=== PATIENT | female | born 1935 | race Caucasian/White ===

== ENCOUNTER → 2017-10-26 14:09 | Outpatient (CLI) | payer MEDICARE, OTHER, SELFPAY ==
[2017-10-26 15:40] LABS: Absolute Neutrophil Count 3.5 X10^3/uL (2.0-7.7); Basophil# 0.02 X10^3/uL; Basophil% 0.3 % (0-1); Eosinophil# 0.15 X10^3/uL; Eosinophils% 2.6 % (0-5); Hematocrit 36.6 % (37-47); Hemoglobin 12.3 g/dl (12.0-15.0); Lymphocyte % 25.9 % (19-41); Mean Corp Hgb Conc 33.6 g/gl (32-36); Mean Corpuscular Hgb 30.6 pg (27.0-32.0); Mean Platelet Vol. 11.3 fl (6.2-12.0); Monocyte% 10.4 % (0-10); Neutrophil # 3.51 X10^3/uL (2.7-7.7); Neutrophil % 60.6 % (47-70); Platelet Count 176 K/mm3 (150-450); RBC Distribution Width CV 12.4 % (11.6-14.6); RBC Distribution Width SD 40.6 fl (35.1-43.9); Red Blood Count 4.02 M/mm3 (4.2-5.4); White Blood Count 5.8 K/mm3 (4.4-11.0)
[2017-10-26 15:42] LABS: POSITIVE COUNT NO; POSITIVE DIFFERENTIAL NO; POSITIVE MORPHOLOGY NO
[2017-10-26 15:57] LABS: ALB/GLOB Ratio 1.1 RATIO (0.9-2.4); AST(SGOT) 21 U/L (15-37); Alanine Aminotransfer ALT/SGPT 10 U/L (13-56); Albumin, Serum 3.5 g/dL (3.2-5.0); Alkaline Phosphatase 53 U/L (45-117); Anion Gap 9 (5-15); BUN 32 mg/dL (7-18); BUN/Creat Ratio 27.8 RATIO (10-20); Calcium,Total 8.7 mg/dL (8.5-10.1); Chloride 108 mmol/L (98-107); Creatinine, Serum 1.15 mg/dL (0.55-1.02); EST Glomerular Filtration Rate 48 mL/min (>60); Est Glom Filt Rate - Afr Amer 58 mL/min (>60); Globulin 3.2 g/dL (2.2-4.2); Glucose 106 mg/dL (74-106); Potassium 3.9 mmol/L (3.5-5.1); Protein, Total 6.7 g/dL (6.4-8.2); Sodium Level 143 mmol/L (136-145)
[2017-10-26 16:11] LABS: Microalbumin:Creatinine Ratio 7.2 mg/g CRE (<30 mg/g CRE)
== END ==
PROVIDERS: Visit Provider Family Medicine
DX: N18.3 Chronic kidney disease, stage 3 (moderate) (principal); I12.9 Hypertensive chronic kidney disease with stage 1 through stage 4 chronic kidney disease, or unspecified chronic kidney disease
CPT/HCPCS: 36415; 80053; 82043; 82570; 85025

== ENCOUNTER → 2017-12-24 13:18 | Outpatient (CLI) | payer MEDICARE, OTHER, SELFPAY ==
--- NOTE | 2017-12-24 13:24 | RAD_ITS ---
STUDY: X-RAY - THORACIC SPINE REASON FOR EXAM: Female, 82 years old. Acquired kyphoscoliosis with chronic back pain. TECHNIQUE: AP and lateral view(s) of the thoracic spine were obtained. COMPARISON: MRI of the lumbar spine dated July 18, 2013. FINDINGS: There is an increase in the normal thoracic kyphosis. There is mild scoliosis of the thoracic and lumbar spine with convexity towards the right. Estimated amount angulation is approximately 33 degrees. There is demineralization of the thoracic spine with endplate spondylosis. There is multilevel disc space narrowing of the thoracic spine. There is atherosclerotic calcification of the thoracic aorta. RAD/Thoracic Spine 3 Views IMPRESSION: 1. Osteoporosis. 2. Multilevel degenerative disc disease of the thoracic spine. 3. Mild scoliosis. Electronically Signed: Sri Goldman MD at 11:51 EDT , Service support ,
--- NOTE | 2017-12-24 13:24 | RAD_ITS ---
STUDY: X-RAY - LUMBAR SPINE REASON FOR EXAM: Female, 82 years old. acquired kyphoscoliosis, chronic back pain TECHNIQUE: 5 view(s) of the lumbar spine were obtained. COMPARISON: None FINDINGS: Normal lumbar lordosis. There is dextroscoliosis. There is a normal alignment of the vertebrae. Stool throughout the colon. There are calcified phleboliths in the pelvis. This makes differentiation with distal ureteral stones difficult. This There is multilevel endplate spondylosis of the lumbar vertebrae. There is multi-level degenerative disc disease with multi-level disc space narrowing. There are atherosclerotic vascular calcifications. The soft tissue structures are unremarkable. RAD/L/S Spine Min 4 Views IMPRESSION: Degenerative changes of the spine, as detailed above. Electronically Signed: Newton Cosby MD at 17:20 EDT , Service support ,
--- NOTE | 2017-12-24 13:24 | RAD_ITS ---
STUDY: X-RAY - CERVICAL SPINE REASON FOR EXAM: Female, 82 years old. Chronic neck pain. TECHNIQUE: view(s) of the cervical spine were obtained. COMPARISON: Prior comparable comparison studies are not available for review at this time. FINDINGS: There are degenerative changes of the anterior atlantoaxial articulation. Normal odontoid process. Normal cervical lordosis. There is diffuse demineralization of the cervical spine. There is multi-level degenerative disc disease with multilevel disc space narrowing. There is multilevel spondylosis and degenerative arthropathy of the cervical spine. The soft tissue structures are unremarkable. There is no demonstrated fracture of the cervical spine. RAD/Cerv Spine 4 or 5 Views IMPRESSION: 1. Osteopenia. 2. Moderately severe multilevel degenerative disc disease and degenerative arthropathy of the cervical spine. Electronically Signed: Sri Goldman MD at 11:48 EDT , Service support ,
== END ==
PROVIDERS: Family Provider Family Medicine; PCP Family Medicine; Visit Provider Family Medicine
DX: M54.9 Dorsalgia, unspecified (principal); M41.9 Scoliosis, unspecified
CPT/HCPCS: 72050; 72072; 72110

== ENCOUNTER 2018-06-03 09:12 | Emergency (ER) | payer MEDICARE, OTHER, SELFPAY ==
[2018-06-03 09:13] VITALS: BP 135/70; PULSE 89; RESP 17; TEMP 36.9; O2SAT 97; BMI 21.5
--- NOTE | 2018-06-03 09:39 | CT_ITS ---
STUDY: CT ABDOMEN AND PELVIS WITHOUT CONTRAST REASON FOR EXAM: Female, 82 years old. ABD PAIN, N/V/D X 2 DAYS, HX BOWEL OBSTRUCTION. RADIATION DOSAGE (If Supplied By Facility): CTDIvol = ( 6.39 ) mGy, DLP = ( 287.20 ) mGycm TECHNIQUE: Transaxial images were obtained from the dome of the diaphragm to the symphysis pubis without oral contrast, and without intravenous contrast. Sagittal and coronal images were reconstructed. # of Images: 427 Individualized dose optimization techniques were used for this CT. COMPARISON: 09/17/2016 FINDINGS: The visualized lung bases are unremarkable. The visualized portions of the heart are within normal limits. Normal liver. There are multiple gallstones. Normal spleen. Normal pancreas. Normal bilateral adrenal glands. Normal right kidney. Normal left kidney. There is a small hiatal hernia. There is thickening of small bowel loops most prominent at the mid abdomen (axial image #99 series 2) there is surrounding infiltration. There is trace amount of free fluid surrounding the liver. There are multiple colonic diverticula consistent with diverticulosis. There is non-visualization of the appendix. There is diffuse atherosclerotic calcification of the abdominal aorta, without a demonstrated aneurysm. Normal inferior vena cava. Normal retroperitoneum. Normal urinary bladder. Normal abdominal wall. There are scoliosis and diffuse degenerative changes of the visualized lumbar spine. CT/Abdomen/Pelvis without Cont IMPRESSION: Thickening of small bowel. Trace free fluid. Differential considerations are infectious, inflammatory and neoplastic disease. Diverticulosis. Cholelithiasis. Electronically Signed: Luis Nance MD at 10:58 EDT Tel , Service support ,
--- NOTE | 2018-06-03 09:48 | ED.VISSUMM ---
- ER Visit Summary Date of Service: 06/03/18 Chief Complaint: [] Lower abdominal pain vomiting diarrhea since Thursday History of Present Illness: The patient is a 82 F [] the patient indicates on Thursday she developed lower abdominal pain vomiting and diarrhea, she indicates the diarrhea is watery she has had no antibiotics, no C. difficile, tainted food or exposures to others, she indicates the vomiting is much better the diarrhea has persisted to be watery and runny she also had persistence of the lower abdominal pain that is also better but has not resolved. She indicates as a child she had unspecified abdominal surgery and since that time she has had intermittent bowel obstructions the most recent one was a few years ago, her bowel obstructions are usually treated with NG tube she has not required surgery for bowel obstructions, she denies any other past history no medications no other complaints she points directly to her suprapubic area focus of her pain Physical Examination: [] The patient is resting comforting the bed her vital signs are unremarkable head neck unremarkable lungs are clear heart tones are normal the abdomen is soft there is some very mild pain in the suprapubic area there is no rebound guarding or megaly the back is unremarkable upper lower extremity unremarkable neurologically she is awake alert normal Test Results: [] Emergency Department Course and Treatment: [] Differential is extensive labs CT pain management, her laboratory workup was generally unremarkable see those reports creatinine 1.3 baseline about 1.[address] of the abdomen shows nothing acute except for what appears to be inflammation of some of the small bowel loops see that report the differential is extensive, see the listing by radiology, reevaluation the patient's resting comfortably in the bed her sons in the room with her she states she feels better, now planing of copious diarrhea she has not been able to provide stool sample for enteric pathogens or C. difficile again she is not been on antibiotics has no history of C. difficile etc. I explained all the test with results to her, I spoke with her physician Dr. Mono Ritter the patient wants to go home for outpatient management she is in a bland diet she will be seen in the next [address] Ritter will check all of the standing studies in addition he asked for a CRP and a sed rate that he will check and he will determine further management options once she is seen in the office. The patient is very comfort with this plan. Treatment Plan: [] Disposition: [] Home stable Impression: [] Nonspecific abdominal pain, nonspecific inflammation small bowel loops, history of diarrhea This note was generated with [employer] dictation software. It may contain incorrect words, spelling, and punctuation that were not noted in review of the chart prior to signing ED Disposition - Plan for ED Patient: Chief Complaint: Abd Pain Referrals: Mono Ritter MD [Primary Care Provider] -
[2018-06-03 09:56] LABS: Color, Urine Yellow (Yellow); Glucose, Dipstick Normal (Normal); Ketone-Dipstick 5 mg/dl (Negative); Leukocyte Esterase-Dipstick 100 /ul (Negative); Nitrite-Dipstick Negative (Negative); Occult Blood-Urine 10 /ul (Negative); Protein-Dipstick 100 mg/dl (Negative); Urine Clarity Sl. Cloudy (Clear); Urine Urobilinogen Normal (Normal)
[2018-06-03 10:00] LABS: Urine Bilirubin Dipstick 1 mg/dL (Negative)
[2018-06-03 10:19] LABS: Bacteria 1+ /hpf (None Seen); Mucous, Urine 1+ /hpf (<or=2+); Red Blood Cells-Urine 0-5 SEEN /hpf (0-5); Squamous Epithelial Cells - UA 0-5 SEEN /hpf (5-10); Transitional Epithelial - Ur 0 SEEN /hpf (0-5); White Blood Cells 0-5 SEEN /hpf (0-5)
[2018-06-03] MEDS: Ondansetron 4 MG/2 ML Vial IV (10:26)
[2018-06-03 10:29] LABS: Absolute Neutrophil Count 6.8 X10^3/uL (2.0-7.7); Basophil# 0.03 X10^3/uL; Basophil% 0.3 % (0-1); Eosinophil# 0.11 X10^3/uL; Eosinophils% 1.3 % (0-5); Hematocrit 43.3 % (37-47); Hemoglobin 14.3 g/dl (12.0-15.0); Lymphocyte % 12.8 % (19-41); Mean Corpuscular Hgb 29.9 pg (27.0-32.0); Mean Corpuscular Volume 90.6 fL (81-99); Mean Platelet Vol. 10.6 fl (6.2-12.0); Monocyte# 0.58 X10^3/uL; Monocyte% 6.8 % (0-10); Neutrophil # 6.75 X10^3/uL (2.7-7.7); Neutrophil % 78.7 % (47-70); Platelet Count 175 K/mm3 (150-450); RBC Distribution Width CV 12.6 % (11.6-14.6); RBC Distribution Width SD 40.8 fl (35.1-43.9); Red Blood Count 4.78 M/mm3 (4.2-5.4); White Blood Count 8.6 K/mm3 (4.4-11.0)
[2018-06-03] MEDS: Morphine 4 MG/ML Syringe IV (10:29)
[2018-06-03 10:32] LABS: POSITIVE COUNT NO; POSITIVE DIFFERENTIAL NO; POSITIVE MORPHOLOGY NO
[2018-06-03 10:44] LABS: AST(SGOT) 16 U/L (15-37); Alanine Aminotransfer ALT/SGPT 12 U/L (13-56); Albumin, Serum 3.7 g/dL (3.2-5.0); Alkaline Phosphatase 46 U/L (45-117); Anion Gap 8 (5-15); BUN 22 mg/dL (7-18); BUN/Creat Ratio 15.7 RATIO (10-20); Bilirubin, Direct 0.15 mg/dL (0.00-0.30); Calcium,Total 9.5 mg/dL (8.5-10.1); Chloride 108 mmol/L (98-107); EST Glomerular Filtration Rate 38 mL/min (>60); Est Glom Filt Rate - Afr Amer 46 mL/min (>60); Estimated Creatinine Clearance 26.07 ml/min; Globulin 3.2 g/dL (2.2-4.2); Glucose 90 mg/dL (74-106); Lipase 67 U/L (73-393); Potassium 4.4 mmol/L (3.5-5.1); Protein, Total 6.9 g/dL (6.4-8.2); Sodium Level 144 mmol/L (136-145)
[2018-06-03 11:15] VITALS: BP 115/51; PULSE 78; RESP 16; O2SAT 95
--- NOTE | 2018-06-03 12:00 | ED.DEP ---
ED Disposition - Plan for ED Patient: Chief Complaint: Abd Pain Instructions: ED Abdominal Pain Unkn Cause Referrals: Mono Ritter MD [Primary Care Provider] -
--- NOTE | 2018-06-03 12:14 | ED.RN ---
PATIENT UNABLE TO HAVE BOWEL MOVEMENT FOR STOOL SAMPLE. DR. BENJAMIN AWARE. OKAY TO DISCHARGE PATIENT.
[2018-06-03 12:15] VITALS: BP 119/61; PULSE 81; RESP 16; O2SAT 98
[2018-06-03 12:20] LABS: CRP 7.72 mg/L (0.0-3.0)
[2018-06-03 12:38] LABS: Erythrocyte Sedimentation Rate 5 mm/hr (0-30)
== END 2018-06-03 12:30 | disposition home or self-care (01) ==
PROVIDERS: Emergency Provider Emergency Medicine; Family Provider Family Medicine; PCP Family Medicine
DX: R10.9 Unspecified abdominal pain (principal); R11.0 Nausea; R19.7 Diarrhea, unspecified
CPT/HCPCS: 74176; 80048; 80076; 81001; 83690; 85025; 85652; 86140; 96361; 96374; 96375; 99283; J7030; J7040; A4216; J2405

== ENCOUNTER → 2018-10-04 09:55 | Outpatient (CLI) | payer MEDICARE, OTHER, SELFPAY | PROVIDERS: Family Provider Family Medicine; PCP Family Medicine; Visit Provider Family Medicine | DX: R19.7 Diarrhea, unspecified (principal) | CPT/HCPCS: 87493 ==

== ENCOUNTER → 2018-10-11 09:51 | Outpatient (CLI) | payer MEDICARE, OTHER, SELFPAY ==
[2018-10-11 12:26] LABS: Color, Urine Yellow (Yellow); Glucose, Dipstick Normal (Normal); Ketone-Dipstick Negative (Negative); Leukocyte Esterase-Dipstick 500 /ul (Negative); Nitrite-Dipstick Negative (Negative); Occult Blood-Urine 10 /ul (Negative); Protein-Dipstick 30 mg/dl (Negative); Specific Gravity, Urine 1.025 (1.002-1.030); Urine Urobilinogen Normal (Normal)
[2018-10-11 12:27] LABS: Urine Bilirubin Dipstick 1 mg/dL (Negative); Urine Clarity Sl Cldy (Clear)
[2018-10-11 13:19] LABS: ALB/GLOB Ratio 1.2 RATIO (0.9-2.4); AST(SGOT) 17 U/L (15-37); Alanine Aminotransfer ALT/SGPT 11 U/L (13-56); Albumin, Serum 3.7 g/dL (3.2-5.0); Alkaline Phosphatase 41 U/L (45-117); Anion Gap 10 (5-15); BUN 25 mg/dL (7-18); BUN/Creat Ratio 17.5 RATIO (10-20); Calcium,Total 8.9 mg/dL (8.5-10.1); Chloride 111 mmol/L (98-107); Cholesterol 170 mg/dL (200); Creatinine, Serum 1.43 mg/dL (0.55-1.02); EST Glomerular Filtration Rate 37 mL/min (>60); Est Glom Filt Rate - Afr Amer 45 mL/min (>60); Glucose 89 mg/dL (74-106); High Density Lipoprotein 77 mg/dL; Potassium 4.2 mmol/L (3.5-5.1); Protein, Total 6.7 g/dL (6.4-8.2); Sodium Level 146 mmol/L (136-145); Triglycerides 97 mg/dL; Very Low Density Lipoprotein 19 mg/dL (5-40)
== END ==
PROVIDERS: Family Provider Family Medicine; PCP Family Medicine; Visit Provider Nurse Practitioner Family
DX: I10 Essential (primary) hypertension (principal); E78.00 Pure hypercholesterolemia, unspecified
CPT/HCPCS: 36415; 80053; 80061; 81002

== ENCOUNTER → 2018-11-30 11:51 | Outpatient (CLI) | payer MEDICARE, OTHER, SELFPAY ==
[2018-11-30 13:04] LABS: Anion Gap 8 (5-15); Chloride 108 mmol/L (98-107); Potassium 4.1 mmol/L (3.5-5.1); Sodium Level 143 mmol/L (136-145)
== END ==
PROVIDERS: Family Provider Family Medicine; PCP Family Medicine; Referring Provider Otolaryngology Otolaryngology/Facial Plastic Surgery; Visit Provider Otolaryngology Otolaryngology/Facial Plastic Surgery
DX: Z79.899 Other long term (current) drug therapy (principal)
CPT/HCPCS: 36415; 80051

== ENCOUNTER → 2018-12-07 15:00 | Outpatient (CLI) | payer MEDICARE, OTHER, SELFPAY ==
[2018-12-07 15:45] LABS: CREATININE FINGERSTICK 1.4 mg/dL (0.55-1.02)
--- NOTE | 2018-12-07 16:00 | MRI_ITS ---
STUDY: MRI BRAIN WITHOUT CONTRAST REASON FOR EXAM: Female, 83 years old. Right tinnitus. Hearing loss. Dizziness. Symptoms times one and a half months. TECHNIQUE: Standardized multiplanar fat and water weighted pulse sequences were obtained. COMPARISON: None. FINDINGS: There is no restricted diffusion to indicate ischemia/edema. Normal size of the ventricles and extra-axial spaces for the patient's age. There are multiple discrete and confluent white matter hyperintensities, distributed throughout the deep white matter tracts of the cerebral hemispheres, consistent with moderate chronic white matter ischemic changes. Normal bilateral basal ganglia. Normal thalami. There is no extra-axial fluid accumulation. Normal flow voids within the major intracranial circulation suggesting patency by spin echo criteria. Normal sella turcica, pituitary gland, infundibular stalk, optic chiasm and hypothalamus. Normal tectal plate and pineal gland. Normal midbrain, hasmukh and medulla. Normal cerebellum. Normal basal cisterns. Normal bilateral temporal bones. Normal bilateral internal auditory canals. No demonstrated orbital abnormality, within the constraints of a routine brain study. Normal visualized paranasal sinuses. Normal calvarium and skull base. Normal visualized soft tissue structures. Normal visualized upper cervical spine. MRI/Brain without Contrast IMPRESSION: No mass or mass effect. No restricted diffusion to indicate ischemia/edema. Multiple discrete and confluent supratentorial white matter foci of FLAIR and T2 hyperintensity. These findings are nonspecific but most common of the due to chronic small vessel disease. Electronically Signed: Chip Schultz MD at 16:37 EDT , Service support ,
== END ==
PROVIDERS: Family Provider Family Medicine; PCP Family Medicine; Referring Provider Otolaryngology Otolaryngology/Facial Plastic Surgery; Visit Provider Otolaryngology Otolaryngology/Facial Plastic Surgery
DX: H90.41 Sensorineural hearing loss, unilateral, right ear, with unrestricted hearing on the contralateral side (principal); H93.11 Tinnitus, right ear; Z01.812 Encounter for preprocedural laboratory examination
CPT/HCPCS: 70551

== ENCOUNTER → 2019-07-09 10:04 | Outpatient (CLI) | payer MEDICARE, OTHER, SELFPAY ==
[2019-07-09 11:28] LABS: Anion Gap 6 (5-15); BUN 26 mg/dL (7-18); BUN/Creat Ratio 22.2 RATIO (10-20); Calcium,Total 8.6 mg/dL (8.5-10.1); Chloride 113 mmol/L (98-107); Creatinine, Serum 1.17 mg/dL (0.55-1.02); EST Glomerular Filtration Rate 47 mL/min (>60); Est Glom Filt Rate - Afr Amer 57 mL/min (>60); Glucose 92 mg/dL (74-106); Potassium 4.6 mmol/L (3.5-5.1); Sodium Level 143 mmol/L (136-145)
== END ==
PROVIDERS: Family Provider Family Medicine; PCP Family Medicine; Referring Provider Family Medicine; Visit Provider Family Medicine
DX: I10 Essential (primary) hypertension (principal)
CPT/HCPCS: 36415; 80048

== ENCOUNTER → 2019-10-19 10:46 | Outpatient (CLI) | payer MEDICARE, OTHER, SELFPAY ==
[2019-10-19 12:14] LABS: Absolute Lymphocyte Count 1.17 X10^3/uL (0.83-4.51); Absolute Neutrophil Count 5.9 X10^3/uL (2.0-7.7); Basophil# 0.03 X10^3/uL; Basophil% 0.4 % (0-1); Eosinophils% 3.7 % (0-5); Hematocrit 38.6 % (37-47); Hemoglobin 12.2 g/dL (12.0-15.0); Lymphocyte # 1.17 X10^3/ul (4.0); Lymphocyte % 14.4 % (19-41); Mean Corp Hgb Conc 31.6 g/dL (32-36); Mean Corpuscular Volume 91.7 fL (81-99); Mean Platelet Vol. 11.7 fl (6.2-12.0); Monocyte% 8.6 % (0-10); NRBC Flagged by Analyzer 0 % (0-5); Neutrophil # 5.92 X10^3/uL (2.7-7.7); Neutrophil % 72.5 % (47-70); Platelet Count 153 K/mm3 (150-450); RBC Distribution Width CV 13.6 % (11.6-14.6); RBC Distribution Width SD 45.6 fl (35.1-43.9); Red Blood Count 4.21 M/mm3 (4.2-5.4); White Blood Count 8.2 K/mm3 (4.4-11.0)
[2019-10-19 13:02] LABS: Vitamin B12 272 pg/mL (211-911); Vitamin D,25 Hydroxy 46.4 ng/mL
[2019-10-19 13:25] LABS: ALB/GLOB Ratio 1.1 RATIO (0.9-2.4); AST(SGOT) 21 U/L (15-37); Alanine Aminotransfer ALT/SGPT 15 U/L (13-56); Albumin, Serum 3.6 g/dL (3.2-5.0); Alkaline Phosphatase 40 U/L (45-117); Anion Gap 6 (5-15); BUN 30 mg/dL (7-18); BUN/Creat Ratio 25.9 RATIO (10-20); Calcium,Total 8.8 mg/dL (8.5-10.1); Chloride 115 mmol/L (98-107); Cholesterol 172 mg/dL (200); Creatinine, Serum 1.16 mg/dL (0.55-1.02); EST Glomerular Filtration Rate 47 mL/min (>60); Est Glom Filt Rate - Afr Amer 57 mL/min (>60); Globulin 3.2 g/dL (2.2-4.2); Glucose 80 mg/dL (74-106); High Density Lipoprotein 82 mg/dL; Magnesium 2.1 mg/dL (1.6-2.6); Potassium 3.9 mmol/L (3.5-5.1); Protein, Total 6.8 g/dL (6.4-8.2); Sodium Level 142 mmol/L (136-145); Thyroid Stim Hormone (TSH) 1.64 uIU/mL (0.358-3.74); Triglycerides 70 mg/dL; Very Low Density Lipoprotein 14 mg/dL (5-40)
[2019-10-19 14:20] LABS: Microalbumin,Random Urine 5.5 mg/L (NO RANGE EST.); Microalbumin:Creatinine Ratio 4.9 mg/g CRE (<30 mg/g CRE)
== END ==
PROVIDERS: PCP Family Medicine; Referring Provider Family Medicine; Visit Provider Family Medicine
DX: I12.9 Hypertensive chronic kidney disease with stage 1 through stage 4 chronic kidney disease, or unspecified chronic kidney disease (principal); N18.3 Chronic kidney disease, stage 3 (moderate); E78.00 Pure hypercholesterolemia, unspecified; M81.0 Age-related osteoporosis without current pathological fracture
CPT/HCPCS: 36415; 80053; 80061; 82043; 82306; 82570; 82607; 82746; 83735; 84443; 85025

== ENCOUNTER → 2019-12-20 12:04 | Outpatient (CLI) | payer MEDICARE, OTHER, SELFPAY ==
--- NOTE | 2019-12-20 12:11 | BI_ITS ---
MAMMOGRAPHY - BILATERAL SCREENING REASON FOR EXAM: Female, 84 years old. Routine annual screening examination. PERTINENT HISTORY: Non-contributory. TECHNIQUE: Digital bilateral breast gildardo (3D mammographic acquisition) in the CC and MLO projections. 2-D mediolateral oblique (MLO) and craniocaudad (CC) views of both breasts were obtained. CAD: Full Field Digital Mammography with Computer Added Detection was performed. COMPARISON: Comparison is made with prior examination dated October 21, 2016 and August 31, 2014. FINDINGS: Breast Composition: The breasts are heterogeneously dense, which may obscure small masses. There are no dominant masses or suspicious calcifications. Stable benign-appearing bilateral axillary lymph nodes. No other significant abnormalities are identified. There has been no significant change since the prior study. BI/SCREEN MAMM (CAD) W/GILDARDO BILAT IMPRESSION: Stable bilateral screening mammogram. Yearly follow-up mammogram recommended. (A) ASSESSMENT CATEGORY: BIRADS Category 2: Benign. A letter regarding these results will be sent to the patient by the facility within 30 days. Approximately 10% of breast cancers are not detected by mammography. A normal mammogram should not delay biopsy of a clinically suspicious abnormality. [id number] Electronically Signed: Vijay Mosley, at 13:29 EDT , Service support ,
--- NOTE | 2019-12-20 12:17 | BD_ITS ---
STUDY: DUAL ENERGY X-RAY ABSORPTIOMETRY / DXA REASON FOR EXAM: Female, 84 years old. 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 COMPARISON: Comparison is made with prior study dated February 19, 2017. FINDINGS: Lumbar Spine (L1-L4): g/cm2 (1.261) / T-score (0.5) / Z-score (2.4) Findings are suggestive of normal bone density with a low fracture risk. Increased kyphosis. Left Femur Total: g/cm2 (0.738) / T-score (-2.1) / Z-score (0.0) Left Femoral Neck: g/cm2 (0.707) / T-score (-2.4) / Z-score (-0.1) Right Femur Total: g/cm2 (0.703) / T-score (-2.4) / Z-score (-0.3) Right Femoral Neck: g/cm2 ( ) / T-score (-2.3) / Z-score (0.0) The T-Scores on the most recent prior examination were: Lumbar Spine (L1-L4): There has been improvement of bone density since the previous examination. Left Femur Total: which represents a worsening of 0.7%. Right Femur Total: which represents an improvement of 2%. BD/Dexa Bone Density Study IMPRESSION: The patient is considered osteopenic as outlined below according to World Agusto Organization (WHO) criteria with a high fracture risk. There has been improvement of bone density since the previous examination. Reference Information: The T-score is the number of standard deviations above or below the standard which is normal for young adults at their peak bone mineral density. The World Health Organization (WHO) interprets the T-scores as follows: Above -1 Normal bone density Between -1 and -2.5 Osteopenia Equal to / or below -2.5 Osteoporosis As a practical clinical guideline, osteopenia may be graded as follows: Mild -1 through -1.5 Moderate -1.6 through -2.0 Severe -2.1 through -2.4 The Z-score is the number of standard deviations above or below age-matched controls. A Z-score of less than -1.5 would be considered abnormal. References: 1. NIH Osteoporosis and Related Bone Diseases http://www.osteo.org 2. International Society for Clinical Densitometry http://www.iscd.org 3. National Osteoporosis Foundation http://www.nof.org Electronically Signed: Vijay Mosley, at 14:03 EDT , Service support ,
== END ==
PROVIDERS: PCP Family Medicine; Referring Provider Family Medicine; Visit Provider Family Medicine
DX: Z12.31 Encounter for screening mammogram for malignant neoplasm of breast (principal); M81.0 Age-related osteoporosis without current pathological fracture
CPT/HCPCS: 77063; 77067; 77080

== ENCOUNTER → 2020-02-13 10:40 | Outpatient (CLI) | payer MEDICARE, OTHER, SELFPAY ==
[2020-01-25 12:57] VITALS: BMI 22.1
[2020-02-14 07:48] LABS: Probe Check PASS; Specimen Processing Control PASS
== END ==
PROVIDERS: PCP Family Medicine; Visit Provider Surgery
DX: Z11.59 Encounter for screening for other viral diseases (principal)
CPT/HCPCS: 87635; G2023; U0003

== ENCOUNTER 2020-02-14 05:51 | Day surgery (SDC) | payer MEDICARE, OTHER, SELFPAY ==
[2020-01-25 12:57] VITALS: BMI 22.1
[2020-02-14] VITALS (13 sets, daily range): BP systolic 107–166; BP diastolic 48–88; PULSE 69–91; RESP 16; TEMP 36.1–36.5; O2SAT 94–100; BMI 21.2
--- NOTE | 2020-02-14 | COLBX_PTH ---
PATIENT: JOSE MARTIN ESCALERA LOC: EN U#:[id number] AGE/SX: 84/F ROOM: RE02/14/[address]: Dr. Constantin Barros MD : [id number] BED: DIS: 02/14/2020 SPEC #: [id number] RECD: 02/14/20 14:08 STATUS: SRAVAN JEFFREY #: [id number] BRICE: 02/14/20 00:[address]: Constantin Barros DEPT: SURGICAL PATHOLOGY RECD BY: Daryl Wagner ENTERED: 02/14/20 14:09 SP TYPE: COLON BX OTHR DR: Dr. Mono Ritter MD Tissues: A - Duodenum, NOS B - Gastric mucous membrane C - Gastric mucous membrane Procedures: Special Stain Group II Surgery Specimen Level IV Alcian Blue/PAS (control) HEADER OPERATION: Colonoscopy, EGD (MOD) PRE-OP DIAGNOSIS: Guaiac positive stools TISSUE SUBMITTED: A - Duodenum biopsy, B - Antrum biopsy for H. pylori and path, C - GE junction biopsy MICROSCOPIC DIAGNOSIS A. 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 B. Antrum, biopsy: Mild gastritis. See microscopic description and comment. C. GE junction, biopsy: Fragments of gastroesophageal mucosa with mild chronic inflammation. Intestinal metaplasia (goblet cell metaplasia) is not identified. See comment. SJ:pat 02/15/20 COMMENT B. The results of immunohistochemistry for Helicobacter pylori will be reported separately ([id number]). C. Alcian blue/PAS stain with matched control is used in the evaluation of the specimen. MICROSCOPIC DESCRIPTION Slides are reviewed. B. The specimen shows fragments of gastric mucosa with chronic inflammatory cell infiltrates in the lamina propria consisting of lymphocytes and plasma cells, consistent with mild chronic gastritis. GROSS DESCRIPTION A - Received in fixative is one container labeled with the patient's name and designated duodenum biopsy. The specimen consists of two irregular fragments of light aguilar soft tissue that in aggregate measure 0.5 x 0.3 x 0.1 cm. The specimen is totally submitted in one cassette. B - Received in fixative is one container labeled with the patient's name and designated antrum biopsy. The specimen consists of one irregular fragment of light aguilar soft tissue that measures 0.5 x 0.2 x 0.1 cm. The specimen is totally submitted in one cassette. C - Received in fixative is one container labeled with the patient's name and designated GE junction biopsy. The specimen consists of multiple irregular fragments of light aguilar soft tissue that in aggregate measure 0.6 x 0.4 x 0.1 cm. The specimen is totally submitted in one cassette. / SJ:rg 02/14/20 TC:3 CPT: 74111 x3, 56209
[2020-02-14] MEDS: Lactated Ringers 1,000 ML 100 ML IV (06:27)
--- NOTE | 2020-02-14 06:28 | HP.PCM_ITS ---
Problem List (1) Guaiac positive stools Status: Acute History and Physical Date of Admission: 02/14/20 Intake Visit Reasons: Rectal Abnormality Chief Complaint: abd pain Mobile Product Manager Required: No Is patient in pain?: No Allergies Iodinated Contrast Media Adverse Reaction (Verified 01/25/20 12:58) Other KIDNEY MEDICINE Allergy (Uncoded 01/25/20 12:58) Hives Medications Alendronate Sodium 35 mg PO MO 09/17/16 [History Confirmed 01/25/20] Amlodipine [Norvasc] 10 mg PO DAILY 09/17/16 [History Confirmed 01/25/20] Atorvastatin Calcium [Lipitor] 20 mg PO QHS 09/17/16 [History Confirmed 01/25/20] Cholecalciferol (Vitamin D3) [Vitamin D3] 2,000 unit PO DAILY 09/17/16 [History Confirmed 01/25/20] Docusate Sodium [Colace] 100 mg PO DAILY 09/17/16 [History Confirmed 01/25/20] Lactobacillus Acidophilus [Acidophilus] 1 ea PO BID 09/17/16 [History Confirmed 01/25/20] acetazolamide 250 mg tablet 250 mg PO DAILY 01/25/20 [History Confirmed 01/25/20] ascorbic acid (vitamin C) 500 mg tablet 500 mg PO DAILY 01/25/20 [History Confirmed 01/25/20] calcium carbonate 600 mg calcium (1,500 mg) tablet 600 mg PO DAILY 01/25/20 [History Confirmed 01/25/20] denosumab 60 mg/mL subcutaneous syringe 60 mg SC [id number] 01/25/20 [History Confirmed 01/25/20] flaxseed oil 1,000 mg capsule 1,000 mg PO DAILY 01/25/20 [History Confirmed 01/25/20] lansoprazole 15 mg capsule,delayed release 15 mg PO DAILY 01/25/20 [History Confirmed 01/25/20] levocetirizine 5 mg tablet 5 mg PO DAILY 01/25/20 [History Confirmed 01/25/20] losartan 100 mg tablet 100 mg PO DAILY 01/25/20 [History Confirmed 01/25/20] multivitamin 1 tab PO DAILY 01/25/20 [History Confirmed 01/25/20] psyllium husk 0.52 gram capsule 0.52 g PO DAILY 01/25/20 [History Confirmed 01/25/20] triamcinolone acetonide 0.025 % topical cream 1 applic TOPICAL DAILY 01/25/20 [History Confirmed 01/25/20] zinc gluconate 30 mg tablet 30 mg PO DAILY 01/25/20 [History Confirmed 01/25/20] [facility] Medical History (Updated 01/25/20 @ 13:[address] Constantin Barros MD) Guaiac positive stools (Acute) Dyslipidemia (Chronic) HTN (hypertension) (Chronic) BCC (basal cell carcinoma of skin) (Acute) GERD (gastroesophageal reflux disease) (Acute) Hypercholesteremia (Acute) Menieres disease (Acute) SBO (small bowel obstruction) (Acute) Scoliosis (Acute) CKD (chronic kidney disease) stage 3, GFR 30-59 ml/min (Chronic) Surgical History S/P hysterectomy (Acute) s/p exploratory laparoscopy (Acute) s/p vein strippling (Acute) Social History (Updated 01/25/20 @ 13:[address] Constantin Barros MD) Smoking Status: Former smoker alcohol intake: never HPI HPI HPI: JOSE MARTIN ESCALERA, is a 84 F who presents to the office today for surgical consultation regarding Hemoccult-positive stool and possible rectal abnormality that prolapses. The patient is referred by her primary care is Dr. Mono Ritter and a written copy my surgical consult recommendations will be returned to him. 84-year-old female. Apparently July she had cough and fever and was not feeling her best. There was concern that she had a prolapsing internal hemorrhoid or possibly even a mass at the edge of the rectum. Stool card was checked and it was positive. Fortunately on October 19, 2019 her white blood cell count was 8.2 hemoglobin 12.2 hematocrit 30.6 platelet count 153,000. She was referred to culinary arts instructor Dr. Jacques Gong. The patient claims it took 2 months to get an appointment. The patient states that that interview was different and that Dr. Gong culinary arts instructor declined doing any type of scope exams on the patient stating that she was too old. Apparently according to her he recommended a CT scan but he did not order it and sent the patient back to primary care. This is despite the fact that April 16, 2012 Dr. Gong had performed a colonoscopy on her. I do not have the operative note but I have pathology suggesting biopsies from the terminal ileum right colon left colon all were normal. The patient reflects that she has had abdominal problems ever since a hysterectomy gone wrong with bowel injury back when she was approximately 39. Since that time she apparently has had hospitalizations for small bowel obstruction but is never required repeated laparotomy. She thinks her most recent hospital station for bowel obstruction was maybe 5 years ago. She will intermittently have some abdominal discomfort. But currently she is stable. She has not noticed any bright red blood per rectum or melena. She is not currently having any abdominal pain no current nausea or vomiting. She states that whereas earlier during the wintertime she was feeling fatigued that this is improving though she has slight residual fatigue. She states that her current weight is stable. She denies any family history of colon cancer. She states that she is never had any peptic ulcer disease however she is on lansoprazole 15 mg daily. HPI HPI HPI: JOSE MARTIN ESCALERA, is a 84 F who presents to the office today for Exam Const General: cooperative, comfortable, no acute distress Nutritional Appearance: underweight Orientation: alert, awake HENMT Head: normal to inspection Chest Chest palpation & inspection: normal inspection of the chest Resp Effort & Inspection: normal respiratory effort Auscultation: clear to auscultation bilaterally Cardio Rate: regular rate Rhythm: regular rhythm GI Palpation: soft, no hepatosplenomegaly Auscultation: normal bowel sounds Other: Well-healed Pfannenstiel incision, well-healed right asher-rectus incision that extends from the pubis to superior to the umbilicus. Soft, nontender, no masses, no rebound, no guarding Rectal exam: Minimal external hemorrhoidal changes. Digital exam some mild internal hemorrhoids but nothing specific. Very slight prolapse of internal hemorrhoid tissue left lateral with straining Musc Cervical Spine: normal cervical lordosis Neuro Cognition: normal cognition Extrem General: no calf tenderness Psych Affect: normal affect Assessment & Plan Problems 1. Guaiac positive stools R19.5 Plan Hemoccult positive stool. Current proton pump inhibitor treatment. Some internal hemorrhoidal prolapse. The amount of hemorrhoidal disease today is not exuberant. The patient otherwise currently appears to have a stable quality of life. I have discussed with her consideration for combined esophagogastroduodenoscopy with possible biopsy and colonoscopy with possible biopsy or polypectomy as indicated. She is aware of the technique, benefit, risks, alternatives. Just age related I do not feel that she should meet exclusion. She is aware of the Covid-19 pandemic. She is aware that she is at increased interventional risk however the CT scan recommended would not provide equal diagnostic efficacy as endoscopy and patient states that she has IV contrast allergy and Dr. Gong did not follow through with the testing that he offered. She has had an opportunity to ask and have questions answered. She would like to have an opportunity to consider the treatment options. We will provide i nformation regarding bowel prep and potential scheduling. The patient is to recontact us with a decision as to how she would like to proceed. I appreciate the opportunity of assisting with her surgical care. Cc: Dr. Mono Barros M.D., F.A.C.S. Coding Level of Care Code 07638 Diagnoses Guaiac positive stools R19.5 01/25/20 1326 <Electronically signed by Constantin bach MD> Date _ Constantin Barros MD I have re-examined the patient. There are no clinical changes since date of exam. Procedure Criteria Procedure Type: Elective COVID Risk Discussion: The surgeon/proceduralist and patient have discussed in detail the risk of exposure to and/or potential harm posed by the COVID-19 virus with having a surgery/procedure at this time versus the risk of delaying the surgery/procedure. It is not possible to know either the risk of delaying the surgery or procedure or chance of getting an infection with perfect accuracy, but a joint decision was made between the patient and the surgeon/proceduralist to proceed at this time with the scheduled surgery/procedure as indicated on the consent form.
--- NOTE | 2020-02-14 07:00 | IMM_PTH ---
PATIENT: JOSE MARTIN ESCALERA LOC: [facility] U#:[id number] AGE/SX: 84/F ROOM: RE02/14/[address]: Dr. Constantin Barros MD : 1935 BED: DIS: 02/14/2020 SPEC #: [id number] RECD: 02/15/20 10:02 STATUS: SRAVAN RENichole #: [id number] BRICE: 02/14/20 07:[address]: Constantin Barros DEPT: IMMUNOHISTOCHEMISTRY RECD BY: Suyapa Jenkins ENTERED: 02/15/20 10:02 SP TYPE: IMMUNO OTHR DR: Dr. Mono Ritter MD Tissues: B - Stomach, NOS Procedures: H Pylori (initial) PHYSICIAN & INSTITUTION [place] [id number] SPECIMEN INFORMATION: Tissue Source: B - Antrum biopsy Clinical Info: Guaiac positive stools Specimen Number: [id number] CPT code: 50918 METHODOLOGY: Deparaffinized sections of prefer/formalin-fixed tissue or PAP/DQ stained slides are incubated with monoclonal/polyclonal antibodies/oligonucleotide probes. Localization is made via biotin free immunoperoxidase method. Appropriate controls are performed and reacted as expected. Results on target cell population are indicated in the following table: RESULTS: ANTIBODY / CLONE RESULT Block B H Pylori (polyclonal) negative These tests were developed and their performance characteristics determined by [facility]. They may not have been cleared or approved by the U.S. Food and Drug Administration. The FDA has determined that such clearance or approval is not necessary. INTERPRETATION: B. Antrum biopsy: Negative for Helicobacter pylori organisms. SJ:pat 02/15/20
--- NOTE | 2020-02-14 07:58 | OP.EGD_ITS ---
Patient Name: Génesis London Procedure Date: 02/14/2020 7:07 AM Date of : 1935 Age: 84 Procedure: Upper GI endoscopy Indications: Heme positive stool Providers: Constantin Barros MD Referring MD: Mono Ritter Medicines: Midazolam 2.5 mg IV, Meperidine 75 mg IV Complications: No immediate complications. Procedure: Pre-Anesthesia Assessment: - Prior to the procedure, a History and Physical was performed, and patient medications and allergies were reviewed. The patient's tolerance of previous anesthesia was also reviewed. The risks and benefits of the procedure and the sedation options and risks were discussed with the patient. All questions were answered, and informed consent was obtained. Prior Anticoagulants: The patient has taken no previous anticoagulant or antiplatelet agents. ASA Grade Assessment: II - A patient with mild systemic disease. After reviewing the risks and benefits, the patient was deemed in satisfactory condition to undergo the procedure. After obtaining informed consent, the endoscope was passed under direct vision. Throughout the procedure, the patient's blood pressure, pulse, and oxygen saturations were monitored continuously. The Endoscope was introduced through the mouth, and advanced to the second part of duodenum. The upper GI endoscopy was accomplished without difficulty. The patient tolerated the procedure well. Moderate Sedation: Moderate (conscious) sedation was personally administered by the endoscopist. The following parameters were monitored: oxygen saturation, heart rate, blood pressure, and response to care. Total physician intraservice time was 15 minutes. Scope In: 7:17:08 AM Scope Out: 7:21:31 AM Total Procedure Duration Time 0 hours 4 minutes 23 seconds Findings: Esophagitis with no bleeding was found 39 cm from the incisors. Biopsies were taken with a cold forceps for histology. A large hiatal hernia was present. The entire examined stomach was normal. Biopsies were taken with a cold forceps for histology. The examined duodenum was normal. Biopsies were taken with a cold forceps for histology. Impression: - Reflux esophagitis. Biopsied. - Large hiatal hernia. - Normal stomach. Biopsied antrum - Normal examined duodenum. Biopsied. Recommendation: - Discharge patient to home. - Resume previous diet. - Continue present medications. - Telephone my office for pathology results in 1 week. Procedure Code(s): --- Professional --- 60452, Esophagogastroduodenoscopy, flexible, transoral; with biopsy, single or multiple 23737, 59, Moderate sedation services provided by the same physician or other qualified health director career performing the diagnostic or therapeutic service that the sedation supports, requiring the presence of an independent trained observer to assist in the monitoring of the patient's level of consciousness and physiological status; initial 15 minutes of intraservice time, patient age 5 years or older Diagnosis Code(s): --- Professional --- K21.0, Gastro-esophageal reflux disease with esophagitis K44.9, Diaphragmatic hernia without obstruction or gangrene R19.5, Other fecal abnormalities CPT copyright 2017 [place]. All rights reserved. The codes documented in this report are preliminary and upon front line supervisor review may be revised to meet current compliance requirements. Constantin Barros MD 02/14/2020 7:58:32 AM This report has been signed electronically. Number of Addenda: 0 Note Initiated On: 02/14/2020 7:07 AM
--- NOTE | 2020-02-14 07:59 | OP.CCLET_ITS ---
02/14/2020 Mono Ritter [address] [facility] [address] [place] [address] Re : Upper GI endoscopy procedure for Génesis London Dear Dr. Ritter This procedure was performed on Friday, February 14, 2020. My impressions and recommendations are as follows: Impressions : - Reflux esophagitis. Biopsied. - Large hiatal hernia. - Normal stomach. Biopsied antrum - Normal examined duodenum. Biopsied. Recommendations : - Discharge patient to home. - Resume previous diet. - Continue present medications. - Telephone my office for pathology results in 1 week. My findings are described in the full procedure note, which is enclosed. If I can be of further assistance, please feel free to contact me at Doctor phone number(s): Work: . Sincerely, Constantin Barros MD 02/14/2020 7:58:32 AM This report has been signed electronically.
--- NOTE | 2020-02-14 08:03 | OP.CCLET_ITS ---
02/14/2020 Mono Ritter [address] [place] [address] Re : Colonoscopy procedure for Génesis London Dear Dr. Ritter This procedure was performed on Friday, February 14, 2020. My impressions and recommendations are as follows: Impressions : - Non-thrombosed internal hemorrhoids and internal hemorrhoids that prolapse with straining, but require manual replacement into the anal canal (Grade III) found on digital rectal exam. - Diverticulosis in the sigmoid colon and in the descending colon. - Diverticulosis in the transverse colon and in the ascending colon. - Tortuous colon. - No specimens collected. Suspect internal hemorrhoids as possible source for hemocult positive stool Recommendations : - Discharge patient to home. - Resume previous diet. - Continue present medications. - Repeat colonoscopy is not recommended due to current age (66 years or older) for screening purposes. My findings are described in the full procedure note, which is enclosed. If I can be of further assistance, please feel free to contact me at Doctor phone number(s): Work: . Sincerely, Constantin Barros MD 02/14/2020 8:02:49 AM This report has been signed electronically.
--- NOTE | 2020-02-14 08:03 | OP.COLON_ITS ---
Patient Name: Génesis London Procedure Date: 02/14/2020 7:22 AM Date of : 1935 Age: 84 Procedure: Colonoscopy Indications: Heme positive stool Providers: Constantin Barros MD Referring MD: Mono Ritter Medicines: Midazolam 0.5 mg IV, Meperidine 25 mg IV Patient Profile: Last Colonoscopy: March 2012. Complications: No immediate complications. Procedure: Pre-Anesthesia Assessment: - Prior to the procedure, a History and Physical was performed, and patient medications and allergies were reviewed. The patient's tolerance of previous anesthesia was also reviewed. The risks and benefits of the procedure and the sedation options and risks were discussed with the patient. All questions were answered, and informed consent was obtained. Prior Anticoagulants: The patient has taken no previous anticoagulant or antiplatelet agents. ASA Grade Assessment: II - A patient with mild systemic disease. After reviewing the risks and benefits, the patient was deemed in satisfactory condition to undergo the procedure. After I obtained informed consent, the scope was passed under direct vision. Throughout the procedure, the patient's blood pressure, pulse, and oxygen saturations were monitored continuously. The Colonoscope was introduced through the anus and advanced to the cecum, identified by appendiceal orifice and ileocecal valve. The colonoscopy was extremely difficult due to multiple diverticula in the colon. Successful completion of the procedure was aided by changing the patient to a supine position. The patient tolerated the procedure well. The quality of the bowel preparation was good. Moderate Sedation: Moderate (conscious) sedation was personally administered by the endoscopist. The following parameters were monitored: oxygen saturation, heart rate, blood pressure, and response to care. Total physician intraservice time was 15 minutes. Scope In: 7:24:02 AM Scope Withdrawal Time 0 hours 6 minutes 19 seconds Scope Out: 7:53:11 AM Total Procedure Duration Time 0 hours 29 minutes 9 seconds Findings: The digital rectal exam findings include non-thrombosed internal hemorrhoids and internal hemorrhoids that prolapse with straining, but require manual replacement into the anal canal (Grade III). Multiple diverticula were found in the sigmoid colon and descending colon. Scattered diverticula were found in the transverse colon and ascending colon. The colon (entire examined portion) was moderately tortuous. Impression: - Non-thrombosed internal hemorrhoids and internal hemorrhoids that prolapse with straining, but require manual replacement into the anal canal (Grade III) found on digital rectal exam. - Diverticulosis in the sigmoid colon and in the descending colon. - Diverticulosis in the transverse colon and in the ascending colon. - Tortuous colon. - No specimens collected. Suspect internal hemorrhoids as possible source for hemocult positive stool Recommendation: - Discharge patient to home. - Resume previous diet. - Continue present medications. - Repeat colonoscopy is not recommended due to current age (66 years or older) for screening purposes. Procedure Code(s): --- Professional --- 76200, Colonoscopy, flexible; diagnostic, including collection of specimen(s) by brushing or washing, when performed (separate procedure) 03586, 59, Moderate sedation services provided by the same physician or other qualified health lawn caretaker performing the diagnostic or therapeutic service that the sedation supports, requiring the presence of an independent trained observer to assist in the monitoring of the patient's level of consciousness and physiological status; initial 15 minutes of intraservice time, patient age 5 years or older Diagnosis Code(s): --- Professional --- K64.2, Third degree hemorrhoids R19.5, Other fecal abnormalities K57.30, Diverticulosis of large intestine without perforation or abscess without bleeding Q43.8, Other specified congenital malformations of intestine CPT copyright 2017 [employer]. All rights reserved. The codes documented in this report are preliminary and upon broiler supervisor review may be revised to meet current compliance requirements. Constantin Barros MD 02/14/2020 8:02:49 AM This report has been signed electronically. Number of Addenda: 0 Note Initiated On: 02/14/2020 7:22 AM
== END 2020-02-14 09:42 | disposition home or self-care (01) ==
LOC: EN 05:52 → AC 05:53
PROVIDERS: PCP Family Medicine; Referring Provider Family Medicine; Visit Provider Surgery
PROC: 0DJD8ZZ Inspection of Lower Intestinal Tract, Via Natural or Artificial Opening Endoscopic (ICD-10-PCS; CPT 45378; principal; 2020-02-14 06:55)
DX: K21.0 Gastro-esophageal reflux disease with esophagitis (principal); K44.9 Diaphragmatic hernia without obstruction or gangrene; R19.5 Other fecal abnormalities; K29.50 Unspecified chronic gastritis without bleeding; E78.5 Hyperlipidemia, unspecified; N18.3 Chronic kidney disease, stage 3 (moderate); I12.9 Hypertensive chronic kidney disease with stage 1 through stage 4 chronic kidney disease, or unspecified chronic kidney disease; Z87.891 Personal history of nicotine dependence; K64.2 Third degree hemorrhoids; K57.30 Diverticulosis of large intestine without perforation or abscess without bleeding; Z11.59 Encounter for screening for other viral diseases
CPT/HCPCS: 43239; 45378; 88305; 88313; 88342; 99152; 99153; J7120

== ENCOUNTER 2020-03-15 13:04 | Inpatient (IN) | payer MEDICARE, OTHER, SELFPAY ==
[2020-02-14 06:24] VITALS: BMI 21.2
[2020-03-15] VITALS (8 sets, daily range): BP systolic 116–149; BP diastolic 50–83; PULSE 77–83; RESP 16–18; TEMP 36.3–37.1; O2SAT 92–98; BMI 22.4; BMI 22.1
--- NOTE | 2020-03-15 13:38 | CT_ITS ---
STUDY: CT ABDOMEN AND PELVIS WITHOUT CONTRAST REASON FOR EXAM: Female, 84 years old. PT STATED ABDOM PAIN, N/V, HX OF HYSTERECTOMY ONE OVARY REMAINING, ORAL CONTRAST ONLY RADIATION DOSAGE (If Supplied By Facility): CTDIvol = ( 7.04 ) mGy, DLP = ( 331.44 ) mGycm TECHNIQUE: Transaxial images were obtained from the dome of the diaphragm to the symphysis pubis without oral contrast, and without intravenous contrast. Sagittal and coronal images were reconstructed. Individualized dose optimization techniques were used for this CT. COMPARISON: Previous study of 06/03/2018 FINDINGS: There are bibasilar hazy infiltrates of the left and right lower lobes. There is a calcified granuloma of the right middle lobe. The visualized portions of the heart are within normal limits. Normal liver. There are multiple gallstones. Normal spleen. Normal pancreas. Normal bilateral adrenal glands. Normal right kidney. Normal left kidney. The stomach is distended with oral contrast. There is a large hiatal hernia. There is distention with air-fluid levels of multiple loops of small bowel. There is colonic diverticulosis with no evidence of associated diverticulitis. There is non-visualization of the appendix. There are calcified plaques of the abdominal aorta and common iliac arteries. Normal inferior vena cava. Normal retroperitoneum. Normal urinary bladder. There is absence of the uterus consistent with a prior hysterectomy. There is a small amount of free fluid in the deep pelvis. Normal abdominal wall. There are severe degenerative changes of the lumbar spine. CT/Abdomen/Pel W ORAL Cont Only IMPRESSION: 1. Bibasilar hazy infiltrates of the left and right lower lobes. 2. Cholelithiasis. 3. Large hiatal hernia. 4. Distention with air-fluid levels in multiple loops of small bowel suggestive of obstruction. 5. Colonic diverticulosis with no evidence of associated diverticulitis. 6. Small amount of free fluid in the deep pelvis. 7. Status post hysterectomy. 8. Severe degenerative changes of the lumbar spine. Electronically Signed: Dereck Childers MD at 16:56 EDT , Service support ,
--- NOTE | 2020-03-15 14:13 | ED.VISSUMM ---
- ER Visit Summary Date of Service: 03/15/20 Chief Complaint: Abdominal pain History of Present Illness: The patient is a 84 F who presents with abdominal pain that began today. Patient states the pain is worse over the right upper quadrant. Patient describes the pain is sharp. Patient states the pain waxes and wanes. Patient admits to nausea but denies any vomiting. Patient denies any diarrhea, melena, or hematochezia. Patient denies any dysuria or hematuria. Patient also admits to a slight cough. Patient denies any chest pain or shortness of breath. Physical Examination: Vital signs are stable. Patient is afebrile. Patient is in no acute distress. Oral mucosa is pink and moist. Neck is supple. Trachea is midline. There is no JVD. Heart was regular rate and rhythm. Lungs are clear and equal bilaterally. Abdomen is soft. Bowel sounds are normal. There is right upper quadrant tenderness. There is no rebound or guarding noted. Cranial nerves II through XII are intact. There are no focal motor or sensory deficits noted. Extremities are intact. There is no calf tenderness or edema. Test Results: CBC shows a mild leukocytosis of 12.5. BUN and creatinine were slightly elevated at 29 and 1.31. These are consistent with prior results. Lipase was normal. Liver function tests were normal. CT scan of the abdomen and pelvis was obtained with oral contrast only. There is a small bowel obstruction noted. There are also bibasilar hazy infiltrates of the lower lobes. These were interpreted by the radiologist and reviewed by myself. Emergency Department Course and Treatment: Patient was given IV fluids, morphine, and Zofran initially. Patient was feeling better on reevaluation. Patient was advised of her findings. Patient was started on Rocephin and Zithromax. Case was discussed with Dr. Handy from general surgery. He recommended admitting to the hospitalist. Case was discussed with the hospitalist, Dr. Stark. She will be in to evaluate the patient and admit the patient to her service. Because of the bilateral hazy infiltrates she recommended obtaining a COVID test. This was done. Patient understands and is agreeable with the plan. All questions were answered. Disposition: Admit to hospital Impression: 1. Small bowel obstruction 2. Pneumonia This note was generated with [employer] software. It may contain incorrect words, spelling, and punctuation that were not noted in review of the chart prior to signing ED Disposition - Plan for ED Patient: Disposition: Acute Care Hospital [facility] Diagnosis: Small bowel obstruction, Pneumonia Referrals: Mono Ritter MD [Primary Care Provider] -
[2020-03-15] MEDS: 0.9% Normal Saline 1,000 ML 1000 ML IV (14:48)
[2020-03-15] MEDS: Morphine 4 MG/ML Syringe IV (14:48)
[2020-03-15] MEDS: Ondansetron 4 MG/2 ML Vial IV (14:48)
[2020-03-15 14:57] LABS: Absolute Lymphocyte Count 1.27 X10^3/uL (0.83-4.51); Absolute Neutrophil Count 10.4 X10^3/uL (2.0-7.7); Basophil# 0.04 X10^3/uL; Basophil% 0.3 % (0-1); Eosinophil# 0.06 X10^3/uL; Eosinophils% 0.5 % (0-5); Hematocrit 42.9 % (37-47); Hemoglobin 14.1 g/dL (12.0-15.0); Lymphocyte # 1.27 X10^3/ul (4.0); Lymphocyte % 10.1 % (19-41); Mean Corp Hgb Conc 32.9 g/dL (32-36); Mean Corpuscular Hgb 29.7 pg (27.0-32.0); Mean Corpuscular Volume 90.3 fL (81-99); Mean Platelet Vol. 11.1 fl (6.2-12.0); Monocyte# 0.66 X10^3/uL; Monocyte% 5.3 % (0-10); NRBC Flagged by Analyzer 0 % (0-5); Neutrophil # 10.44 X10^3/uL (2.7-7.7); Neutrophil % 83.4 % (47-70); Platelet Count 204 K/mm3 (150-450); RBC Distribution Width CV 12.3 % (11.6-14.6); RBC Distribution Width SD 40.2 fl (35.1-43.9); Red Blood Count 4.75 M/mm3 (4.2-5.4); White Blood Count 12.5 K/mm3 (4.4-11.0)
[2020-03-15 15:16] LABS: Lactic Acid 0.9 mmol/L (0.4-1.9)
[2020-03-15 15:33] LABS: ALB/GLOB Ratio 1.3 RATIO (0.9-2.4); AST(SGOT) 32 U/L (15-37); Alanine Aminotransfer ALT/SGPT 22 U/L (13-56); Albumin, Serum 4.3 g/dL (3.2-5.0); Alkaline Phosphatase 51 U/L (45-117); Anion Gap 3 (5-15); BUN 29 mg/dL (7-18); BUN/Creat Ratio 22.1 RATIO (10-20); Calcium,Total 9.7 mg/dL (8.5-10.1); Chloride 104 mmol/L (98-107); Creatinine, Serum 1.31 mg/dL (0.55-1.02); EST Glomerular Filtration Rate 41 mL/min (>60); Est Glom Filt Rate - Afr Amer 50 mL/min (>60); Estimated Creatinine Clearance 24.55 ml/min; Globulin 3.3 g/dL (2.2-4.2); Glucose 111 mg/dL (74-106); Lipase 326 U/L (73-393); Protein, Total 7.6 g/dL (6.4-8.2); Sodium Level 137 mmol/L (136-145)
--- NOTE | 2020-03-15 17:25 | HP.PCM_ITS ---
Problem List (1) Small bowel obstruction Status: Acute (2) Pneumonia Status: Acute Qualifiers: Pneumonia type: due to unspecified organism Laterality: bilateral Lung location: unspecified part of lung Qualified Code(s): J18.9 - Pneumonia, unspecified organism (3) Guaiac positive stools Status: Chronic (4) Hx SBO Status: Chronic (5) Dyslipidemia Status: Chronic (6) HTN (hypertension) Status: Chronic Qualifiers: Hypertension type: essential hypertension Qualified Code(s): I10 - Essential (primary) hypertension (7) CKD (chronic kidney disease), stage III Status: Chronic (8) GERD (gastroesophageal reflux disease) Status: Chronic Qualifiers: Esophagitis presence: with esophagitis Qualified Code(s): K21.0 - Gastro- esophageal reflux disease with esophagitis History of Present Illness Date of Admission: 03/15/20 Chief Complaint: Abdominal pain, recent cough The patient is an 84 y/o F w/ PMHx: CKD stage III, HTN, HLD, Menieres disease, Hx SBO 4-5x all resolved conservatively, GERD who presents to the [facility] ED on 03/15/20 with history of onset diffuse abdominal pain starting on ED day of presentation worse in the right upper quadrant described as a sharp 10 out of 10 pain when occurring, waxing and waning with associated nausea but no emesis nor any recent diarrhea but notes this discomfort is similar to her prior presentations of small bowel obstructions however while in the ED patient became very nauseated and had several bouts of emesis. Patient does admit to a slight cough which is chronic and notes it is nonproductive but no chest pain or shortness of breath nor any fevers or chills, body aches, headaches, alteration to sense of taste or smell or any ill COVID contacts. Patient's last bowel movement was a.m. on day of current presentation but noted to be very small. Patient was recently evaluated by general surgery on 02/14/2020 for history of guaiac positive stools and from the note with EGD and c-scope performed with noted evidence of esophagitis consistent with reflux esophagitis with no bleeding with biopsies obtained with normal-appearing stomach and duodenum with evidence of a large hiatal hernia and noted nonthrombosed internal hemorrhoids with prolapse with straining, diverticulosis with suspected source of recent guaiac positive stools patient's internal hemorrhoids with recommended continued prior diet and reflux medications. Patient has no fever, chills, arthralgia/myalgia or sense of taste/smell alteration. Work-up in the ED included T 97.4, heart rate 83, BP 135/83, respiratory rate 18, 98% room air, CBC with WBC 12.5, hemoglobin 14.1, platelet 204 with left shift, CMP with BUN/creatinine 29/1.31, glucose 111, lactic acid 0.9, hepatic profile unremarkable, lipase 326, CT abdomen with bibasilar hazy infiltrates at the left and right lower lobes, evidence of cholelithiasis, large hiatal hernia, distention with air-fluid levels in multiple loops of small bowel suggestive of obstruction, colonic diverticulosis with no evidence of associated diverticulitis, small amount of free fluid in the deep pelvis, evident status post hysterectomy, evident severe degenerative changes of the lumbar spine in the ED patient ministered normal saline, Zofran and morphine therapy. Past Medical History Past Medical History (Chronic Problems): Chronic Problems (Last Reviewed 01/25/20 @ 12:45 by Manjula Dangelo) CKD (chronic kidney disease), stage III (Chronic) GERD (gastroesophageal reflux disease) (Chronic) Guaiac positive stools (Chronic) Hx SBO (Chronic) Dyslipidemia (Chronic) HTN (hypertension) (Chronic) Medical History: Medical History (Last Reviewed 01/25/20 @ 12:45 by Manjula Dangelo) Guaiac positive stools (Acute) R19.5 Dyslipidemia (Chronic) E78.5 HTN (hypertension) (Chronic) I10 BCC (basal cell carcinoma of skin) C44.91 GERD (gastroesophageal reflux disease) K21.9 Hypercholesteremia E78.00 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 SBO (small bowel obstruction) K56.609 Scoliosis M41.9 CKD (chronic kidney disease) stage 3, GFR 30-59 ml/min N18.3 Allergies Iodinated Contrast Media Adverse Reaction (Verified 03/15/20 13:07) Other pt states raises creatine level of my kidneys KIDNEY MEDICINE Allergy (Uncoded 03/15/20 13:07) Hives Home Medications: Ambulatory Orders Medication Instructions Recorded Amlodipine [Norvasc] 10 mg PO DAILY 09/17/16 Atorvastatin Calcium [Lipitor] 20 mg PO QHS 09/17/16 Lactobacillus Acidophilus 1 ea PO BID 09/17/16 [Acidophilus] ascorbic acid (vitamin C) 500 mg 500 mg PO DAILY 01/25/20 tablet denosumab 60 mg/mL subcutaneous 60 mg SC [id number] 01/25/20 syringe lansoprazole 15 mg capsule,delayed 15 mg PO DAILY 01/25/20 release levocetirizine 5 mg tablet 5 mg PO DAILY 01/25/20 losartan 100 mg tablet 100 mg PO DAILY 01/25/20 multivitamin 1 tab PO DAILY 01/25/20 psyllium husk 0.52 gram capsule 0.52 g PO DAILY 01/25/20 triamcinolone acetonide 0.025 % 1 applic TOPICAL DAILY 01/25/20 topical cream Cholecalciferol (Vitamin D3) 2,000 unit PO DAILY 03/15/20 [Vitamin D3] Zinc Amino Acid Chelate [Zinc 25 mg PO DAILY 03/15/20 Chelated] Surgical History: Surgical History (Last Reviewed 01/25/20 @ 12:57 by Manjula Dangelo) S/P hysterectomy Z90.710 s/p exploratory laparoscopy s/p vein strippling Surgical History: hysterectomy, - - Cataract surgery, hysterectomy, exploratory laparotomy, vein stripping bilateral lower extremities, tonsillectomy. 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 Smoking Status: Former smoker - Patient quit cigarette tobacco usage [place] roximately 30 years prior to current presentation with prior to this initiated tobacco use since high school with 1 pack lasting her weekly. Tobacco Use: Non-smoker Alcohol: None Drugs: None - *Family History Maternal History Items: Hypertension Paternal History Items: Hypertension Review of Systems Constitutional: Reports: Anorexia, Malaise, Weakness, Fatigue. Denies: Chills, Fever, Weight Change HEENT: Denies: Head Aches, Nasal Congestion, Sinus Congestion, Sinus Drainage, Sore Throat, Visual Changes Cardiovascular: Denies: Chest Pain, Chest Pressure, Chest Tightness, Light Headedness, Orthopnea, Palpitations, Syncope Respiratory: Reports: Cough. Denies: Shortness of Breath, Shortness of breath at rest, Sputum production, Wheezing Gastrointestinal: Reports: Abdominal Pain, Nausea, Vomiting Genitourinary: Denies: Dysuria Musculoskeletal: Denies: Joint Pain, Joint Tenderness Skin: Denies: Rash, Wounds Neurological: Denies: Numbness, Tingling, Focal weakness Psychiatric: Denies: Anxiety, Depression, Homicidal Ideations, Suicidal Ideations Hematologic/ Lymphatic: Denies: Easy Bruising, Easy Bleeding VTE Information - Inpt Only VTE Present on Admission: No VTE Mechan Device Prophylaxis: SCD's VTE Pharm Prophylaxis ordered?: Yes Patient Problems: Active and Suspected Problems (Last Reviewed 01/25/20 @ 12:45 by Manjula Dangelo) Small bowel obstruction (Acute) Pneumonia (Acute) Subjective: Patient seated upright in the ED bed, fatigued, ill-appearing, notes significant nausea with emesis while in the room. Objective: Physical Examination: General: awake, alert, oriented x 3 and cooperative, seated upright in the ED bed, nauseous and ill-appearing, emesis bouts while in the room, ongoing abdominal pain. Skin: Mildly pale color, turgor, no icterus, cyanosis. HEENT: AT/NC, EOMI, PERRLA, dry MM, no carotid bruits or JVD noted. Lungs: Diminished breath sounds bilateral bases, moderate effort, no evidence of distress, mild rales bases, no rhonchi or wheezing. Heart: Regular rate and rhythm; no gallop, rub audible. Abdomen: Tense, diffusely tender to palpation, distended, absent bowel sounds, unable to discern HSM secondary to presentation. Extremities: no cyanosis, clubbing, or edema. Neurological: patient awake, alert, oriented x 3; cognitive function intact; pupils equally reactive to light and accomodation; cranial nerves II-XII grossly normal, moving all 4 extremities, no focal deficits, strength severely global decrease secondary to acute presentation. Psychiatric: affect appears uncomfortable, ill-appearing, no acute evidence of depressive or anxiety feelings. - Physical Exam Vitals/I&O's: Vital Signs Temp Pulse Resp BP Pulse Ox 97.4 F L 83 18 149/65 H 93 03/15/20 13:05 03/15/20 13:05 03/15/20 13:05 03/15/20 15:54 03/15/20 15:54 Oxygen Delivery Method Room Air Weight: 119 lb Body Mass Index (BMI) 22.4 Laboratory Results 03/15/20 14:35: WBC 12.5 H, RBC 4.75, Hgb 14.1, Hct 42.9, MCV 90.3, MCH 29.7, MCHC 32.9, RDW Std Deviation 40.2, RDW Coeff of Otto 12.3, Plt Count 204, MPV 11.1, Immature Gran % (Auto) 0.400, Neut % (Auto) 83.4 H, Lymph % (Auto) 10.1 L, Wilson % (Auto) 5.3, Eos % (Auto) 0.5, Baso % (Auto) 0.3, Absolute Neuts (auto) 10.4 H, Absolute Lymphs (auto) 1.27, Nucleated RBC % 0 03/15/20 14:35: Sodium 137, Potassium 4.0, Chloride 104, Carbon Dioxide 30.0, Anion Gap 3 L, BUN 29 H, Creatinine 1.31 H, Estim Creat Clear Calc 24.55, Est GFR (MDRD) Af Amer 50 L, Est GFR (MDRD) Non-Af 41 L, BUN/Creatinine Ratio 22.1 H , Glucose 111 H, Calcium 9.7, Total Bilirubin 0.70, AST 32, ALT 22, Alkaline Phosphatase 51, Total Protein 7.6, Albumin 4.3, Globulin 3.3, Albumin/Globulin Ratio 1.3, Lipase 326 03/15/20 14:35: Lactic Acid 0.9 Assessment/Plan All Active Problems (Last Reviewed 01/25/20 @ 12:45 by Manjula Dangelo) Small bowel obstruction (Acute) Pneumonia (Acute) The patient is an 84 y/o F w/ PMHx: CKD stage III, HTN, HLD, Menieres disease, Hx SBO 4-5x all resolved conservatively, GERD who presents to the [facility] ED on 03/15/20 with history of onset diffuse abdominal pain with nausea, emesis starting on day of ED presentation and chronic unchanged ongoing non-productive cough. 1. Abdominal pain, nausea without emesis secondary to Recurrent Acute SBO: In the ED work-up included CT A/P w/ bibasilar hazy infiltrates at the left and right lower lobes, evidence of cholelithiasis, large hiatal hernia, distention with air-fluid levels in multiple loops of small bowel suggestive of obstruction, colonic diverticulosis with no evidence of associated diverticulitis, small amount of free fluid in the deep pelvis, evident status post hysterectomy, evident severe degenerative changes of the lumbar spine Will admit to MS, maintain on IVFs, NGT to suction given onset emesis, strict I&Os, IV pain/anti-emetics PRN, serial KUB as needed to montior bowel function, Protonix IV, maintain NPO on bowel rest. General surgery consulted. 2. ? Incidental BL Pneumonia, Possible CAP: Will maintain on oxygen with wean as tolerated to room air, PRN albuterol, maintained on IV Rocephin and Azithromycin, HOB, IS parameters w/ pending sputum cultures and urine antigens. COVID pending per ED. Low suspicion but obtained given BL findings. 3. Chronic Kidney Disease Stage III: Admission BUN/Cr 29/1.31, baseline renal function 1.3-1.4, stable, repeat BMP in AM. 4. Hypertension: We will hold oral home hypertensive regimen, resume once oral intake appropriate, in the interim will have PRN IV hydralazine. 5. Hyperlipidemia: We will hold oral statin regimen and resume once oral intake appropriate. 6. GERD: We will maintain on IV Protonix. 7. Recent guaiac positive stool secondary to hemorrhoidal bleeding reflux esophagitis: Recent upper and lower endoscopies, noted hemorrhoids as well as reflux esophagitis, continue PPI as noted. 8. DVT prophylaxis: SCDs, heparin. 9. CODE status: Patient DENNIS is her son who is present in the room and living will is currently in place. Discussed CODE status at length including difference between FULL code, DNR-CCA and DNR-CC status. Following discussions about the differences in these status, requested Full Code status. Advised her and her son to update and review her DENNIS and LW she has not done so in many years. Advanced Care Planning Face to Face Time: 16 minutes. Inpatient E&M: 69621 Init Hosp L3 Procedures: 28875 Advncd Care Plan 30 Min
--- NOTE | 2020-03-15 17:39 | NURSING ---
MED SURG WHITE SBO, PNEUMONIA
[2020-03-15] MEDS: Ceftriaxone 1 GM/50 ML BAG IV (18:02)
[2020-03-15] MEDS: Oxymetazoline 0.05% 1 SPRAY SPRAY.BTL 2 SPRAY NASAL (18:27)
[2020-03-15] MEDS: Lidocaine 4% 5 ML Ampul 2 ML INHALATION (18:29)
--- NOTE | 2020-03-15 18:35 | NURSING ---
Discussed admission including vitals, diagnosis, cxr, and H&P with practice manager Bita Diaz, aware at this time with pending COVID adviced to place patient on Cohort as per policy. Discussed with [employer].
--- NOTE | 2020-03-15 18:40 | RAD_ITS ---
STUDY: X-RAY - ABDOMEN/PELVIS REASON FOR EXAM: Female, 84 years old. NG placement TECHNIQUE: Single AP view of the abdomen / pelvis. COMPARISON: None. FINDINGS: Nasogastric tube terminates in the proximal stomach with the sidehole at the level of the esophagogastric junction. Normal lung volumes. Very mild atelectasis or infiltrate suggested in both lung bases. There is an unremarkable bowel gas pattern. There is no demonstrated free abdominal air. The visualized liver, spleen and kidneys are grossly normal in size and morphology. Normal soft tissue structures. There are diffuse degenerative changes of the visualized lumbar spine. RAD/Abdomen Single View (Portable) IMPRESSION: Nasogastric tube terminates in the proximal stomach with the sidehole at the level of the esophagogastric junction. Electronically Signed: Karri Nascimento MD at 18:57 EDT , Service support ,
--- NOTE | 2020-03-15 19:15 | ED.RN ---
attempted to call report at 1850, was told had to wait for manager shift. charge nurse aware. at 1900 charge nurse stated that this rn could call report at 1910.
--- NOTE | 2020-03-15 19:19 | ED.RN ---
attempted to call report at 1910, on hold for 7 minutes. will call back.
[2020-03-15 20:51] LABS: Magnesium 2.5 mg/dL (1.6-2.6)
[2020-03-15 21:03] LABS: Bacteria 0 SEEN /hpf (None Seen); Mucous, Urine 0 SEEN /hpf (<or=2+); Red Blood Cells-Urine 0 SEEN /hpf (0-5); White Blood Cells 0 SEEN /hpf (0-5)
[2020-03-15 21:04] LABS: Color, Urine Yellow (Yellow); Glucose, Dipstick Normal (Normal); Ketone-Dipstick 5 mg/dl (Negative); Leukocyte Esterase-Dipstick Negative /ul (Negative); Nitrite-Dipstick Negative (Negative); Occult Blood-Urine Negative /ul (Negative); Protein-Dipstick Negative (Negative); Specific Gravity, Urine 1.015 (1.002-1.030); Urine Bilirubin Dipstick Negative (Negative); Urine Clarity Sl. Cloudy (Clear); Urine Urobilinogen Normal (Normal)
[2020-03-15 21:17] LABS: Amorphous Sediment 2+ PHOS; Squamous Epithelial Cells - UA 0-5 SEEN /hpf (5-10)
[2020-03-15 21:31] LABS: Procalcitonin 0.28 ng/mL (0.00-0.09)
[2020-03-15] MEDS: 0.9% Normal Saline 1,000 ML 100 ML IV (21:33)
[2020-03-15] MEDS: Heparin Injection (Vial) 5,000 UNIT/ML VIAL 5000 UNIT SC (21:34)
[2020-03-16 00:23] VITALS: BP 112/52; PULSE 80; RESP 16; TEMP 37.1; O2SAT 97
[2020-03-16 04:20] VITALS: BP 104/44; PULSE 77; RESP 16; TEMP 36.1; O2SAT 95
--- NOTE | 2020-03-16 05:04 | RAD_ITS ---
STUDY: X-RAY - ABDOMEN/PELVIS REASON FOR EXAM: Female, 84 years old. SBO TECHNIQUE: Single AP view of the abdomen / pelvis. COMPARISON: Comparison is made with prior examination dated 03/15/2020. FINDINGS: Mild increased markings at the lung bases worse on the left side. A nasogastric tube is in situ with the tip in the body of the stomach. There is a moderate amount of colonic fecal material. Minimally dilated small bowel loop is seen in the left lower quadrant. The visualized liver, spleen and kidneys are grossly normal in size and morphology. Normal soft tissue structures. There are diffuse degenerative changes of the visualized lumbar spine. Dextroscoliosis. Degenerative changes of the sacroiliac joints bilaterally. RAD/Abdomen Single View (Portable) IMPRESSION: The tip of the nasogastric tube is in the body of the stomach. Minimally dilated small bowel loop in the left lower quadrant. Fecal material is seen throughout the colon. Electronically Signed: Vijay Mosley, at 9:13 EDT , Service support ,
[2020-03-16] MEDS: 0.9% Normal Saline 1,000 ML 100 ML IV (06:15)
[2020-03-16 06:50] LABS: Absolute Lymphocyte Count 1.16 X10^3/uL (0.83-4.51); Basophil# 0.01 X10^3/uL; Basophil% 0.1 % (0-1); Eosinophil# 0.01 X10^3/uL; Eosinophils% 0.1 % (0-5); Hematocrit 35.7 % (37-47); Hemoglobin 11.6 g/dL (12.0-15.0); Lymphocyte # 1.16 X10^3/ul (4.0); Lymphocyte % 9.9 % (19-41); Mean Corp Hgb Conc 32.5 g/dL (32-36); Mean Corpuscular Volume 92.2 fL (81-99); Monocyte# 0.53 X10^3/uL; Monocyte% 4.5 % (0-10); NRBC Flagged by Analyzer 0 % (0-5); Neutrophil # 9.95 X10^3/uL (2.7-7.7); Neutrophil % 85.1 % (47-70); Platelet Count 166 K/mm3 (150-450); RBC Distribution Width CV 12.2 % (11.6-14.6); RBC Distribution Width SD 40.6 fl (35.1-43.9); Red Blood Count 3.87 M/mm3 (4.2-5.4); White Blood Count 11.7 K/mm3 (4.4-11.0)
[2020-03-16 07:23] LABS: ALB/GLOB Ratio 1.1 RATIO (0.9-2.4); AST(SGOT) 21 U/L (15-37); Alanine Aminotransfer ALT/SGPT 16 U/L (13-56); Albumin, Serum 3.1 g/dL (3.2-5.0); Alkaline Phosphatase 38 U/L (45-117); Anion Gap 4 (5-15); BUN 26 mg/dL (7-18); Calcium,Total 8.1 mg/dL (8.5-10.1); Chloride 107 mmol/L (98-107); Creatinine, Serum 1.18 mg/dL (0.55-1.02); EST Glomerular Filtration Rate 47 mL/min (>60); Est Glom Filt Rate - Afr Amer 56 mL/min (>60); Estimated Creatinine Clearance 27.26 ml/min; Globulin 2.7 g/dL (2.2-4.2); Glucose 126 mg/dL (74-106); Potassium 3.8 mmol/L (3.5-5.1); Protein, Total 5.8 g/dL (6.4-8.2); Sodium Level 138 mmol/L (136-145)
[2020-03-16 07:39] VITALS: O2SAT 95
[2020-03-16 08:20] VITALS: BP 118/50; PULSE 82; RESP 16; TEMP 36.8; O2SAT 96
[2020-03-16] MEDS: BENZOCAINE/MENTHOL 1 LOZENGE MUCOUS MEM (09:29)
--- NOTE | 2020-03-16 10:05 | PCM.CONS.GEN ---
Problem List (1) Small bowel obstruction Status: Acute Reason for Consult Date of Consultation: 03/16/20 History of Present Illness: The patient is an 84 y/o F w/ PMHx: CKD stage III, HTN, HLD, Menieres disease, Hx SBO 4-5x all resolved conservatively, GERD who presents to the [facility] ED on 03/15/20 with history of onset diffuse abdominal pain starting on ED day of presentation worse in the right upper quadrant described as a sharp 10 out of 10 pain when occurring, waxing and waning with associated nausea but no emesis nor any recent diarrhea but notes this discomfort is similar to her prior presentations of small bowel obstructions however while in the ED patient became very nauseated and had several bouts of emesis. Patient does admit to a slight cough which is chronic and notes it is nonproductive but no chest pain or shortness of breath nor any fevers or chills, body aches, headaches, alteration to sense of taste or smell or any ill COVID contacts. Patient's last bowel movement was a.m. on day of current presentation but noted to be very small. Patient was recently evaluated by general surgery on 02/14/2020 for history of guaiac positive stools and from the note with EGD and c-scope performed with noted evidence of esophagitis consistent with reflux esophagitis with no bleeding with biopsies obtained with normal-appearing stomach and duodenum with evidence of a large hiatal hernia and noted nonthrombosed internal hemorrhoids with prolapse with straining, diverticulosis with suspected source of recent guaiac positive stools patient's internal hemorrhoids with recommended continued prior diet and reflux medications. Patient has no fever, chills, arthralgia/myalgia or sense of taste/smell alteration. Work-up in the ED included T 97.4, heart rate 83, BP 135/83, respiratory rate 18, 98% room air, CBC with WBC 12.5, hemoglobin 14.1, platelet 204 with left shift, CMP with BUN/creatinine 29/1.31, glucose 111, lactic acid 0.9, hepatic profile unremarkable, lipase 326, CT abdomen with bibasilar hazy infiltrates at the left and right lower lobes, evidence of cholelithiasis, large hiatal hernia, distention with air-fluid levels in multiple loops of small bowel suggestive of obstruction, colonic diverticulosis with no evidence of associated diverticulitis, small amount of free fluid in the deep pelvis, evident status post hysterectomy, evident severe degenerative changes of the lumbar spine in the ED patient ministered normal saline, Zofran and morphine therapy. The patient reflects that she has had abdominal problems ever since a hysterectomy gone wrong with bowel injury back when she was approximately 39. Since that time she apparently has had hospitalizations for small bowel obstruction but is never required repeated laparotomy. She thinks her most recent hospital station for bowel obstruction was maybe 5 years ago. She will intermittently have some abdominal discomfort. But currently she is stable. She has not noticed any bright red blood per rectum or melena. She is not currently having any abdominal pain no current nausea or vomiting. She states that whereas earlier during the wintertime she was feeling fatigued that this is improving though she has slight residual fatigue. She states that her current weight is stable. Past Medical History Past Medical History (Chronic Problems): Chronic Problems (Last Reviewed 01/25/20 @ 12:45 by Manjula Dangelo) CKD (chronic kidney disease), stage III (Chronic) GERD (gastroesophageal reflux disease) (Chronic) Guaiac positive stools (Chronic) Hx SBO (Chronic) Dyslipidemia (Chronic) HTN (hypertension) (Chronic) Medical History: Medical History (Last Reviewed 03/16/20 @ 10:[address] 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 SBO (small bowel obstruction) K56.609 Scoliosis M41.9 CKD (chronic kidney disease) stage 3, GFR 30-59 ml/min N18.3 Allergies Iodinated Contrast Media Adverse Reaction (Verified 03/15/20 13:07) Other pt states raises creatine level of my kidneys KIDNEY MEDICINE Allergy (Uncoded 03/15/20 13:07) Hives Home Medications: Ambulatory Orders Medication Instructions Recorded Amlodipine [Norvasc] 10 mg PO DAILY 09/17/16 Atorvastatin Calcium [Lipitor] 20 mg PO DAILY 09/17/16 Lactobacillus Acidophilus 1 ea PO BID 09/17/16 [Acidophilus] ascorbic acid (vitamin C) 500 mg 500 mg PO DAILY 01/25/20 tablet denosumab 60 mg/mL subcutaneous 60 mg SC [id number] 01/25/20 syringe lansoprazole 15 mg capsule,delayed 15 mg PO DAILY 01/25/20 release levocetirizine 5 mg tablet 5 mg PO DAILY 01/25/20 losartan 100 mg tablet 100 mg PO DAILY 01/25/20 multivitamin 1 tab PO DAILY 01/25/20 psyllium husk 0.52 gram capsule 0.52 g PO DAILY 01/25/20 triamcinolone acetonide 0.025 % 1 applic TOPICAL DAILY 01/25/20 topical cream Cholecalciferol (Vitamin D3) 2,000 unit PO DAILY 03/15/20 [Vitamin D3] Zinc Amino Acid Chelate [Zinc 25 mg PO DAILY 03/15/20 Chelated] Surgical History: Surgical History (Last Reviewed 03/16/20 @ 10:[address] Karlos Handy MD) S/P hysterectomy Z90.710 s/p exploratory laparoscopy s/p vein strippling Surgical History: hysterectomy, - - Cataract surgery, hysterectomy, exploratory laparotomy, vein stripping bilateral lower extremities, tonsillectomy. Psychiatric History: No pertinent psych hx [employer]ER [employer]IVER History: No pertinent [employer]IVER history Lives: Alone - Lives alone but currently her son has been visiting and staying with her. Smoking Status: Former smoker Tobacco Use: Non-smoker Alcohol: None Drugs: None - *Family History Maternal History Items: Hypertension Paternal History Items: Hypertension Review of Systems Constitutional: Denies: Chills, Fever, Weight Change Respiratory: Denies: Cough, Hemoptysis, Shortness of breath at rest, Shortness of breath upon exertion, Wheezing Gastrointestinal: Reports: Abdominal Pain, Nausea, Vomiting Patient Problems: Active and Suspected Problems (Last Reviewed 01/25/20 @ 12:45 by Manjula Dangelo) Small bowel obstruction (Acute) Pneumonia (Acute) - Physical Exam Vitals/I&O's: Vital Signs Temp Pulse Resp BP Pulse Ox 98.2 F 82 16 118/50 L 96 03/16/20 08:20 03/16/20 08:20 03/16/20 08:20 03/16/20 08:20 03/16/20 08:20 Oxygen Flow Rate (L/min) 2 Oxygen Delivery Method Nasal Cannula Weight: 117 lb 8.102 oz Body Mass Index (BMI) 22.1 Intake and Output for Last 24 Hours 03/14/20 03/15/20 03/16/20 23:59 23:59 23:59 Intake Total 50 / 50 3161.67 / 3161.67 Output Total 1500 / 1500 1050 / 1050 Balance -1450 / -1450 2111.67 / 2111.67 General: Alert, Oriented x3 Lungs: Clear to auscultation Cardiovascular: Regular rate, Regular Rhythm, No murmurs Abdomen: Bowel Sounds Present, Soft, Non Tender, Non-Distended Microbiology Past 72 Hours 03/15/20 22:55 Mucosa - Nose Respiratory Panel (PCR) - Final 03/15/20 20:50 Urine, Clean Catch Streptococcus pneumoniae Antigen (M - Final 03/15/20 20:50 Urine, Clean Catch Legionella Antigen - Final Laboratory Results 03/15/20 14:35: WBC 12.5 H, RBC 4.75, Hgb 14.1, Hct 42.9, MCV 90.3, MCH 29.7, MCHC 32.9, RDW Std Deviation 40.2, RDW Coeff of Otto 12.3, Plt Count 204, MPV 11.1, Immature Gran % (Auto) 0.400, Neut % (Auto) 83.4 H, Lymph % (Auto) 10.1 L, [place] % (Auto) 5.3, Eos % (Auto) 0.5, Baso % (Auto) 0.3, Absolute Neuts (auto) 10.4 H, Absolute Lymphs (auto) 1.27, Nucleated RBC % 0 03/15/20 14:35: Sodium 137, Potassium 4.0, Chloride 104, Carbon Dioxide 30.0, Anion Gap 3 L, BUN 29 H, Creatinine 1.31 H, Estim Creat Clear Calc 24.55, Est GFR (MDRD) Af Amer 50 L, Est GFR (MDRD) Non-Af 41 L, BUN/Creatinine Ratio 22.1 H, Glucose 111 H, Calcium 9.7, Total Bilirubin 0.70, AST 32, ALT 22, Alkaline Phosphatase 51, Total Protein 7.6, Albumin 4.3, Globulin 3.3, Albumin/Globulin Ratio 1.3, Lipase 326 03/15/20 14:35: Lactic Acid 0.9 03/15/20 14:35: Magnesium 2.5 03/15/20 18:20: COVID-19 (NATHANIEL) Negative 03/15/20 20:40: Procalcitonin 0.28 H 03/15/20 20:50: Urine Color Yellow, Urine Clarity Sl. Cloudy, Urine pH 8.0, Ur Specific [place] 1.015, Urine Protein Negative, Urine Glucose (UA) Normal, Urine Ketones 5 H, Urine Occult Blood Negative, Urine Nitrite Negative, Urine Bilirubin Negative, Urine Urobilinogen Normal, Ur Leukocyte Esterase Negative, Urine RBC 0 SEEN, Urine WBC 0 SEEN, Ur Squamous Epith Cells 0-5 SEEN, Amorphous Sediment 2+ PHOS, Urine Bacteria 0 SEEN, Urine Mucus 0 SEEN 03/16/20 06:30: WBC 11.7 H, RBC 3.87 L, Hgb 11.6 L, Hct 35.7 L, MCV 92.2, MCH 30.0, MCHC 32.5, RDW Std Deviation 40.6, RDW Coeff of Otto 12.2, Plt Count 166, MPV 11.0, Immature Gran % (Auto) 0.300, Neut % (Auto) 85.1 H, Lymph % (Auto) 9.9 L, [place] % (Auto) 4.5, Eos % (Auto) 0.1, Baso % (Auto) 0.1, Absolute Neuts (auto) 10.0 H, Absolute Lymphs (auto) 1.16, Nucleated RBC % 0 03/16/20 06:30: Sodium 138, Potassium 3.8, Chloride 107, Carbon Dioxide 27.0, Anion Gap 4 L, BUN 26 H, Creatinine 1.18 H, Estim Creat Clear Calc 27.26, Est GFR (MDRD) Af Amer 56 L, Est GFR (MDRD) Non-Af 47 L, BUN/Creatinine Ratio 22.0 H, Glucose 126 H, Calcium 8.1 L, Total Bilirubin 0.80, AST 21, ALT 16, Alkaline Phosphatase 38 L, Total Protein 5.8 L, Albumin 3.1 L, Globulin 2.7, Albumin/Globulin Ratio 1.1 Current Medications Acetaminophen (Tylenol) 650 mg RECTAL Q4H PRN PRN PRN Reason: Pain Score 1-10/Temp > 100.7 F Albuterol Sulfate (Ventolin Aerosols) 2.5 mg INHALATION Q2H PRN PRN PRN Reason: Dyspnea, wheezing Dextrose (D50w Syringe) 0 gm IV X1 PRN; Protocol PRN Reason: Hypoglycemia Glucagon () 1 mg IM .X1 PRN PRN Reason: Hypoglycemia Heparin Sodium (Porcine) (Heparin Na) 5,000 unit SC Q12 [facility] Last Admin: 03/15/20 21:34 Dose: 5,000 unit Documented by: Hydralazine HCl (Apresoline Iv) 10 mg IV Q4H PRN PRN PRN Reason: SBP > 160 Sodium Chloride () 1,000 mls @ 100 mls/hr IV .Q10H [facility] Last Infusion: 03/16/20 09:25 Dose: 0 mls/hr Documented by: Pantoprazole Sodium 40 mg/ (Sodium Chloride) 110 mls @ 330 mls/hr IV Q12 [facility] Last Infusion: 03/16/20 09:45 Dose: Infused Documented by: Ceftriaxone Sodium 2 gm/ (Sodium Chloride) 50 mls @ 100 mls/hr IV Q24 [facility] Stop: 03/23/20 10:01 Last Admin: 03/16/20 09:53 Dose: 100 mls/hr Documented by: Azithromycin 500 mg/ Dextrose 255 mls @ 250 mls/hr IV Q24 [facility] Stop: 03/21/20 10:01 Sodium Chloride () 250 mls @ 15 mls/hr IV .[id number] PRN PRN Reason: Saline Flush Sodium Chloride () 250 mls @ 15 mls/hr IV .[id number] PRN PRN Reason: Additional IVPB Infusion Morphine Sulfate () 4 mg IV Q3H PRN PRN PRN Reason: Pain Score 6-10/10 Nitroglycerin (Nitrostat) 0.4 mg SUBLINGUAL Q5M PRN PRN Reason: CARDIAC/CHEST PAIN Ondansetron HCl (Zofran) 4 mg IV Q8H PRN PRN PRN Reason: NAUSEA/VOMITING Prochlorperazine Edisylate (Compazine Iv) 5 mg IV Q4H PRN PRN PRN Reason: Breakthrough Nausea/Vomiting Sodium Chloride () 10 - 40 ml IV UD PRN PRN Reason: SALINE FLUSH Throat Lozenges (Cepacol Sore Throat Lozenge) 1 lozenge MUCOUS MEM Q2H PRN PRN PRN Reason: SORE THROAT Last Admin: 07/31/20 09:29 Dose: 1 lozenge Documented by: Assessment/Plan All Active Problems (Last Reviewed 01/25/20 @ 12:45 by Manjula Dangelo) Small bowel obstruction (Acute) Pneumonia (Acute) At the present time since the patient has had some flatus I am going to give her some ice chips hopefully she can have her NG tube removed this afternoon and work on her pulmonary toilet. Her abdomen is soft at this point it is nondistended we have noticed that her white count has come down. I think that she will be able to be managed in a nonoperative fashion. Office Visits / Consults: [id number] IP Consult L3
[2020-03-16] MEDS: Heparin Injection (Vial) 5,000 UNIT/ML VIAL 5000 UNIT SC ×2 (10:34→22:48)
--- NOTE | 2020-03-16 13:15 | CASEMGMT ---
RN CM Face to Face with patient for initial transition planning/care coordination assessment. RN CM introduced self and role at [facility]. Patient sitting in chair, alert and oriented. Patient willing to participate in assessment and is able to answer all questions appropriately. Care providers, pharmacy, and demographics verified. Patient wishes to discharge home, denies need for home health at this time. Patient states she has no further needs or concerns at this time. CM to follow for discharge planning needs that may arise. PCP: Mono Ritter Specialists: Fiorella, surgeon Preferred Pharmacy: [facility] Insurance: [employer] Prescription Benefit: yes Living Will/HPOA: none LNOK: son Living Arrangements: Patient lives alone but son is staying with her currently till June. Patient lives in a 2 story home and is able to ambulate stairs and is independent at home. Transportation: self/son DME/HHC: Patient states she has raised toilet, cane, walker, medical alert, grab bars. Will monitor for home oxygen, patient prefers [employer]. Disposition Plan: Patient to discharge home with family support and follow-up plans in place. Libby VALDEZ, RN, CM
[2020-03-16 13:21] VITALS: BP 102/48; PULSE 74; RESP 16; TEMP 36.8; O2SAT 99
--- NOTE | 2020-03-16 13:41 | CASEMGMT ---
Social Work SW met with pt in room to discuss advance directives. Pt stating she has met with an compliance attorney in the past but she is uncertain if she completed advance directives. Pt will review paperwork once at home to determine. SW provided rack card and information on SW assist with HCPOA and Living Will as outpt. MARIBELL Cabrera
--- NOTE | 2020-03-16 15:28 | PCM.PN.HOSP ---
Patient Problems: Active and Suspected Problems (Last Reviewed 03/16/20 @ 10:[address] Karlos Handy MD) Small bowel obstruction (Acute) Pneumonia (Acute) Objective: Seen and examined. No fever or chills. Heart rate and blood pressure is good Patient passed flatus in the morning. Patient has NG tube clamped. Physical exam General: Alert, Oriented x3, Cooperative HEENT: Atraumatic, PERRLA, EOMI, Normocephalic Oral: No Gingival or Mucosal Lesions/ Ulcerations Neck: Supple, No JVD, Negative Carotid Bruits Lungs: Air entry diminished in bilateral lung bases. No crepitation/rhonchi. No shortness of breath. Pulse ox 99% on 2 L of oxygen Cardiovascular: Regular rate, Regular Rhythm, Normal S1, Normal S2, No murmurs Abdomen: Bowel Sounds sluggish, Soft, Non Tender, Non-Distended. Midline surgical scar of hysterectomy and previous exploratory laparotomy : No renal angle tenderness. No suprapubic tenderness. Extremities: No edema, Capillary Refill Less than 3 Seconds Skin: No rashes, No breakdown Musculoskeletal: No Tenderness to Palpation of Joints or Extremities Neurological: Cranial nerves II-XII grossly intact, Deep Tendon Reflexes 2+/4 and Symmetrical, Neuro grossly intact Psych/Mental Status: Normal Affect, Appropriate. Vitals/I&O's: Vital Signs Temp Pulse Resp BP Pulse Ox 98.2 F 74 16 102/48 L 99 03/16/20 13:21 03/16/20 13:21 03/16/20 13:21 03/16/20 13:21 03/16/20 13:21 Oxygen Flow Rate (L/min) 2 Oxygen Delivery Method Nasal Cannula Weight: 117 lb 8.102 oz Body Mass Index (BMI) 22.1 Intake and Output for Last 24 Hours 03/14/20 03/15/20 03/16/20 23:59 23:59 23:59 Intake Total 50 / 50 3641.67 / 3641.67 Output Total 1500 / 1500 1050 / 1050 Balance -1450 / -1450 2591.67 / 2591.67 Microbiology Past 72 Hours 03/15/20 21:30 Sputum, Expectorated/Coughed Gram Stain - Final 03/15/20 21:30 Sputum, Expectorated/Coughed Respiratory Culture - Preliminary Appears to be normal respiratory anselmo. Further studies to follow. 03/15/20 22:55 Mucosa - Nose Respiratory Panel (PCR) - Final 03/15/20 20:50 Urine, Clean Catch Streptococcus pneumoniae Antigen (M - Final 03/15/20 20:50 Urine, Clean Catch Legionella Antigen - Final Laboratory Results 03/15/20 14:35: Sodium 137, Potassium 4.0, Chloride 104, Carbon Dioxide 30.0, Anion Gap 3 L, BUN 29 H, Creatinine 1.31 H, Estim Creat Clear Calc 24.55, Est GFR (MDRD) Af Amer 50 L, Est GFR (MDRD) Non-Af 41 L, BUN/Creatinine Ratio 22.1 H, Glucose 111 H, Calcium 9.7, Total Bilirubin 0.70, AST 32, ALT 22, Alkaline Phosphatase 51, Total Protein 7.6, Albumin 4.3, Globulin 3.3, Albumin/Globulin Ratio 1.3, Lipase 326 03/15/20 14:35: Magnesium 2.5 03/15/20 18:20: COVID-19 (NATHANIEL) Negative 03/15/20 20:40: Procalcitonin 0.28 H 03/15/20 20:50: Urine Color Yellow, Urine Clarity Sl. Cloudy, Urine pH 8.0, Ur Specific [place] 1.015, Urine Protein Negative, Urine Glucose (UA) Normal, Urine Ketones 5 H, Urine Occult Blood Negative, Urine Nitrite Negative, Urine Bilirubin Negative, Urine Urobilinogen Normal, Ur Leukocyte Esterase Negative, Urine RBC 0 SEEN, Urine WBC 0 SEEN, Ur Squamous Epith Cells 0-5 SEEN, Amorphous Sediment 2+ PHOS, Urine Bacteria 0 SEEN, Urine Mucus 0 SEEN 03/16/20 06:30: WBC 11.7 H, RBC 3.87 L, Hgb 11.6 L, Hct 35.7 L, MCV 92.2, MCH 30.0, MCHC 32.5, RDW Std Deviation 40.6, RDW Coeff of Otto 12.2, Plt Count 166, MPV 11.0, Immature Gran % (Auto) 0.300, Neut % (Auto) 85.1 H, Lymph % (Auto) 9.9 L, [place] % (Auto) 4.5, Eos % (Auto) 0.1, Baso % (Auto) 0.1, Absolute Neuts (auto) 10.0 H, Absolute Lymphs (auto) 1.16, Nucleated RBC % 0 03/16/20 06:30: Sodium 138, Potassium 3.8, Chloride 107, Carbon Dioxide 27.0, Anion Gap 4 L, BUN 26 H, Creatinine 1.18 H, Estim Creat Clear Calc 27.26, Est GFR (MDRD) Af Amer 56 L, Est GFR (MDRD) Non-Af 47 L, BUN/Creatinine Ratio 22.0 H, Glucose 126 H, Calcium 8.1 L, Total Bilirubin 0.80, AST 21, ALT 16, Alkaline Phosphatase 38 L, Total Protein 5.8 L, Albumin 3.1 L, Globulin 2.7, Albumin/Globulin Ratio 1.1 Current Medications Acetaminophen (Tylenol) 650 mg RECTAL Q4H PRN PRN PRN Reason: Pain Score 1-10/Temp > 100.7 F Albuterol Sulfate (Ventolin Aerosols) 2.5 mg INHALATION Q2H PRN PRN PRN Reason: Dyspnea, wheezing Dextrose (D50w Syringe) 0 gm IV X1 PRN; Protocol PRN Reason: Hypoglycemia Glucagon () 1 mg IM .X1 PRN PRN Reason: Hypoglycemia Heparin Sodium (Porcine) (Heparin Na) 5,000 unit SC Q12 [facility] Last Admin: 03/16/20 10:34 Dose: 5,000 unit Documented by: Hydralazine HCl (Apresoline Iv) 10 mg IV Q4H PRN PRN PRN Reason: SBP > 160 Sodium Chloride () 1,000 mls @ 100 mls/hr IV .Q10H [facility] Last Infusion: 03/16/20 09:25 Dose: 0 mls/hr Documented by: Pantoprazole Sodium 40 mg/ (Sodium Chloride) 110 mls @ 330 mls/hr IV Q12 [facility] Last Infusion: 03/16/20 09:45 Dose: Infused Documented by: Ceftriaxone Sodium 2 gm/ (Sodium Chloride) 50 mls @ 100 mls/hr IV Q24 [facility] Stop: 03/23/20 10:01 Last Infusion: 03/16/20 10:23 Dose: Infused Documented by: Azithromycin 500 mg/ Dextrose 255 mls @ 250 mls/hr IV Q24 [facility] Stop: 03/21/20 10:01 Last Infusion: 03/16/20 11:30 Dose: Infused Documented by: Sodium Chloride () 250 mls @ 15 mls/hr IV .[id number] PRN PRN Reason: Saline Flush Sodium Chloride () 250 mls @ 15 mls/hr IV .[id number] PRN PRN Reason: Additional IVPB Infusion Morphine Sulfate () 4 mg IV Q3H PRN PRN PRN Reason: Pain Score 6-10/10 Nitroglycerin (Nitrostat) 0.4 mg SUBLINGUAL Q5M PRN PRN Reason: CARDIAC/CHEST PAIN Ondansetron HCl (Zofran) 4 mg IV Q8H PRN PRN PRN Reason: NAUSEA/VOMITING Prochlorperazine Edisylate (Compazine Iv) 5 mg IV Q4H PRN PRN PRN Reason: Breakthrough Nausea/Vomiting Sodium Chloride () 10 - 40 ml IV UD PRN PRN Reason: SALINE FLUSH Throat Lozenges (Cepacol Sore Throat Lozenge) 1 lozenge MUCOUS MEM Q2H PRN PRN PRN Reason: SORE THROAT Last Admin: 03/16/20 09:29 Dose: 1 lozenge Documented by: STROKE Vital Signs/Narrative: Vital Signs Temp Pulse Resp BP Pulse Ox 03/16/20 13:21 98.2 F 74 16 102/48 L 99 Medical Necessity - Tobacco Use Smoking Status: Former smoker Tobacco Use: Non-smoker Assessment/Plan All Active Problems (Last Reviewed 03/16/20 @ 10:[address] Karlos Handy MD) Small bowel obstruction (Acute) Pneumonia (Acute) The patient is an 84 y/o F with history of recurrent small bowel obstruction is admitted with acute onset of diffuse abdominal pain with nausea, vomiting and CT abdomen finding of small bowel obstruction. Patient also has chronic unchanged nonproductive cough. 1. Acute on recurrent small bowel obstruction: Patient is being admitted in [facility] floor. CT abdomen shows large hiatal hernia, multiple loops of small bowel with air-fluid level suggestive of small bowel obstruction, asymptomatic cholelithiasis and colonic diverticulosis. Patient also with bibasilar hazy infiltrate of left and right lower lobes. Patient currently has NG tube which is clamped. Seen by surgeon. On ice and chips. No fever or chills. Patient passed flatus. No abdominal pain abdominal exam is benign. Bowel sounds sluggish. Mild leukocytosis 11.7 thousand. I 2. Incidental BL Pneumonia, Possible CAP: On IV Rocephin and Zithromax although patient does not have much pulmonary symptoms. Incentive spirometry, chest physiotherapy. COVID-19 PCR negative. UA negative. Respiratory panel negative. Urinary antigens of Legionella and Streptococcus are negative. Gram stain of sputum culture shows 2+ gram-positive rods and 3+ gram-positive cocci in chains and clusters. 3. Chronic Kidney Disease Stage III: Admission BUN/Cr 29/1.31, baseline renal function 1.3-1.4, stable, repeat creatinine 1.18. BUN 26. On IV fluid normal saline 4. Hypertension: hold oral home hypertensive regimen, resume once oral intake appropriate, in the interim will have PRN IV hydralazine. 5. Hyperlipidemia: Statin on hold secondary to n.p.o. status. 6. GERD: on IV Protonix. 7. Recent guaiac positive stool secondary to hemorrhoidal bleeding reflux esophagitis: Recent upper and lower endoscopies, noted hemorrhoids as well as reflux esophagitis, continue PPI as noted. 8. DVT prophylaxis: SCDs, heparin. Clinical Impression(s) from Imaging Studies Abdomen CT 03/15/20 13:38 IMPRESSION: 1. Bibasilar hazy infiltrates of the left and right lower lobes. 2. Cholelithiasis. 3. Large hiatal hernia. 4. Distention with air-fluid levels in multiple loops of small bowel suggestive of obstruction. 5. Colonic diverticulosis with no evidence of associated diverticulitis. 6. Small amount of free fluid in the deep pelvis. 7. Status post hysterectomy. 8. Severe degenerative changes of the lumbar spine. Electronically Signed: Dereck Childers MD at 16:56 EDT , Service support , KUB X-Ray 03/15/20 18:40 IMPRESSION: Nasogastric tube terminates in the proximal stomach with the sidehole at the level of the esophagogastric junction. KUB X-Ray 03/16/20 05:04 IMPRESSION: The tip of the nasogastric tube is in the body of the stomach. Minimally dilated small bowel loop in the left lower quadrant. Fecal material is seen throughout the colon. Inpatient E&M: [id number] [facility] Hosp L2
[2020-03-16 20:08] VITALS: BP 124/53; PULSE 79; RESP 18; TEMP 36.6; O2SAT 97
[2020-03-16] MEDS: 0.9% Saline Lock 10 ML Syringe IV (22:48)
[2020-03-17 02:00] VITALS: BP 124/51; PULSE 86; RESP 18; TEMP 36.9; O2SAT 97
[2020-03-17 06:52] LABS: Absolute Lymphocyte Count 0.99 X10^3/uL (0.83-4.51); Absolute Neutrophil Count 7.7 X10^3/uL (2.0-7.7); Basophil# 0.02 X10^3/uL; Basophil% 0.2 % (0-1); Eosinophil# 0.09 X10^3/uL; Hematocrit 32.6 % (37-47); Hemoglobin 10.5 g/dL (12.0-15.0); Lymphocyte # 0.99 X10^3/ul (4.0); Lymphocyte % 10.6 % (19-41); Mean Corp Hgb Conc 32.2 g/dL (32-36); Mean Corpuscular Hgb 29.7 pg (27.0-32.0); Mean Corpuscular Volume 92.4 fL (81-99); Mean Platelet Vol. 11.6 fl (6.2-12.0); Monocyte# 0.55 X10^3/uL; Monocyte% 5.9 % (0-10); NRBC Flagged by Analyzer 0 % (0-5); Neutrophil # 7.67 X10^3/uL (2.7-7.7); Neutrophil % 81.9 % (47-70); Platelet Count 124 K/mm3 (150-450); RBC Distribution Width CV 12.5 % (11.6-14.6); RBC Distribution Width SD 42.4 fl (35.1-43.9); Red Blood Count 3.53 M/mm3 (4.2-5.4); White Blood Count 9.4 K/mm3 (4.4-11.0)
[2020-03-17 07:05] LABS: Anion Gap 4 (5-15); BUN 22 mg/dL (7-18); BUN/Creat Ratio 21.6 RATIO (10-20); Calcium,Total 7.6 mg/dL (8.5-10.1); Chloride 113 mmol/L (98-107); Creatinine, Serum 1.02 mg/dL (0.55-1.02); EST Glomerular Filtration Rate 55 mL/min (>60); Est Glom Filt Rate - Afr Amer 67 mL/min (>60); Estimated Creatinine Clearance 31.53 ml/min; Glucose 67 mg/dL (74-106); Potassium 3.5 mmol/L (3.5-5.1); Sodium Level 141 mmol/L (136-145)
[2020-03-17 07:10] VITALS: O2SAT 97
[2020-03-17 08:00] VITALS: BP 110/54; PULSE 84; RESP 18; TEMP 36.9; O2SAT 95
[2020-03-17] MEDS: Heparin Injection (Vial) 5,000 UNIT/ML VIAL 5000 UNIT SC (08:35)
--- NOTE | 2020-03-17 09:11 | PN.SURG_ITS ---
Patient Problems: Active and Suspected Problems (Last Reviewed 03/16/20 @ 10:[address] Karlos Handy MD) Small bowel obstruction (Acute) Pneumonia (Acute) Subjective: Patient reports she is passing flatus. She had no nausea or vomiting with water. She is not having any abdominal pain. - Physical Exam Vitals/I&O's: Vital Signs Temp Pulse Resp BP Pulse Ox 98.4 F 84 18 110/54 L 95 03/17/20 08:00 03/17/20 08:00 03/17/20 08:00 03/17/20 08:00 03/17/20 08:00 Oxygen Flow Rate (L/min) 2 Oxygen Delivery Method Room Air Weight: 117 lb 8.102 oz Body Mass Index (BMI) 22.1 Intake and Output for Last 24 Hours 03/15/20 03/16/20 03/17/20 23:59 23:59 23:59 Intake Total 50 / 50 3751.67 / 3991.67 494.25 / 494.25 Output Total 1500 / 1500 1050 / 1550 500 / 500 Balance -1450 / -1450 2701.67 / 2441.67 -5.75 / -5.75 General: Alert, Oriented x3 Abdomen: Soft, Non Tender, Non-Distended Microbiology Past 72 Hours 03/15/20 21:30 Sputum, Expectorated/Coughed Gram Stain - Final 03/15/20 21:30 Sputum, Expectorated/Coughed Respiratory Culture - Preliminary Appears to be normal respiratory anselmo. Further studies to follow. 03/15/20 22:55 Mucosa - Nose Respiratory Panel (PCR) - Final 03/15/20 20:50 Urine, Clean Catch Streptococcus pneumoniae Antigen (M - Final 03/15/20 20:50 Urine, Clean Catch Legionella Antigen - Final Laboratory Results 03/17/20 06:06: WBC 9.4, RBC 3.53 L, Hgb 10.5 L, Hct 32.6 L, MCV 92.4, MCH 29.7, MCHC 32.2, RDW Std Deviation 42.4, RDW Coeff of Otto 12.5, Plt Count 124 L, MPV 11.6, Immature Gran % (Auto) 0.400, Neut % (Auto) 81.9 H, Lymph % (Auto) 10.6 L, Jerome % (Auto) 5.9, Eos % (Auto) 1.0, Baso % (Auto) 0.2, Absolute Neuts (auto) 7.7, Absolute Lymphs (auto) 0.99, Nucleated RBC % 0 03/17/20 06:06: Sodium 141, Potassium 3.5, Chloride 113 H, Carbon Dioxide 24.0, Anion Gap 4 L, BUN 22 H, Creatinine 1.02, Estim Creat Clear Calc 31.53, Est GFR (MDRD) Af Amer 67, Est GFR (MDRD) Non-Af 55 L, BUN/Creatinine Ratio 21.6 H, Gl ucose 67 L, Calcium 7.6 L Current Medications Acetaminophen (Tylenol) 650 mg RECTAL Q4H PRN PRN PRN Reason: Pain Score 1-10/Temp > 100.7 F Albuterol Sulfate (Ventolin Aerosols) 2.5 mg INHALATION Q2H PRN PRN PRN Reason: Dyspnea, wheezing Dextrose (D50w Syringe) 0 gm IV X1 PRN; Protocol PRN Reason: Hypoglycemia Glucagon () 1 mg IM .X1 PRN PRN Reason: Hypoglycemia Heparin Sodium (Porcine) (Heparin Na) 5,000 unit SC Q12 [facility] Last Admin: 03/17/20 08:35 Dose: 5,000 unit Documented by: Hydralazine HCl (Apresoline Iv) 10 mg IV Q4H PRN PRN PRN Reason: SBP > 160 Pantoprazole Sodium 40 mg/ (Sodium Chloride) 110 mls @ 330 mls/hr IV Q12 [facility] Last Infusion: 03/17/20 09:01 Dose: Infused Documented by: Ceftriaxone Sodium 2 gm/ (Sodium Chloride) 50 mls @ 100 mls/hr IV Q24 [facility] Stop: 03/23/20 10:01 Last Admin: 03/17/20 09:05 Dose: 100 mls/hr Documented by: Azithromycin 500 mg/ Dextrose 255 mls @ 250 mls/hr IV Q24 [facility] Stop: 03/21/20 10:01 Last Infusion: 03/16/20 11:30 Dose: Infused Documented by: Sodium Chloride () 250 mls @ 15 mls/hr IV .[id number] PRN PRN Reason: Saline Flush Last Infusion: 03/17/20 02:05 Dose: 0 mls/hr Documented by: Sodium Chloride () 250 mls @ 15 mls/hr IV .[id number] PRN PRN Reason: Additional IVPB Infusion Morphine Sulfate () 4 mg IV Q3H PRN PRN PRN Reason: Pain Score 6-10/10 Nitroglycerin (Nitrostat) 0.4 mg SUBLINGUAL Q5M PRN PRN Reason: CARDIAC/CHEST PAIN Ondansetron HCl (Zofran) 4 mg IV Q8H PRN PRN PRN Reason: NAUSEA/VOMITING Prochlorperazine Edisylate (Compazine Iv) 5 mg IV Q4H PRN PRN PRN Reason: Breakthrough Nausea/Vomiting Sodium Chloride () 10 - 40 ml IV UD PRN PRN Reason: SALINE FLUSH Last Admin: 03/16/20 22:48 Dose: 10 ml Documented by: Throat Lozenges (Cepacol Sore Throat Lozenge) 1 lozenge MUCOUS MEM Q2H PRN PRN PRN Reason: SORE THROAT Last Admin: 03/16/20 09:29 Dose: 1 lozenge Documented by: Medical Necessity - Tobacco Use Smoking Status: Former smoker Tobacco Use: Non-smoker Assessment/Plan All Active Problems (Last Reviewed 03/16/20 @ 10:[address] Karlos Handy MD) Small bowel obstruction (Acute) Pneumonia (Acute) 84-year-old female with partial small bowel obstruction 1. Patient's obstruction seems to be resolved. The patient is tolerating water with no nausea vomiting and NG was removed yesterday evening. She is not having any abdominal pain and is reporting that she is passing flatus. 2. Start regular diet today. If she tolerates that she may be discharged home from my standpoint. Leif Lewis MD Pager: [facility] [address] [place] [address], [address] [place] [address] Office:
--- NOTE | 2020-03-17 09:27 | DCINST_ITS ---
- Discharge Diagnoses Current Active Problems: Current Active and Chronic Problems (Last Reviewed 03/16/20 @ 10:[address] Karlos Handy MD) Small bowel obstruction (Acute) Pneumonia (Acute) CKD (chronic kidney disease), stage III (Chronic) GERD (gastroesophageal reflux disease) (Chronic) You will use the following diet at home:: Other - SOFT diet for 5 days Your food should be the consistency of: Regular Discharge Activity: May Not Drive Call your doctor if you observe: Fever of 101 or Higher, Coldness, Increased Pain, Numbness or Tingling, Change in Color, Inability to urinate, Shortness of breath, Dizziness, Fainting spells, Chest pain, Prolonged hiccoughing, Increased palpitations (irregular heartbeat), Calf discomfort, Uncontrolled pain Allergies/Adverse Reactions: Allergies Iodinated Contrast Media Adverse Reaction (Verified 03/15/20 13:07) Other pt states raises creatine level of my kidneys KIDNEY MEDICINE Allergy (Uncoded 03/15/20 13:07) Hives Medications to take at Discharge Amlodipine [Norvasc] 10 mg PO DAILY 09/17/16 Atorvastatin Calcium [Lipitor] 20 mg PO DAILY 09/17/16 Lactobacillus Acidophilus [Acidophilus] 1 ea PO BID 09/17/16 ascorbic acid (vitamin C) 500 mg tablet 500 mg PO DAILY 01/25/20 denosumab 60 mg/mL subcutaneous syringe 60 mg SC [id number] 01/25/20 lansoprazole 15 mg capsule,delayed release 15 mg PO DAILY 01/25/20 levocetirizine 5 mg tablet 5 mg PO DAILY 01/25/20 losartan 100 mg tablet 100 mg PO DAILY 01/25/20 multivitamin 1 tab PO DAILY 01/25/20 psyllium husk 0.52 gram capsule 0.52 g PO DAILY 01/25/20 triamcinolone acetonide 0.025 % topical cream 1 applic TOPICAL DAILY 01/25/20 Cholecalciferol (Vitamin D3) [Vitamin D3] 2,000 unit PO DAILY 03/15/20 Zinc Amino Acid Chelate [Zinc Chelated] 25 mg PO DAILY 03/15/20 Levofloxacin [Levaquin] 500 mg PO DAILY #4 tab 03/17/20 The following prescriptions were given: Levofloxacin [Levaquin] 500 mg PO DAILY #4 tab Transmission Status: Received by [facility] #30 Primary Care Physician: Mono Ritter MD [Primary Care Provider] - Please follow up with your Primary Care Physician in: in 2 weeks Test Results: Test results from this visit will be discussed in further detail at your follow- up appointment, if applicable. Please Follow Up With: Karlos Handy MD When: in 1 week
--- NOTE | 2020-03-17 09:38 | DS.PCM_ITS ---
Discharge Date and Diagnosis Date of Admission: 03/15/20 Date of Discharge: 03/17/20 - Primary Discharge Diagnosis Acute Problems: Active Problems (Last Reviewed 03/16/20 @ 10:[address] Karlos Handy MD) Small bowel obstruction (Acute) Pneumonia (Acute) - Secondary Discharge Diagnosis Chronic Problems: Chronic Problems (Last Reviewed 03/16/20 @ 10:[address] Karlos Handy MD) CKD (chronic kidney disease), stage III (Chronic) GERD (gastroesophageal reflux disease) (Chronic) Guaiac positive stools (Chronic) Hx SBO (Chronic) Dyslipidemia (Chronic) HTN (hypertension) (Chronic) Hospital Course and Treatment Summary of Care Provided: [] The patient is an 84 y/o F with history of recurrent small bowel obstruction is admitted with acute onset of diffuse abdominal pain with nausea, vomiting and CT abdomen finding of small bowel obstruction. Patient also has chronic unchanged nonproductive cough. 1. Acute on recurrent small bowel obstruction: Patient is being admitted in [facility]. CT abdomen shows large hiatal hernia, multiple loops of small bowel with air-fluid level suggestive of small bowel obstruction, asymptomatic cholelithiasis and colonic diverticulosis. Patient also with bibasilar hazy infiltrate of left and right lower lobes. Patient had NG tube which was removed. Tolerated clear liquid diet. Had good flatus. Good bowel sounds. Diet advanced to regular soft consistency. 2. Bilateral lower lobes gram-negative leon lactose steam bone press tender community- acquired pneumonia: On IV Rocephin and Zithromax although patient does not have much pulmonary symptoms. Incentive spirometry, chest physiotherapy. COVID-19 PCR negative. UA negative. Respiratory panel negative. Urinary antigens of Legionella and Streptococcus are negative. Gram stain of sputum culture shows gram-negative leon lactose steam bone press tender. Patient had 3 days of IV antibiotics. Discharged on Levaquin to complete a total of 7 days. 3. Chronic Kidney Disease Stage III: Admission BUN/Cr 29/1.31, baseline renal function 1.3-1.4, stable, repeat creatinine 1.18. BUN 26. IV fluid discontinued. 4. Hypertension: hold oral home hypertensive regimen, resume once oral intake appropriate, in the interim will have PRN IV hydralazine. 5. Hyperlipidemia: Resume medication 6. GERD: on IV Protonix. 7. Recent guaiac positive stool secondary to hemorrhoidal bleeding reflux esophagitis: Recent upper and lower endoscopies, noted hemorrhoids as well as reflux esophagitis, continue PPI as noted. 8. DVT prophylaxis: SCDs, heparin. Discharge medication reconciliation done. Discharge follow-up instructions completed. Discharge process discussed with the patient and all questions were answered to patient's satisfaction. Total time spent, exact 35 minutes on discharge meds reconciliation, examination, coordination of care with nurses and ancillary staff, review of imaging and blood test and discussion with the patient on follow-up instructions Clinical Impression(s) from Imaging Studies Abdomen CT 03/15/20 13:38 IMPRESSION: 1. Bibasilar hazy infiltrates of the left and right lower lobes. 2. Cholelithiasis. 3. Large hiatal hernia. 4. Distention with air-fluid levels in multiple loops of small bowel suggestive of obstruction. 5. Colonic diverticulosis with no evidence of associated diverticulitis. 6. Small amount of free fluid in the deep pelvis. 7. Status post hysterectomy. 8. Severe degenerative changes of the lumbar spine. Objective: Patient had cough, productive in nature for 3 to 4 days prior to admission and now has almost resolved. No fever or chills since admission. Patient passed flatus. Physical exam General: Alert, Oriented x3, Cooperative HEENT: Atraumatic, PERRLA, EOMI, Normocephalic Oral: No Gingival or Mucosal Lesions/ Ulcerations Neck: Supple, No JVD, Negative Carotid Bruits Lungs: Air entry diminished in bilateral lung bases. No crepitation/rhonchi. No shortness of breath. Pulse ox 95% on room air Cardiovascular: Regular rate, Regular Rhythm, Normal S1, Normal S2, No murmurs Abdomen: Bowel Sounds good and present, Soft, Non Tender, Non-Distended. Midline surgical scar of hysterectomy and previous exploratory laparotomy : No renal angle tenderness. No suprapubic tenderness. Extremities: No edema, Capillary Refill Less than 3 Seconds Skin: No rashes, No breakdown Musculoskeletal: No Tenderness to Palpation of Joints or Extremities Neurological: Cranial nerves II-XII grossly intact, Deep Tendon Reflexes 2+/4 and Symmetrical, Neuro grossly intact Psych/Mental Status: Normal Affect, Appropriate. - Physical Exam Vitals/I&O's: Vital Signs Temp Pulse Resp BP Pulse Ox 98.4 F 84 18 110/54 L 95 03/17/20 08:00 03/17/20 08:00 03/17/20 08:00 03/17/20 08:00 03/17/20 08:00 Oxygen Flow Rate (L/min) 2 Oxygen Delivery Method Room Air Weight: 117 lb 8.102 oz Body Mass Index (BMI) 22.1 Intake and Output for Last 24 Hours 03/15/20 03/16/20 03/17/20 23:59 23:59 23:59 Intake Total 50 / 50 3751.67 / 3991.67 494.25 / 494.25 Output Total 1500 / 1500 1050 / 1550 500 / 500 Balance -1450 / -1450 2701.67 / 2441.67 -5.75 / -5.75 Microbiology Past 72 Hours 03/15/20 21:30 Sputum, Expectorated/Coughed Gram Stain - Final 03/15/20 21:30 Sputum, Expectorated/Coughed Respiratory Culture - Preliminary Appears to be normal respiratory anselmo. Further studies to follow. 03/15/20 22:55 Mucosa - Nose Respiratory Panel (PCR) - Final 03/15/20 20:50 Urine, Clean Catch Streptococcus pneumoniae Antigen (M - Final 03/15/20 20:50 Urine, Clean Catch Legionella Antigen - Final Laboratory Results 03/17/20 06:06: WBC 9.4, RBC 3.53 L, Hgb 10.5 L, Hct 32.6 L, MCV 92.4, MCH 29.7, MCHC 32.2, RDW Std Deviation 42.4, RDW Coeff of Otto 12.5, Plt Count 124 L, MPV 11.6, Immature Gran % (Auto) 0.400, Neut % (Auto) 81.9 H, Lymph % (Auto) 10.6 L, Lynn % (Auto) 5.9, Eos % (Auto) 1.0, Baso % (Auto) 0.2, Absolute Neuts (auto) 7.7, Absolute Lymphs (auto) 0.99, Nucleated RBC % 0 03/17/20 06:06: Sodium 141, Potassium 3.5, Chloride 113 H, Carbon Dioxide 24.0, Anion Gap 4 L, BUN 22 H, Creatinine 1.02, Estim Creat Clear Calc 31.53, Est GFR (MDRD) Af Amer 67, Est GFR (MDRD) Non-Af 55 L, BUN/Creatinine Ratio 21.6 H, Glucose 67 L, Calcium 7.6 L Current Medications Acetaminophen (Tylenol) 650 mg RECTAL Q4H PRN PRN PRN Reason: Pain Score 1-10/Temp > 100.7 F Albuterol Sulfate (Ventolin Aerosols) 2.5 mg INHALATION Q2H PRN PRN PRN Reason: Dyspnea, wheezing Dextrose (D50w Syringe) 0 gm IV X1 PRN; Protocol PRN Reason: Hypoglycemia Glucagon () 1 mg IM .X1 PRN PRN Reason: Hypoglycemia Heparin Sodium (Porcine) (Heparin Na) 5,000 unit SC Q12 [facility]PLACED BY [facility] Last Admin: 03/17/20 08:35 Dose: 5,000 unit Documented by: Hydralazine HCl (Apresoline Iv) 10 mg IV Q4H PRN PRN PRN Reason: SBP > 160 Pantoprazole Sodium 40 mg/ (Sodium Chloride) 110 mls @ 330 mls/hr IV Q12 [facility]PLACED BY [facility] Last Infusion: 03/17/20 09:01 Dose: Infused Documented by: Ceftriaxone Sodium 2 gm/ (Sodium Chloride) 50 mls @ 100 mls/hr IV Q24 [facility]PL[facility]ED BY [facility] Stop: 03/23/20 10:01 Last Admin: 03/17/20 09:05 Dose: 100 mls/hr Documented by: Azithromycin 500 mg/ Dextrose 255 mls @ 250 mls/hr IV Q24 [facility]PL[facility]ED BY [facility] Stop: 03/21/20 10:01 Last Infusion: 03/16/20 11:30 Dose: Infused Documented by: Sodium Chloride () 250 mls @ 15 mls/hr IV .[id number] PRN PRN Reason: Saline Flush Last Infusion: 03/17/20 02:05 Dose: 0 mls/hr Documented by: Sodium Chloride () 250 mls @ 15 mls/hr IV .[id number] PRN PRN Reason: Additional IVPB Infusion Potassium Chloride () 10 meq in 100 mls @ 100 mls/hr IV BOLUS Q1H REPLACED BY [facility] Stop: 03/17/20 11:44 Morphine Sulfate () 4 mg IV Q3H PRN PRN PRN Reason: Pain Score 6-10/10 Nitroglycerin (Nitrostat) 0.4 mg SUBLINGUAL Q5M PRN PRN Reason: CARDIAC/CHEST PAIN Ondansetron HCl (Zofran) 4 mg IV Q8H PRN PRN PRN Reason: NAUSEA/VOMITING Prochlorperazine Edisylate (Compazine Iv) 5 mg IV Q4H PRN PRN PRN Reason: Breakthrough Nausea/Vomiting Sodium Chloride () 10 - 40 ml IV UD PRN PRN Reason: SALINE FLUSH Last Admin: 03/16/20 22:48 Dose: 10 ml Documented by: Throat Lozenges (Cepacol Sore Throat Lozenge) 1 lozenge MUCOUS MEM Q2H PRN PRN PRN Reason: SORE THROAT Last Admin: 03/16/20 09:29 Dose: 1 lozenge Documented by: Discharge Activity: May Not Drive Call your doctor if you observe: Fever of 101 or Higher, Coldness, Increased Pain, Numbness or Tingling, Change in Color, Inability to urinate, Shortness of breath, Dizziness, Fainting spells, Chest pain, Prolonged hiccoughing, Increased palpitations (irregular heartbeat), Calf discomfort, Uncontrolled pain Home Medications: Medications to take at Discharge Amlodipine [Norvasc] 10 mg PO DAILY 09/17/16 Atorvastatin Calcium [Lipitor] 20 mg PO DAILY 09/17/16 Lactobacillus Acidophilus [Acidophilus] 1 ea PO BID 09/17/16 ascorbic acid (vitamin C) 500 mg tablet 500 mg PO DAILY 01/25/20 denosumab 60 mg/mL subcutaneous syringe 60 mg SC [id number] 01/25/20 lansoprazole 15 mg capsule,delayed release 15 mg PO DAILY 01/25/20 levocetirizine 5 mg tablet 5 mg PO DAILY 01/25/20 losartan 100 mg tablet 100 mg PO DAILY 01/25/20 multivitamin 1 tab PO DAILY 01/25/20 psyllium husk 0.52 gram capsule 0.52 g PO DAILY 01/25/20 triamcinolone acetonide 0.025 % topical cream 1 applic TOPICAL DAILY 01/25/20 Cholecalciferol (Vitamin D3) [Vitamin D3] 2,000 unit PO DAILY 03/15/20 Zinc Amino Acid Chelate [Zinc Chelated] 25 mg PO DAILY 03/15/20 Levofloxacin [Levaquin] 500 mg PO DAILY #4 tab 03/17/20 Following Prescriptions Were Given to Patient: Levofloxacin [Levaquin] 500 mg PO DAILY #4 tab Transmission Status: Received by [facility] #30 Primary Care Physician: Mono Ritter MD [Primary Care Provider] - Please follow up with your Primary Care Physician in: in 2 weeks Please Follow Up With: Karlos Handy MD When: in 1 week Medical Necessity - Tobacco Use Smoking Status: Former smoker Tobacco Use: Non-smoker Meaningful Use Info Meaningful Use Diagnoses (Choose all that apply): None applicable Inpatient E&M: 129[address] [facility]
[2020-03-17] MEDS: Potassium Chloride 10mEq/100mL 10 MEQ/100 ML IV.SOLN. 100 MEQ IV BOLUS (11:52)
[2020-03-17 14:20] VITALS: BP 110/56; PULSE 78; RESP 18; TEMP 37.1; O2SAT 98
--- NOTE | 2020-03-21 08:42 | CASEMGMT ---
Social Work Discharge Follow up Phone call: Discharge Date: 03/17/20 Call Date: 03/21/20 Call Time: 0840 Reason for followup: advanced care planning Summary of Call: SW spoke with pt and discussed advance directives. Pt stating she has not yet looked at home to see if she has completed HCPOA or Living Will. Interventions: Pt made aware that she can make appointment as outpatient with [facility] SW to complete documents if she found that she has not previously completed documents. NO further needs requested or indicated. MARIBELL Cabrera
== END 2020-03-17 14:41 | disposition home or self-care (01) | DRG 388 ==
LOC: ED 17:33 → ICU 18:52 → MS3 23:36
PROVIDERS: Admitting Provider Family Medicine; Emergency Provider Emergency Medicine; PCP Family Medicine; Visit Provider Internal Medicine
DX: K56.600 Partial intestinal obstruction, unspecified as to cause (principal); J18.9 Pneumonia, unspecified organism; E78.5 Hyperlipidemia, unspecified; K44.9 Diaphragmatic hernia without obstruction or gangrene; K57.30 Diverticulosis of large intestine without perforation or abscess without bleeding; I12.9 Hypertensive chronic kidney disease with stage 1 through stage 4 chronic kidney disease, or unspecified chronic kidney disease; N18.3 Chronic kidney disease, stage 3 (moderate); K21.0 Gastro-esophageal reflux disease with esophagitis; H81.09 Meniere's disease, unspecified ear; K80.20 Calculus of gallbladder without cholecystitis without obstruction; M41.9 Scoliosis, unspecified; Z90.710 Acquired absence of both cervix and uterus; Z82.49 Family history of ischemic heart disease and other diseases of the circulatory system; Z85.828 Personal history of other malignant neoplasm of skin; Z87.891 Personal history of nicotine dependence; Z66 Do not resuscitate
CPT/HCPCS: 36415; 74018; 74176; 80048; 80053; 81001; 83605; 83690; 83735; 84145; 85025; 87070; 87077; 87186; 87205; 87449; 87633; 87635; 94640; 94799; 97162; 97166; 99251; 99285; J7030; J7040; J7050; A4216; G0463; J0696; J2405; U0003

== ENCOUNTER → 2020-03-28 14:35 | Outpatient (CLI) | payer MEDICARE, OTHER, SELFPAY ==
[2020-03-26 13:24] VITALS: BMI 22.1
[2020-03-28 17:53] LABS: Hematocrit 37.5 % (37-47); Hemoglobin 11.9 g/dL (12.0-15.0); Mean Corp Hgb Conc 31.7 g/dL (32-36); Mean Corpuscular Hgb 29.2 pg (27.0-32.0); Mean Corpuscular Volume 92.1 fL (81-99); Mean Platelet Vol. 12.2 fl (6.2-12.0); Platelet Count 234 K/mm3 (150-450); RBC Distribution Width CV 11.8 % (11.6-14.6); RBC Distribution Width SD 39.8 fl (35.1-43.9); Red Blood Count 4.07 M/mm3 (4.2-5.4); White Blood Count 8.4 K/mm3 (4.4-11.0)
[2020-03-28 18:18] LABS: ALB/GLOB Ratio 1.3 RATIO (0.9-2.4); AST(SGOT) 28 U/L (15-37); Alanine Aminotransfer ALT/SGPT 16 U/L (13-56); Albumin, Serum 3.7 g/dL (3.2-5.0); Alkaline Phosphatase 49 U/L (45-117); Anion Gap 7 (5-15); BUN 29 mg/dL (7-18); BUN/Creat Ratio 22.3 RATIO (10-20); Chloride 109 mmol/L (98-107); EST Glomerular Filtration Rate 42 mL/min (>60); Est Glom Filt Rate - Afr Amer 50 mL/min (>60); Globulin 2.9 g/dL (2.2-4.2); Glucose 95 mg/dL (74-106); Magnesium 2.3 mg/dL (1.6-2.6); Potassium 4.7 mmol/L (3.5-5.1); Protein, Total 6.6 g/dL (6.4-8.2); Sodium Level 141 mmol/L (136-145); Thyroid Stim Hormone (TSH) 1.67 uIU/mL (0.358-3.74)
== END ==
PROVIDERS: PCP Family Medicine; Referring Provider Family Medicine; Visit Provider Family Medicine
DX: K56.600 Partial intestinal obstruction, unspecified as to cause (principal)
CPT/HCPCS: 36415; 80053; 83735; 84443; 85027

== ENCOUNTER 2020-09-06 08:46 | Outpatient (RCR) | payer MEDICARE, OTHER, SELFPAY ==
[2020-06-26 11:24] VITALS: BMI 20.8
== END 2020-09-06 23:59 ==
LOC: IMMUN 08:46
PROVIDERS: PCP Family Medicine; Visit Provider Family Medicine
DX: Z23 Encounter for immunization (principal)
CPT/HCPCS: 0011A; 0012A; 91301

== ENCOUNTER 2020-09-18 15:11 | Emergency (ER) | payer MEDICARE, OTHER, SELFPAY ==
[2020-06-26 11:24] VITALS: BMI 20.8
[2020-09-18 15:12] VITALS: BP 149/72; PULSE 92; RESP 15; TEMP 36.2; O2SAT 98; BMI 20.9
--- NOTE | 2020-09-18 15:38 | CT_ITS ---
STUDY: CT ABDOMEN AND PELVIS WITHOUT CONTRAST REASON FOR EXAM: Female, 84 years old. SBO? DIFFUSE AB PAIN X TODAY RADIATION DOSAGE (If Supplied By Facility): CTDIvol = ( 6.08 ) mGy, DLP = ( 288.44 ) mGycm TECHNIQUE: Transaxial images were obtained from the dome of the diaphragm to the symphysis pubis with oral contrast, and without intravenous contrast. Sagittal and coronal images were reconstructed. Individualized dose optimization techniques were used for this CT. COMPARISON: 03/15/2020. FINDINGS: The visualized lung bases are unremarkable. The visualized portions of the heart are within normal limits. A small amount of fluid is seen over the surface of the liver. Liver is otherwise unremarkable. Cholelithiasis. Pancreas, spleen, and adrenal glands are unremarkable. Kidneys show no acute abnormalities. Bilateral parapelvic cysts are seen, stable. No stones. No masses. GI tract shows a small hiatal hernia. Grossly normal stomach. No dilated loops of small bowel and no evidence for obstruction. Normal caliber large bowel. Fluid and fecal material throughout the large bowel as far as the rectosigmoid which could represent diarrheal disorders. There is diffuse atherosclerotic calcification of the abdominal aorta with elongation and tortuosity, but without a demonstrated aneurysm. Normal inferior vena cava. Normal retroperitoneum. Normal urinary bladder. There is absence of the uterus consistent with a prior hysterectomy. Normal abdominal wall. There are diffuse degenerative changes of the visualized lumbar spine. Exaggerated lumbar lordosis, and moderate dextroconvex scoliosis. CT/Abdomen/Pel W ORAL Cont Only IMPRESSION: No definite acute abnormalities. No evidence for bowel obstruction. Cholelithiasis. Electronically Signed: Karri Nascimento MD at 17:56 EST , Service support ,
--- NOTE | 2020-09-18 15:48 | ED.VIS.GEN ---
History of Present Illness Informant: Patient Narrative: 84-year-old female presenting for the evaluation of abdominal pain. Patient states symptoms began this morning and is associated with nausea. She notes discomfort as an aching sensation in her periumbilical and epigastrium region. She did have a normal bowel movement today. Patient has had 5-6 small bowel obstructions in the past have not required surgical treatment. She has had a hysterectomy with reportedly had a bowel complications. This was done when she was 39 years old. Patient denies any fevers. No urinary symptoms. <Karlos Foreman - Last Filed: 09/18/20 15:53> <Eddie Moreno - Last Filed: 09/18/20 18:07> Chief Complaint: Abd Pain - Past Medical History (1) Small bowel obstruction Status: Chronic (2) CKD (chronic kidney disease), stage III Status: Chronic (3) Dyslipidemia Status: Chronic (4) GERD (gastroesophageal reflux disease) Status: Chronic (5) HTN (hypertension) Status: Chronic <Karlos Foreman - Last Filed: 09/18/20 15:53> Past Medical History Surgical History: hysterectomy, - - Cataract surgery, hysterectomy, exploratory laparotomy, vein stripping bilateral lower extremities, tonsillectomy. Smoking Status: Former smoker Drugs: None - Family History Maternal Family History: Family History (Last Reviewed 06/26/20 @ 11:08 by Arlet Renteria) Father Hypertension Mother Hypertension Family History: Reports: Hypertension Paternal Family History: Family History (Last Reviewed 06/26/20 @ 11:08 by Arlet Renteria) Father Hypertension Mother Hypertension Family History: Reports: Hypertension <Karlos Foreman - Last Filed: 09/18/20 15:53> - Family History Maternal Family History: Family History (Last Reviewed 06/26/20 @ 11:08 by Arlet Renteria) Father Hypertension Mother Hypertension Paternal Family History: Family History (Last Reviewed 06/26/20 @ 11:08 by Arlet Renteria) Father Hypertension Mother Hypertension <Eddie Moreno - Last Filed: 09/18/20 18:07> - Allergies and Home Meds Allergies/Adverse Reactions: Allergies Iodinated Contrast Media Adverse Reaction (Verified 09/18/20 15:11) Other pt states raises creatine level of my kidneys KIDNEY MEDICINE Allergy (Uncoded 09/18/20 15:11) Hives Primary Care Physician: Mono Ritter MD [Primary Care Provider] - Review of Systems General: Denies: Chills, Fever, Sweats Eyes: Denies: Visual changes - bilaterally, Diplopia ENT: Denies: Rhinorrhea, Sore throat Cardiovascular: Denies: Chest pain, Palpitations Respiratory: Denies: Dyspnea, Cough, Dyspnea on exertion Gastrointestinal: Reports: Abdominal pain, Nausea. Denies: Vomiting, Diarrhea, Melena, Hematochezia Genitourinary: Denies: Dysuria, Hematuria, Frequency Musculoskeletal: Denies: Back pain, Extremity Pain Skin: Denies: Rash, Wounds Neurological: Denies: Headache, Weakness, Numbness <Karlos Foreman - Last Filed: 09/18/20 15:53> Physical Exam Vital Signs/Narrative: Vital Signs Temp Pulse Resp BP Pulse Ox 09/18/20 15:12 97.1 F L 92 15 149/72 H 98 Inital Vital Signs reviewed: Yes General: Well nourished, Well developed, No Acute Distress Head: Normocephalic, Atraumatic Eyes: Perrl, EOMI ENT: Moist mucous membranes, No rhinorrhea Neck: Supple, Nontender Cardiovascular: Regular rate, Regular rhythm, No murmurs Respiratory: No distress, CTA bilaterally, Chest nontender Abdomen: Soft, Nontender, Nondistended, Hyperactive bowel sounds Back: Nontender, Normal Inspection Extremities: Nontender, No edema Skin: Normal color, No rash Neurological: Alert, Oriented x3, Cranial nerves II-XII grossly intact, Normal Strength, Normal Sensation Psychological: Normal affect, Normal Mood <Karlos Foreman - Last Filed: 09/18/20 15:53> Vital Signs/Narrative: Vital Signs Temp Pulse Resp BP Pulse Ox 09/18/20 15:12 97.1 F L 92 15 149/72 H 98 <Eddie Moreno - Last Filed: 09/18/20 18:07> Diagnostic/Tx/Re-eval - Medical Decision Making IV was established patient received fluids and Zofran. Because of her history of bowel obstruction a CT was ordered with oral contrast. Care the patient at this point will be turned over to the oncoming physician for check of CT and final disposition. <Karlos Foreman - Last Filed: 09/18/20 15:53> - Medical Decision Making This patient was checked out with a CT the abdomen pelvis pending. This has returned and shows no acute disease. Clinical Impression(s) from Imaging Studies Abdomen CT 09/18/20 15:38 IMPRESSION: No definite acute abnormalities. No evidence for bowel obstruction. Cholelithiasis. Electronically Signed: Karri Nascimento MD at 17:56 EST , Service support , Emergency department course: Patient is resting comfortably. Treatment plan: Patient will be discharged with Zofran. Instructed to follow-up her primary care physician 1 to 2 days if not improving. Return to the emergency department for any worsening symptoms. Disposition: To home in improved and stable condition. Impression: 1. Abdominal pain, uncertain cause. <Eddie Moreno - Last Filed: 09/18/20 18:07> ED Disposition <Karlos Foreman - Last Filed: 09/18/20 15:53> <Eddie Moreno - Last Filed: 09/18/20 18:07> - Plan for ED Patient: Diagnosis: Abdominal pain, Nausea Instructions: ED Abdominal Pain Unkn Cause Fem Prescriptions: Ondansetron [Zofran Odt] 4 mg PO Q8H PRN PRN #10 tablet PRN Reason: Nausea Referrals: Mono Ritter MD [Primary Care Provider] - 1-2 Days if not improving
[2020-09-18 16:05] LABS: Bacteria 0 SEEN /hpf (None Seen); Mucous, Urine 0 SEEN /hpf (<or=2+); Red Blood Cells-Urine 0 SEEN /hpf (0-5)
[2020-09-18 16:06] LABS: Color, Urine Yellow (Yellow); Glucose, Dipstick Normal (Normal); Ketone-Dipstick 5 mg/dl (Negative); Leukocyte Esterase-Dipstick 500 /ul (Negative); Nitrite-Dipstick Negative (Negative); Occult Blood-Urine Negative /ul (Negative); Protein-Dipstick 30 mg/dl (Negative); Urine Bilirubin Dipstick Negative (Negative); Urine Clarity Clear (Clear); Urine Urobilinogen 1 mg/dl (Normal)
[2020-09-18 16:11] LABS: Squamous Epithelial Cells - UA 0-5 SEEN /hpf (5-10); White Blood Cells 0-5 SEEN /hpf (0-5)
[2020-09-18 16:11] LABS: Absolute Lymphocyte Count 0.99 X10^3/uL (0.83-4.51); Absolute Neutrophil Count 10.9 X10^3/uL (2.0-7.7); Basophil# 0.04 X10^3/uL; Basophil% 0.3 % (0-1); Eosinophil# 0.07 X10^3/uL; Eosinophils% 0.5 % (0-5); Hematocrit 43.7 % (37-47); Hemoglobin 14.4 g/dL (12.0-15.0); Lymphocyte # 0.99 X10^3/ul (4.0); Lymphocyte % 7.8 % (19-41); Mean Corpuscular Hgb 29.3 pg (27.0-32.0); Monocyte# 0.66 X10^3/uL; Monocyte% 5.2 % (0-10); NRBC Flagged by Analyzer 0 % (0-5); Neutrophil # 10.91 X10^3/uL (2.7-7.7); Neutrophil % 85.7 % (47-70); Platelet Count 206 K/mm3 (150-450); RBC Distribution Width CV 12.2 % (11.6-14.6); RBC Distribution Width SD 39.6 fl (35.1-43.9); Red Blood Count 4.91 M/mm3 (4.2-5.4); White Blood Count 12.7 K/mm3 (4.4-11.0)
[2020-09-18] MEDS: 0.9% Normal Saline 1,000 ML 200 ML IV (16:11)
[2020-09-18 16:12] LABS: Hyaline Cast 0-5 SEEN /lpf (0-5)
[2020-09-18 16:23] LABS: ALB/GLOB Ratio 1.4 RATIO (0.9-2.4); AST(SGOT) 20 U/L (15-37); Alanine Aminotransfer ALT/SGPT 14 U/L (13-56); Albumin, Serum 4.3 g/dL (3.2-5.0); Alkaline Phosphatase 46 U/L (45-117); Anion Gap 6 (5-15); BUN 30 mg/dL (7-18); BUN/Creat Ratio 21.6 RATIO (10-20); Calcium,Total 9.4 mg/dL (8.5-10.1); Chloride 107 mmol/L (98-107); Creatinine, Serum 1.39 mg/dL (0.55-1.02); EST Glomerular Filtration Rate 38 mL/min (>60); Est Glom Filt Rate - Afr Amer 47 mL/min (>60); Estimated Creatinine Clearance 25.37 ml/min; Glucose 141 mg/dL (74-106); Lipase 80 U/L (73-393); Protein, Total 7.3 g/dL (6.4-8.2); Sodium Level 140 mmol/L (136-145)
[2020-09-18 18:00] VITALS: BP 159/69; PULSE 90; RESP 15; O2SAT 98
[2020-09-18 18:14] VITALS: BP 159/69; PULSE 88; RESP 15; O2SAT 98
== END 2020-09-18 18:15 | disposition home or self-care (01) ==
LOC: ED 16:24
PROVIDERS: Emergency Provider Emergency Medicine; PCP Family Medicine
DX: R10.9 Unspecified abdominal pain (principal); K80.20 Calculus of gallbladder without cholecystitis without obstruction; E78.5 Hyperlipidemia, unspecified; N18.30 Chronic kidney disease, stage 3 unspecified; I12.9 Hypertensive chronic kidney disease with stage 1 through stage 4 chronic kidney disease, or unspecified chronic kidney disease; K21.9 Gastro-esophageal reflux disease without esophagitis; Z82.49 Family history of ischemic heart disease and other diseases of the circulatory system; Z87.891 Personal history of nicotine dependence
CPT/HCPCS: 74176; 80053; 81001; 83690; 85025; 96360; 96361; 99285; J7030; A4216

== ENCOUNTER → 2020-09-21 11:56 | Outpatient (CLI) | payer MEDICARE, OTHER, SELFPAY ==
[2020-09-18 15:12] VITALS: BMI 20.9
[2020-09-21 17:44] LABS: Absolute Lymphocyte Count 1.32 X10^3/uL (0.83-4.51); Absolute Neutrophil Count 4.8 X10^3/uL (2.0-7.7); Basophil# 0.05 X10^3/uL; Basophil% 0.7 % (0-1); Eosinophil# 0.15 X10^3/uL; Eosinophils% 2.2 % (0-5); Hematocrit 38.9 % (37-47); Hemoglobin 12.3 g/dL (12.0-15.0); Lymphocyte # 1.32 X10^3/ul (4.0); Lymphocyte % 19.1 % (19-41); Mean Corp Hgb Conc 31.6 g/dL (32-36); Mean Corpuscular Hgb 28.7 pg (27.0-32.0); Mean Corpuscular Volume 90.9 fL (81-99); Mean Platelet Vol. 11.6 fl (6.2-12.0); Monocyte# 0.52 X10^3/uL; Monocyte% 7.5 % (0-10); NRBC Flagged by Analyzer 0 % (0-5); Neutrophil # 4.83 X10^3/uL (2.7-7.7); Neutrophil % 70.1 % (47-70); Platelet Count 181 K/mm3 (150-450); RBC Distribution Width CV 12.4 % (11.6-14.6); RBC Distribution Width SD 41.2 fl (35.1-43.9); Red Blood Count 4.28 M/mm3 (4.2-5.4); White Blood Count 6.9 K/mm3 (4.4-11.0)
[2020-09-21 18:04] LABS: ALB/GLOB Ratio 1.4 RATIO (0.9-2.4); AST(SGOT) 28 U/L (15-37); Alanine Aminotransfer ALT/SGPT 17 U/L (13-56); Alkaline Phosphatase 44 U/L (45-117); Anion Gap 5 (5-15); BUN 21 mg/dL (7-18); BUN/Creat Ratio 17.2 RATIO (10-20); CRP < 2.90 mg/L (0.0-3.0); Chloride 110 mmol/L (98-107); Creatinine, Serum 1.22 mg/dL (0.55-1.02); EST Glomerular Filtration Rate 45 mL/min (>60); Est Glom Filt Rate - Afr Amer 54 mL/min (>60); Globulin 2.9 g/dL (2.2-4.2); Glucose 89 mg/dL (74-106); Potassium 4.2 mmol/L (3.5-5.1); Protein, Total 6.9 g/dL (6.4-8.2); Sodium Level 143 mmol/L (136-145)
== END ==
PROVIDERS: PCP Family Medicine; Referring Provider Family Medicine; Visit Provider Family Medicine
DX: K57.32 Diverticulitis of large intestine without perforation or abscess without bleeding (principal)
CPT/HCPCS: 36415; 80053; 85025; 86140

== ENCOUNTER 2021-01-10 11:30 | Outpatient (RCR) | payer MEDICARE, OTHER, SELFPAY ==
--- NOTE | 2020-12-18 11:56 | HP.PTEVAL_ITS ---
Patient's Visit Information JOSE MARTIN ESCALERA is a 85 year old F referred to Physical Therapy by Dr. 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 Date of Evaluation: 12/18/20 Physical Therapist: Newton Lisa, PT, ATC - Visit Plan Plan: Skilled PT not necessary at this time. Pt would benefit from OT eval for writing eval and treatment - Subjective Pt reports she has had shaking in her R hand for greater than 5 years. Pt reports she has less tremors in the morning, and more tremors as the day continues. Pt reports she is to have parkinsons testing in the future, but she wasnt able to get into the dr. until february. Pt reports she can still basically perform all of her IADL's, but notes she has difficulty with writing type activity. Pt reports no recent changes in her medications. Pt reports no tingling or numbness in UE's. No sleep difficulty at this time secondary to pain. Pt reports her major goal is to be able to write better with less shaking. No pain in her hands at this time. Pt is R hand dominant - Objective Neuro: B UE sensation is WNL to light touch. B bicepital reflex= 2/3. ROM: B UE's are equal and WFL. MMT: B UE's are grossly 5/5 throughout. Biomedical Engineering Technician strength: L hand 40#F, R hand is 35 #/F - Goals Goal 1:: N/A - Rehabilitation Potential Physical Therapy Diagnosis: Pt has intentional tremors of the R UE at this time with unknown origin Rehabilitation Potential: Good - Anticipated Interventions Patient/Client Instruction: Educate patient on: Condition, Plan of Care For the Purpose of:: To improve self management Thank you for the opportunity to evaluate your patient. For Medicare and Medicare HMO plans, please review the plan of care and approve it. It will need to be FAXED BACK to us at [phone] for Medicare purposes. For Medicare only, by signing this I certify the plan of care. Please let me know if there are questions or concerns regarding this plan of care. Physician Signature: Date:
--- NOTE | 2020-12-27 11:58 | HP.OTEVAL ---
Patient's Visit Information JOSE MARTIN ESCALERA is a 85 year old F, referred to Occupational Therapy by Dr. Mono Ritter MD, with a diagnosis of intention tremor. Date of Evaluation: 12/27/20 Occupational Therapist: Mariajose Watson, EDMOND/Tod, CHT - Subjective This 85 year old female was seen for OT eval with dx of intention tremor. pt states she noticed before Sep. but forgot to tell her dr at her yearly apt. pt states she has trouble writing. pt states she notices more tremor when she is more active or rushing around. pt states she also notices when she is tired. pt would like to know what she can do to help decrease episodes. - ADLs Miscellaneous: Handle money (change), Hold change, Write, Turn pages in book Comments: pt lives alone with dog. pt states she does notice more tremor when she has had a more active day or rushing around - going to [employer], shopping, cleaning, cooking. pt use to participate in a health and wellness but has not been attending since [facility] regulations - ROM ROM Comments: pt demo full ROM of BUE - Strength Audio Experience Expert: right 20# left 35# Lateral Pinch: right 10# left 10# Tripod Pinch: right 8# left 10# - Nine Hole Peg Right: 23.2 sec Left: 24.7 sec - Quick DASH-Disab of Arm,Shoulder& Hand Quick DASH Score: 29.5450 - Goals Goal:: pt will demonstrate understanding of energy conservation demetris. by end of week 2. pt will demonstrate understanding of as. eq. to conserve energy by d/c. - Rehabilitation General Assessment: Pt demo with small intention tremor with prolonged holding position on pen during assessment- pt would benefit from skilled OT services for 2-3 visits to ensure pt is incorporating energy conservation in her daily tasks- today therapist ed. pt on concept and that this will decrease her fatigue and limit her tremor. therapist advised to increase time for her day to decrease risk of rushing as this will also increase pts tremor- pt demo understanding and will incorporate energy conservation in next two weeks- and return for follow up visit. this visit will determine if pt would benefit from ad. eq. and home modification. pt receptive to information and agree to POC Rehabilitation Potential: Good - Anticipated Interventions Joint Protection/Energy Conservation, Ergonomic Education, Education re assistive Equipment, Home Program - Visit Plan TEXT: Thank you for the opportunity to evaluate your patient. For Medicare and Medicare HMO plans, please review the plan of care and approve it. It will need to be FAXED BACK to us at [phone] for Medicare purposes. Please let me know if there are questions or concerns regarding this plan of care. Physician Signature: Date:
--- NOTE | 2021-01-10 12:00 | HP.OTDCSUM ---
It has been my pleasure to treat JOSE MARTIN ESCALERA under orders from Dr. Mono Ritter MD, for the diagnosis of intention tremor for a total of 2 visit(s). Please see the following information for a summary of their discharge status. % Improvement: 60 Patient Goals: Improve Fine Motor Skills, Use Hand/Wrist/Arm Normally Again Goal:: pt will demonstrate understanding of energy conservation demetris. by end of week 2. pt will demonstrate understanding of as. eq. to conserve energy by d/c. Discharge Comments: pt was seen for 2 OT session. Therapist ed. pt on use of ad. eq. and energy conservation demetris. to limit muscle fatigue. pt has initiated the suggestions and has noticed 60% less tremors. pt continues to be concerned with generalized tiredness to where she feels not herself. therapist advised to speak to her Dr. pt was receptive. pt d/c with home program pt agree with d/c. If there are questions or concerns regarding this patient's occupational therapy, please fell free to call me at [phone]. Thank you for the referral of this patient. Sincerely, Mariajose Watson, OTR/L, CHT
== END 2021-01-10 19:00 | disposition home or self-care (01) ==
LOC: OT 11:30
PROVIDERS: PCP Family Medicine; Referring Provider Family Medicine; Visit Provider Family Medicine
DX: G25.2 Other specified forms of tremor (principal)
CPT/HCPCS: 97161; 97166; 97530

== ENCOUNTER → 2021-02-15 08:22 | Outpatient (CLI) | payer MEDICARE, OTHER, SELFPAY ==
[2021-02-14 11:04] VITALS: BMI 22.8
[2021-02-15 09:08] LABS: Hematocrit 39.5 % (37-47); Hemoglobin 12.6 g/dL (12.0-15.0); Mean Corp Hgb Conc 31.9 g/dL (32-36); Mean Corpuscular Hgb 28.8 pg (27.0-32.0); Mean Corpuscular Volume 90.4 fL (81-99); Mean Platelet Vol. 10.4 fl (6.2-12.0); Platelet Count 174 K/mm3 (150-450); RBC Distribution Width CV 12.3 % (11.6-14.6); Red Blood Count 4.37 M/mm3 (4.2-5.4); White Blood Count 5.7 K/mm3 (4.4-11.0)
[2021-02-15 09:45] LABS: Vitamin B12 255 pg/mL (211-911)
[2021-02-15 10:38] LABS: ALB/GLOB Ratio 1.3 RATIO (0.9-2.4); AST(SGOT) 26 U/L (15-37); Alanine Aminotransfer ALT/SGPT 21 U/L (13-56); Albumin, Serum 3.7 g/dL (3.2-5.0); Alkaline Phosphatase 46 U/L (45-117); Anion Gap 3 (5-15); BUN 20 mg/dL (7-18); BUN/Creat Ratio 17.2 RATIO (10-20); Calcium,Total 8.7 mg/dL (8.5-10.1); Chloride 112 mmol/L (98-107); Creatinine, Serum 1.16 mg/dL (0.55-1.02); EST Glomerular Filtration Rate 47 mL/min (>60); Est Glom Filt Rate - Afr Amer 57 mL/min (>60); Globulin 2.9 g/dL (2.2-4.2); Glucose 89 mg/dL (74-106); Potassium 4.2 mmol/L (3.5-5.1); Protein, Total 6.6 g/dL (6.4-8.2); Sodium Level 145 mmol/L (136-145); Thyroid Stim Hormone (TSH) 2.26 uIU/mL (0.358-3.74)
== END ==
PROVIDERS: PCP Family Medicine; Referring Provider Psychiatry & Neurology Neurology; Visit Provider Psychiatry & Neurology Neurology
DX: G31.84 Mild cognitive impairment of uncertain or unknown etiology (principal); G20 Parkinson's disease; I10 Essential (primary) hypertension
CPT/HCPCS: 36415; 80053; 82607; 82746; 84443; 85027

== ENCOUNTER → 2021-02-26 16:43 | Outpatient (CLI) | payer MEDICARE, OTHER, SELFPAY ==
[2021-02-14 11:04] VITALS: BMI 22.8
[2021-02-26 10:59] VITALS: BMI 22.8
--- NOTE | 2021-02-26 16:46 | MRI_ITS ---
STUDY: MRI BRAIN WITHOUT CONTRAST REASON FOR EXAM: Female, 85 years old. MCI, Cerebral Vascular Disease, Parkinson''s TECHNIQUE: Standardized multiplanar fat and water weighted pulse sequences were obtained. COMPARISON: MRI of the brain 12/07/2018 CT of the brain 12/07/2018. FINDINGS: Mild atrophy and moderate periventricular white matter ischemic changes without mass effect or restricted diffusion.. Normal bilateral basal ganglia. Normal thalami. There is no extra-axial fluid accumulation. Normal flow voids within the major intracranial circulation suggesting patency by spin echo criteria. Normal sella turcica, pituitary gland, infundibular stalk, optic chiasm and hypothalamus. Normal tectal plate and pineal gland. Normal midbrain, hasmukh and medulla. Mild cerebellar atrophy.. Normal basal cisterns. Normal bilateral temporal bones. Normal bilateral internal auditory canals. Postsurgical changes of the orbits.. Mucosal thickening of the maxillary and ethmoid sinuses. Normal calvarium and skull base. Normal visualized soft tissue structures. Normal visualized upper cervical spine. There has been mild interval progression of the white matter ischemic changes since prior exam MRI/Brain without Contrast IMPRESSION: Moderate periventricular white matter ischemic changes without evidence for acute infarct Electronically Signed: Dann Monterroso MD at 20:53 EDT , Service support ,
== END ==
PROVIDERS: PCP Family Medicine; Visit Provider Psychiatry & Neurology Neurology
DX: G31.84 Mild cognitive impairment of uncertain or unknown etiology (principal); G20 Parkinson's disease; I67.9 Cerebrovascular disease, unspecified
CPT/HCPCS: 70551

== ENCOUNTER → 2021-05-21 15:50 | Outpatient (CLI) | payer MEDICARE, OTHER, SELFPAY ==
--- NOTE | 2021-05-21 16:03 | VDLE_ITS ---
Reason For Study: swelling Procedure LEFT This is a venous duplex using B-mode, color GSV is normal. flow and spectral Doppler. CFV is compressible, spontaneous, phasic, Exam performed in department. competent, and demonstrates normal The exam was abbreviated due to the COVID 19 augmentation. protocol. FV is compressible, spontaneous, phasic, The exam was diagnostic. competent and demonstrates normal A preliminary report was called and/or faxed augmentation. to [facility]. POP V is compressible, spontaneous, phasic, competent and demonstrates normal augmentation. T/P Trunk is compressible. PTV is compressible. LT PerV is compressible. VL/Venous Duplex US, Unilateral Interpretation Summary Deep veins of the left lower extremity are patent and compressible segmentally. There is no evidence of left lower extremity deep vein thrombosis. Valvular competence appears intac t within the proximal deep venous system on the left . The left great saphenous vein appears patent a nd compressible segmentally. Ordering Physician: Aminta Cutler Performed By: Jb Armenta RVT
== END ==
PROVIDERS: PCP Family Medicine; Referring Provider Registered Nurse; Visit Provider Registered Nurse
DX: M79.89 Other specified soft tissue disorders (principal)
CPT/HCPCS: 93971

== ENCOUNTER 2021-09-10 11:19 | Outpatient (CLI) | payer MEDICARE, OTHER, SELFPAY ==
[2021-09-10 15:27] LABS: Absolute Lymphocyte Count 1.45 X10^3/uL (0.83-4.51); Absolute Neutrophil Count 4.7 X10^3/uL (2.0-7.7); Basophil# 0.05 X10^3/uL; Basophil% 0.7 % (0-1); Eosinophil# 0.14 X10^3/uL; Hematocrit 39.4 % (37-47); Hemoglobin 12.9 g/dL (12.0-15.0); Lymphocyte # 1.45 X10^3/ul (0.83-4.51); Lymphocyte % 21.1 % (19-41); Mean Corp Hgb Conc 32.7 g/dL (32-36); Mean Corpuscular Hgb 29.5 pg (27.0-32.0); Mean Corpuscular Volume 90.2 fL (81-99); Mean Platelet Vol. 11.1 fl (6.2-12.0); Monocyte# 0.54 X10^3/uL; Monocyte% 7.8 % (0-10); NRBC Flagged by Analyzer 0 % (0-5); Neutrophil # 4.69 X10^3/uL (2.7-7.7); Neutrophil % 68.3 % (47-70); Platelet Count 192 K/mm3 (150-450); RBC Distribution Width CV 12.4 % (11.6-14.6); RBC Distribution Width SD 40.8 fl (35.1-43.9); Red Blood Count 4.37 M/mm3 (4.2-5.4); White Blood Count 6.9 K/mm3 (4.4-11.0)
[2021-09-10 15:51] LABS: Vitamin B12 > 2000 pg/mL (211-911); Vitamin D,25 Hydroxy 54.5 ng/mL
[2021-09-10 15:58] LABS: Microalbumin,Random Urine 11.1 mg/L (NO RANGE EST.); Microalbumin:Creatinine Ratio 8.2 mg/g CRE (<30 mg/g CRE)
[2021-09-10 16:20] LABS: ALB/GLOB Ratio 1.2 RATIO (0.9-2.4); AST(SGOT) 25 U/L (15-37); Alanine Aminotransfer ALT/SGPT 9 U/L (13-56); Albumin, Serum 3.8 g/dL (3.2-5.0); Alkaline Phosphatase 46 U/L (45-117); Anion Gap 6 (5-15); BUN 24 mg/dL (7-18); BUN/Creat Ratio 20.5 RATIO (10-20); Calcium,Total 9.2 mg/dL (8.5-10.1); Chloride 109 mmol/L (98-107); Creatinine, Serum 1.17 mg/dL (0.55-1.02); EST Glomerular Filtration Rate 47 mL/min (>60); Est Glom Filt Rate - Afr Amer 57 mL/min (>60); Globulin 3.1 g/dL (2.2-4.2); Glucose 86 mg/dL (74-106); Potassium 4.3 mmol/L (3.5-5.1); Protein, Total 6.9 g/dL (6.4-8.2); Sodium Level 140 mmol/L (136-145); Thyroid Stim Hormone (TSH) 1.56 uIU/mL (0.358-3.74)
== END 2021-09-10 23:59 | disposition short-term general hospital (02) ==
LOC: MFPLAB 11:20
PROVIDERS: PCP Family Medicine; Referring Provider Family Medicine; Visit Provider Family Medicine
DX: I12.9 Hypertensive chronic kidney disease with stage 1 through stage 4 chronic kidney disease, or unspecified chronic kidney disease (principal); N18.30 Chronic kidney disease, stage 3 unspecified; N81.0 Urethrocele; E53.8 Deficiency of other specified B group vitamins
CPT/HCPCS: 36415; 80053; 82043; 82306; 82570; 82607; 82746; 84443; 85025

== ENCOUNTER → 2021-12-10 | Outpatient (CLI) | payer MEDICARE, OTHER, SELFPAY ==
[2021-12-10 11:43] LABS: Bacteria 0 SEEN /hpf (None Seen); Mucous, Urine 0 SEEN /hpf (<or=2+); Red Blood Cells-Urine 0 SEEN /hpf (0-5); Squamous Epithelial Cells - UA 0 SEEN /hpf (5-10); White Blood Cells 0 SEEN /hpf (0-5)
[2021-12-10 15:37] LABS: Color, Urine Yellow (Yellow); Glucose, Dipstick Normal (Normal); Ketone-Dipstick Negative (Negative); Leukocyte Esterase-Dipstick Negative /ul (Negative); Nitrite-Dipstick Negative (Negative); Occult Blood-Urine Negative /ul (Negative); Protein-Dipstick Negative (Negative); Urine Bilirubin Dipstick Negative (Negative); Urine Clarity Clear (Clear); Urine Urobilinogen Normal (Normal)
== END | disposition home or self-care (01) ==
LOC: LABSPEC 11:42
PROVIDERS: PCP Family Medicine; Referring Provider Family Medicine; Visit Provider Family Medicine
DX: R35.1 Nocturia (principal)
CPT/HCPCS: 81001

== ENCOUNTER → 2021-12-26 | Outpatient (CLI) | payer MEDICARE, OTHER, SELFPAY ==
--- NOTE | 2021-12-26 10:41 | BD_ITS ---
STUDY: DUAL ENERGY X-RAY ABSORPTIOMETRY / DXA REASON FOR EXAM: Female, 86 years old. M810. Patient is postmenopausal. TECHNIQUE: Bone Mineral Density (BMD) measurements of lumbar spine and bilateral hips were obtained. COMPARISON: Comparison is made with prior study of 12/20/2019. FINDINGS: Lumbar Spine (L1-L4): g/cm2 (1.172) / T-score (0.6) / Z-score (3.7) Findings are suggestive of normal bone density with a low fracture risk. Left Femur Total: g/cm2 (0.688) / T-score (-2.1) / Z-score (0.3) Left Femoral Neck: g/cm2 (0.564) / T-score (-2.6) / Z-score (0.0) Right Femur Total: g/cm2 (0.683) / T-score (-2.1) / Z-score (0.2) Right Femoral Neck: g/cm2 (0.623) / T-score (-2.0) / Z-score (0.5) The T-Scores on the most recent prior examination were: Lumbar Spine (L1-L4): There has been improvement of bone density since the previous examination. Left Femur Total: which represents an improvement of 1.2%. Right Femur Total: which represents an improvement of 5.8%. BD/Dexa Bone Density Study IMPRESSION: The patient is considered osteoporotic as outlined below according to World Agusto Organization (WHO) criteria with a high fracture risk. There has been improvement of bone density since the previous examination. Reference Information: The T-score is the number of standard deviations above or below the standard which is normal for young adults at their peak bone mineral density. The World Health Organization (WHO) interprets the T-scores as follows: Above -1 Normal bone density Between -1 and -2.5 Osteopenia Equal to / or below -2.5 Osteoporosis As a practical clinical guideline, osteopenia may be graded as follows: Mild -1 through -1.5 Moderate -1.6 through -2.0 Severe -2.1 through -2.4 The Z-score is the number of standard deviations above or below age-matched controls. A Z-score of less than -1.5 would be considered abnormal. References: 1. NIH Osteoporosis and Related Bone Diseases www osteo.org 2. International Society for Clinical Densitometry www iscd.org 3. National Osteoporosis Foundation www nof.org Electronically Signed: Vijay Mosley MD at 14:50 EDT ,
== END | disposition home or self-care (01) ==
LOC: OPBD 10:13
PROVIDERS: PCP Family Medicine; Visit Provider Family Medicine
DX: M81.0 Age-related osteoporosis without current pathological fracture (principal)
CPT/HCPCS: 77080

== ENCOUNTER 2022-04-11 11:00 | Outpatient (RCR) | payer MEDICARE, OTHER, SELFPAY ==
--- NOTE | 2022-03-18 14:02 | HP.PTEVAL_ITS ---
Patient's Visit Information JOSE MARTIN ESCALERA is a 86 year old F referred to Physical Therapy by Dr. Hiren Noel MD with a diagnosis of Parkinson's. Date of Evaluation: 03/18/22 Physical Therapist: HOLLY Kim - Visit Plan Frequency: 2x /Week Duration: 4 Weeks Plan: 2X/ week for 4 weeks for balance dynamic/static on compliant and noncompliant surfaces, gait training, changing direction, and dual tasking and sign patient up for PD class with HEP - Subjective Pt reports that the Dr ordered PT for PD. Pt has had PD for about a year now or so. Pt reports that she is having trouble with balance and when it gets bad she gets dizzy and hard to walk. She feels that her head moves back and forth when she gets dizzy. The room does not spin. She reports that occ she struggles to get out of chairs. She has fallen but not sure what it was due to. She fell 5 months ago and she was walking on the sidewalk and she fell and she did not hurt herself and she was able to get back up. She is on PD meds. She has no freezing episodes. She does not struggle rolling over in bed. She sometimes catches her R toe with gait. Most of her stuff is on the right side. Stairs: she goes up and down 2 feet to a stair with a railing. - Objective Gait: walks with shorter strides, decreased arm swing and occ toe scuff... FGA: 22. TU:57 seconds. 4 square: 10:81 seconds. CATSIB: 102/120. Sit to stand: able to stand up with no arms. LE MMT: R hip flex 13, L hip flex 8.9#, R knee ext 10.5, and L knee ext 15.5, and R knee flex 8#, and L knee flex 10.8#. Seated opp arm and leg - Balance/Special Test Scores Functional Gait Assessment Score: 22 % Disability: 26.6700 CATSIB Score (Max score 120 seconds): 102 Lower Extremity Functional Score: 64 - Goals Goal 1:: I HEP Goal Time Frame: 2-4 Weeks Goal 2:: Increase CATSIB score by 10 points to decrease fall risk on unsteady surfaces (at eval score was 102) Goal Time Frame: 2-4 Weeks Goal 3:: Decrease 4 square score by 4 seconds with fluid movement to decrease fall risk (score at eval was 10:81) Goal Time Frame: 2-4 Weeks Goal 4:: Decrease fall risk by increasing FGA by 5 points (score was 22 at eval) Goal Time Frame: 2-4 Weeks - Rehabilitation Potential Rehabilitation Potential: Good - Anticipated Interventions Patient/Client Instruction: Educate patient on: Condition, Plan of Care For the Purpose of:: To improve nutrient delivery to tissue, To increase oxygenation perfusion, To improve muscle performance and motor function, To improve ability to perform ADL's, To increase tolerance to activity/cond ition/position, To improve performance and independence with ADL's, To decrease level of supervision to perform tasks, To improve ability of physical actions for home/community/work/leisure, To improve gait and locomotor functions, To improve health of tissue, To decrease soft tissue restriction, To increase flexibility/ROM, To improve endurance, To improve balance, To improve safety with gait Therapeutic Exercise to Include: Strength training, Endurance training, Balance training, Coordination, Body mechanics, Postural training, Flexibilty training, Gait and locomotor training, Neuromotor development, Active ROM For the Purpose of:: To improve nutrient delivery to tissue, To increase oxygenation perfusion, To improve muscle performance and motor function, To improve ability to perform ADL's, To increase tolerance to activity/condition/position, To improve performance and independence with ADL's, To decrease level of supervision to perform tasks, To improve ability of physical actions for home/community/work/leisure, To improve gait and locomotor functions, To improve health of tissue, To increase flexibility/ROM, To improve endurance, To improve balance, To improve safety with gait, To assume or resume ADL's, To reduce risk of recurrence Functional Training to Include: Gait training For the Purpose of:: To improve gait and locomotor functions, To improve safety with gait Thank you for the opportunity to evaluate your patient. For Medicare and Medicare HMO plans, please review the plan of care and approve it. It will need to be FAXED BACK to us at [phone] for Medicare purposes. For Medicare only, by signing this I certify the plan of care. Please let me know if there are questions or concerns regarding this plan of care. Physician Signature: Date:
--- NOTE | 2022-04-11 11:27 | HP.PTDCSUM ---
It has been my pleasure to treat JOSE MARTIN ESCALERA referred by Dr. Hiren Noel MD, with the diagnosis of Parkinson's for a total of 5 visit(s). Discharge Date: 04/11/22 Please see the following information for a summary of their discharge status. Subjective: Pt really feels that her exercises are helping. She does them and she always feels better. When she does her exercises she is less dizzy. Pt really liked the PT class and signed up. The ones she does at home the most are standing opp arm and leg and counting. She feels like it is getting better. % Improvement: 80 Objective/Function: CATSIB 118/120. 4 square time decreased from 10.81 seconds and eval to 7.95 today at re-eval. FGA: 25. Gait: pt has a normal gait pattern with occ stepping out to catch balance. Pt does better with walking with horizontal head turns compared to vertical head turns (those make her a little unsteady). Goal 1:: I HEP Goal Progress: Goal Met Goal 2:: Increase CATSIB score by 10 points to decrease fall risk on unsteady surfaces (at eval score was 102) Goal Progress: Goal Met Goal 3:: Decrease 4 square score by 4 seconds with fluid movement to decrease fall risk (score at eval was 10:81) Goal Progress: 7.94 sec Goal 4:: Decrease fall risk by increasing FGA by 5 points (score was 22 at eval) Goal Progress: Progressing Plan: DC PT to HEP to PD class once a week. Discharge Comments: DC PT to HEP If there are questions or concerns regarding this patient's physical therapy, please feel free to call me at [phone]. Thank you for the referral of this patient. Sincerely, Daniela Spann, MPT Balance/Gait/Functional tests - Balance/Special Test Scores Functional Gait Assessment Score: 25 % Disability: 16.6700 CATSIB Score (Max score 120 seconds): 118 Lower Extremity Functional Score: 61
== END 2022-04-11 19:00 | disposition home or self-care (01) ==
LOC: PT 11:00
PROVIDERS: PCP Family Medicine; Referring Provider Psychiatry & Neurology Neurology; Visit Provider Psychiatry & Neurology Neurology
DX: G20 Parkinson's disease (principal)
CPT/HCPCS: 97110; 97161; 97530

== ENCOUNTER 2022-05-14 17:32 | Emergency (ER) | payer MEDICARE, OTHER, SELFPAY ==
[2022-05-14 17:33] VITALS: BP 147/84; PULSE 84; RESP 18; TEMP 35.9; O2SAT 97; BMI 22.4
--- NOTE | 2022-05-14 17:54 | CT_ITS ---
STUDY: CT ABDOMEN AND PELVIS WITHOUT CONTRAST REASON FOR EXAM: Female, 86 years old. Pain RADIATION DOSAGE (If Supplied By Facility): CTDIvol = ( 6.05 ) mGy, DLP = ( 276.51 ) mGycm TECHNIQUE: Transaxial images were obtained from the dome of the diaphragm to the symphysis pubis without oral contrast, and without intravenous contrast. Sagittal and coronal images were reconstructed. Individualized dose optimization techniques were used for this CT. COMPARISON: None. FINDINGS: The visualized lung bases are unremarkable. The visualized portions of the heart are within normal limits. Small hiatal hernia is noted. Normal liver. Small calcified stone in gallbladder without evidence for pericholecystic edema. Normal spleen. Normal pancreas. Normal bilateral adrenal glands. Mild bilateral renal pelvocaliectasis but no evidence for gross hydronephrosis or mass Normal visualized stomach. Nonspecific ileus diffuse fecal retention in the colon.. Diverticular disease of the distal descending and rectosigmoid without evidence for acute diverticulitis. No evidence for acute appendicitis Atherosclerotic changes of the aorta without evidence for aneurysm. Normal inferior vena cava. Normal retroperitoneum. Normal urinary bladder. Uterus not visualized consistent with hysterectomy Normal abdominal wall. Lumbar spine demonstrates severe scoliosis and degenerative change CT/Abdomen/Pelvis without Cont IMPRESSION: Nonspecific ileus diffuse fecal retention in the colon. 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 If concern for acute gallbladder disease ultrasound recommended Electronically Signed: Dann Monterroso MD at 19:59 EDT ,
--- NOTE | 2022-05-14 17:54 | ED.VIS.GI ---
HPI HPI - GI History of Present Illness Chief Complaint: Abd Pain Narrative Narrative: Patient with past medical history of hypertension, dyslipidemia, chronic kidney disease, previous small bowel obstruction presents with epigastric to periumbilical pain that she is had since 1230 this afternoon. She states it started just before she was about to receive a massage. She was trying to hold it in. She describes sharp stabbing pain in the middle of her abdomen. No fevers or chills. No nausea or vomiting. As an aside she endorses urinary frequency but denies any dysuria or hematuria. No exacerbating or alleviating factors to her abdominal pain. She also describes it as burning sensation in the epigastrium. She does have history of GERD. Past surgical history includes hysterectomy. She is concerned because of the worsening abdominal pain, but states that it may be getting better after she took Tums prior to arrival. [facility] Medical History Arthritis BCC (basal cell carcinoma of skin) CKD (chronic kidney disease) stage 3, GFR 30-59 ml/min Dyslipidemia GERD (gastroesophageal reflux disease) Guaiac positive stools HTN (hypertension) Hypercholesteremia Menieres disease SBO (small bowel obstruction) Scoliosis Home Medications Lactobacillus acidophilus 1 ea PO BID [facility] 09/17/16 [History Last Taken 03/15/20] amlodipine 10 mg tablet 10 mg PO DAILY BP 09/17/16 [History Last Taken 03/15/20] atorvastatin 20 mg tablet 20 mg PO DAILY CHOLESTEROL 09/17/16 [History Last Taken 03/15/20] ascorbic acid (vitamin C) 500 mg tablet 500 mg PO DAILY SUPPLEMENT 01/25/20 [History Last Taken 03/15/20] denosumab 60 mg/mL subcutaneous syringe (Prolia) 60 mg subcut [id number] [id number] 01/25/20 [History Last Taken 1 Month Ago ~02/14/20] lansoprazole 15 mg capsule,delayed release (Prevacid) 15 mg PO DAILY GERD 01/25/20 [History Last Taken 03/15/20] losartan 100 mg tablet 100 mg PO DAILY BP 01/25/20 [History Last Taken 03/15/20] multivitamin 1 tab PO DAILY SUPPLEMENT 01/25/20 [History Last Taken 03/15/20] psyllium husk 0.52 gram capsule 0.52 g PO DAILY CONSTIPATION 01/25/20 [History Last Taken 03/15/20] cholecalciferol (vitamin D3) 50 mcg (2,000 unit) capsule 2,000 unit PO DAILY SUPPLEMENT 03/15/20 [History Last Taken 03/15/20] zinc amino acid chelate 50 mg tablet 50 mg PO DAILY SUPPLEMENT 03/15/20 [History Last Taken 03/15/20] flaxseed oil 1,000 mg capsule (Natural Bridge-3 Flaxseed Oil) 1,000 mg PO DAILY 02/27/22 [History Last Taken Unknown] carbidopa 25 mg-levodopa 100 mg tablet (Sinemet) 1 tab PO TID #90 tabs 05/13/22 [Rx Last Taken Unknown] Allergy/AdvReac Type Severity Reaction Status Date / Time barium iodide Allergy Unknown Reduced Verified 05/14/22 17:32 Kidney function Iodinated Contrast Media AdvReac Other Verified 05/14/22 17:32 KIDNEY MEDICINE Allergy Hives Uncoded 05/14/22 17:32 Family History Father Hypertension Cancer Mother Hypertension Cancer Arthritis Surgical History History of colonoscopy (~09/2019) History of tonsillectomy s/p exploratory laparoscopy S/P hysterectomy s/p vein strippling Social History Smoking Status: Former smoker second hand exposure: No alcohol intake: current alcohol intake frequency: a few times a month Alcohol type: wine details: rarely substance use type: does not use what type of physical activity do you participate in: other frequency: 3-4 times per week morena/samaritan: Protestant seatbelt use: always ROS ROS ED ROS Narrative Constitutional: No fever, no chills. HEENT: No sore throat. No neck pain. No loss of vision. No rhinorrhea. Cardiovascular: No chest pain. No palpitations. No pedal edema. Respiratory: No cough, no shortness of breath. Abdominal: Epigastric to periumbilical abdominal pain. No nausea. No vomiting. Genitourinary: No dysuria. No hematuria. Musculoskeletal: No myalgias. No arthralgias. Neurologic: No headaches. No dizziness. No lightheadedness. Skin: No rash. No change in color. Psychiatric: No depression. No anxiety. EXAM Physical Exam Narrative Exam Narrative: Afebrile. Vital signs noted. HEENT: Normocephalic. Atraumatic. PERRL, EOMI. Neck soft and supple. No point tenderness or step off. Cardiovascular: Regular rate and rhythm. No murmurs, rubs, or gallops appreciated. Respiratory: No tachypnea. Lungs clear to auscultation bilaterally. Gastrointestinal: Abdomen soft, diffuse tenderness to palpation, with normoactive bowel sounds. No rebound or guarding. Neurological: Awake. Alert. Nonfocal, nonlateralizing. Skin: No rash. Normal color. No pallor. Musculoskeletal: No pedal edema. Full range of motion extremities. Const Vital Signs: 05/14/22 17:33 05/14/22 19:10 Temperature 96.7 F L Temperature Source Temporal Pulse Rate 84 84 Respiratory Rate 18 18 Blood Pressure 147/84 H 159/60 H Blood Pressure Mean 105 93 Pulse Ox 97 98 Oxygen Delivery Method Room Air Room Air MDM MDM MDM Narrative Medical decision making narrative: Comprehensive work-up was pursued. I will obtain a CBC, CMP, and lipase. She will be bolused normal saline intravenously. I was going to order a CT of the abdomen pelvis with IV contrast but she does have stage III CKD, and additionally she lists IV contrast as an allergy, although she states this raises her creatinine. In order to help rule out small bowel obstruction, CT imaging without contrast will be obtained. CBC shows slightly elevated white count of 11.8 which I think is nonspecific, CBC is otherwise unremarkable. CMP shows creatinine of 1.40 with BUN of 36 consistent with her stage III kidney/chronic kidney disease. Urinalysis shows no evidence of infection with [address] of the abdomen and pelvis shows ileus with fecal retention. Upon repeat examination, her abdomen remains soft and she does have bowel sounds. I do feel that she may have intermittent ileus. She has not had nausea or vomiting here in the emergency department. I feel she can be discharged safely home with follow-up. She will use [id number] laxatives as needed. She will return with any nausea or vomiting, increased pain, new or worsening symptoms. Disposition is discharged home in stable condition. Return instructions were reviewed with the patient and her son. Lab Data Attestation: I reviewed the patient's lab results. Labs: Laboratory Results - last 24 hr 05/14/22 05/14/22 05/14/22 18:10 18:10 19:00 WBC 11.8 H RBC 4.51 Hgb 13.5 Hct 41.0 MCV 90.9 MCH 29.9 MCHC 32.9 RDW Std Deviation 40.1 RDW Coeff of Otto 12.1 Plt Count 169 MPV 10.8 Immature Gran % (Auto) 0.500 Neut % (Auto) 77.4 H Lymph % (Auto) 13.0 L [place] % (Auto) 7.8 Eos % (Auto) 1.0 Baso % (Auto) 0.3 Absolute Neuts (auto) 9.1 H Absolute Lymphs (auto) 1.53 Nucleated RBC % 0 Sodium 142 Potassium 4.1 Chloride 106 Carbon Dioxide 27.0 Anion Gap 9 BUN 36 H Creatinine 1.40 H Estim Creat Clear Calc 22.17 Est GFR (MDRD) Af Amer 46 L Est GFR (MDRD) Non-Af 38 L BUN/Creatinine Ratio 25.7 H Glucose 115 H Calcium 9.9 Total Bilirubin 0.60 AST 19 ALT 10 L Alkaline Phosphatase 42 L Total Protein 7.1 Albumin 3.9 Globulin 3.2 Albumin/Globulin Ratio 1.2 Lipase 104 Urine Color Yellow Urine Clarity Clear Urine pH 6.5 Ur Specific Dougherty 1.010 Urine Protein Negative Urine Glucose (UA) Normal Urine Ketones Negative Urine Occult Blood Negative Urine Nitrite Negative Urine Bilirubin Negative Urine Urobilinogen Normal Ur Leukocyte Esterase Negative Urine RBC 0 SEEN Urine WBC 0 SEEN Ur Squamous Epith Cells 0-5 SEEN Urine Bacteria RARE Urine Mucus 0 SEEN Radiography Diagnostic Testing: Clinical Impression(s) from Imaging Studies Abdomen/Pelvis CT 05/14/22 17:54 IMPRESSION: Nonspecific ileus diffuse fecal retention in the colon. 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 If concern for acute gallbladder disease ultrasound recommended Electronically Signed: Dann Monterroso MD at 19:59 EDT , Discharge Plan Triage Chief Complaint: Abd Pain ED Provider: Canelo Hanley Dx/Rx/DC Orders Clinical Impression: Abdominal pain, Ileus, Fecal retention Instructions: Ileus, ED Abdominal Pain Unkn Cause Fem, ED Constipation (Adult) Prescriptions: No Action multivitamin Tablet 1 tab PO DAILY ascorbic acid (vitamin C) 500 mg tablet 500 mg PO DAILY psyllium husk 0.52 gram capsule 0.52 g PO DAILY lansoprazole [Prevacid] 15 mg capsule,delayed release(DR/EC) 15 mg PO DAILY losartan 100 mg tablet 100 mg PO DAILY Prolia 60 mg/mL syringe 60 mg SC [id number] flaxseed oil [Natural Bridge-3 Flaxseed Oil] 1,000 mg capsule 1,000 mg PO DAILY Rx Instructions: administer with a meal atorvastatin 20 MG tablet 20 mg PO DAILY Label Comments: cholesterol lowering amlodipine 10 MG tablet 10 mg PO DAILY Label Comments: blood presswure Lactobacillus acidophilus 1 EACH capsule 1 ea PO BID Label Comments: GI health cholecalciferol (vitamin D3) 2,000 UNIT capsule 2,000 unit PO DAILY zinc amino acid chelate 50 MG tablet 50 mg PO DAILY carbidopa-levodopa [Sinemet] 25-100 mg tablet 1 tab PO TID Qty: 90 4RF Primary Care Provider: Mono Ritter Referrals: Mono Ritter MD [Primary Care Provider] - 1 Day for another exam Activity Restrictions/Additional Instructions: Take [id number] MiraLAX as needed. You may also want to add a stool softener such as Colace which is also [id number]. Disposition Disposition: Home, Self Care
[2022-05-14 18:15] LABS: Absolute Lymphocyte Count 1.53 X10^3/uL (0.83-4.51); Absolute Neutrophil Count 9.1 X10^3/uL (2.0-7.7); Basophil# 0.04 X10^3/uL; Basophil% 0.3 % (0-1); Eosinophil# 0.12 X10^3/uL; Hemoglobin 13.5 g/dL (12.0-15.0); Lymphocyte # 1.53 X10^3/ul (0.83-4.51); Mean Corp Hgb Conc 32.9 g/dL (32-36); Mean Corpuscular Hgb 29.9 pg (27.0-32.0); Mean Corpuscular Volume 90.9 fL (81-99); Mean Platelet Vol. 10.8 fl (6.2-12.0); Monocyte# 0.92 X10^3/uL; Monocyte% 7.8 % (0-10); NRBC Flagged by Analyzer 0 % (0-5); Neutrophil # 9.09 X10^3/uL (2.7-7.7); Neutrophil % 77.4 % (47-70); Platelet Count 169 K/mm3 (150-450); RBC Distribution Width CV 12.1 % (11.6-14.6); RBC Distribution Width SD 40.1 fl (35.1-43.9); Red Blood Count 4.51 M/mm3 (4.2-5.4); White Blood Count 11.8 K/mm3 (4.4-11.0)
[2022-05-14 18:32] LABS: ALB/GLOB Ratio 1.2 RATIO (0.9-2.4); AST(SGOT) 19 U/L (15-37); Alanine Aminotransfer ALT/SGPT 10 U/L (13-56); Albumin, Serum 3.9 g/dL (3.2-5.0); Alkaline Phosphatase 42 U/L (45-117); Anion Gap 9 (5-15); BUN 36 mg/dL (7-18); BUN/Creat Ratio 25.7 RATIO (10-20); Calcium,Total 9.9 mg/dL (8.5-10.1); Chloride 106 mmol/L (98-107); EST Glomerular Filtration Rate 38 mL/min (>60); Est Glom Filt Rate - Afr Amer 46 mL/min (>60); Estimated Creatinine Clearance 22.17 ml/min; Globulin 3.2 g/dL (2.2-4.2); Glucose 115 mg/dL (74-106); Lipase 104 U/L (73-393); Potassium 4.1 mmol/L (3.5-5.1); Protein, Total 7.1 g/dL (6.4-8.2); Sodium Level 142 mmol/L (136-145)
[2022-05-14 19:10] VITALS: BP 159/60; PULSE 84; RESP 18; O2SAT 98
[2022-05-14] MEDS: 0.9% Normal Saline 1,000 ML 1000 ML IV (19:12)
[2022-05-14 19:16] LABS: Mucous, Urine 0 SEEN /hpf (<or=2+); Red Blood Cells-Urine 0 SEEN /hpf (0-5); White Blood Cells 0 SEEN /hpf (0-5)
[2022-05-14 19:25] LABS: Color, Urine Yellow (Yellow); Glucose, Dipstick Normal (Normal); Ketone-Dipstick Negative (Negative); Leukocyte Esterase-Dipstick Negative /ul (Negative); Nitrite-Dipstick Negative (Negative); Occult Blood-Urine Negative /ul (Negative); Protein-Dipstick Negative (Negative); Urine Bilirubin Dipstick Negative (Negative); Urine Clarity Clear (Clear); Urine Urobilinogen Normal (Normal); Urine pH 6.5 (5.0 - 8.0)
[2022-05-14 19:34] LABS: Bacteria RARE /hpf (None Seen)
[2022-05-14 19:35] LABS: Squamous Epithelial Cells - UA 0-5 SEEN /hpf (5-10)
[2022-05-14 20:44] VITALS: BP 155/60; PULSE 82; RESP 15; O2SAT 98
== END 2022-05-14 20:50 | disposition home or self-care (01) ==
PROVIDERS: Emergency Provider Emergency Medicine; PCP Family Medicine; Visit Provider Emergency Medicine
DX: K56.7 Ileus, unspecified (principal); N18.30 Chronic kidney disease, stage 3 unspecified; Z87.891 Personal history of nicotine dependence; E78.00 Pure hypercholesterolemia, unspecified; I12.9 Hypertensive chronic kidney disease with stage 1 through stage 4 chronic kidney disease, or unspecified chronic kidney disease; E78.5 Hyperlipidemia, unspecified; K59.00 Constipation, unspecified
CPT/HCPCS: 74176; 80053; 81001; 83690; 85025; 96360; 99282; A4216

== ENCOUNTER 2022-09-19 15:48 | Inpatient (IN) | payer MEDICARE, OTHER, SELFPAY ==
[2022-09-19 15:49] VITALS: BP 152/81; PULSE 81; RESP 18; TEMP 36.4; O2SAT 95; BMI 22.3
[2022-09-19 17:13] LABS: Absolute Neutrophil Count 14.7 X10^3/uL (2.0-7.7); Basophil# 0.05 X10^3/uL; Basophil% 0.3 % (0-1); Eosinophil# 0.01 X10^3/uL; Eosinophils% 0.1 % (0-5); Hematocrit 45.3 % (37-47); Hemoglobin 14.5 g/dL (12.0-15.0); Lymphocyte % 3.7 % (19-41); Mean Corpuscular Hgb 29.8 pg (27.0-32.0); Monocyte# 0.77 X10^3/uL; Monocyte% 4.7 % (0-10); NRBC Flagged by Analyzer 0 % (0-5); Neutrophil # 14.74 X10^3/uL (2.7-7.7); Neutrophil % 90.7 % (47-70); POSITIVE DIFFERENTIAL YES; Platelet Count 190 K/mm3 (150-450); RBC Distribution Width CV 12.4 % (11.6-14.6); RBC Distribution Width SD 42.6 fl (35.1-43.9); Red Blood Count 4.87 M/mm3 (4.2-5.4); White Blood Count 16.3 K/mm3 (4.4-11.0)
[2022-09-19 17:13] LABS: Bacteria 0 SEEN /hpf (None Seen); Mucous, Urine 0 SEEN /hpf (<or=2+); Red Blood Cells-Urine 0 SEEN /hpf (0-5)
[2022-09-19 17:15] LABS: Color, Urine Yellow (Yellow); Glucose, Dipstick Normal (Normal); Ketone-Dipstick 15 mg/dl (Negative); Leukocyte Esterase-Dipstick 25 /ul (Negative); Nitrite-Dipstick Negative (Negative); Occult Blood-Urine Negative /ul (Negative); Protein-Dipstick 30 mg/dl (Negative); Specific Gravity, Urine 1.025 (1.002-1.030); Urine Bilirubin Dipstick Negative (Negative); Urine Clarity Clear (Clear); Urine Urobilinogen 4 mg/dl (Normal)
[2022-09-19 17:18] LABS: Differential Indicated SCAN CRITERIA MET
[2022-09-19 17:20] LABS: Anion Gap 11 (5-15); BUN 33 mg/dL (7-18); BUN/Creat Ratio 22.9 RATIO (10-20); Calcium,Total 9.9 mg/dL (8.5-10.1); Chloride 104 mmol/L (98-107); Creatinine, Serum 1.44 mg/dL (0.55-1.02); EST Glomerular Filtration Rate 37 mL/min (>60); Est Glom Filt Rate - Afr Amer 44 mL/min (>60); Estimated Creatinine Clearance 21.55 ml/min; Glucose 151 mg/dL (74-106); Potassium 4.4 mmol/L (3.5-5.1); Sodium Level 141 mmol/L (136-145)
[2022-09-19 17:40] LABS: Squamous Epithelial Cells - UA 0-5 SEEN /hpf (5-10); White Blood Cells 0-5 SEEN /hpf (0-5)
[2022-09-19 17:41] LABS: Hyaline Cast 5-10 SEEN /lpf (0-5)
[2022-09-19 17:44] LABS: Differential Comment SCANNED
--- NOTE | 2022-09-19 18:02 | CT_ITS ---
INDICATION: Abdominal pain EXAMINATION: CT ABDOMEN AND PELVIS WITHOUT CONTRAST - CT Abdomen And Pelvis W/O Contrast Injection TECHNIQUE: Helically acquired images were obtained of the abdomen and pelvis without oral or IV contrast. A radiation dose optimization technique was used for this scan. IV Contrast dosage and agent: None. Oral contrast: None. RADIATION DOSAGE (If Supplied By Facility): CTDIvol = ( 6.04 ) mGy, DLP = ( 282.37 ) mGycm COMPARISON: 05/14/2022 FINDINGS: LOWER CHEST: Lung bases are clear. Cardiac contour is normal, pericardial thickening versus trace effusion is noted. No coronary vascular calcifications. LIVER: The liver has normal configuration and density given the limitation of noncontrast exam. No focal mass. GALLBLADDER AND BILIARY TREE: Gallbladder is distended and coarse calcification is present within the proximal gallbladder lumen. No ductal dilatation. PANCREAS: No focal cystic or solid mass. SPLEEN: Normal size without focal cystic or solid mass. ADRENAL GLANDS: No nodules. KIDNEYS AND URETERS: Normal renal size and position. No hydronephrosis. There is extrarenal pelvis on the LEFT. Peripelvic cysts are present bilaterally. PERITONEUM: No ascites or free air. No other fluid collection. BOWEL: Large small bowel loops have normal configuration. Proximal small bowel distention with air-fluid levels and distal small bowel is decompressed. No definitive lead point noted, however findings are consistent with developing SBO. Moderate to large amount retained stool in the colon. No evidence diverticulitis. The appendix is not visualized. No focal inflammatory change. There is a prominent hiatal hernia and moderate small bowel distention. LYMPH NODES: No enlarged mesenteric or retroperitoneal lymph nodes. VESSELS: Aorta is non-dilated. URINARY BLADDER: Unremarkable. REPRODUCTIVE ORGANS: No pelvic masses. Postop changes of prior hysterectomy. Trace free fluid in the low pelvis. ABDOMINAL WALL: No discrete abdominal or pelvic wall hernia. BONES: Diffuse lumbar spondylosis, marginal osteophyte formation noted, scoliotic curvature is also present without evidence of acute bony changes fracture or destructive bony process. CT/Abdomen/Pelvis without Cont IMPRESSION: 1. Fluid distention of proximal small bowel segments with distal small bowel decompression. Lead point is not clearly identified, however findings consistent with developing SVO. 2. Moderate amount retained stool in the colon without evidence of diverticulitis or mass lesions. The appendix is not adequately visualized. 3. No evidence of obstructive uropathy. 4. Mildly prominent hiatal hernia. 5. Extensive chronic lumbar spondylosis and scoliosis. Electronically Signed: Omer De La Cruz MD at 19:03 EST ,
[2022-09-19] MEDS: Ondansetron 4 MG/2 ML Vial IV (18:17)
[2022-09-19] MEDS: Morphine 4 MG/ML Syringe IV (18:17)
[2022-09-19 18:29] LABS: AST(SGOT) 24 U/L (15-37); Alanine Aminotransfer ALT/SGPT 8 U/L (13-56); Albumin, Serum 4.3 g/dL (3.2-5.0); Alkaline Phosphatase 55 U/L (45-117); Globulin 3.6 g/dL (2.2-4.2); Lipase 76 U/L (73-393); Protein, Total 7.9 g/dL (6.4-8.2)
--- NOTE | 2022-09-19 18:39 | EDS_ITS ---
HPI HPI - GI History of Present Illness Chief Complaint: Abd Pain Abdominal Pain/Flank Pain Onset: Today Context: Gradual Onset Timing: Intermittent and Waxes and wanes Quality: Burning Location: Epigastric, RUQ and LUQ Worsened by: Nothing Relieved by: Nothing Nausea/Vomiting/Emesis GI Symptom: Positive for Nausea and Vomiting Quality: Positive for Nonbilious; Negative for Blood streaks, Coffee ground or Hematemesis Diarrhea/Melena/Hematochezia GI Symptom: Negative for Diarrhea, Melena or Hematochezia Associated Symptoms Associated Symptoms: Negative for Dysuria, Frequency or Hematuria Narrative Narrative: Patient presents with abdominal pain that began today. Patient states it has gradually gotten worse. Patient states it is intermittent and waxes and wanes. Patient states the pain is mainly over the upper abdomen. Patient describes it as burning. Patient states nothing makes it better nothing makes it worse. Patient admits to some nausea and vomiting but denies any coffee-ground emesis or hematemesis. Patient denies any diarrhea, melena, or hematochezia. Patient denies any dysuria, frequency, or hematuria. Patient denies any fevers or chills. Patient denies any back pain. [facility] Medical History Arthritis BCC (basal cell carcinoma of skin) CKD (chronic kidney disease) stage 3, GFR 30-59 ml/min Dyslipidemia Forehead abrasion GERD (gastroesophageal reflux disease) Guaiac positive stools HTN (hypertension) Hypercholesteremia Left elbow contusion Menieres disease SBO (small bowel obstruction) Scoliosis Skin tear of left elbow without complication Home Medications Lactobacillus acidophilus 1 ea PO BID [facility] 09/17/16 [History Last Taken 03/15/20] amlodipine 10 mg tablet 10 mg PO DAILY BP 09/17/16 [History Last Taken 03/15/20] atorvastatin 20 mg tablet 20 mg PO DAILY CHOLESTEROL 09/17/16 [History Last Taken 03/15/20] ascorbic acid (vitamin C) 500 mg tablet 500 mg PO DAILY SUPPLEMENT 01/25/20 [History Last Taken 03/15/20] denosumab 60 mg/mL subcutaneous syringe (Prolia) 60 mg subcut [id number] BONES 01/25/20 [History Last Taken 1 Month Ago ~02/14/20] lansoprazole 15 mg capsule,delayed release (Prevacid) 15 mg PO DAILY GERD 01/25/20 [History Last Taken 03/15/20] losartan 100 mg tablet 100 mg PO DAILY BP 01/25/20 [History Last Taken 03/15/20] multivitamin 1 tab PO DAILY SUPPLEMENT 01/25/20 [History Last Taken 03/15/20] psyllium husk 0.52 gram capsule 0.52 g PO DAILY CONSTIPATION 01/25/20 [History Last Taken 03/15/20] cholecalciferol (vitamin D3) 50 mcg (2,000 unit) capsule 2,000 unit PO DAILY SUPPLEMENT 03/15/20 [History Last Taken 03/15/20] zinc amino acid chelate 50 mg tablet 50 mg PO DAILY SUPPLEMENT 03/15/20 [History Last Taken 03/15/20] flaxseed oil 1,000 mg capsule (Hedrick-3 Flaxseed Oil) 1,000 mg PO DAILY 02/27/22 [History Last Taken Unknown] carbidopa 25 mg-levodopa 100 mg tablet (Sinemet) 1 tab PO TID #90 tabs 05/13/22 [Rx Last Taken Unknown] Allergy/AdvReac Type Severity Reaction Status Date / Time barium iodide Allergy Unknown Reduced Verified 09/19/22 15:51 Kidney function Iodinated Contrast Media AdvReac Other Verified 09/19/22 15:51 KIDNEY MEDICINE Allergy Hives Uncoded 09/19/22 15:51 Family History Father Hypertension Cancer Mother Hypertension Cancer Arthritis Surgical History History of colonoscopy (~09/2019) History of tonsillectomy s/p exploratory laparoscopy S/P hysterectomy s/p vein strippling Social History Smoking Status: Former smoker second hand exposure: No alcohol intake: current alcohol intake frequency: a few times a month Alcohol type: wine details: rarely substance use type: does not use what type of physical activity do you participate in: other frequency: 3-4 times per week morena/judaism: Spiritism seatbelt use: always ROS ROS ED Constitutional Constitutional ED: Denies chills or fever(s) Eyes Eyes: Denies blurry vision or change in vision ENT ENT ED: Denies rhinorrhea or sore throat Cardiovascular Cardiovascular: Denies chest pain or palpitations Respiratory/Chest Respiratory/Chest: Denies cough or dyspnea Gastrointestinal Gastrointestinal: Reports abdominal pain, nausea and vomiting Genitourinary Genitourinary ED: Denies dysuria or hematuria Musculoskeletal Musculoskeletal: Denies back pain or neck pain Integumentary Denies abscess or rash Neurologic Neurologic: Denies headache(s) or weakness Allergic/Immunologic Allergic/Immunologic ED: Denies mouth swelling or urticaria EXAM Physical Exam Const Vital Signs: 09/19/22 15:49 Temperature 97.6 F L Temperature Source Temporal Pulse Rate 81 Respiratory Rate 18 Blood Pressure 152/81 H Blood Pressure Mean 104 Pulse Ox 95 Oxygen Delivery Method Room Air Positive well nourished and well developed General Appearance ED: well developed and NAD HEENT Reports moist mucous membranes Neck supple and no JVD Resp normal respiratory effort and clear to auscultation bilaterally Cardio regular rate, regular rhythm and no murmurs GI normal to inspection, nondistended, normoactive bowel sounds Palpation: soft and tender epigastric, LUQ and RUQ; Negative for guarding or rebound tenderness present Extremity normal to inspection General Extremety ED: Negative for edema or tenderness General Extremity: Negative for edema Neuro oriented x3, CN's II-XII intact bilaterally and no sensory deficits noted Sensorium / Orientation: alert Motor Exam: strength 5/5 throughout Psych mental status grossly normal Skin no rashes or lesions noted MDM MDM MDM Narrative Medical decision making narrative: Differential diagnosis includes gastritis, pancreatitis, peptic ulcer disease, GERD, hepatic disease, pyelonephritis, bowel obstruction, diverticulitis, and urinary tract infection. CBC will be obtained to assess for leukocytosis and anemia. Basic metabolic profile will be obtained to assess for renal function and electrolyte abnormality. Hepatic profile will be obtained to assess for hepatic function. Lipase will be obtained to assess for pancreatitis. Urinalysis will be obtained to assess for urinary tract infection and hematuria. CT scan of the abdomen pelvis will be obtained to assess for bowel obstruction and perforation. Lab Data Attestation: I reviewed the patient's lab results. Lab results narrative: CBC was reviewed and showed a leukocytosis of 16.3. There is no left shift. Basic metabolic profile was reviewed and showed a BUN of 33 and creatinine of 1.44. Prior outpatient labs were also reviewed and were consistent with these results. Hepatic profile was reviewed and was within normal limits. Lipase was reviewed and was normal. Urinalysis was reviewed and did not show any evidence of urinary tract infection or hematuria. Labs: Laboratory Results - last 24 hr 09/19/22 09/19/22 09/19/22 16:55 16:55 16:55 WBC 16.3 H RBC 4.87 Hgb 14.5 Hct 45.3 MCV 93.0 MCH 29.8 MCHC 32.0 RDW Std Deviation 42.6 RDW Coeff of Otto 12.4 Plt Count 190 MPV 11.0 Immature Gran % (Auto) 0.500 Neut % (Auto) 90.7 H Lymph % (Auto) 3.7 L [place] % (Auto) 4.7 Eos % (Auto) 0.1 Baso % (Auto) 0.3 Absolute Neuts (auto) 14.7 H Absolute Lymphs (auto) 0.60 L Nucleated RBC % 0 Differential Comment SCANNED Sodium 141 Potassium 4.4 Chloride 104 Carbon Dioxide 26.0 Anion Gap 11 BUN 33 H Creatinine 1.44 H Estim Creat Clear Calc 21.55 Est GFR (MDRD) Af Amer 44 L Est GFR (MDRD) Non-Af 37 L BUN/Creatinine Ratio 22.9 H Glucose 151 H Calcium 9.9 Total Bilirubin 0.70 Direct Bilirubin 0.20 AST 24 ALT 8 L Alkaline Phosphatase 55 Total Protein 7.9 Albumin 4.3 Globulin 3.6 Lipase 76 Urine Color Urine Clarity Urine pH Ur Specific [place] Urine Protein Urine Glucose (UA) Urine Ketones Urine Occult Blood Urine Nitrite Urine Bilirubin Urine Urobilinogen Ur Leukocyte Esterase Urine RBC Urine WBC Ur Squamous Epith Cells Urine Bacteria Hyaline Casts Urine Mucus 09/19/22 17:05 WBC RBC Hgb Hct MCV MCH MCHC RDW Std Deviation RDW Coeff of Otto Plt Count MPV Immature Gran % (Auto) Neut % (Auto) Lymph % (Auto) [place] % (Auto) Eos % (Auto) Baso % (Auto) Absolute Neuts (auto) Absolute Lymphs (auto) Nucleated RBC % Differential Comment Sodium Potassium Chloride Carbon Dioxide Anion Gap BUN Creatinine Estim Creat Clear Calc Est GFR (MDRD) Af Amer Est GFR (MDRD) Non-Af BUN/Creatinine Ratio Glucose Calcium Total Bilirubin Direct Bilirubin AST ALT Alkaline Phosphatase Total Protein Albumin Globulin Lipase Urine Color Yellow Urine Clarity Clear Urine pH 5.0 Ur Specific [place] 1.025 Urine Protein 30 H Urine Glucose (UA) Normal Urine Ketones 15 H Urine Occult Blood Negative Urine Nitrite Negative Urine Bilirubin Negative Urine Urobilinogen 4 H Ur Leukocyte Esterase 25 H Urine RBC 0 SEEN Urine WBC 0-5 SEEN Ur Squamous Epith Cells 0-5 SEEN Urine Bacteria 0 SEEN Hyaline Casts 5-10 SEEN Urine Mucus 0 SEEN Radiography Diagnostic Testing: Clinical Impression(s) from Imaging Studies Abdomen/Pelvis CT 09/19/22 18:02 IMPRESSION: 1. Fluid distention of proximal small bowel segments with distal small bowel decompression. Lead point is not clearly identified, however findings consistent with developing SVO. 2. Moderate amount retained stool in the colon without evidence of diverticulitis or mass lesions. The appendix is not adequately visualized. 3. No evidence of obstructive uropathy. 4. Mildly prominent hiatal hernia. 5. Extensive chronic lumbar spondylosis and scoliosis. Electronically Signed: Omer De La Cruz MD at 19:03 EST , CT scan of the abdomen pelvis was reviewed independently by myself. There appears to be a developing small bowel obstruction. There is moderate amount of stool in the colon. Radiologist also interpreted the CT scan and noted a mildly prominent hiatal hernia. He agreed with the small bowel obstruction. He could not clearly identify a lead point however. Treatment and Re-Evaluation Narrative: Patient is feeling somewhat better on reevaluation. Patient was advised of her findings. Patient was advised of the need for nasogastric tube placement. Patient is agreeable with this. Patient states this has resolved her bowel obstructions in the past. Case was discussed with Dr. Lewis. He will admit the patient to his service. Patient understood and was agreeable with the plan. All questions were answered. Discharge Plan Triage Chief Complaint: Abd Pain ED Provider: Mono Galaviz Dx/Rx/DC Orders Clinical Impression: Small bowel obstruction, CKD (chronic kidney disease), stage III, HTN (hypertension) Prescriptions: No Action multivitamin Tablet 1 tab PO DAILY ascorbic acid (vitamin C) 500 mg tablet 500 mg PO DAILY psyllium husk 0.52 gram capsule 0.52 g PO DAILY lansoprazole [Prevacid] 15 mg capsule,delayed release(DR/EC) 15 mg PO DAILY losartan 100 mg tablet 100 mg PO DAILY Prolia 60 mg/mL syringe 60 mg SC [id number] flaxseed oil [Hedrick-3 Flaxseed Oil] 1,000 mg capsule 1,000 mg PO DAILY Rx Instructions: administer with a meal atorvastatin 20 MG tablet 20 mg PO DAILY Label Comments: cholesterol lowering amlodipine 10 MG tablet 10 mg PO DAILY Label Comments: blood presswure Lactobacillus acidophilus 1 EACH capsule 1 ea PO BID Label Comments: GI health cholecalciferol (vitamin D3) 2,000 UNIT capsule 2,000 unit PO DAILY zinc amino acid chelate 50 MG tablet 50 mg PO DAILY carbidopa-levodopa [Sinemet] 25-100 mg tablet 1 tab PO TID Qty: 90 4RF Primary Care Provider: Mono Ritter Referrals: Mono Ritter MD [Primary Care Provider] -
--- NOTE | 2022-09-19 20:24 | HP.PCM.SX_ITS ---
HPI - General HPI Narrative JOSE MARTIN ESCALERA, is a 86 F who presents with abdominal pain and nausea and vomiting. The patient had a hysterectomy when she was younger and reports that every few years she has a bowel obstruction that resolves with NG decompression. Patient reports he passed flatus yesterday and had a bowel movement this cholo. Pain started around 11 AM this morning. Patient tripped over something in the dark yesterday evening and had a fall and went to the emergency room yesterday and had x-ray of her elbow with a small skin tear of the left elbow and small bruising and contusion of her left orbital area [facility], [facility] Medical History Arthritis BCC (basal cell carcinoma of skin) CKD (chronic kidney disease) stage 3, GFR 30-59 ml/min Dyslipidemia Forehead abrasion GERD (gastroesophageal reflux disease) Guaiac positive stools HTN (hypertension) Hypercholesteremia Left elbow contusion Menieres disease SBO (small bowel obstruction) Scoliosis Skin tear of left elbow without complication Home Medications Lactobacillus acidophilus 1 ea PO BID [facility] 09/17/16 [History Last Taken 03/15/20] amlodipine 10 mg tablet 10 mg PO DAILY BP 09/17/16 [History Last Taken 03/15/20] atorvastatin 20 mg tablet 20 mg PO DAILY CHOLESTEROL 09/17/16 [History Last Taken 03/15/20] ascorbic acid (vitamin C) 500 mg tablet 500 mg PO DAILY SUPPLEMENT 01/25/20 [History Last Taken 03/15/20] denosumab 60 mg/mL subcutaneous syringe (Prolia) 60 mg subcut [id number] BONES 01/25/20 [History Last Taken 1 Month Ago ~02/14/20] lansoprazole 15 mg capsule,delayed release (Prevacid) 15 mg PO DAILY GERD 01/25/20 [History Last Taken 03/15/20] losartan 100 mg tablet 100 mg PO DAILY BP 01/25/20 [History Last Taken 03/15/20] multivitamin 1 tab PO DAILY SUPPLEMENT 01/25/20 [History Last Taken 03/15/20] psyllium husk 0.52 gram capsule 0.52 g PO DAILY CONSTIPATION 01/25/20 [History Last Taken 03/15/20] cholecalciferol (vitamin D3) 50 mcg (2,000 unit) capsule 2,000 unit PO DAILY SUPPLEMENT 03/15/20 [History Last Taken 03/15/20] zinc amino acid chelate 50 mg tablet 50 mg PO DAILY SUPPLEMENT 03/15/20 [History Last Taken 03/15/20] flaxseed oil 1,000 mg capsule (Spencer-3 Flaxseed Oil) 1,000 mg PO DAILY 02/27/22 [History Last Taken Unknown] carbidopa 25 mg-levodopa 100 mg tablet (Sinemet) 1 tab PO TID #90 tabs 05/13/22 [Rx Last Taken Unknown] Allergy/AdvReac Type Severity Reaction Status Date / Time barium iodide Allergy Unknown Reduced Verified 09/19/22 15:51 Kidney function Iodinated Contrast Media AdvReac Other Verified 09/19/22 15:51 KIDNEY MEDICINE Allergy Hives Uncoded 09/19/22 15:51 Family History Father Hypertension Cancer Mother Hypertension Cancer Arthritis Surgical History History of colonoscopy (~09/2019) History of tonsillectomy s/p exploratory laparoscopy S/P hysterectomy s/p vein strippling Social History Smoking Status: Former smoker second hand exposure: No alcohol intake: current alcohol intake frequency: a few times a month Alcohol type: wine details: rarely substance use type: does not use what type of physical activity do you participate in: other frequency: 3-4 times per week morena/faith: Jain seatbelt use: always ROS Constitutional Constitutional: Denies anorexia, chills, fatigue or fever(s) Eyes Eyes: Denies blurry vision ENT HEENT: Denies abnormal hearing Cardiovascular Cardiovascular: Denies chest pain Respiratory/Chest Respiratory/Chest: Denies cough or dyspnea Gastrointestinal Gastrointestinal: Reports abdominal pain, nausea and vomiting; Denies constipation or diarrhea Genitourinary Genitourinary: Denies change in urinary stream Musculoskeletal Musculoskeletal: Reports abnormal gait and difficulty walking; Denies back pain, muscle weakness or numbness Integumentary Integumentary: Denies jaundice Neurologic Neurologic: Denies abnormal gait Psychiatric Psychiatric: Denies anxiety Vital Signs Vital Signs Vital Signs: 09/19/22 15:49 Temperature 97.6 F L Temperature Source Temporal Pulse Rate 81 Respiratory Rate 18 Blood Pressure 152/81 H Blood Pressure Mean 104 Pulse Ox 95 Oxygen Delivery Method Room Air Weight Weight: 118 lb Body Mass Index (BMI) 22.3 Physical Exam Const oriented x3 and no apparent distress Resp normal respiratory effort Cardio regular rate and regular rhythm GI soft to palpation Inspection: abdominal distention Palpation: tender Extremity normal to inspection Results Lab / Micro Data Result Diagrams: 09/19/22 16:55 09/19/22 16:55 Labs: Laboratory Results - last 24 hr 09/19/22 16:55: WBC 16.3 H, RBC 4.87, Hgb 14.5, Hct 45.3, MCV 93.0, MCH 29.8, MCHC 32.0, RDW Std Deviation 42.6, RDW Coeff of Otto 12.4, Plt Count 190, MPV 11.0, Immature Gran % (Auto) 0.500, Neut % (Auto) 90.7 H, Lymph % (Auto) 3.7 L, [place] % (Auto) 4.7, Eos % (Auto) 0.1, Baso % (Auto) 0.3, Absolute Neuts (auto) 14.7 H, Absolute Lymphs (auto) 0.60 L, Nucleated RBC % 0, Differential Comment SCANNED 09/19/22 16:55: Sodium 141, Potassium 4.4, Chloride 104, Carbon Dioxide 26.0, Anion Gap 11, BUN 33 H, Creatinine 1.44 H, Estim Creat Clear Calc 21.55, Est GFR (MDRD) Af Amer 44 L, Est GFR (MDRD) Non-Af 37 L, BUN/Creatinine Ratio 22.9 H, Glucose 151 H, Calcium 9.9 09/19/22 16:55: Total Bilirubin 0.70, Direct Bilirubin 0.20, AST 24, ALT 8 L, Alkaline Phosphatase 55, Total Protein 7.9, Albumin 4.3, Globulin 3.6, Lipase 76 09/19/22 17:05: Urine Color Yellow, Urine Clarity Clear, Urine pH 5.0, Ur Specific [place] 1.025, Urine Protein 30 H, Urine Glucose (UA) Normal, Urine Ketones 15 H, Urine Occult Blood Negative, Urine Nitrite Negative, Urine Bilirubin Negative, Urine Urobilinogen 4 H, Ur Leukocyte Esterase 25 H, Urine RBC 0 SEEN, Urine WBC 0-5 SEEN, Ur Squamous Epith Cells 0-5 SEEN, Urine Bacteria 0 SEEN, Hyaline Casts 5-10 SEEN, Urine Mucus 0 SEEN Radiology Impression Abdomen/Pelvis CT 09/19/22 18:02 IMPRESSION: 1. Fluid distention of proximal small bowel segments with distal small bowel decompression. Lead point is not clearly identified, however findings consistent with developing SVO. 2. Moderate amount retained stool in the colon without evidence of diverticulitis or mass lesions. The appendix is not adequately visualized. 3. No evidence of obstructive uropathy. 4. Mildly prominent hiatal hernia. 5. Extensive chronic lumbar spondylosis and scoliosis. Electronically Signed: Omer De La Cruz MD at 19:03 EST , Assessment & Plan Assessment/Plan (1) Small bowel obstruction: PLAN: Patient reports that she does get bowel obstructions every year or 2 that have always resolved with NGT decompression. Patient reports this feels like her normal bowel obstruction. She does have nausea and vomiting and CT scan does reveal distended small bowel loops with a distended stomach and decompressed distal small bowel. NG is being placed in the emergency room. I will admit her to the floor with IV hydration and pain control and observation. KUB in the morning. If after a day or 2 there is no resolution I discussed possible surgery. Patient is amenable to plan and will be admitted. Leif Lewis MD Pager: [facility] [address] [place] [address], [address] [place] [phone] Office:
--- NOTE | 2022-09-19 20:55 | RAD_ITS ---
INDICATION: NG Insertion EXAMINATION/TECHNIQUE: X-RAY - XR Abdomen 1 View COMPARISON: CT examination of the same date FINDINGS: Tubes and lines: 1. Interval placement of an NG tube coiled within the proximal stomach.. BOWEL GAS PATTERN: Scattered segments gas-filled bowel in the upper abdomen. No bowel or stomach distention. FREE AIR: Not assessed on a single supine view. ORGANOMEGALY: Not seen. CALCIFICATIONS: No abnormal calcifications observed. LOWER CHEST: Minimal basilar atelectasis. No consolidation, no effusion. BONES AND SOFT TISSUES: Extensive thoracolumbar scoliosis. RAD/Abdomen Single View (Portable) IMPRESSION: 1. NG tube placed the interval, coiled within the proximal stomach. 2. Scattered segments of gas-filled mildly distended bowel in the upper abdomen. Electronically Signed: Omer De La Cruz MD at 21:11 EST ,
[2022-09-19 21:08] VITALS: BP 161/99; PULSE 92; RESP 18; TEMP 36.7; O2SAT 97
[2022-09-19 21:56] VITALS: BP 147/59; PULSE 84; RESP 18; TEMP 36.9; O2SAT 93
[2022-09-19 22:02] VITALS: BMI 22.2
[2022-09-19] MEDS: 0.9% Normal Saline 1,000 ML 100 ML IV (22:49)
[2022-09-20 04:31] VITALS: BP 128/55; PULSE 88; RESP 18; TEMP 36.8; O2SAT 92
--- NOTE | 2022-09-20 05:45 | RAD_ITS ---
EXAM: XR ABDOMEN, 1 VIEW CLINICAL INDICATION: sbo TECHNIQUE: Frontal supine view of the abdomen/pelvis. This report was created using [employer] report generation technology. COMPARISON: CT from 09/19/2022 FINDINGS: LOWER THORAX: No acute pathology. GASTROINTESTINAL TRACT: Distended and dilated small bowel loops consistent with the recent CT examination. ORGANS: Unremarkable as visualized. No organomegaly. No abnormal calcifications. BONES/JOINTS: No acute pathology. SOFT TISSUES: No acute pathology. TUBES, LINES AND DEVICES: Enteric tube with the distal end coiled in the stomach. RAD/Abdomen Single View (Portable) IMPRESSION: Distended and dilated small bowel loops consistent with the recent CT examination. Electronically Signed: Newton Grace MD at 7:08 EST ,
[2022-09-20 06:52] LABS: Absolute Lymphocyte Count 0.62 X10^3/uL (0.83-4.51); Basophil# 0.03 X10^3/uL; Basophil% 0.2 % (0-1); Hematocrit 37.9 % (37-47); Hemoglobin 12.5 g/dL (12.0-15.0); Lymphocyte # 0.62 X10^3/ul (0.83-4.51); Lymphocyte % 4.3 % (19-41); Mean Corpuscular Hgb 29.8 pg (27.0-32.0); Mean Corpuscular Volume 90.5 fL (81-99); Mean Platelet Vol. 10.9 fl (6.2-12.0); Monocyte# 0.82 X10^3/uL; Monocyte% 5.6 % (0-10); NRBC Flagged by Analyzer 0 % (0-5); Neutrophil # 13.04 X10^3/uL (2.7-7.7); Neutrophil % 89.5 % (47-70); Platelet Count 179 K/mm3 (150-450); RBC Distribution Width CV 12.5 % (11.6-14.6); RBC Distribution Width SD 40.9 fl (35.1-43.9); Red Blood Count 4.19 M/mm3 (4.2-5.4); White Blood Count 14.6 K/mm3 (4.4-11.0)
--- NOTE | 2022-09-20 07:10 | PCM.PN.SRG ---
Subjective Subjective Patient reports that her abdominal pain is improved but she is not passing any flatus. No nausea or vomiting. Objective Data Objective Data Vital Signs: Vital Signs Temp Pulse Resp BP Pulse Ox O2 Del Method 98.2 F 88 18 128/55 H 92 Room Air 09/20/22 04:31 09/20/22 04:31 09/20/22 04:31 09/20/22 04:31 09/20/22 04:31 09/20/22 04:31 Oxygen Delivery Method Room Air Weight: 117 lb 15.157 oz Body Mass Index (BMI) 22.2 Intake & Output: Intake and Output for Last 24 Hours 09/18/22 09/19/22 09/20/22 23:59 23:59 23:59 Intake Total 540 / 540 40 / 40 Output Total 580 / 580 Balance 540 / 340 -540 / -540 Lab / Micro Data Result Diagrams: 09/20/22 05:47 09/19/22 16:55 Labs: Laboratory Results - last 24 hr 09/19/22 16:55: WBC 16.3 H, RBC 4.87, Hgb 14.5, Hct 45.3, MCV 93.0, MCH 29.8, MCHC 32.0, RDW Std Deviation 42.6, RDW Coeff of Otto 12.4, Plt Count 190, MPV 11.0, Immature Gran % (Auto) 0.500, Neut % (Auto) 90.7 H, Lymph % (Auto) 3.7 L, [place] % (Auto) 4.7, Eos % (Auto) 0.1, Baso % (Auto) 0.3, Absolute Neuts (auto) 14.7 H, Absolute Lymphs (auto) 0.60 L, Nucleated RBC % 0, Differential Comment SCANNED 09/19/22 16:55: Sodium 141, Potassium 4.4, Chloride 104, Carbon Dioxide 26.0, Anion Gap 11, BUN 33 H, Creatinine 1.44 H, Estim Creat Clear Calc 21.55, Est GFR (MDRD) Af Amer 44 L, Est GFR (MDRD) Non-Af 37 L, BUN/Creatinine Ratio 22.9 H, Glucose 151 H, Calcium 9.9 09/19/22 16:55: Total Bilirubin 0.70, Direct Bilirubin 0.20, AST 24, ALT 8 L, Alkaline Phosphatase 55, Total Protein 7.9, Albumin 4.3, Globulin 3.6, Lipase 76 09/19/22 17:05: Urine Color Yellow, Urine Clarity Clear, Urine pH 5.0, Ur Specific [place] 1.025, Urine Protein 30 H, Urine Glucose (UA) Normal, Urine Ketones 15 H, Urine Occult Blood Negative, Urine Nitrite Negative, Urine Bilirubin Negative, Urine Urobilinogen 4 H, Ur Leukocyte Esterase 25 H, Urine RBC 0 SEEN, Urine WBC 0-5 SEEN, Ur Squamous Epith Cells 0-5 SEEN, Urine Bacteria 0 SEEN, Hyaline Casts 5-10 SEEN, Urine Mucus 0 SEEN 09/20/22 05:47: WBC 14.6 H, RBC 4.19 L, Hgb 12.5, Hct 37.9, MCV 90.5, MCH 29.8, MCHC 33.0, RDW Std Deviation 40.9, RDW Coeff of Otto 12.5, Plt Count 179, MPV 10.9, Immature Gran % (Auto) 0.400, Neut % (Auto) 89.5 H, Lymph % (Auto) 4.3 L, [place] % (Auto) 5.6, Eos % (Auto) 0.0, Baso % (Auto) 0.2, Absolute Neuts (auto) 13.0 H, Absolute Lymphs (auto) 0.62 L, Nucleated RBC % 0 Radiography Diagnostic Testing: Radiology Impression Abdomen/Pelvis CT 09/19/22 18:02 IMPRESSION: 1. Fluid distention of proximal small bowel segments with distal small bowel decompression. Lead point is not clearly identified, however findings consistent with developing SVO. 2. Moderate amount retained stool in the colon without evidence of diverticulitis or mass lesions. The appendix is not adequately visualized. 3. No evidence of obstructive uropathy. 4. Mildly prominent hiatal hernia. 5. Extensive chronic lumbar spondylosis and scoliosis. Electronically Signed: Omer De La Cruz MD at 19:03 EST , KUB X-Ray 09/19/22 20:55 IMPRESSION: 1. NG tube placed the interval, coiled within the proximal stomach. 2. Scattered segments of gas-filled mildly distended bowel in the upper abdomen. Electronically Signed: Omer De La Cruz MD at 21:11 EST , KUB X-Ray 09/20/22 05:45 IMPRESSION: Distended and dilated small bowel loops consistent with the recent CT examination. Electronically Signed: Newton Grace MD at 7:08 EST , Physical Exam Const oriented x3 and no apparent distress Resp normal respiratory effort GI soft to palpation Inspection: abdominal distention Palpation: tender Assessment & Plan Assessment/Plan (1) Small bowel obstruction: PLAN: Patient had NG decompression overnight. She is not passing any flatus yet. Continue NG suction and IV fluids. Encourage ambulation and incentive spirometer. I will order Lovenox. Leif Lewis MD Pager: [facility] [address] [place] [address], [address] [place] [address] Office:
[2022-09-20 07:24] LABS: Anion Gap 8 (5-15); BUN 35 mg/dL (7-18); BUN/Creat Ratio 29.4 RATIO (10-20); Calcium,Total 8.9 mg/dL (8.5-10.1); Chloride 106 mmol/L (98-107); Creatinine, Serum 1.19 mg/dL (0.55-1.02); EST Glomerular Filtration Rate 46 mL/min (>60); Est Glom Filt Rate - Afr Amer 55 mL/min (>60); Estimated Creatinine Clearance 26.08 ml/min; Glucose 132 mg/dL (74-106); Magnesium 2.2 mg/dL (1.6-2.6); Potassium 4.1 mmol/L (3.5-5.1); Sodium Level 141 mmol/L (136-145)
[2022-09-20 08:33] VITALS: BP 126/61; PULSE 88; RESP 18; TEMP 36.7; O2SAT 92
--- NOTE | 2022-09-20 10:20 | CASEMGMT ---
ARLIN GUERRERO DC Planning Assessment: Face to Face with patient for initial transition planning/care coordination assessment.?Pt alert, oriented x4, and sitting up in chair. ARLIN GUERRERO introduced self and role at [facility], pt voices understanding and is agreeable to participating in assessment. Care providers, pharmacy,?and demographics verified. ? Admitting dx: SBO PCP: [facility] Specialists: [facility] (neuro for Parkinson's) Preferred Pharmacy: [facility] Insurance: PAYMEY, [employer] Commercial Prescription Benefit:?yes Living Will/HPOA:Yes/Yes: son Joseluis LNOK:son Joseluis, daughter Carol Living Arrangements: Pt lives alone in a 2 story home with 6 steps to enter and a flight of steps to the second floor. Pt states her bathroom and bedroom are on the second floor. Pt states she does not have a bathroom on her main floor. Transportation: Pt drives in town only. 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 She does not currently use these items. HHC: many years ago after a hospital stay, unknown which provider SNF: denies Plan: Pt states she plans to return home at discharge. States her daughter lives in [place] and her son is currently in [place]. Pt states she plans to purchase a shower chair and is going to look into stair chair lifts for her basement and second story steps. States her laundry is in the basement. Pt asked about transportation options includin the hopital van. [facility] Van service explained and phone number provided. Noted pt ambulated well with PT this AM. Will continue to monitor and assist with DC Plans as identified. Sury Rodríguez RN CM
[2022-09-20] MEDS: 0.9% Normal Saline 1,000 ML 100 ML IV ×2 (11:08→20:17)
[2022-09-20 14:54] VITALS: BP 144/64; PULSE 91; RESP 18; TEMP 36.7; O2SAT 94
[2022-09-20] MEDS: Morphine 2 MG/ML Syringe IV (17:26)
[2022-09-20 20:29] VITALS: BP 134/56; PULSE 88; RESP 16; TEMP 36.9; O2SAT 94
[2022-09-21 02:30] VITALS: BP 132/62; PULSE 90; RESP 16; TEMP 36.8; O2SAT 94
[2022-09-21] MEDS: 0.9% Normal Saline 1,000 ML 100 ML IV ×2 (05:52→16:04)
[2022-09-21 06:53] LABS: Absolute Lymphocyte Count 0.49 X10^3/uL (0.83-4.51); Absolute Neutrophil Count 4.4 X10^3/uL (2.0-7.7); Basophil# 0.02 X10^3/uL; Basophil% 0.4 % (0-1); Eosinophil# 0.01 X10^3/uL; Eosinophils% 0.2 % (0-5); Hematocrit 37.3 % (37-47); Lymphocyte # 0.49 X10^3/ul (0.83-4.51); Mean Corp Hgb Conc 32.2 g/dL (32-36); Mean Corpuscular Volume 93.3 fL (81-99); Mean Platelet Vol. 12.9 fl (6.2-12.0); Monocyte# 0.55 X10^3/uL; Monocyte% 10.1 % (0-10); NRBC Flagged by Analyzer 0 % (0-5); Neutrophil # 4.39 X10^3/uL (2.7-7.7); Neutrophil % 80.1 % (47-70); POSITIVE COUNT YES; POSITIVE DIFFERENTIAL YES; POSITIVE MORPHOLOGY YES; Platelet Count 92 K/mm3 (150-450); RBC Distribution Width CV 12.4 % (11.6-14.6); RBC Distribution Width SD 42.7 fl (35.1-43.9); White Blood Count 5.5 K/mm3 (4.4-11.0)
[2022-09-21 07:02] LABS: Differential Indicated SCAN CRITERIA MET
[2022-09-21 07:18] LABS: Anion Gap 9 (5-15); BUN 38 mg/dL (7-18); BUN/Creat Ratio 38.2 RATIO (10-20); Calcium,Total 8.4 mg/dL (8.5-10.1); Chloride 110 mmol/L (98-107); EST Glomerular Filtration Rate 56 mL/min (>60); Est Glom Filt Rate - Afr Amer 68 mL/min (>60); Estimated Creatinine Clearance 31.04 ml/min; Glucose 107 mg/dL (74-106); Potassium 3.9 mmol/L (3.5-5.1); Sodium Level 142 mmol/L (136-145)
[2022-09-21 07:23] LABS: Platelet Estimate MOD DEC (ADEQ)
[2022-09-21 08:19] VITALS: BP 149/67; PULSE 90; RESP 18; TEMP 36.7; O2SAT 93
[2022-09-21 08:20] VITALS: RESP 18; O2SAT 93
--- NOTE | 2022-09-21 10:52 | PCM.PN.SRG ---
Subjective Subjective Patient does not report any flatus yet. No abdominal pain or nausea or vomiting. Tolerating NG suctioning well. Objective Data Objective Data Vital Signs: Vital Signs Temp Pulse Resp BP Pulse Ox O2 Del Method 98.1 F 90 18 149/67 H 93 Room Air 09/21/22 08:19 09/21/22 08:19 09/21/22 08:20 09/21/22 08:19 09/21/22 08:20 09/21/22 08:20 Oxygen Delivery Method Room Air Weight: 117 lb 15.157 oz Body Mass Index (BMI) 22.2 Intake & Output: Intake and Output for Last 24 Hours 09/19/22 09/20/22 09/21/22 23:59 23:59 23:59 Intake Total 540 / 540 2193.34 / 2193.34 1198.33 / 1198.33 Output Total 1580 / 1680 900 / 900 Balance 540 / 340 613.34 / 513.34 298.33 / 298.33 Lab / Micro Data Result Diagrams: 09/21/22 06:00 09/21/22 06:00 Labs: Laboratory Results - last 24 hr 09/21/22 06:00: WBC 5.5, RBC 4.00 L, Hgb 12.0, Hct 37.3, MCV 93.3, MCH 30.0, MCHC 32.2, RDW Std Deviation 42.7, RDW Coeff of Otto 12.4, Plt Count 92 L, MPV 12.9 H, Immature Gran % (Auto) 0.200, Neut % (Auto) 80.1 H, Lymph % (Auto) 9.0 L, [place] % (Auto) 10.1 H, Eos % (Auto) 0.2, Baso % (Auto) 0.4, Absolute Neuts (auto) 4.4, Absolute Lymphs (auto) 0.49 L, Nucleated RBC % 0, Platelet Estimate MOD DEC 09/21/22 06:00: Sodium 142, Potassium 3.9, Chloride 110 H, Carbon Dioxide 23.0, Anion Gap 9, BUN 38 H, Creatinine 1.00, Estim Creat Clear Calc 31.04, Est GFR (MDRD) Af Amer 68, Est GFR (MDRD) Non-Af 56 L, BUN/Creatinine Ratio 38.2 H, Glucose 107 H, Calcium 8.4 L Physical Exam Const oriented x3 Resp normal respiratory effort GI soft to palpation and non-tender Extremity normal to inspection Assessment & Plan Assessment/Plan (1) Small bowel obstruction: PLAN: Patient has not had any bowel function yet. We will wait 1 more day with NG suctioning and see if any bowel function resumes. If she is still showing signs of obstruction tomorrow her small bowel follow-through may have to take her for surgery. Patient is agreeable for 1 more day of observation. Lief Lewis MD Pager: [facility] [address] [place] [address], [address] [place] [address] Office:
[2022-09-21 14:30] VITALS: BP 144/66; PULSE 89; RESP 18; TEMP 37.1; O2SAT 95
[2022-09-21 23:00] VITALS: BP 136/60; PULSE 90; RESP 18; TEMP 36.8; O2SAT 94
[2022-09-22] MEDS: 0.9% Normal Saline 1,000 ML 100 ML IV ×2 (01:37→17:06)
[2022-09-22 02:45] VITALS: BP 149/71; PULSE 92; RESP 16; TEMP 36.7; O2SAT 94
[2022-09-22 06:48] LABS: Absolute Lymphocyte Count 0.63 X10^3/uL (0.83-4.51); Absolute Neutrophil Count 5.1 X10^3/uL (2.0-7.7); Basophil# 0.03 X10^3/uL; Basophil% 0.5 % (0-1); Eosinophil# 0.02 X10^3/uL; Eosinophils% 0.3 % (0-5); Hematocrit 34.2 % (37-47); Hemoglobin 11.2 g/dL (12.0-15.0); Lymphocyte # 0.63 X10^3/ul (0.83-4.51); Lymphocyte % 9.5 % (19-41); Mean Corp Hgb Conc 32.7 g/dL (32-36); Mean Corpuscular Hgb 30.3 pg (27.0-32.0); Mean Corpuscular Volume 92.4 fL (81-99); Mean Platelet Vol. 10.7 fl (6.2-12.0); Monocyte# 0.82 X10^3/uL; Monocyte% 12.3 % (0-10); NRBC Flagged by Analyzer 0 % (0-5); Neutrophil # 5.11 X10^3/uL (2.7-7.7); Neutrophil % 76.6 % (47-70); POSITIVE MORPHOLOGY YES; Platelet Count 155 K/mm3 (150-450); RBC Distribution Width CV 12.5 % (11.6-14.6); RBC Distribution Width SD 42.4 fl (35.1-43.9); White Blood Count 6.7 K/mm3 (4.4-11.0)
[2022-09-22 07:15] LABS: Anion Gap 9 (5-15); BUN 36 mg/dL (7-18); BUN/Creat Ratio 43.2 RATIO (10-20); Calcium,Total 7.8 mg/dL (8.5-10.1); Chloride 114 mmol/L (98-107); Creatinine, Serum 0.83 mg/dL (0.55-1.02); EST Glomerular Filtration Rate 69 mL/min (>60); Est Glom Filt Rate - Afr Amer 84 mL/min (>60); Estimated Creatinine Clearance 37.39 ml/min; Glucose 92 mg/dL (74-106); Potassium 3.5 mmol/L (3.5-5.1); Sodium Level 147 mmol/L (136-145)
--- NOTE | 2022-09-22 07:35 | PCM.PN.SRG ---
Subjective Subjective Patient does not note any flatus yet. She reports that she is not having any abdominal pain. Objective Data Objective Data Vital Signs: Vital Signs Temp Pulse Resp BP Pulse Ox O2 Del Method 98.1 F 92 16 149/71 H 94 Room Air 09/22/22 02:45 09/22/22 02:45 09/22/22 02:45 09/22/22 02:45 09/22/22 02:45 09/21/22 23:00 Oxygen Delivery Method Room Air Weight: 117 lb 15.157 oz Body Mass Index (BMI) 22.2 Intake & Output: Intake and Output for Last 24 Hours 09/20/22 09/21/22 09/22/22 23:59 23:59 23:59 Intake Total 2193.34 / 2193.34 3566.33 / 3566.33 995 / 995 Output Total 1580 / 1680 1700 / 1700 150 / 150 Balance 613.34 / 513.34 1866.33 / 1866.33 845 / 845 Lab / Micro Data Result Diagrams: 09/21/22 06:00 09/22/22 06:28 Labs: Laboratory Results - last 24 hr 09/22/22 06:28: Sodium 147 H, Potassium 3.5, Chloride 114 H, Carbon Dioxide 24.0, Anion Gap 9, BUN 36 H, Creatinine 0.83, Estim Creat Clear Calc 37.39, Est GFR (MDRD) Af Amer 84, Est GFR (MDRD) Non-Af 69, BUN/Creatinine Ratio 43.2 H, Glucose 92, Calcium 7.8 L Physical Exam Const oriented x3 and no apparent distress Resp normal respiratory effort GI soft to palpation Inspection: Negative for abdominal distention Assessment & Plan Assessment/Plan (1) Small bowel obstruction: PLAN: The patient reports no bowel function yet. Her NG output is still dark. She would like to continue to wait for this to resolve conservatively. I will order a small bowel follow-through with Gastrografin today. If this does not resolve I recommend surgery tomorrow. Leif Lewis MD Pager: [facility] [address] [place] [address], [address] [place] [address] Office:
[2022-09-22 07:37] LABS: Differential Indicated SCAN CRITERIA MET
[2022-09-22 07:45] LABS: Atypical Lymphocyte 1+ %
--- NOTE | 2022-09-22 08:00 | RAD_ITS ---
STUDY: GASTROGRAFIN SMALL BOWEL FOLLOW-THROUGH EXAMINATION. REASON FOR EXAM: Female, 86 years old. sbo -- gastrograffin TECHNIQUE: GASTROGRAFIN was introduced into the indwelling nasogastric tube. A small bowel follow-through examination was performed. 12 images were submitted. COMPARISON: None. FINDINGS: There is evidence of a distention of the stomach with oral contrast. There is dilatation of the small bowel loops with obstruction down to the right lower quadrant. The examination was followed up to 6 hours following the insertion of the GASTROGRAFIN. Findings in keeping with a complete small bowel obstruction. Dextroscoliosis of the lumbar spine. RAD/Small Bowel Series Only IMPRESSION: GASTROGRAFIN small bowel follow-through examination with complete obstruction in the right lower quadrant. Electronically Signed: Vijay Mosley MD at 15:30 EST ,
[2022-09-22 10:10] VITALS: BP 171/70; PULSE 93; RESP 18; TEMP 36.9; O2SAT 100
[2022-09-22] MEDS: Enoxaparin 30 MG/0.3 ML Syringe SC (10:20)
[2022-09-22] MEDS: Ondansetron 4 MG/2 ML Vial IV (10:49)
[2022-09-22] MEDS: 0.9% Saline Lock 10 ML Syringe IV (10:49)
[2022-09-22 15:00] VITALS: BP 167/69; PULSE 97; RESP 18; TEMP 36.9; O2SAT 94
[2022-09-22 21:00] VITALS: BP 145/66; PULSE 90; RESP 18; TEMP 36.9; O2SAT 95
--- NOTE | 2022-09-22 23:34 | NURSING ---
Pt had medium formed bowel movement. states it took a bit of effort to pass it.
[2022-09-23] VITALS (9 sets, daily range): BP systolic 98–162; BP diastolic 48–104; PULSE 85–96; RESP 14–24; TEMP 36.8–36.9; O2SAT 91–98; BMI 22.2
[2022-09-23] MEDS: 0.9% Normal Saline 1,000 ML 100 ML IV ×2 (02:34→22:00)
--- NOTE | 2022-09-23 05:55 | RAD_ITS ---
STUDY: X-RAY - ABDOMEN/PELVIS REASON FOR EXAM: Female, 86 years old. sob TECHNIQUE: Single AP view of the abdomen / pelvis. COMPARISON: Comparison is made with prior examination dated 09/22/2022. FINDINGS: The tip of the nasogastric tube is coiled in the fundal portion of the stomach. Oral contrast is seen within dilated small bowel loops. No contrast is seen within the colon. This is in keeping with a small bowel obstruction. The visualized liver, spleen and kidneys are grossly normal in size and morphology. Normal soft tissue structures. There are diffuse degenerative changes of the visualized lumbar spine. Dextroscoliosis. RAD/Abdomen Single View (Portable) IMPRESSION: Small bowel obstruction. No contrast is seen within the colon. Electronically Signed: Vijay Mosley MD at 10:05 EST ,
[2022-09-23 06:26] LABS: Absolute Neutrophil Count 6.9 X10^3/uL (2.0-7.7); Basophil# 0.03 X10^3/uL; Basophil% 0.3 % (0-1); Eosinophil# 0.01 X10^3/uL; Eosinophils% 0.1 % (0-5); Hematocrit 36.2 % (37-47); Hemoglobin 11.5 g/dL (12.0-15.0); Mean Corp Hgb Conc 31.8 g/dL (32-36); Mean Corpuscular Hgb 30.6 pg (27.0-32.0); Mean Corpuscular Volume 96.3 fL (81-99); Mean Platelet Vol. 10.5 fl (6.2-12.0); Monocyte# 0.99 X10^3/uL; Monocyte% 11.5 % (0-10); NRBC Flagged by Analyzer 0.2 % (0-5); Neutrophil # 6.91 X10^3/uL (2.7-7.7); Neutrophil % 80.2 % (47-70); POSITIVE COUNT YES; POSITIVE DIFFERENTIAL YES; Platelet Count 193 K/mm3 (150-450); RBC Distribution Width CV 12.5 % (11.6-14.6); RBC Distribution Width SD 44.3 fl (35.1-43.9); Red Blood Count 3.76 M/mm3 (4.2-5.4); White Blood Count 8.6 K/mm3 (4.4-11.0)
[2022-09-23 06:27] LABS: Differential Indicated SCAN CRITERIA MET
[2022-09-23 06:50] LABS: Anion Gap 7 (5-15); BUN 33 mg/dL (7-18); BUN/Creat Ratio 39.3 RATIO (10-20); Calcium,Total 8.3 mg/dL (8.5-10.1); Chloride 120 mmol/L (98-107); Creatinine, Serum 0.84 mg/dL (0.55-1.02); EST Glomerular Filtration Rate 68 mL/min (>60); Est Glom Filt Rate - Afr Amer 83 mL/min (>60); Estimated Creatinine Clearance 36.95 ml/min; Glucose 103 mg/dL (74-106); Potassium 3.6 mmol/L (3.5-5.1); Sodium Level 153 mmol/L (136-145)
--- NOTE | 2022-09-23 07:21 | PCM.PN.SRG ---
Subjective Subjective The patient did have a bowel movement today Objective Data Objective Data Vital Signs: Vital Signs Temp Pulse Resp BP Pulse Ox O2 Del Method 98.5 F 88 16 130/56 H 95 Room Air 09/23/22 02:37 09/23/22 02:37 09/23/22 02:37 09/23/22 02:37 09/23/22 02:37 09/23/22 02:37 Oxygen Delivery Method Room Air Weight: 117 lb 15.157 oz Body Mass Index (BMI) 22.2 Intake & Output: Intake and Output for Last 24 Hours 09/21/22 09/22/22 09/23/22 23:59 23:59 23:59 Intake Total 3566.33 / 3566.33 2185.00 / 2185.00 1026.67 / 1026.67 Output Total 1700 / 1700 3000 / 3000 200 / 200 Balance 1866.33 / 1866.33 -815.00 / -815.00 826.67 / 826.67 Lab / Micro Data Result Diagrams: 09/23/22 05:51 09/23/22 05:51 Labs: Laboratory Results - last 24 hr 09/22/22 06:28: WBC 6.7, RBC 3.70 L, Hgb 11.2 L, Hct 34.2 L, MCV 92.4, MCH 30.3, MCHC 32.7, RDW Std Deviation 42.4, RDW Coeff of Otto 12.5, Plt Count 155, MPV 10.7, Immature Gran % (Auto) 0.800, Neut % (Auto) 76.6 H, Lymph % (Auto) 9.5 L, [place] % (Auto) 12.3 H, Eos % (Auto) 0.3, Baso % (Auto) 0.5, Absolute Neuts (auto) 5.1, Absolute Lymphs (auto) 0.63 L, Nucleated RBC % 0, Atypical Lymphocytes 1+ 09/23/22 05:51: WBC 8.6, RBC 3.76 L, Hgb 11.5 L, Hct 36.2 L, MCV 96.3, MCH 30.6, MCHC 31.8 L, RDW Std Deviation 44.3 H, RDW Coeff of Otto 12.5, Plt Count 193, MPV 10.5, Immature Gran % (Auto) 0.900, Neut % (Auto) 80.2 H, Lymph % (Auto) 7.0 L, [place] % (Auto) 11.5 H, Eos % (Auto) 0.1, Baso % (Auto) 0.3, Absolute Neuts (auto) 6.9, Absolute Lymphs (auto) 0.60 L, Nucleated RBC % 0.2 09/23/22 05:51: Sodium 153 H, Potassium 3.6, Chloride 120 H, Carbon Dioxide 26.0, Anion Gap 7, BUN 33 H, Creatinine 0.84, Estim Creat Clear Calc 36.95, Est GFR (MDRD) Af Amer 83, Est GFR (MDRD) Non-Af 68, BUN/Creatinine Ratio 39.3 H, Glucose 103, Calcium 8.3 L Radiography Diagnostic Testing: Radiology Impression Small Bowel X-Ray 09/22/22 08:00 IMPRESSION: GASTROGRAFIN small bowel follow-through examination with complete obstruction in the right lower quadrant. Electronically Signed: Vijay Mosley MD at 15:30 EST , Physical Exam Const oriented x3 Resp normal respiratory effort GI soft to palpation Inspection: Negative for abdominal distention Assessment & Plan Assessment/Plan (1) Small bowel obstruction: PLAN: The patient still has dark fluid coming from her NG tube and she was very nauseated until the NG was hooked back to suction yesterday. The small bowel follow-through did not show any contrast reaching the colon and today's x-ray does not show any contrast in the colon either as far as I can tell. I recommended exploratory laparoscopy for the patient. I discussed surgery with the patient as well as the risks of bleeding, infection, need for open surgery or bowel resection, injury to other organs. Patient understands the risks and is willing to proceed. Leif Lewis MD Pager: [facility] [address] [place] [address], [address] [place] [address] Office:
[2022-09-23] MEDS: Lactated Ringers 1,000 ML 40 ML IV (09:32)
--- NOTE | 2022-09-23 12:00 | EKG12_ITS ---
Test Reason : PRE OP Blood Pressure : / mmHG Vent. Rate : 084 BPM Atrial Rate : 084 BPM P-R Int : 136 ms QRS Dur : 074 ms QT Int : 370 ms P-R-T Axes : 047 030 042 degrees QTc Int : 437 ms Sinus rhythm with occasional Premature ventricular complexes Septal infarct , age undetermined Abnormal ECG When compared with ECG of 17-SEP-2016 10:22, Premature ventricular complexes are now Present Septal infarct is now Present Confirmed by NAYANA PAGE, ELIZABETH ([id number]), associate editor REJI HERNANDEZ ([id number]) on 09/23/2022 2:07:12 PM Referred By: DAMION Confirmed By:ELIZABETH KRAUS MD
--- NOTE | 2022-09-23 17:00 | COL_PTH ---
PATIENT: JOSE MARTIN ESCALERA LOC: MS3 U#:[id number] AGE/SX: 86/F ROOM: DC319 RE09/19/[address]: Dr. Leif Lewis MD : [id number] BED: 1 DIS: 10/02/2022 SPEC #: [id number] RECD: 09/23/22 21:23 STATUS: SRAVAN MURPHY #: [id number] BRICE: 09/23/22 17:[address]: Leif Lewis DEPT: SURGICAL PATHOLOGY RECD BY: Jason Thomas ENTERED: 09/24/22 09:06 SP TYPE: COLON OTHR DR: DO Dr. Mono Ramos MD Tissues: Colon, NOS Procedures: Surgery Specimen Level III Surgery Specimen Level V HEADER OPERATION: Exploratory laparotomy small bowel resection PRE-OP DIAGNOSIS: Small bowel obstruction TISSUE SUBMITTED: Small bowel MICROSCOPIC DIAGNOSIS Small bowel, segmental resection: Segments of small bowel with extensive serosal adhesions, acute inflammation and reactive changes. One minute benign mesenteric lymph node. Small bowel donuts with serosal acute inflammation and reactive changes. See comment. SJ:rg 09/26/2022 COMMENT Multiple areas of adhesions and anastomosis are noted in the segments of small bowel. MICROSCOPIC DESCRIPTION Slides are reviewed. GROSS DESCRIPTION Received in fixative is one container labeled with the patient's name and designated small bowel. The specimen consists of two segments of small bowel. Both segments of bowel are tortuous show extensive adhesions between bowel segments. One segment of bowel measures 13 cm in length and shows [id number] anastomosis. Exact length could not be determined due to adhesions and [id number] anastomosis. Both resection margins are stapled. No mucosal lesion is identified. The serosa shows focal ragged area. The second segment measures 13 cm in length. Multiple adhesions are noted between the segments of bowel. Exact length of the bowel cannot be determined. The serosal surface is ragged. Sections of mesenteric tissue do not reveal any obvious lymph node. Also present in the container are two donut-shaped pieces of bowel tissue measuring 3 x 2.5 x 0.5 cm and 3 x 1.5 x 0.6 cm. [employer] sections are submitted in six cassettes as follows: 1-4 ? bowel segments, 5 ? mesenteric tissue, 6 ? donut-shaped pieces of tissue. / SJ:rg 09/25/2022 TC:5 CPT: 43827, 38955
--- NOTE | 2022-09-23 21:37 | OP.PCM_ITS ---
Report of Operation Date of Procedure: 09/23/22 Pre-Operative Diagnosis: Small bowel obstruction Post-Operative Diagnosis: Small bowel obstruction Surgery/Procedure Performed:: Laparoscopic converted to open exploration with small bowel resection Specimen's removed: Small bowel segments Description of Procedure: Patient was brought back to the operating room and general anesthesia was induced. Salas catheter was placed. The abdomen was prepped and draped in usual sterile fashion. Midline incision was made superior to the umbilicus and deepened to the fascia which was elevated and incised. Port was placed into the abdomen and the abdomen was attempted to be insufflated but there was no room in the abdomen and there did not appear to be any open space around the adhesions. At this point it was converted to open. A midline incision was created and deepened to the fascia which was elevated and with trying to clear the fascia and opened the fascia 2 enterotomies were made. Once the fascia was opened e nough to examine the abdomen it appeared that the patient had frozen abdomen full of adhesions with. Several enterotomies were created try to dissect the abdominal wall off of the small bowel and so at that point some of the posterior rectus sheath was resected and left on the bowel in order to get into the lateral abdomen. After the enterotomies were created I called Dr. Barros for assistance. We proceeded to take down the abdominal wall superiorly and inferiorly to allow for large laparotomy incision. Dissection was then carried laterally on both sides trying as best as possible not to make several more enterotomies. The terminal ileum was identified and followed back into the small bowel adhesions and several dense adhesions were taken down sharply. We spent over 2 hours lysing adhesions to free up the small bowel. Once the distal small bowel was freed up it appeared that bowel contents were migrating into the distal small bowel. The area with the enterotomies was isolated and appeared to be all contiguous. Before and after this area with the enterotomies the bowel was divided using a TERRI stapler. The LigaSure impact was used to take down the mesentery to the small bowel and it was removed. The TERRI stapler was used to staple the 2 ends of small bowel together and antimesenteric caig-lm-siut functional end-to-end fashion. When the TIA 60 stapler was used to close the enterostomies the staple line did not hold. The small bowel was reresected at either end of the anastomosis using TERRI staplers and a repeat anastomosis was performed using a TERRI 75 stapler but once again the TIA stapler did not seal the enterostomy. The enterostomy was then closed in a running fashion using 3-0 silk suture and a part of the mesentery was laid over this enterostomy and sutured to the anastomosis using running 3-0 Vicryl suture on either end. This patched the enterostomy in case there is any small leak. Crotch suture was placed using 3-0 silk suture. The abdomen was then irrigated and suctioned dry and inspected for any more signs of enterostomy and there were no other blood small bowel injuries noted. Next the abdomen was copiously irrigated and suctioned dry. Next #1 Nurolon sutures were used to create retention sutures through full-thickness abdominal wall. The fascia was closed in a continuous fashion using #1 Prolene suture from the top and bottom. The incision was packed with wet Kerlix gauze. The retention sutures were then tied over a red rubber catheter. Dressing was applied. Patient was awoken and extubated and taken to ICU in stable condition. Salas catheter was left in place. Admit VTE Documentation VTE Mechan Device Prophylaxis: SCD's
[2022-09-23] MEDS: Morphine 4 MG/ML Syringe IV ×2 (21:44→23:49)
--- NOTE | 2022-09-23 21:44 | PCM.PN.BLA ---
Progress Note Patient had a very complicated open surgery for small bowel obstruction requiring small bowel resection. There was difficulty making the anastomosis as her tissue was edematous and difficult to suture or staple. I will start the patient on TPN and order a PICC line for tomorrow. I will also keep the patient on antibiotics short-term as there was spillage of stool from the enterotomies. The fascia was closed but the subcutaneous tissue was packed and left open to air to prevent infection. Retention sutures were placed. ICU was consulted. Leif Lewis MD Pager: [facility] [address] [place] [address] [address] [place] [address] Office:
[2022-09-23 23:50] LABS: Bedside Glucose 147 mg/dL (74-106)
[2022-09-24] VITALS (24 sets, daily range): BP systolic 122–149; BP diastolic 49–86; PULSE 86–99; RESP 10–20; TEMP 36.5–36.7; O2SAT 92–99
[2022-09-24 03:52] LABS: Absolute Lymphocyte Count 0.22 X10^3/uL (0.83-4.51); Absolute Neutrophil Count 11.1 X10^3/uL (2.0-7.7); Basophil# 0.01 X10^3/uL; Basophil% 0.1 % (0-1); Eosinophil# 0.02 X10^3/uL; Eosinophils% 0.2 % (0-5); Hematocrit 43.9 % (37-47); Hemoglobin 12.7 g/dL (12.0-15.0); Lymphocyte # 0.22 X10^3/ul (0.83-4.51); Lymphocyte % 1.8 % (19-41); Mean Corp Hgb Conc 28.9 g/dL (32-36); Mean Corpuscular Hgb 29.8 pg (27.0-32.0); Mean Corpuscular Volume 103.1 fL (81-99); Mean Platelet Vol. 10.4 fl (6.2-12.0); Monocyte# 0.68 X10^3/uL; Monocyte% 5.5 % (0-10); NRBC Flagged by Analyzer 0 % (0-5); Neutrophil # 11.14 X10^3/uL (2.7-7.7); Neutrophil % 90.3 % (47-70); POSITIVE DIFFERENTIAL YES; POSITIVE MORPHOLOGY YES; Platelet Count 204 K/mm3 (150-450); RBC Distribution Width CV 12.5 % (11.6-14.6); Red Blood Count 4.26 M/mm3 (4.2-5.4); White Blood Count 12.3 K/mm3 (4.4-11.0)
[2022-09-24] MEDS: Morphine 4 MG/ML Syringe IV (04:03)
[2022-09-24 04:08] LABS: Differential Indicated SCAN CRITERIA MET
[2022-09-24 04:19] LABS: ALB/GLOB Ratio 0.8 RATIO (0.9-2.4); AST(SGOT) 20 U/L (15-37); Alanine Aminotransfer ALT/SGPT 7 U/L (13-56); Albumin, Serum 2.4 g/dL (3.2-5.0); Alkaline Phosphatase 38 U/L (45-117); Anion Gap 10 (5-15); BUN 33 mg/dL (7-18); BUN/Creat Ratio 27.5 RATIO (10-20); Calcium,Total 7.5 mg/dL (8.5-10.1); Chloride 122 mmol/L (98-107); EST Glomerular Filtration Rate 45 mL/min (>60); Est Glom Filt Rate - Afr Amer 55 mL/min (>60); Estimated Creatinine Clearance 25.86 ml/min; Globulin 3.2 g/dL (2.2-4.2); Glucose 166 mg/dL (74-106); Magnesium 2.4 mg/dL (1.6-2.6); Potassium 3.9 mmol/L (3.5-5.1); Protein, Total 5.6 g/dL (6.4-8.2); Sodium Level 152 mmol/L (136-145)
[2022-09-24 06:45] LABS: Bedside Glucose 149 mg/dL (74-106)
--- NOTE | 2022-09-24 07:13 | CON.PCM.CC_ITS ---
Assessment & Plan Assessment/Plan (1) Small bowel obstruction: PLAN: Plan RECOMMENDATIONS: 1. Encourage incentive spirometer use and mobilize patient as tolerated. 2. Continue empiric antimicrobials as ordered. 3. Wean supplemental oxygen to maintain saturations at or above 90%. 4. Place PICC line and initiate TPN per surgery recommendations. 5. Continue appropriate DVT prophylaxis. IMPRESSIONS: 1. Small bowel obstruction status post open small bowel resection The patient was transferred to the medical intensive care unit postoperatively for further observation and management. She has remained hemodynamically stable on minimal supplemental O2. Plan to continue routine postoperative care per general surgery recommendations. Continue empiric antimicrobials for at least 48 hours, as ordered. Orders have been placed for PICC line insertion, with tentative plans to initiate TPN for nutritional support. 2. Hypernatremia/hyperchloremia Likely secondary to sodium chloride utilization for fluid resuscitation. Normal saline has been discontinued. Will initiate D5W and continue to monitor sodium and chloride levels. 3. Advanced age/history of Parkinson's/hypertension/hyperlipidemia Complicates care, management, recovery and prognosis. Continue to hold home antihypertensives for now. This note was generated with [employer] dictation software. It may contain incorrect words, spelling, and punctuation that were not noted in checking the note before signing. HPI Consult Data Date of Consult: 09/24/22 HPI Narrative Reason for Consultation: Small bowel obstruction HPI Narrative: The patient is a an 86-year-old female, with a history as outlined below, who presented to the emergency department on September 19 with abdominal pain. The patient did have associated nausea and vomiting. The patient did report a history of bowel obstruction which typically was relieved in the past with nasogastric tube decompression. On presentation to the emergency department, the patient was noted to be afebrile and hemodynamically stable. She was maintaining appropriate oxygen saturations on room air. Initial laboratory evaluation revealed an elevated white blood cell count of 16,000. Chemistry profile was notable for a creatinine of 1.4. CT abdomen/pelvis demonstrated fluid distention of the proximal small bowel with distal small bowel obstruction. The patient was initially admitted under the general surgery services where she underwent NG tube decompression along with supplemental IV fluid hydration. The patient ultimately had a small bowel follow-through which failed to demonstrate any contrast reaching the colon. On September 23, the patient was taken to the OR where she underwent a laparoscopic converted to open exploration with small bowel resection secondary to small bowel obstruction. Postoperatively, the patient was able to be extubated and she was transferred to the medical intensive care unit for further observation. Overnight, there have been no significant issues. The patient remains hemodynamically stable on 2 L/min of supplemental oxygen. [facility] Medical History Arthritis BCC (basal cell carcinoma of skin) CKD (chronic kidney disease) stage 3, GFR 30-59 ml/min Dyslipidemia Forehead abrasion GERD (gastroesophageal reflux disease) Guaiac positive stools HTN (hypertension) Hypercholesteremia Left elbow contusion Menieres disease SBO (small bowel obstruction) Scoliosis Skin tear of left elbow without complication Home Medications amlodipine 10 mg tablet 10 mg PO DAILY BP 09/17/16 [History Last Taken 03/15/20] atorvastatin 20 mg tablet 20 mg PO DAILY CHOLESTEROL 09/17/16 [History Last Ta august 03/15/20] ascorbic acid (vitamin C) 500 mg tablet 500 mg PO DAILY SUPPLEMENT 01/25/20 [History Last Taken 03/15/20] denosumab 60 mg/mL subcutaneous syringe (Prolia) 60 mg subcut [id number] BONES 06/05 [History Last Taken 1 Month Ago ~02/14/20] losartan 100 mg tablet 100 mg PO DAILY BP 01/25/20 [History Last Taken 03/15/20] multivitamin 1 tab PO DAILY SUPPLEMENT 01/25/20 [History Last Taken 03/15/20] psyllium husk 0.52 gram capsule 0.52 g PO DAILY CONSTIPATION 01/25/20 [History Last Taken 03/15/20] cholecalciferol (vitamin D3) 50 mcg (2,000 unit) capsule 2,000 unit PO DAILY SUPPLEMENT 03/15/20 [History Last Taken 03/15/20] zinc amino acid chelate 50 mg tablet 50 mg PO DAILY SUPPLEMENT 03/15/20 [History Last Taken 03/15/20] flaxseed oil 1,000 mg capsule (Hoopa-3 Flaxseed Oil) 1,000 mg PO DAILY Check with primary doctor 02/27/22 [History Last Taken Unknown] carbidopa 25 mg-levodopa 100 mg tablet (Sinemet) 1 tab PO TID Check with primary doctor 09/19/22 [History Last Taken Unknown] pantoprazole 20 mg tablet,delayed release 20 mg PO DAILY gerd 09/19/22 [History Last Taken Unknown] Allergy/AdvReac Type Severity Reaction Status Date / Time barium iodide Allergy Unknown Reduced Verified 09/19/22 15:51 Kidney function Iodinated Contrast Media AdvReac Other Verified 09/19/22 15:51 KIDNEY MEDICINE Allergy Hives Uncoded 09/19/22 15:51 Family History Father Hypertension Cancer Mother Hypertension Cancer Arthritis Surgical History History of colonoscopy (~09/2019) History of tonsillectomy s/p exploratory laparoscopy S/P hysterectomy s/p vein strippling Social History Smoking Status: Former smoker second hand exposure: No alcohol intake: current alcohol intake frequency: a few times a month Alcohol type: wine details: rarely substance use type: does not use what type of physical activity do you participate in: other frequency: 3-4 times per week morena/holiness: Islam seatbelt use: always ROS ROS Narrative 10 systems reviewed with pertinent positives as noted in the HPI above. Physical Exam Const alert and no apparent distress General Appearance: cooperative HEENT normocephalic and head/scalp atraumatic HEENT Narrative: Nasogastric tube in place Eyes PERRL and EOMs intact bilaterally Neck supple General: trachea midline Chest inspection of chest normal Resp normal respiratory effort Auscultation: Negative for rales, rhonchi or wheezes Cardio regular rate and regular rhythm GI GI Narrative: Abdomen is soft and nondistended with surgical dressing in place. Extremity no clubbing, cyanosis or edema Skin no rashes or lesions noted Neuro CN's II-XII intact bilaterally and no focal motor deficits Psych cooperative and affect normal Lab / Micro Data Result Diagrams: 09/24/22 03:45 09/24/22 03:45 Labs: Laboratory Results - last 24 hr 09/23/22 23:28: POC Glucose 147 H 09/24/22 03:45: WBC 12.3 H, RBC 4.26, Hgb 12.7, Hct 43.9, MCV 103.1 H D, MCH 29. 8, MCHC 28.9 L D, RDW Std Deviation 48.0 H, RDW Coeff of Otto 12.5, Plt Count 204, MPV 10.4, Immature Gran % (Auto) 2.100 H, Neut % (Auto) 90.3 H, Lymph % (Auto) 1.8 L, [place] % (Auto) 5.5, Eos % (Auto) 0.2, Baso % (Auto) 0.1, Absolute Neuts (auto) 11.1 H, Absolute Lymphs (auto) 0.22 L, Nucleated RBC % 0 09/24/22 03:45: Sodium 152 H, Potassium 3.9, Chloride 122 H, Carbon Dioxide 20.0 L, Anion Gap 10, BUN 33 H, Creatinine 1.20 H, Estim Creat Clear Calc 25.86, Est GFR (MDRD) Af Amer 55 L, Est GFR (MDRD) Non-Af 45 L, BUN/Creatinine Ratio 27.5 H , Glucose 166 H, Calcium 7.5 L, Phosphorus 3.0, Magnesium 2.4, Total Bilirubin 0.70, AST 20, ALT 7 L, Alkaline Phosphatase 38 L, Total Protein 5.6 L, Albumin 2.4 L, Globulin 3.2, Albumin/Globulin Ratio 0.8 L 09/24/22 06:27: POC Glucose 149 H Radiology Impression KUB X-Ray 09/23/22 05:55 IMPRESSION: Small bowel obstruction. No contrast is seen within the colon. Electronically Signed: Vijay Mosley MD at 10:05 EST , Charges/Coding Visit Charges Inpatient E&M: 36451 Init Hosp L3
[2022-09-24] MEDS: 0.9% Normal Saline 1,000 ML 100 ML IV (07:44)
[2022-09-24] MEDS: 0.9% Saline Lock 10 ML Syringe IV ×2 (08:59→15:52)
[2022-09-24] MEDS: Morphine 2 MG/ML Syringe IV ×2 (08:59→15:52)
--- NOTE | 2022-09-24 09:25 | PCM.PN.SRG ---
Subjective Subjective Patient had no further issues overnight Objective Data Objective Data Vital Signs: Vital Signs Temp Pulse Resp BP Pulse Ox O2 Del Method O2 Flow Rate 97.7 F L 97 20 H 148/65 H 92 Nasal Cannula 2 09/24/22 04:19 09/24/22 08:00 09/24/22 08:00 09/24/22 08:00 09/24/22 08:00 09/24/22 08:00 09/24/22 08:00 Oxygen Flow Rate (L/min) 2 Oxygen Delivery Method Nasal Cannula Weight: 117 lb 15.157 oz Body Mass Index (BMI) 22.2 Intake & Output: Intake and Output for Last 24 Hours 09/22/22 09/23/22 09/24/22 23:59 23:59 23:59 Intake Total 2185.00 / 2185.00 2415.00 / 2415.00 1023.33 / 1023.33 Output Total 3000 / 3000 600 / 630 150 / 150 Balance -815.00 / -815.00 1815.00 / 1785.00 873.33 / 873.33 Lab / Micro Data Result Diagrams: 09/24/22 03:45 09/24/22 03:45 Labs: Laboratory Results - last 24 hr 09/23/22 23:28: POC Glucose 147 H 09/24/22 03:45: WBC 12.3 H, RBC 4.26, Hgb 12.7, Hct 43.9, MCV 103.1 H D, MCH 29.8, MCHC 28.9 L D, RDW Std Deviation 48.0 H, RDW Coeff of Otto 12.5, Plt Count 204, MPV 10.4, Immature Gran % (Auto) 2.100 H, Neut % (Auto) 90.3 H, Lymph % (Auto) 1.8 L, Leslie % (Auto) 5.5, Eos % (Auto) 0.2, Baso % (Auto) 0.1, Absolute Neuts (auto) 11.1 H, Absolute Lymphs (auto) 0.22 L, Nucleated RBC % 0 09/24/22 03:45: Sodium 152 H, Potassium 3.9, Chloride 122 H, Carbon Dioxide 20.0 L, Anion Gap 10, BUN 33 H, Creatinine 1.20 H, Estim Creat Clear Calc 25.86, Est GFR (MDRD) Af Amer 55 L, Est GFR (MDRD) Non-Af 45 L, BUN/Creatinine Ratio 27.5 H, Glucose 166 H, Calcium 7.5 L, Phosphorus 3.0, Magnesium 2.4, Total Bilirubin 0.70, AST 20, ALT 7 L, Alkaline Phosphatase 38 L, Total Protein 5.6 L, Albumin 2.4 L, Globulin 3.2, Albumin/Globulin Ratio 0.8 L 09/24/22 06:27: POC Glucose 149 H Radiography Diagnostic Testing: Radiology Impression KUB X-Ray 09/23/22 05:55 IMPRESSION: Small bowel obstruction. No contrast is seen within the colon. Electronically Signed: Vijay Mosley MD at 10:05 EST , Physical Exam Const oriented x3 Resp normal respiratory effort GI soft to palpation Inspection: Negative for abdominal distention Assessment & Plan Assessment/Plan (1) Small bowel obstruction: (2) Hypernatremia: PLAN: Plan Patient had extensive surgery yesterday evening with resection of small bowel. She was admitted to the ICU after surgery. She had borderline urine output but it is picking up today. Continue NG and IV antibiotics. We will order PICC line and TPN. Likely transfer out of the unit tomorrow. Leif Lewis MD Pager: [facility] [address] [place] [address], [address] [place] [address] Office:
[2022-09-24] MEDS: Enoxaparin 40 MG/0.4 ML Syringe SC (11:47)
[2022-09-24 12:20] LABS: Bedside Glucose 151 mg/dL (74-106)
[2022-09-24 15:03] LABS: Triglycerides 118 mg/dL
[2022-09-24] MEDS: TPN - Clinimix E 8%-14% Soln 2,000 ML with Multivitamins 10 ML, Trace Elements 1 ML, Fo... 42 ML IV (15:52)
[2022-09-24 18:51] LABS: Bedside Glucose 259 mg/dL (74-106)
[2022-09-25] VITALS (25 sets, daily range): BP systolic 90–143; BP diastolic 44–69; PULSE 75–104; RESP 16–23; TEMP 36.6–37.2; O2SAT 90–98
[2022-09-25 00:06] LABS: Bedside Glucose 260 mg/dL (74-106)
[2022-09-25 03:35] LABS: Hematocrit 30.3 % (37-47); Hemoglobin 9.6 g/dL (12.0-15.0); Mean Corp Hgb Conc 31.7 g/dL (32-36); Mean Corpuscular Hgb 29.9 pg (27.0-32.0); Mean Corpuscular Volume 94.4 fL (81-99); Mean Platelet Vol. 10.4 fl (6.2-12.0); POSITIVE COUNT YES; POSITIVE MORPHOLOGY YES; Platelet Count 168 K/mm3 (150-450); RBC Distribution Width CV 12.6 % (11.6-14.6); RBC Distribution Width SD 43.9 fl (35.1-43.9); Red Blood Count 3.21 M/mm3 (4.2-5.4)
[2022-09-25 03:49] LABS: Anion Gap 5 (5-15); BUN 35 mg/dL (7-18); BUN/Creat Ratio 32.7 RATIO (10-20); Calcium,Total 6.9 mg/dL (8.5-10.1); Chloride 115 mmol/L (98-107); Creatinine, Serum 1.07 mg/dL (0.55-1.02); EST Glomerular Filtration Rate 52 mL/min (>60); Est Glom Filt Rate - Afr Amer 63 mL/min (>60); Estimated Creatinine Clearance 29.01 ml/min; Glucose 241 mg/dL (74-106); Magnesium 2.2 mg/dL (1.6-2.6); Potassium 3.1 mmol/L (3.5-5.1); Sodium Level 147 mmol/L (136-145)
[2022-09-25 03:53] LABS: Differential Indicated MANUAL DIFF
[2022-09-25 03:54] LABS: Platelet Estimate ADEQUATE (ADEQ); Red Cell Morphology NORM C+C NORMAL (NORM C&C)
[2022-09-25 03:56] LABS: Absolute Neutrophil Count 10.9 X10^3/uL (2.0-7.7)
[2022-09-25 03:57] LABS: Absolute Lymphocyte Count 1.04 X10^3/uL (0.83-4.51); Lymphocyte 8 % (19-41); Monocyte 5 % (0-10); Myelocyte 3 % (0-0); Neutrophil-Band 11 % (0-5); Neutrophil-Segmented 73 % (47-70); Total Cells Counted 100 (MANUAL DIFF)
[2022-09-25 04:01] LABS: Phosphorus 0.9 mg/dL (2.5-4.9)
[2022-09-25] MEDS: Morphine 2 MG/ML Syringe IV ×4 (05:51→20:33)
[2022-09-25] MEDS: 0.9% Saline Lock 10 ML Syringe IV (05:51)
--- NOTE | 2022-09-25 05:54 | PN.CC_ITS ---
Assessment & Plan Assessment/Plan (1) Small bowel obstruction: PLAN: Plan RECOMMENDATIONS: 1. Encourage incentive spirometer use and mobilize patient as tolerated. 2. Continue empiric antimicrobials as ordered. 3. Wean supplemental oxygen to maintain saturations at or above 90%. 4. Continue TPN via PICC line. 5. Continue appropriate DVT prophylaxis. IMPRESSIONS: 1. Small bowel obstruction status post open small bowel resection The patient was transferred to the medical intensive care unit postoperatively for further observation and management. She has remained hemodynamically stable on minimal supplemental O2. Plan to continue routine postoperative care per general surgery recommendations. Continue empiric antimicrobials for at least 48 hours, as ordered. The patient is currently tolerating TPN without issue. 2. Hypernatremia/hyperchloremia Improved following free water supplementation. We will discontinue supplemental IV fluids given TPN administration to avoid volume overload. 3. Advanced age/history of Parkinson's/hypertension/hyperlipidemia Complicates care, management, recovery and prognosis. Continue to hold home antihypertensives for now. This note was generated with [employer] dictation software. It may contain incorrect words, spelling, and punctuation that were not noted in checking the note before signing. Subjective Subjective The patient was seen and examined at the bedside this morning. Events from the last 24 hours have been reviewed. The patient is currently afebrile, hemodynamically stable and maintaining appropriate oxygen saturations on 2 L/min via nasal cannula. The patient is documented to be overall net +6.8 L for the hospitalization. The patient does have 11% bands noted on CBC differential this morning. Sodium has improved to 147 this morning. Potassium is low at 3.1. Creatinine has improved to 1.07. The patient has no specific complaints this morning. Objective Data Objective Data The patient's most recent lab work, culture data and imaging studies have all been personally reviewed. Vital Signs: Vital Signs Temp Pulse Resp BP Pulse Ox O2 Del Method O2 Flow Rate 97.9 F 85 20 H 120/69 97 Nasal Cannula 2 09/25/22 05:00 09/25/22 05:00 09/25/22 05:00 09/25/22 05:00 09/25/22 05:00 09/25/22 05:00 09/25/22 05:00 Oxygen Flow Rate (L/min) 2 Oxygen Delivery Method Nasal Cannula Weight: 117 lb 15.157 oz Body Mass Index (BMI) 22.2 Intake & Output: Intake and Output for Last 24 Hours 09/23/22 09/24/22 09/25/22 23:59 23:59 23:59 Intake Total 2415.00 / 2415.00 2610.00 / 2610.00 890 / 890 Output Total 600 / 630 625 / 625 Balance 1815.00 / 1785.00 1985.00 / 1985.00 890 / 890 Lab / Micro Data Attestation: I reviewed the patient's lab results. Result Diagrams: 09/25/22 03:25 09/25/22 03:25 Labs: Laboratory Results - last 24 hr 09/24/22 03:45: Triglycerides 118 09/24/22 06:27: POC Glucose 149 H 09/24/22 11:52: POC Glucose 151 H 09/24/22 17:34: POC Glucose 259 H 09/24/22 23:43: POC Glucose 260 H 09/25/22 03:25: WBC 13.0 H, RBC 3.21 L, Hgb 9.6 L, Hct 30.3 L, MCV 94.4 D, MCH 29.9, MCHC 31.7 L D, RDW Std Deviation 43.9, RDW Coeff of Otto 12.6, Plt Count 168, MPV 10.4, Immature Gran % (Auto) [employer], Neut % (Auto) [employer]KER, Lymph % (Auto) SUPER[employer]KER, [place] % (Auto) SUPER[employer]OR [employer]KER, Eos % (Auto) SUPER[employer]KER, Baso % (Auto) SUPER[employer]KER, Absolute Neuts (auto) 10.9 H, Absolute Lymphs (auto) 1.04, Total Counted 100, Neutrophils % (Manual) 73 H, Band Neutrophils % 11 H, Lymphocytes % (Manual) 8 L, Monocytes % (Manual) 5, Myelocytes % 3 H, Nucleated RBC % [employer], Diff Path Review December, Platelet Estimate ADEQUATE, RBC Morphology NORM C+C 09/25/22 03:25: Sodium 147 H, Potassium 3.1 L, Chloride 115 H, Carbon Dioxide 27.0, Anion Gap 5, BUN 35 H, Creatinine 1.07 H, Estim Creat Clear Calc 29.01, Est GFR (MDRD) Af Amer 63, Est GFR (MDRD) Non-Af 52 L, BUN/Creatinine Ratio 32.7 H, Glucose 241 H, Calcium 6.9 L, Magnesium 2.2 09/25/22 03:25: Phosphorus 0.9 L* Physical Exam Const alert and no apparent distress General Appearance: cooperative HEENT normocephalic and head/scalp atraumatic HEENT Narrative: Nasogastric tube in place Eyes PERRL and EOMs intact bilaterally Neck supple General: trachea midline Chest inspection of chest normal Resp normal respiratory effort Auscultation: Negative for rales, rhonchi or wheezes Cardio regular rate and regular rhythm GI GI Narrative: Abdomen is soft and nondistended with surgical dressing in place. Extremity no clubbing, cyanosis or edema Skin no rashes or lesions noted Neuro CN's II-XII intact bilaterally, moves all extremities and no focal motor deficits Psych cooperative and affect normal Charges/Coding Visit Charges Inpatient E&M: 00204 Subs Hosp L2
[2022-09-25 06:06] LABS: Bedside Glucose 172 mg/dL (74-106)
--- NOTE | 2022-09-25 08:23 | WOUNDNOTE ---
wound photo: abdomen
--- NOTE | 2022-09-25 09:04 | PN.SURG_ITS ---
Subjective Subjective The patient overall appears comfortable. She complains of some abdominal pain but no nausea or vomiting or fevers or chills. Objective Data Objective Data Vital Signs: Vital Signs Temp Pulse Resp BP Pulse Ox O2 Del Method O2 Flow Rate 97.9 F 83 18 125/51 H 93 Nasal Cannula 2 09/25/22 05:00 09/25/22 07:00 09/25/22 07:00 09/25/22 07:00 09/25/22 07:53 09/25/22 07:53 09/25/22 07:53 Oxygen Flow Rate (L/min) 2 Oxygen Delivery Method Nasal Cannula Weight: 120 lb 2.431 oz Body Mass Index (BMI) 22.2 Intake & Output: Intake and Output for Last 24 Hours 09/23/22 09/24/22 09/25/22 23:59 23:59 23:59 Intake Total 2415.00 / 2415.00 2610.00 / 2610.00 1050 / 1050 Output Total 600 / 630 625 / 625 225 / 225 Balance 1815.00 / 1785.00 1985.00 / 1985.00 825 / 825 Lab / Micro Data Result Diagrams: 09/25/22 03:25 09/25/22 03:25 Labs: Laboratory Results - last 24 hr 09/24/22 03:45: Triglycerides 118 09/24/22 11:52: POC Glucose 151 H 09/24/22 17:34: POC Glucose 259 H 09/24/22 23:43: POC Glucose 260 H 09/25/22 03:25: WBC 13.0 H, RBC 3.21 L, Hgb 9.6 L, Hct 30.3 L, MCV 94.4 D, MCH 29.9, MCHC 31.7 L D, RDW Std Deviation 43.9, RDW Coeff of Otto 12.6, Plt Count 168, MPV 10.4, Immature Gran % (Auto) [employer]IDENT, Neut % (Auto) [employer], Lymph % (Auto) [employer]IDENT, [place] % (Auto) [employer]IDENT, Eos % (Auto) [employer]IDENT, Baso % (Auto) [employer]IDENT, Absolute Neuts (auto) 10.9 H, Absolute Lymphs (auto) 1.04, Total Counted 100, Neutrophils % (Manual) 73 H, Band Neutrophils % 11 H, Lymphocytes % (Manual) 8 L, Monocytes % (Manual) 5, Myelocytes % 3 H, Nucleated RBC % [employer]OUNDER [employer] PRESIDENT, Diff Path Review May foll, Platelet Estimate ADEQUATE, RBC Morphology NORM C+C 09/25/22 03:25: Sodium 147 H, Potassium 3.1 L, Chloride 115 H, Carbon Dioxide 27.0, Anion Gap 5, BUN 35 H, Creatinine 1.07 H, Estim Creat Clear Calc 29.01, Est GFR (MDRD) Af Amer 63, Est GFR (MDRD) Non-Af 52 L, BUN/Creatinine Ratio 32.7 H, Glucose 241 H, Calcium 6.9 L, Magnesium 2.2 09/25/22 03:25: Phosphorus 0.9 L* 09/25/22 05:34: POC Glucose 172 H Physical Exam Const oriented x3 Resp normal respiratory effort GI soft to palpation Inspection: Negative for abdominal distention Palpation: tender Assessment & Plan Assessment/Plan (1) Small bowel obstruction: PLAN: The patient's white count is about the same as it was yesterday. She denies any fevers or chills. She is not tachycardic. Her NG output is lightening and is not as dark as it was yesterday. She reports some mild abdominal tenderness but nothing severe. She has no guarding or rigidness. I will continue antibiotics due to the white count. Continue ICU observation for today. The patient was started on TPN due to malnutrition and likelihood of keeping the NG in for a few more days. Leif Lewis MD Pager: [facility] [address] [place] [address], [address] [place] [phone] Office:
[2022-09-25] MEDS: Enoxaparin 30 MG/0.3 ML Syringe SC (10:01)
[2022-09-25 12:15] LABS: Bedside Glucose 139 mg/dL (74-106)
[2022-09-25 14:10] LABS: Pathologist Review Reviewed
[2022-09-25] MEDS: TPN - Clinimix E 8%-14% Soln 2,000 ML with Multivitamins 10 ML, Trace Elements 1 ML, Fo... 42 ML IV (15:41)
--- NOTE | 2022-09-25 17:20 | RAD_ITS ---
INDICATION: wheezing/rhonchi EXAMINATION/TECHNIQUE: X-RAY - XR Chest 1 View COMPARISON: None. FINDINGS: LINES/DEVICES: Right PICC line terminates in the superior vena cava. NG tube terminates in the stomach. LUNGS: No consolidation, edema or effusion. No pneumothorax. MEDIASTINUM AND CARDIOVASCULAR STRUCTURES: Cardiac silhouette not enlarged. Central airways and mediastinal contour are unremarkable. BONES AND SOFT TISSUES: Unremarkable. RAD/Chest 1 View (Portable) IMPRESSION: No acute cardiopulmonary disease. Electronically Signed: Ambar Vaughn MD at 21:22 EST Reading Location ID and State: [id number] / Tel , Service support ,
[2022-09-25 17:50] LABS: Bedside Glucose 136 mg/dL (74-106)
--- NOTE | 2022-09-25 20:16 | NURSING ---
Sterile wet to dry dressing change to abdominal incision. Moderate amount of serosanguineous drainage on old dressing. Patient tolerated well. Morphine 2mg given afterward for 4/10 pain.
[2022-09-26] VITALS (30 sets, daily range): BP systolic 108–151; BP diastolic 46–95; PULSE 75–99; RESP 15–24; TEMP 36.6–37.2; O2SAT 91–99
[2022-09-26 00:46] LABS: Bedside Glucose 142 mg/dL (74-106)
[2022-09-26 03:25] LABS: Hematocrit 30.3 % (37-47); Hemoglobin 9.3 g/dL (12.0-15.0); Mean Corp Hgb Conc 30.7 g/dL (32-36); Mean Corpuscular Hgb 29.3 pg (27.0-32.0); Mean Corpuscular Volume 95.6 fL (81-99); Mean Platelet Vol. 10.4 fl (6.2-12.0); POSITIVE COUNT YES; POSITIVE MORPHOLOGY YES; Platelet Count 137 K/mm3 (150-450); RBC Distribution Width CV 12.7 % (11.6-14.6); Red Blood Count 3.17 M/mm3 (4.2-5.4); White Blood Count 14.4 K/mm3 (4.4-11.0)
[2022-09-26 03:30] LABS: Differential Indicated MANUAL DIFF
[2022-09-26 03:47] LABS: Lymphocyte 4 % (19-41); Metamyelocyte 3 % (0-1); Monocyte 2 % (0-10); Myelocyte 2 % (0-0); Neutrophil-Segmented 88 % (47-70); Promyelocyte 1 % (0-0); Total Cells Counted 100 (MANUAL DIFF)
[2022-09-26 03:48] LABS: Absolute Lymphocyte Count 0.58 X10^3/uL (0.83-4.51); Absolute Neutrophil Count 13.6 X10^3/uL (2.0-7.7); Anion Gap 2 (5-15); BUN 38 mg/dL (7-18); BUN/Creat Ratio 44.2 RATIO (10-20); Calcium,Total 7.4 mg/dL (8.5-10.1); Chloride 118 mmol/L (98-107); Creatinine, Serum 0.86 mg/dL (0.55-1.02); EST Glomerular Filtration Rate 67 mL/min (>60); Est Glom Filt Rate - Afr Amer 81 mL/min (>60); Estimated Creatinine Clearance 36.09 ml/min; Glucose 148 mg/dL (74-106); Lymphocyte # 0.58 X10^3/ul (0.83-4.51); Magnesium 2.3 mg/dL (1.6-2.6); Neutrophil # 13.57 X10^3/uL (2.7-7.7); Potassium 3.8 mmol/L (3.5-5.1); Sodium Level 150 mmol/L (136-145)
[2022-09-26 03:49] LABS: Platelet Estimate ADEQUATE (ADEQ); Red Cell Morphology NORM C+C NORMAL (NORM C&C)
[2022-09-26] MEDS: 0.9% Saline Lock 10 ML Syringe IV ×3 (05:39→11:16)
[2022-09-26 06:06] LABS: Bedside Glucose 130 mg/dL (74-106)
--- NOTE | 2022-09-26 07:55 | PN.CC_ITS ---
Assessment & Plan Assessment/Plan (1) Hypernatremia: PLAN: recommend decreasing TPN to 25 cc/h temporarily until her electrolytes are corrected. (pharm is unable to change the standard formulation to low-sodium), give lasix 40 mg q12h x2 and increase free water. (D5W 150/hr x 6 hours) Supplement potassium phosphate with 30 mill equivalents of potassium equivalent over 2 hours. X2 repeat BMP at 3 PM Increase TPN to 40 cc/h again this afternoon, after electrolytes are corrected. Discussed with Dr. Rhodes (2) Parkinson's disease: PLAN: stable on sinemet (3) Hypophosphatemia: PLAN: - supplement kphos with 30meq K equivalent IVPB x 2 (discussed with pharm; they are not able to add phos to TPN) - BMP at 3 PM (4) Hx SBO: PLAN: WBC is increased to 14 today with L shift (metamyels, myelos, pomyelocytes) - recc BC x 2 - Abdominal CT scan with oral and IV contrast, discussed with Dr. Lewis - CXR today PLAN: Plan As above. Critical care time spent with patient at bedside, review of documentation, lab results, radiology and other test results, discussion with colleagues and ancillary staff, interdisciplinary rounds spent discussing this particular patient, clinical management of patient, was 45 minutes. This time does not include any procedures, if performed. [place] for [place] [address]06 Subjective Subjective Patient sitting up in a chair, complains of cough and inability to raise sputum completely, is using incentive spirometry with good compliance. Like to have a nebulizer treatment. Denies any chest pain, fevers chills sweats nausea or vomiting. Denies dyspnea or wheezing. States that her postop abdominal discomfort is less than prior to surgery. She was able to walk with physical therapy today. NG tube is present, n.p.o. on TPN, no complaints at IV sites. Objective Data Objective Data Vital Signs: Vital Signs Temp Pulse Resp BP Pulse Ox O2 Del Method O2 Flow Rate 97.8 F 77 16 129/48 H 99 Nasal Cannula 2 09/26/22 04:15 09/26/22 07:00 09/26/22 07:00 09/26/22 07:00 09/26/22 07:00 09/26/22 07:00 09/26/22 07:00 Oxygen Flow Rate (L/min) 2 Oxygen Delivery Method Nasal Cannula Weight: 123 lb 10.869 oz Body Mass Index (BMI) 22.2 Right PICC line present, weight 123, I's and O's +711 total, her baseline weight is 118. (Per patient) Chest x-ray September 25 had no acute infiltrates or effusions she has an elevated right hemidiaphragm. CBC had a white count of 14,000 with 3 metamyelocytes, 2 myelocytes, 1 promyelocyte. Phosphate 2 calcium 7.4 magnesium 2.3. Medications were reviewed. She is on Lovenox and Zosyn. Intake & Output: Intake and Output for Last 24 Hours 09/24/22 09/25/22 09/26/22 23:59 23:59 23:59 Intake Total 2610.00 / 2610.00 2951.2333 / 3031.2333 170 / 170 Output Total 625 / 625 975 / 1225 610 / 610 Balance 1985.00 / 1984. 1976.2333 / 1806.2333 -440 / -440 Patient is on TPN at 40 cc/h, standard formulation, with today's labs showing hyponatremia of 150 and hypophosphatemia of 2.0. Appropriate changes being made, discussed with pharmacy. Lab / Micro Data Attestation: I reviewed the patient's lab results. Result Diagrams: 09/26/22 03:05 09/26/22 03:05 Labs: Laboratory Results - last 24 hr 09/25/22 03:25: Diff Path Review Reviewed 09/25/22 11:42: POC Glucose 139 H 09/25/22 17:29: POC Glucose 136 H 09/26/22 00:24: POC Glucose 142 H 09/26/22 03:05: Sodium 150 H, Potassium 3.8, Chloride 118 H, Carbon Dioxide 30.0, Anion Gap 2 L, BUN 38 H, Creatinine 0.86, Estim Creat Clear Calc 36.09, Est GFR (MDRD) Af Amer 81, Est GFR (MDRD) Non-Af 67, BUN/Creatinine Ratio 44.2 H , Glucose 148 H, Calcium 7.4 L, Phosphorus 2.0 L, Magnesium 2.3 09/26/22 03:05: WBC 14.4 H, RBC 3.17 L, Hgb 9.3 L, Hct 30.3 L, MCV 95.6, MCH 29.3, MCHC 30.7 L, RDW Std Deviation 45.0 H, RDW Coeff of Otto 12.7, Plt Count 137 L, MPV 10.4, Neut % (Auto) Not Reportable, Absolute Neuts (auto) 13.6 H, Absolute Lymphs (auto) 0.58 L, Total Counted 100, Neutrophils % (Manual) 88 H, Lymphocytes % (Manual) 4 L, Monocytes % (Manual) 2, Metamyelocytes % 3 H, Myelocytes % 2 H, Promyelocytes % 1 H, Diff Path Review December, Platelet Estimate ADEQUATE, RBC Morphology NORM C+C 09/26/22 05:33: POC Glucose 130 H Radiography Diagnostic Testing: Radiology Impression Chest X-Ray 09/25/22 17:20 IMPRESSION: No acute cardiopulmonary disease. Electronically Signed: Ambar Vaughn MD at 21:22 EST Reading Location ID and State: [id number] / Tel , Service support , Physical Exam Narrative Frail-appearing elderly woman sitting up in a chair with NG tube in place, initially encountered sleeping sitting up, no acute distress. Const alert and oriented x3 Constitutional Narrative: Awakened easily for visit General Appearance: cooperative HEENT normocephalic HEENT Narrative: NG tube in left nares, with dark brownish secretion via intermittent suction. She is on room air, nasal O2 has been discontinued with saturation of 94%. Mouth: oral and palatal mucosa normal Eyes PERRL Chest inspection of chest normal Resp normal respiratory effort Resp Narrative: Chest is symmetrical, no use of accessory muscles. The patient had rhonchorous cough, incompletely able to raise sputum, which was not observed directly today. On chest exam left lung was clear, right exam had rhonchi, few crackles at the posterior right mid lung field, and focal wheeze that changed with coughing. Incentive spirometry is adequate. Effort and Inspection: able to speak in complete sentences Cardio regular rate, regular rhythm, S1 normal heart sound and S2 normal heart sound GI GI Narrative: The midline abdominal dressing is clean and dry, no blood. No bowel sounds were present to auscultation, minimally tender to gentle palpation. Narrative: Salas catheter in place draining clear yellow urine in moderate quantities. Extremity no clubbing, cyanosis or edema Skin no rashes or lesions noted Neuro oriented x3, moves all extremities and no focal motor deficits Neuro Narrative: Sitting upright in a chair with good strength Psych cooperative and affect normal Psych Narrative: Good insight, good historian, alert and oriented and appropriate. Charges/Coding Procedures Hospitalists Procedures: 99168 Critial Care 1st Hr
--- NOTE | 2022-09-26 08:09 | RAD_ITS ---
STUDY: X-RAY CHEST REASON FOR EXAM: Female, 86 years old. Possible pneumonia TECHNIQUE: Single AP portable view of the chest. COMPARISON: Comparison is made with prior study dated 09/25/2002. FINDINGS: Once again, an orogastric tube is seen with the tip in the distal portion of the stomach. EKG electrodes are seen. A right-sided PICC line catheter is in situ with the tip at the junction of the superior vena cava and right atrium. There is blunting of the right cosmetic angle with right basilar atelectasis and/or infiltrate. Mild residual changes are seen at left lung base although there has been improved aeration. Normal size heart. Normal mediastinum and rubi. Normal visualized pulmonary arteries. There is atherosclerotic calcification of the aortic arch with tortuosity. There are diffuse degenerative changes of the visualized thoracic spine. Dextroscoliosis of the lumbar spine. Normal visualized ribs, clavicles, and shoulders. There is no demonstrated abnormality of the visualized soft tissue structures of the upper abdomen. RAD/Chest 1 View (Portable) IMPRESSION: Blunting of the right posterior triangle with increased markings at the right lung base suggestive of right basilar atelectasis and/or infiltrate. Improved aeration of the left lung base. Electronically Signed: Vijay Mosley MD at 8:54 EST ,
--- NOTE | 2022-09-26 08:10 | CT_ITS ---
STUDY: CT ABDOMEN AND PELVIS WITH CONTRAST REASON FOR EXAM: Female, 86 years old. Leukocytosis s/p laparotomy -- iv and PO contrast, PO via NG tube RADIATION DOSAGE (If Supplied By Facility): CTDIvol = ( 22.75 ) mGy, DLP = ( 456.13 ) mGycm TECHNIQUE: Transaxial images were obtained from the dome of the diaphragm to the symphysis pubis with oral contrast. Oral and amp; IV Gastrografin and amp; 100mL Isovue-370 was administered. Sagittal and coronal images were reconstructed. Individualized dose optimization techniques were used for this CT. COMPARISON: Comparison is made with prior study dated 09/19/2022. FINDINGS: Small bilateral pleural effusions with bibasilar atelectasis slightly worse on the right lung base. Coronary artery calcification. There is decreased attenuation of the liver consistent with steatosis. Mild to moderate degree of distention of the gallbladder with small gallstones. Normal spleen. Normal pancreas. Normal bilateral adrenal glands. Normal right kidney. Normal left kidney. An orogastric tube is seen within the stomach. Surgical anastomosis is seen in the distal ileum. The small bowel is less distended at this time. Postoperative changes are seen within the peritoneal fat in the right lower quadrant. There are multiple colonic diverticula consistent with diverticulosis. The appendix is visualized and appears normal. There is diffuse atherosclerotic calcification of the abdominal aorta, without a demonstrated aneurysm. Normal inferior vena cava. Normal retroperitoneum. A HOFFMAN catheter seen within the urinary bladder. This causes an air-fluid level in the bladder. Minimal amount of free fluid is seen in the cul-de-sac. The patient is status post hysterectomy. Large midline soft tissue defect due to the recent laparotomy. There are diffuse degenerative changes of the visualized lumbar spine. Dextroscoliosis. CT/Abdomen/Pelvis WITH Contrast IMPRESSION: Status post anastomosis in the distal ileum with postoperative changes at that site. Small amount of free fluid in the cul-de-sac. Small bilateral pleural effusions with bibasilar atelectasis right greater than left. Electronically Signed: Vijay Mosley MD at 11:54 EST ,
[2022-09-26] MEDS: Enoxaparin 40 MG/0.4 ML Syringe SC (08:50)
[2022-09-26] MEDS: Furosemide 40 MG/4 ML Vial IV (09:19)
[2022-09-26] MEDS: Ipratropium 0.5 MG/2.5 ML SOLUTION INHALATION ×3 (09:52→23:32)
[2022-09-26] MEDS: Morphine 2 MG/ML Syringe IV (11:16)
[2022-09-26 12:10] LABS: Bedside Glucose 176 mg/dL (74-106)
--- NOTE | 2022-09-26 12:47 | PCM.PN.SRG ---
Subjective Subjective Overall patient says she is doing better than yesterday. Joint complaints of pain at the incision site. No flatus yet. Objective Data Objective Data Vital Signs: Vital Signs Temp Pulse Resp BP Pulse Ox O2 Del Method O2 Flow Rate 98.3 F 81 16 127/55 H 97 Room Air 2 09/26/22 12:00 09/26/22 12:00 09/26/22 12:00 09/26/22 12:00 09/26/22 12:00 09/26/22 12:00 09/26/22 09:55 Oxygen Flow Rate (L/min) 2 Oxygen Delivery Method Room Air Weight: 123 lb 10.869 oz Body Mass Index (BMI) 22.2 Intake & Output: Intake and Output for Last 24 Hours 09/24/22 09/25/22 09/26/22 23:59 23:59 23:59 Intake Total 2610.00 / 2610.00 2951.2333 / 3031.2333 989.9 / 989.9 Output Total 625 / 625 975 / 1225 1610 / 1610 Balance 1984. / 1976.2333 / 1806.2333 -620.1 / -620.1 Lab / Micro Data Result Diagrams: 09/26/22 03:05 09/26/22 03:05 Labs: Laboratory Results - last 24 hr 09/25/22 03:25: Diff Path Review Reviewed 09/25/22 17:29: POC Glucose 136 H 09/26/22 00:24: POC Glucose 142 H 09/26/22 03:05: Sodium 150 H, Potassium 3.8, Chloride 118 H, Carbon Dioxide 30.0, Anion Gap 2 L, BUN 38 H, Creatinine 0.86, Estim Creat Clear Calc 36.09, Est GFR (MDRD) Af Amer 81, Est GFR (MDRD) Non-Af 67, BUN/Creatinine Ratio 44.2 H, Glucose 148 H, Calcium 7.4 L, Phosphorus 2.0 L, Magnesium 2.3 09/26/22 03:05: WBC 14.4 H, RBC 3.17 L, Hgb 9.3 L, Hct 30.3 L, MCV 95.6, MCH 29.3, MCHC 30.7 L, RDW Std Deviation 45.0 H, RDW Coeff of Otto 12.7, Plt Count 137 L, MPV 10.4, Neut % (Auto) Not Reportable, Absolute Neuts (auto) 13.6 H, Absolute Lymphs (auto) 0.58 L, Total Counted 100, Neutrophils % (Manual) 88 H, Lymphocytes % (Manual) 4 L, Monocytes % (Manual) 2, Metamyelocytes % 3 H, Myelocytes % 2 H, Promyelocytes % 1 H, Diff Path Review December, Platelet Estimate ADEQUATE, RBC Morphology NORM C+C 09/26/22 05:33: POC Glucose 130 H 09/26/22 11:50: POC Glucose 176 H Radiography Diagnostic Testing: Radiology Impression Chest X-Ray 09/25/22 17:20 IMPRESSION: No acute cardiopulmonary disease. Electronically Signed: Ambar Vaughn MD at 21:22 EST Reading Location ID and State: [id number] / Tel , Service support , Chest X-Ray 09/26/22 08:09 IMPRESSION: Blunting of the right posterior triangle with increased markings at the right lung base suggestive of right basilar atelectasis and/or infiltrate. Improved aeration of the left lung base. Electronically Signed: Vijay Mosley MD at 8:54 EST , Abdomen/Pelvis CT 09/26/22 08:10 IMPRESSION: Status post anastomosis in the distal ileum with postoperative changes at that site. Small amount of free fluid in the cul-de-sac. Small bilateral pleural effusions with bibasilar atelectasis right greater than left. Electronically Signed: Vijay Mosley MD at 11:54 EST , Physical Exam Const oriented x3 Resp normal respiratory effort GI soft to palpation Inspection: Negative for abdominal distention Assessment & Plan Assessment/Plan (1) Small bowel obstruction: PLAN: Patient had persistent leukocytosis. A CT scan was ordered with oral and IV contrast today. CT scan does not show any abscess or signs of leak from the anastomosis. The contrast easily reaches the colon. Recommend continuing observing for bowel function and then the NG can be removed and she can be started on clear liquids. She is currently on TPN and IV fluids. She is still hypernatremic. Continue to encourage ambulation and I will order Lovenox if has not already ordered. She has Pepcid in her TPN. Dr. Roman will be covering for the weekend. Dr. Velasquez will take over my patient on Thursday. Leif Lewis MD Pager: [facility] [address] [place] [address], [address] [place] [address] Office:
[2022-09-26 13:24] LABS: Pathologist Review Reviewed
--- NOTE | 2022-09-26 13:43 | CASEMGMT ---
Addendum entered by Megha Ramos 09/26/22 16:42: SW received call from pt son who states pt's first choice is TCU. Family will continue to review list for alternate choices. Referral made to TCU. SW will follow up on Thursday with TCU for determination of acceptance. Plan: TCU, pending acceptance MARIBELL Cabrera Original Note: Social Work SW met with pt, pt's dgt and pt's son to discuss discharge planning. Pt lives home alone with a flight of stairs to get into her home and a flight of stairs in the home. Pt's dgt lives in [place] and son lives in [place]. SW discussed options of home with home health and SNF. Pt and family leaning toward SNF placement. A list of SNF providers including quality and resource use data and consistent with the patient?s preferred geographic region, medical needs, and insurance network were provided from the [employer] Guide. SW explained Medicare coverage at SNF. Pt and family would like to review list prior to making decisions. SW to follow up on Thursday for discharge planning. Pt and family agreeable. MARIBELL Cabrera
[2022-09-26 15:22] LABS: Anion Gap 9 (5-15); BUN 36 mg/dL (7-18); BUN/Creat Ratio 38.7 RATIO (10-20); Calcium,Total 7.5 mg/dL (8.5-10.1); Chloride 110 mmol/L (98-107); Creatinine, Serum 0.93 mg/dL (0.55-1.02); EST Glomerular Filtration Rate 61 mL/min (>60); Est Glom Filt Rate - Afr Amer 74 mL/min (>60); Estimated Creatinine Clearance 33.37 ml/min; Glucose 174 mg/dL (74-106); Potassium 4.5 mmol/L (3.5-5.1); Sodium Level 145 mmol/L (136-145)
[2022-09-26] MEDS: TPN - Clinimix E 8%-14% Soln 2,000 ML with Multivitamins 10 ML, Trace Elements 1 ML, Fo... 42 ML IV (15:50)
[2022-09-26 18:14] LABS: Magnesium 1.8 mg/dL (1.6-2.6); Phosphorus 7.9 mg/dL (2.5-4.9)
[2022-09-26 18:35] LABS: Bedside Glucose 136 mg/dL (74-106)
[2022-09-27] VITALS (19 sets, daily range): BP systolic 107–145; BP diastolic 45–63; PULSE 76–98; RESP 15–27; TEMP 36.6–37.3; O2SAT 93–99
[2022-09-27 00:01] LABS: Bedside Glucose 128 mg/dL (74-106)
[2022-09-27 05:23] LABS: Hematocrit 31.2 % (37-47); Hemoglobin 9.9 g/dL (12.0-15.0); Mean Corp Hgb Conc 31.7 g/dL (32-36); Mean Corpuscular Hgb 29.1 pg (27.0-32.0); Mean Corpuscular Volume 91.8 fL (81-99); Mean Platelet Vol. 10.5 fl (6.2-12.0); POSITIVE COUNT YES; POSITIVE MORPHOLOGY YES; Platelet Count 138 K/mm3 (150-450); RBC Distribution Width CV 12.6 % (11.6-14.6); RBC Distribution Width SD 42.2 fl (35.1-43.9); White Blood Count 11.5 K/mm3 (4.4-11.0)
[2022-09-27] MEDS: 0.9% Saline Lock 10 ML Syringe IV ×2 (05:29→05:41)
[2022-09-27] MEDS: Morphine 2 MG/ML Syringe IV ×2 (05:30→20:52)
[2022-09-27 05:36] LABS: Anion Gap 6 (5-15); BUN 36 mg/dL (7-18); Calcium,Total 7.4 mg/dL (8.5-10.1); Chloride 111 mmol/L (98-107); Creatinine, Serum 0.92 mg/dL (0.55-1.02); EST Glomerular Filtration Rate 61 mL/min (>60); Est Glom Filt Rate - Afr Amer 74 mL/min (>60); Estimated Creatinine Clearance 33.74 ml/min; Glucose 140 mg/dL (74-106); Potassium 3.8 mmol/L (3.5-5.1); Sodium Level 145 mmol/L (136-145)
[2022-09-27] MEDS: Ondansetron 4 MG/2 ML Vial IV (05:41)
[2022-09-27 05:54] LABS: Differential Indicated MANUAL DIFF; Eosinophil 1 % (0-5); Lymphocyte 12 % (19-41); Metamyelocyte 5 % (0-1); Monocyte 6 % (0-10); Myelocyte 1 % (0-0); Neutrophil-Segmented 75 % (47-70); Total Cells Counted 100 (MANUAL DIFF)
[2022-09-27 05:55] LABS: Absolute Neutrophil Count 9.3 X10^3/uL (2.0-7.7); Neutrophil # 9.35 X10^3/uL (2.7-7.7)
[2022-09-27 05:56] LABS: Absolute Lymphocyte Count 1.38 X10^3/uL (0.83-4.51); Lymphocyte # 1.38 X10^3/ul (0.83-4.51)
[2022-09-27 05:57] LABS: Platelet Estimate ADEQUATE (ADEQ); Red Cell Morphology NORM C+C NORMAL (NORM C&C)
[2022-09-27] MEDS: Ipratropium 0.5 MG/2.5 ML SOLUTION INHALATION ×3 (07:00→19:50)
[2022-09-27 07:25] LABS: Phosphorus 2.9 mg/dL (2.5-4.9)
--- NOTE | 2022-09-27 08:38 | PCM.PN.INT ---
Assessment & Plan Assessment/Plan (1) Hx SBO: PLAN: per surgery. Ready to start PO, moved bowels, NGT out, dunne out, and can transfer to regular floor. continues TPN for now until PO intake is assured. Decisions per surgery. - As patient is no longer critically ill, the ICU team will sign off for now. Thanks for consulting [facility] on this pleasant woman. (2) Hypernatremia: PLAN: resolved (3) Parkinson's disease: PLAN: stable (4) GERD (gastroesophageal reflux disease): QUALIFIERS: Esophagitis presence: with esophagitis Qualified Code(s): K21.0 - Gastro-esophageal reflux disease with esophagitis PLAN: controlled (5) CKD (chronic kidney disease), stage III: PLAN: Stable. Critical care time spent with patient at bedside, review of documentation, lab results, radiology and other test results, discussion with colleagues and ancillary staff, interdisciplinary rounds spent discussing this particular patient, clinical management of patient, was 45 minutes.? This time does not include any procedures, if performed. Critical care codes for today [address]11[address] Subjective Subjective Continues to improve, OOB to chair, ready to start clears today, no f, ch, sw, n,v. Moved her bowels this AM. No cough or respiratory problems. Objective Data Objective Data Patient continues to improve. She is out of bed to chair, pain decreasing. White count has decreased, afebrile, and electrolytes stabilized after free water and diuresing 2.3 L to her baseline weight yesterday. Respiratory status stable on 2 L O2, can probably wean off today. Glucose mildly elevated on TPN and D5 W at 50/h. Creatinine remains normal, hypophosphatemia resolved. Abdominal CT scan with no worrisome findings, bilateral effusions likely due to third spacing, will most likely improve after yesterday's diuresis, with no extra diuresis recommended today. Vital Signs: Vital Signs Temp Pulse Resp BP Pulse Ox O2 Del Method O2 Flow Rate 98.5 F 92 15 139/54 H 97 Room Air 2 09/27/22 08:00 09/27/22 08:00 09/27/22 08:00 09/27/22 08:00 09/27/22 08:00 09/27/22 08:00 09/26/22 09:55 Oxygen Flow Rate (L/min) 2 Oxygen Delivery Method Room Air Weight: 117 lb 1.047 oz Body Mass Index (BMI) 22.2 Intake & Output: Intake and Output for Last 24 Hours 09/25/22 09/26/22 09/27/22 23:59 23:59 23:59 Intake Total 2951.2333 / 3031.2333 2840.73 / 2870.73 190 / 190 Output Total 975 / 1225 5210 / 5210 500 / 500 Balance 1976.2333 / 1806.2333 -2369.27 / -2339.27 -310 / -310 Lab / Micro Data Attestation: I reviewed the patient's lab results. Result Diagrams: 09/27/22 05:10 09/27/22 05:10 Labs: Laboratory Results - last 24 hr 09/26/22 03:05: Diff Path Review Reviewed 09/26/22 11:50: POC Glucose 176 H 09/26/22 15:00: Sodium 145, Potassium 4.5, Chloride 110 H, Carbon Dioxide 26.0, Anion Gap 9, BUN 36 H, Creatinine 0.93, Estim Creat Clear Calc 33.37, Est GFR (MDRD) Af Amer 74, Est GFR (MDRD) Non-Af 61, BUN/Creatinine Ratio 38.7 H, Glucose 174 H, Calcium 7.5 L 09/26/22 15:00: Phosphorus 7.9 H, Magnesium 1.8 09/26/22 18:08: POC Glucose 136 H 09/26/22 23:39: POC Glucose 128 H 09/27/22 05:10: WBC 11.5 H, RBC 3.40 L, Hgb 9.9 L, Hct 31.2 L, MCV 91.8, MCH 29.1, MCHC 31.7 L, RDW Std Deviation 42.2, RDW Coeff of Otto 12.6, Plt Count 138 L, MPV 10.5, Neut % (Auto) Not Reportable, Absolute Neuts (auto) 9.3 H, Absolute Lymphs (auto) 1.38, Total Counted 100, Neutrophils % (Manual) 75 H, Lymphocytes % (Manual) 12 L, Monocytes % (Manual) 6, Eosinophils % (Manual) 1, Metamyelocytes % 5 H, Myelocytes % 1 H, Diff Path Review May foll, Platelet Estimate ADEQUATE, RBC Morphology NORM C+C 09/27/22 05:10: Sodium 145, Potassium 3.8, Chloride 111 H, Carbon Dioxide 28.0, Anion Gap 6, BUN 36 H, Creatinine 0.92, Estim Creat Clear Calc 33.74, Est GFR (MDRD) Af Amer 74, Est GFR (MDRD) Non-Af 61, BUN/Creatinine Ratio 39.0 H, Glucose 140 H, Calcium 7.4 L 09/27/22 05:21: Phosphorus 2.9, Magnesium 2.0 Radiography Diagnostic Testing: Radiology Impression Chest X-Ray 09/26/22 08:09 IMPRESSION: Blunting of the right posterior triangle with increased markings at the right lung base suggestive of right basilar atelectasis and/or infiltrate. Improved aeration of the left lung base. Electronically Signed: Vijay Mosley MD at 8:54 EST , Abdomen/Pelvis CT 09/26/22 08:10 IMPRESSION: Status post anastomosis in the distal ileum with postoperative changes at that site. Small amount of free fluid in the cul-de-sac. Small bilateral pleural effusions with bibasilar atelectasis right greater than left. Electronically Signed: Vijay Mosley MD at 11:54 EST , Physical Exam Const oriented x3 and no apparent distress General Appearance: cooperative HEENT normocephalic and moist oral mucous membranes HEENT Narrative: NGT in place, will be removed shortly. Eyes PERRL and EOMs intact bilaterally Chest inspection of chest normal Resp normal respiratory effort and no use of accessory muscles Resp Narrative: few ronchi R side, left clear, improved from 09/26. Effort and Inspection: Negative for actively coughing Auscultation: Negative for wheezes Cardio regular rate GI GI Narrative: dressing clean & dry Narrative: dunne in place, draining clear yellow urine, dunne to come out shortly. Extremity no clubbing, cyanosis or edema Neuro oriented x3 and no focal motor deficits Psych cooperative Charges/Coding Visit Charges Inpatient E&M: 66991 Subs Hosp L3
--- NOTE | 2022-09-27 09:22 | NURSING ---
Salas catheter was removed and also NG removed this morning and diet increased to clear liquid as well. Patient tolerated both removals well.
--- NOTE | 2022-09-27 10:12 | PN.SURG_ITS ---
Subjective Subjective Ms. London looks remarkably well this morning she has passed flatus and had small bowel movements she complains only of incisional pain NG tube was removed, Maritza d/c'tlema Objective Data Objective Data Vital Signs: Vital Signs Temp Pulse Resp BP Pulse Ox O2 Del Method O2 Flow Rate 98.5 F 86 18 107/50 L 98 Room Air 2 09/27/22 08:00 09/27/22 10:00 09/27/22 10:00 09/27/22 10:00 09/27/22 10:00 09/27/22 10:00 09/26/22 09:55 Oxygen Flow Rate (L/min) 2 Oxygen Delivery Method Room Air Weight: 53.1 kg Body Mass Index (BMI) 22.2 Intake & Output: Intake and Output for Last 24 Hours 09/25/22 09/26/22 09/27/22 23:59 23:59 23:59 Intake Total 2951.2333 / 3031.2333 2840.73 / 2870.73 240 / 240 Output Total 975 / 1225 5210 / 5210 500 / 500 Balance 1976.2333 / 1806.2333 -2369.27 / -2339.27 -260 / -260 Lab / Micro Data Attestation: I reviewed the patient's lab results. Result Diagrams: 09/27/22 05:10 09/27/22 05:10 Labs: Laboratory Results - last 24 hr 09/26/22 03:05: Diff Path Review Reviewed 09/26/22 11:50: POC Glucose 176 H 09/26/22 15:00: Sodium 145, Potassium 4.5, Chloride 110 H, Carbon Dioxide 26.0, Anion Gap 9, BUN 36 H, Creatinine 0.93, Estim Creat Clear Calc 33.37, Est GFR (MDRD) Af Amer 74, Est GFR (MDRD) Non-Af 61, BUN/Creatinine Ratio 38.7 H, Glucose 174 H, Calcium 7.5 L 09/26/22 15:00: Phosphorus 7.9 H, Magnesium 1.8 09/26/22 18:08: POC Glucose 136 H 09/26/22 23:39: POC Glucose 128 H 09/27/22 05:10: WBC 11.5 H, RBC 3.40 L, Hgb 9.9 L, Hct 31.2 L, MCV 91.8, MCH 29.1, MCHC 31.7 L, RDW Std Deviation 42.2, RDW Coeff of Otto 12.6, Plt Count 138 L, MPV 10.5, Neut % (Auto) Not Reportable, Absolute Neuts (auto) 9.3 H, Absolute Lymphs (auto) 1.38, Total Counted 100, Neutrophils % (Manual) 75 H, Lymphocytes % (Manual) 12 L, Monocytes % (Manual) 6, Eosinophils % (Manual) 1, Metamye locytes % 5 H, Myelocytes % 1 H, Diff Path Review December, Platelet Estimate ADEQUATE, RBC Morphology NORM C+C 09/27/22 05:10: Sodium 145, Potassium 3.8, Chloride 111 H, Carbon Dioxide 28.0, Anion Gap 6, BUN 36 H, Creatinine 0.92, Estim Creat Clear Calc 33.74, Est GFR (MDRD) Af Amer 74, Est GFR (MDRD) Non-Af 61, BUN/Creatinine Ratio 39.0 H, Glucose 140 H, Calcium 7.4 L 09/27/22 05:21: Phosphorus 2.9, Magnesium 2.0 Radiography Diagnostic Testing: Radiology Impression Abdomen/Pelvis CT 09/26/22 08:10 IMPRESSION: Status post anastomosis in the distal ileum with postoperative changes at that site. Small amount of free fluid in the cul-de-sac. Small bilateral pleural effusions with bibasilar atelectasis right greater than left. Electronically Signed: Vijay Mosley MD at 11:54 EST , Physical Exam Const alert General Appearance: cooperative HEENT normocephalic Eyes no scleral icterus Neck supple Resp normal respiratory effort Effort and Inspection: able to speak in complete sentences Cardio regular rate GI GI Narrative: abdomen is soft with appropriate incisional tenderness dressing intact without seepage Assessment & Plan Assessment/Plan (1) Status post laparotomy: PLAN: see below PLAN: Plan POD#4 open laparotomy, extensive lysis of adhesions for frozen abdomen patient is doing very well postoperatively will transfer patient to med/surg mauricio will start sips of clears only continue TPN
[2022-09-27] MEDS: Enoxaparin 40 MG/0.4 ML Syringe SC (10:33)
--- NOTE | 2022-09-27 15:43 | CM.ED ---
SW Note SW spoke to patient's son regarding placement choices. First choice TCU, [facility] and [facility] choice [facility]. Teresa DUMONT
[2022-09-27] MEDS: TPN - Clinimix E 8%-14% Soln 2,000 ML with Multivitamins 10 ML, Trace Elements 1 ML, Fo... 42 ML IV (15:57)
[2022-09-27 22:56] LABS: Bedside Glucose 172 mg/dL (74-106)
[2022-09-28] MEDS: Morphine 2 MG/ML Syringe IV ×3 (00:23→18:17)
[2022-09-28 03:02] VITALS: BP 129/52; PULSE 88; RESP 16; TEMP 36.9; O2SAT 96
[2022-09-28 05:50] LABS: Phosphorus 2.7 mg/dL (2.5-4.9)
[2022-09-28] MEDS: Ipratropium 0.5 MG/2.5 ML SOLUTION INHALATION ×2 (07:01→17:07)
[2022-09-28 07:02] VITALS: PULSE 79; RESP 16; O2SAT 98
[2022-09-28] MEDS: Enoxaparin 40 MG/0.4 ML Syringe SC (07:43)
[2022-09-28 08:23] VITALS: BP 160/61; PULSE 87; RESP 18; TEMP 37; O2SAT 98
--- NOTE | 2022-09-28 11:04 | PCM.PN.SRG ---
Subjective Subjective patient is doing remarkably well passing flatus Objective Data Objective Data Vital Signs: Vital Signs Temp Pulse Resp BP Pulse Ox O2 Del Method O2 Flow Rate 98.6 F 87 18 160/61 H 98 Room Air 2 09/28/22 08:23 09/28/22 08:23 09/28/22 08:23 09/28/22 08:23 09/28/22 08:23 09/28/22 08:23 09/26/22 09:55 Oxygen Flow Rate (L/min) 2 Oxygen Delivery Method Room Air Weight: 53.3 kg Body Mass Index (BMI) 22.2 Intake & Output: Intake and Output for Last 24 Hours 09/26/22 09/27/22 09/28/22 23:59 23:59 23:59 Intake Total 2840.73 / 2870.73 2292.4 / 2292.4 1241.67 / 1241.67 Output Total 5210 / 5210 500 / 500 Balance -2369.27 / -2339.27 1792.4 / 1792.4 1241.67 / 1241.67 Lab / Micro Data Attestation: I reviewed the patient's lab results. Result Diagrams: 09/27/22 05:10 09/27/22 05:10 Labs: Laboratory Results - last 24 hr 09/27/22 21:03: POC Glucose 172 H 09/28/22 04:48: Phosphorus 2.7, Magnesium 2.0 Physical Exam Const alert and oriented x3 General Appearance: cooperative Neck supple Resp normal respiratory effort Effort and Inspection: able to speak in complete sentences GI GI Narrative: abdomen is soft and benign with appropriate incisional tenderness, wound looks good according to nurses Assessment & Plan Assessment/Plan (1) Status post laparotomy: PLAN: see below PLAN: Plan continue present therapy
[2022-09-28 12:00] LABS: Bedside Glucose 134 mg/dL (74-106)
[2022-09-28] MEDS: 0.9% Saline Lock 10 ML Syringe IV ×2 (14:10→18:16)
[2022-09-28 14:19] VITALS: BP 118/64; PULSE 99; RESP 18; TEMP 36.3; O2SAT 96
[2022-09-28] MEDS: TPN - Clinimix E 8%-14% Soln 2,000 ML with Multivitamins 10 ML, Trace Elements 1 ML, Fo... 42 ML IV (16:28)
[2022-09-28] MEDS: guaiFENesin 1,200 MG Tablet 1200 MG PO ×2 (16:28→20:42)
[2022-09-28 17:08] VITALS: PULSE 89; RESP 17
[2022-09-28 20:49] VITALS: BP 139/59; PULSE 87; RESP 16; TEMP 36.6; O2SAT 100
[2022-09-28 21:16] LABS: Bedside Glucose 110 mg/dL (74-106)
[2022-09-29] VITALS (8 sets, daily range): BP systolic 112–148; BP diastolic 44–60; PULSE 79–96; RESP 16–22; TEMP 36.4–36.7; O2SAT 96–99
[2022-09-29] MEDS: Morphine 2 MG/ML Syringe IV ×2 (03:54→15:09)
[2022-09-29 06:27] LABS: Absolute Lymphocyte Count 1.29 X10^3/uL (0.83-4.51); Absolute Neutrophil Count 11.3 X10^3/uL (2.0-7.7); Basophil# 0.06 X10^3/uL; Basophil% 0.4 % (0-1); Eosinophil# 0.37 X10^3/uL; Eosinophils% 2.5 % (0-5); Hematocrit 31.7 % (37-47); Hemoglobin 9.9 g/dL (12.0-15.0); Lymphocyte # 1.29 X10^3/ul (0.83-4.51); Lymphocyte % 8.6 % (19-41); Mean Corp Hgb Conc 31.2 g/dL (32-36); Mean Corpuscular Hgb 29.7 pg (27.0-32.0); Mean Corpuscular Volume 95.2 fL (81-99); Mean Platelet Vol. 11.5 fl (6.2-12.0); Monocyte# 1.24 X10^3/uL; Monocyte% 8.3 % (0-10); NRBC Flagged by Analyzer 0 % (0-5); Neutrophil # 11.34 X10^3/uL (2.7-7.7); Platelet Count 165 K/mm3 (150-450); RBC Distribution Width CV 12.3 % (11.6-14.6); RBC Distribution Width SD 43.1 fl (35.1-43.9); Red Blood Count 3.33 M/mm3 (4.2-5.4); White Blood Count 14.9 K/mm3 (4.4-11.0)
[2022-09-29 06:57] LABS: ALB/GLOB Ratio 0.5 RATIO (0.9-2.4); AST(SGOT) 29 U/L (15-37); Alanine Aminotransfer ALT/SGPT 17 U/L (13-56); Alkaline Phosphatase 52 U/L (45-117); Anion Gap 4 (5-15); BUN 34 mg/dL (7-18); BUN/Creat Ratio 36.1 RATIO (10-20); Calcium,Total 8.4 mg/dL (8.5-10.1); Chloride 116 mmol/L (98-107); Creatinine, Serum 0.94 mg/dL (0.55-1.02); EST Glomerular Filtration Rate 60 mL/min (>60); Est Glom Filt Rate - Afr Amer 73 mL/min (>60); Estimated Creatinine Clearance 33.02 ml/min; Globulin 3.9 g/dL (2.2-4.2); Glucose 124 mg/dL (74-106); Magnesium 2.1 mg/dL (1.6-2.6); Phosphorus 2.5 mg/dL (2.5-4.9); Potassium 4.2 mmol/L (3.5-5.1); Protein, Total 5.9 g/dL (6.4-8.2); Sodium Level 144 mmol/L (136-145)
[2022-09-29] MEDS: Ipratropium 0.5 MG/2.5 ML SOLUTION INHALATION ×3 (07:39→20:04)
[2022-09-29] MEDS: 0.9% Saline Lock 10 ML Syringe IV (10:45)
[2022-09-29] MEDS: guaiFENesin 1,200 MG Tablet 1200 MG PO ×2 (10:46→19:51)
[2022-09-29] MEDS: Enoxaparin 40 MG/0.4 ML Syringe SC (10:49)
--- NOTE | 2022-09-29 11:50 | PCM.PN.SRG ---
Subjective Subjective Patient seen and examined during AM rounds. She is found lying in bed and coughs several times as we converse. She states that she does not have significant abdominal discomfort when lying still, but this changes when she tries to move about. She reports tolerance of her liquids, but denies any significant appetite. She denies any exceptional hiccuping or belching in response to this diet. Objective Data Objective Data Vital Signs: Vital Signs Temp Pulse Resp BP Pulse Ox O2 Del Method O2 Flow Rate 97.5 F L 88 16 115/44 L 98 Room Air 2 09/29/22 10:00 09/29/22 10:00 09/29/22 10:00 09/29/22 10:00 09/29/22 10:00 09/29/22 10:00 09/26/22 09:55 Oxygen Flow Rate (L/min) 2 Oxygen Delivery Method Room Air Weight: 117 lb 1.047 oz Body Mass Index (BMI) 22.2 Intake & Output: Intake and Output for Last 24 Hours 09/27/22 09/28/22 09/29/22 23:59 23:59 23:59 Intake Total 2292.4 / 2292.4 2350.77 / 2350.77 1100 / 1100 Output Total 500 / 500 Balance 1792.4 / 1792.4 2350.77 / 2350.77 1100 / 1100 Lab / Micro Data Result Diagrams: 09/29/22 05:50 09/29/22 05:50 Labs: Laboratory Results - last 24 hr 09/28/22 11:21: POC Glucose 134 H 09/28/22 20:53: POC Glucose 110 H 09/29/22 05:50: Sodium 144, Potassium 4.2, Chloride 116 H, Carbon Dioxide 24.0, Anion Gap 4 L, BUN 34 H, Creatinine 0.94, Estim Creat Clear Calc 33.02, Est GFR (MDRD) Af Amer 73, Est GFR (MDRD) Non-Af 60, BUN/Creatinine Ratio 36.1 H, Glucose 124 H, Calcium 8.4 L, Phosphorus 2.5, Magnesium 2.1, Total Bilirubin 0.50, AST 29, ALT 17, Alkaline Phosphatase 52, Total Protein 5.9 L, Albumin 2.0 L, Globulin 3.9, Albumin/Globulin Ratio 0.5 L 09/29/22 05:50: WBC 14.9 H, RBC 3.33 L, Hgb 9.9 L, Hct 31.7 L, MCV 95.2, MCH 29.7, MCHC 31.2 L, RDW Std Deviation 43.1, RDW Coeff of Otto 12.3, Plt Count 165, MPV 11.5, Immature Gran % (Auto) 4.200 H, Neut % (Auto) 76.0 H, Lymph % (Auto) 8.6 L, [place] % (Auto) 8.3, Eos % (Auto) 2.5, Baso % (Auto) 0.4, Absolute Neuts (auto) 11.3 H, Absolute Lymphs (auto) 1.29, Nucleated RBC % 0 Micro: Microbiology 09/26/22 08:37 Blood Culture (Wb) - Pic Blood Culture - Preliminary No growth in 48 hours. 09/26/22 08:45 Blood Culture (Wb) - Anticubital Left Blood Culture - Preliminary No growth in 48 hours. Physical Exam Const oriented x3 and no apparent distress Resp normal respiratory effort Resp Narrative: Barking cough present GI GI Narrative: Nondistended, midline laparotomy wound dressing is taken down and I find laparotomy open at the skin but apparently intact at the fascia with retention sutures. There is no asher-incisional erythema. There appears to be simple serosanguineous drainage to the dressings. Patient has no deep tenderness with palpation x4 quadrants. Assessment & Plan Assessment/Plan (1) Status post laparotomy: PLAN: Patient is postoperative day 6 from ex [facility] with adhesiolysis small bowel resection for recent small bowel obstruction. Patient appears hemodynamically stable and afebrile, however, she exhibits a white count of 14.9 (also with increased neutrophils) while on Zosyn. Abdominal exam appears benign. She does have a barking cough, but she states that this has been present since her admission. According to Dr. Lewis, this has been looked into previously, but was considered not a likely source of her previous leukocytosis. Last time her white blood cell count was elevated on 09/26/[address] imaging of the abdomen pelvis with enteral contrast and there is no apparent leak. At this time patient appears hyper chloremia can borderline hypernatremic. Believe this is owing to her hyperalimentation. I will like to increase her nutrition to wean her dependence on TPN. Neuro: Currently with morphine as needed, will add oxycodone and acetaminophen as needed. Requesting assistance of hospitalist service for patient's parkinsonian medications. Pulm/CV: Patient making use of incentive spirometer, chest x-ray ordered and shows improved aeration, no acute issues FEN/GI: Continue to trend daily electrolytes with patient on TPN, advance to full liquid diet, plan for possible calorie count 09/30/2022 : Obtain UA given patient's elevated leukocytosis Heme/ID: Hemoglobin's appear stable, patient on day 6 of Zosyn?empirically for contamination Intra-Op. WBC elevated to 14.9 with left shift. Chest x-ray and UA obtained to better evaluate. Patient is afebrile. Endo: Glucose mildly elevated but patient on hyperalimentation. Continue to monitor while requiring TPN. Proph: Enoxaparin since 09/26/2022. Patient encouraged to be out of bed and ambulating as much as possible. Continue use of incentive spirometer Dispo: Continue inpatient stay Charges/Coding Visit Charges Inpatient E&M: 28652 Subs Hosp L2
[2022-09-29 12:25] LABS: Bedside Glucose 140 mg/dL (74-106)
[2022-09-29 12:49] LABS: Pathologist Review Reviewed
[2022-09-29 12:52] LABS: Bacteria 0 SEEN /hpf (None Seen); Mucous, Urine 0 SEEN /hpf (<or=2+); Red Blood Cells-Urine 0 SEEN /hpf (0-5)
[2022-09-29 13:00] LABS: Color, Urine Yellow (Yellow); Glucose, Dipstick Normal (Normal); Ketone-Dipstick Negative (Negative); Leukocyte Esterase-Dipstick 100 /ul (Negative); Nitrite-Dipstick Negative (Negative); Occult Blood-Urine Negative /ul (Negative); Protein-Dipstick 15 mg/dl (Negative); Urine Bilirubin Dipstick Negative (Negative); Urine Clarity Clear (Clear); Urine Urobilinogen Normal (Normal)
--- NOTE | 2022-09-29 13:05 | RAD_ITS ---
STUDY: X-RAY CHEST REASON FOR EXAM: Female, 86 years old. Cough TECHNIQUE: PA and lateral views of the chest. COMPARISON: Comparison is made with prior study dated 09/26/2022. FINDINGS: A right-sided PICC line catheter is seen with the tip at the junction of the superior vena cava and right atrium. Improved aeration of both lung bases. Stable elevation of the anterior aspect of the right hemidiaphragm. There is no demonstrated pleural abnormality. Normal size heart. Normal mediastinum and rubi. Normal visualized pulmonary arteries. Normal visualized aortic arch and descending thoracic aorta. There are diffuse degenerative changes of the visualized thoracic spine. Levoscoliosis of the thoracic spine and dextroscoliosis of the lumbar spine. Normal visualized ribs, clavicles, and shoulders. There is no demonstrated abnormality of the visualized soft tissue structures of the upper abdomen. RAD/Chest PA and Lateral IMPRESSION: Improvement aeration of both lung bases as compared to prior study. Electronically Signed: Vijay Mosley MD at 14:27 EST ,
[2022-09-29 13:08] LABS: Squamous Epithelial Cells - UA 0-5 SEEN /hpf (5-10); White Blood Cells 0-5 SEEN /hpf (0-5)
--- NOTE | 2022-09-29 13:09 | CASEMGMT ---
Addendum entered by Evette Hinkle 09/29/22 16:16: KARLA explained med and pt remembered not scheduled for this for several months. Pt stated okay with not taking this med while in TCU. KARLA updated Madeleine at [facility] that pt is okay with pausing listed meds and to begin precert. MARIBELL Fontaine Addendum entered by Evette Hinkle 09/29/22 15:14: Madeleine from TCU reached out. Pt can be accepted at [facility] as long as pt agreeable to stopping the following meds while at TCU: Prolia, Flaxseed oil, and amino acid supplements. Pt agreeable to stopping the last two. Pt unaware what Prolia is. SW looked up med along with wound nurse, Rosalba. Med is for osteo concerns and pt take it every 6 months. Pt will likely be discharged from TCU before next required dose. KARLA will meet with pt to inform and gt confirmation this is okay. Original Note: Social work SW followed up on referral to TCU from the weekend. Madeleine at TCU stated waiting on pharmacy to approve. Will continue to await determination. PLAN: TCU, pending acceptance and precert MARIBELL Fontaine
--- NOTE | 2022-09-29 15:11 | WOUNDNOTE ---
wound photo: abdomen
[2022-09-29] MEDS: TPN - Clinimix E 8%-14% Soln 2,000 ML with Multivitamins 10 ML, Trace Elements 1 ML, Fo... 42 ML IV (17:00)
[2022-09-29 18:31] LABS: Bedside Glucose 153 mg/dL (74-106)
[2022-09-29 23:40] LABS: Bedside Glucose 127 mg/dL (74-106)
[2022-09-30] VITALS (7 sets, daily range): BP systolic 111–157; BP diastolic 53–73; PULSE 85–96; RESP 18–20; TEMP 36.4–36.6; O2SAT 91–100
[2022-09-30 06:21] LABS: Bedside Glucose 104 mg/dL (74-106)
[2022-09-30 06:57] LABS: Absolute Lymphocyte Count 1.12 X10^3/uL (0.83-4.51); Absolute Neutrophil Count 11.5 X10^3/uL (2.0-7.7); Basophil# 0.08 X10^3/uL; Basophil% 0.5 % (0-1); Eosinophil# 0.32 X10^3/uL; Eosinophils% 2.1 % (0-5); Hemoglobin 9.7 g/dL (12.0-15.0); Lymphocyte # 1.12 X10^3/ul (0.83-4.51); Lymphocyte % 7.5 % (19-41); Mean Corp Hgb Conc 32.3 g/dL (32-36); Mean Corpuscular Hgb 29.5 pg (27.0-32.0); Mean Corpuscular Volume 91.2 fL (81-99); Mean Platelet Vol. 11.7 fl (6.2-12.0); Monocyte# 1.25 X10^3/uL; Monocyte% 8.4 % (0-10); NRBC Flagged by Analyzer 0 % (0-5); Neutrophil # 11.51 X10^3/uL (2.7-7.7); Neutrophil % 76.9 % (47-70); Platelet Count 219 K/mm3 (150-450); RBC Distribution Width CV 12.6 % (11.6-14.6); RBC Distribution Width SD 41.6 fl (35.1-43.9); Red Blood Count 3.29 M/mm3 (4.2-5.4)
[2022-09-30 07:26] LABS: ALB/GLOB Ratio 0.5 RATIO (0.9-2.4); AST(SGOT) 61 U/L (15-37); Alanine Aminotransfer ALT/SGPT 33 U/L (13-56); Albumin, Serum 1.9 g/dL (3.2-5.0); Alkaline Phosphatase 52 U/L (45-117); Anion Gap 6 (5-15); BUN 38 mg/dL (7-18); BUN/Creat Ratio 36.5 RATIO (10-20); Calcium,Total 8.6 mg/dL (8.5-10.1); Chloride 118 mmol/L (98-107); Creatinine, Serum 1.04 mg/dL (0.55-1.02); EST Glomerular Filtration Rate 53 mL/min (>60); Est Glom Filt Rate - Afr Amer 65 mL/min (>60); Estimated Creatinine Clearance 29.84 ml/min; Globulin 3.8 g/dL (2.2-4.2); Glucose 119 mg/dL (74-106); Magnesium 1.9 mg/dL (1.6-2.6); Phosphorus 4.1 mg/dL (2.5-4.9); Potassium 4.7 mmol/L (3.5-5.1); Protein, Total 5.7 g/dL (6.4-8.2); Sodium Level 143 mmol/L (136-145)
[2022-09-30] MEDS: Ipratropium 0.5 MG/2.5 ML SOLUTION INHALATION ×3 (07:41→19:07)
--- NOTE | 2022-09-30 07:43 | PCM.PN.HOSP ---
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 She does have some pain when she coughs. She has had a bowel movement today and does not have any significant nausea with her clear liquid diet Objective Data Objective Data Vital Signs: Vital Signs Temp Pulse Resp BP Pulse Ox O2 Del Method O2 Flow Rate 97.7 F L 96 18 137/53 H 95 Room Air 5 09/30/22 02:27 09/30/22 02:27 09/30/22 02:27 09/30/22 02:27 09/30/22 02:27 09/30/22 02:29 09/29/22 21:38 Oxygen Flow Rate (L/min) 5 Oxygen Delivery Method Room Air Weight: 120 lb 13.013 oz Body Mass Index (BMI) 22.2 Intake & Output: Intake and Output for Last 24 Hours 09/29/22 09/30/22 10/01/22 03:59 03:59 03:59 Intake Total 3150.77 / 3150.77 3740.4 / 3740.4 Output Total 1080 / 1080 Balance 3150.77 / 3150.77 2660.4 / 2660.4 Lab / Micro Data Result Diagrams: 09/30/22 06:45 09/30/22 06:45 Labs: Laboratory Results - last 24 hr 09/27/22 05:10: Diff Path Review Reviewed 09/29/22 12:04: POC Glucose 140 H 09/29/22 12:35: Urine Color Yellow, Urine Clarity Clear, Urine pH 6.0, Ur Specific [place] 1.010, Urine Protein 15 H, Urine Glucose (UA) Normal, Urine Ketones Negative, Urine Occult Blood Negative, Urine Nitrite Negative, Urine Bilirubin Negative, Urine Urobilinogen Normal, Ur Leukocyte Esterase 100 H, Urine RBC 0 SEEN, Urine WBC 0-5 SEEN, Ur Squamous Epith Cells 0-5 SEEN, Urine Bacteria 0 SEEN, Urine Mucus 0 SEEN 09/29/22 18:10: POC Glucose 153 H 09/29/22 23:21: POC Glucose 127 H 09/30/22 06:00: POC Glucose 104 09/30/22 06:45: Sodium 143, Potassium 4.7, Chloride 118 H, Carbon Dioxide 19.0 L, Anion Gap 6, BUN 38 H, Creatinine 1.04 H, Estim Creat Clear Calc 29.84, Est GFR (MDRD) Af Amer 65, Est GFR (MDRD) Non-Af 53 L, BUN/Creatinine Ratio 36.5 H, Glucose 119 H, Calcium 8.6, Phosphorus 4.1, Magnesium 1.9, Total Bilirubin 0.40, AST 61 H, ALT 33, Alkaline Phosphatase 52, Total Protein 5.7 L, Albumin 1.9 L, Globulin 3.8, Albumin/Globulin Ratio 0.5 L 09/30/22 06:45: WBC 15.0 H, RBC 3.29 L, Hgb 9.7 L, Hct 30.0 L, MCV 91.2, MCH 29.5, MCHC 32.3, RDW Std Deviation 41.6, RDW Coeff of Otto 12.6, Plt Count 219, MPV 11.7, Immature Gran % (Auto) 4.600 H, Neut % (Auto) 76.9 H, Lymph % (Auto) 7.5 L, [place] % (Auto) 8.4, Eos % (Auto) 2.1, Baso % (Auto) 0.5, Absolute Neuts (auto) 11.5 H, Absolute Lymphs (auto) 1.12, Nucleated RBC % 0 Micro: Microbiology 09/26/22 08:37 Blood Culture (Wb) - Pic Blood Culture - Preliminary No growth in 48 hours. 09/26/22 08:45 Blood Culture (Wb) - Anticubital Left Blood Culture - Preliminary No growth in 48 hours. Radiography Diagnostic Testing: Radiology Impression Chest X-Ray 09/29/22 13:05 IMPRESSION: Improvement aeration of both lung bases as compared to prior study. Electronically Signed: Vijay Mosley MD at 14:27 EST , Physical Exam Narrative General: Alert, Oriented x3, Cooperative, No apparent distress HEENT: Atraumatic, PERRLA, EOMI, Normocephalic Oral: Moist Mucosa Neck: Supple, No JVD Lungs: Clear to auscultation, Normal air movement, No rhonchi, No wheeze, No rales Cardiovascular: Regular rate, Regular Rhythm, Normal S1, Normal S2, No murmurs Abdomen: Soft, tender around the incision, Non-Distended, No Hepato-splenomegaly, dressing and abdominal binder intact Extremities: No edema, Capillary Refill Less than 3 Seconds Skin: No rashes, No breakdown Musculoskeletal: No Tenderness to Palpation of Joints or Extremities Neurological: Cranial nerves II-XII grossly intact, Motor Exam 5/5 strength throughout, Sensory exam intact to light touch and pain Psych/Mental Status: Normal Affect, Appropriate Assessment & Plan Assessment/Plan (1) Status post laparotomy: PLAN: Plan 1. She is status post laparotomy and small bowel resection for an SBO ? She did have a spike in her white count and had a CT scan on 09/26/2022 that was unremarkable and showed postoperative changes ? Consulted because her white count climbed to 14.9 yesterday she remains afebrile and does not have obvious signs, her urine is negative as is her chest x-ray ? She has been maintained on Zosyn since surgery though given the fact that she continues to be afebrile it is possible that her leukocytosis could be reactive, possibly related to TPN the PICC site does look clean and does not indicate signs of infection ? It may be reasonable to discontinue antibiotics and see if an infection can declare itself versus repeating another CT scan 2. HTN/HLD ? When she is able to take p.o. can restart her home blood pressure medications 3. Parkinson's disease ? When she is able to take p.o. can restart her carbidopa levodopa Charges/Coding Visit Charges Inpatient E&M: 74314 Subs Hosp L2
--- NOTE | 2022-09-30 07:51 | CASEMGMT ---
Addendum entered by Evette Hinkle 09/30/22 08:21: MD Lewis informed SW that Dr. Velasquez is covering this pt. Dr. Velasquez informed SW that pt is not medically ready to discharge today. SW updated Madeleine at TCU. Original Note: Social Work SW updated MD Lewis that pt approved for TCU. PLAN: TCU, when medically ready MARIBELL Fontaine
--- NOTE | 2022-09-30 10:45 | PN.SURG_ITS ---
Subjective Subjective Patient seen and examined during AM rounds. She is found resting quietly in bed. She states that she has already been up in the hallways walking. She reports that she is not having any issues with her diet advancement, but is not taking everything on the trays yet due to getting full easily. She reports ongoing bowel function. She denies any significant abdominal pain. She continues to have a cough, but initially reports this is nonproductive. Objective Data Objective Data Vital Signs: Vital Signs Temp Pulse Resp BP Pulse Ox O2 Del Method O2 Flow Rate 97.9 F 96 18 157/73 H 100 Room Air 5 09/30/22 08:00 09/30/22 08:00 09/30/22 08:00 09/30/22 08:00 09/30/22 08:00 09/30/22 08:00 09/29/22 21:38 Oxygen Flow Rate (L/min) 5 Oxygen Delivery Method Room Air Weight: 120 lb 13.013 oz Body Mass Index (BMI) 22.2 Intake & Output: Intake and Output for Last 24 Hours 09/28/22 09/29/22 09/30/22 23:59 23:59 23:59 Intake Total 2350.77 / 2350.77 4740.4 / 4740.4 50 / 50 Output Total 1080 / 1080 Balance 2350.77 / 2350.77 3660.4 / 3660.4 50 / 50 Lab / Micro Data Result Diagrams: 09/30/22 06:45 09/30/22 06:45 Labs: Laboratory Results - last 24 hr 09/27/22 05:10: Diff Path Review Reviewed 09/29/22 12:04: POC Glucose 140 H 09/29/22 12:35: Urine Color Yellow, Urine Clarity Clear, Urine pH 6.0, Ur Specific [place] 1.010, Urine Protein 15 H, Urine Glucose (UA) Normal, Urine Ketones Negative, Urine Occult Blood Negative, Urine Nitrite Negative, Urine Bilirubin Negative, Urine Urobilinogen Normal, Ur Leukocyte Esterase 100 H, Urine RBC 0 SEEN, Urine WBC 0-5 SEEN, Ur Squamous Epith Cells 0-5 SEEN, Urine Bacteria 0 SEEN, Urine Mucus 0 SEEN 09/29/22 18:10: POC Glucose 153 H 09/29/22 23:21: POC Glucose 127 H 09/30/22 06:00: POC Glucose 104 09/30/22 06:45: Sodium 143, Potassium 4.7, Chloride 118 H, Carbon Dioxide 19.0 L , Anion Gap 6, BUN 38 H, Creatinine 1.04 H, Estim Creat Clear Calc 29.84, Est GFR (MDRD) Af Amer 65, Est GFR (MDRD) Non-Af 53 L, BUN/Creatinine Ratio 36.5 H, Glucose 119 H, Calcium 8.6, Phosphorus 4.1, Magnesium 1.9, Total Bilirubin 0.40, AST 61 H, ALT 33, Alkaline Phosphatase 52, Total Protein 5.7 L, Albumin 1.9 L, Globulin 3.8, Albumin/Globulin Ratio 0.5 L 09/30/22 06:45: WBC 15.0 H, RBC 3.29 L, Hgb 9.7 L, Hct 30.0 L, MCV 91.2, MCH 29.5, MCHC 32.3, RDW Std Deviation 41.6, RDW Coeff of Otto 12.6, Plt Count 219, MPV 11.7, Immature Gran % (Auto) 4.600 H, Neut % (Auto) 76.9 H, Lymph % (Auto) 7.5 L, [place] % (Auto) 8.4, Eos % (Auto) 2.1, Baso % (Auto) 0.5, Absolute Neuts (auto) 11.5 H, Absolute Lymphs (auto) 1.12, Nucleated RBC % 0 Micro: Microbiology 09/26/22 08:37 Blood Culture (Wb) - Pic Blood Culture - Preliminary No growth in 48 hours. 09/26/22 08:45 Blood Culture (Wb) - Anticubital Left Blood Culture - Preliminary No growth in 48 hours. Radiography Diagnostic Testing: Radiology Impression Chest X-Ray 09/29/22 13:05 IMPRESSION: Improvement aeration of both lung bases as compared to prior study. Electronically Signed: Vijay Mosley MD at 14:27 EST , Physical Exam Const oriented x3 and no apparent distress Resp normal respiratory effort Resp Narrative: Barking cough present GI GI Narrative: Nondistended, midline laparotomy wound dressing is taken down and I find laparotomy open at the skin but intact at the fascia with retention sutures. There is no asher-incisional erythema. There appears to be simple serosanguineous drainage to the dressings. Patient, again, has no deep tenderness with palpation x4 quadrants. Assessment & Plan Assessment/Plan (1) Status post laparotomy: PLAN: Patient is postoperative day 7 from ex lap with adhesiolysis small bowel resection for recent small bowel obstruction. Patient is again hemodynamically stable and afebrile, however, she again exhibits a leukocytosis of 15.0 (previously 14.9) (also with increased neutrophils) while on Zosyn. Abdominal exam is again benign. In asking patient to demonstrate her vital capacity with incentive spirometer, patient demonstrates an effort of 750 cc and thereafter has production of sputum. Chest x-ray yesterday showed improved aeration. Urinalysis was equally unremarkable. On 09/26/[address] imaging of the abdomen pelvis with enteral contrast and there was no apparent leak. At this time patient appears hyper chloremia can borderline hypernatremic. Believe this is owing to her hyperalimentation. I will like to increase her nutrition to wean her dependence on TPN. Patient tolerated diet advancement, but admits to suboptimal intake. We will request a calorie count. Neuro: Currently with morphine as needed, oxycodone and acetaminophen as needed. Can add parkinsonian medications now Pulm/CV: Patient making use of incentive spirometer, chest x-ray ordered and shows improved aeration, no acute issues FEN/GI: Continue to trend daily electrolytes with patient on TPN, continue full liquid diet, calorie count 09/30/2022 : UA negative yesterday 09/29/2022 Heme/ID: Hemoglobin's remains, patient on day 7 of Zosyn?empirically for contamination Intra-Op?we will discontinue today to try to better sort out patient's leukocytosis. WBC stably elevated to 15 (14.9) with left shift. Chest x-ray and UA on 09/29/2022 unremarkable. Patient is afebrile. Endo: Glucose mildly elevated but patient on hyperalimentation. Continue to monitor while requiring TPN. Proph: Enoxaparin since 09/26/2022. Patient encouraged to be out of bed and ambulating as much as possible. Continue use of incentive spirometer Dispo: Continue inpatient stay and hold on dispo to TCU until we are able to wean TPN and sort out her leukocytosis Charges/Coding Visit Charges Inpatient E&M: 63685 Subs Hosp L2
[2022-09-30] MEDS: Enoxaparin 40 MG/0.4 ML Syringe SC ×2 (11:35)
[2022-09-30] MEDS: Ensure Plus High Protein 120 ML LIQUID PO ×2 (11:36→22:48)
[2022-09-30] MEDS: guaiFENesin 1,200 MG Tablet 1200 MG PO ×2 (11:36→22:48)
--- NOTE | 2022-09-30 14:18 | NS ---
Calorie count ordered. Nursing staff to indicate percent of foods consumed on pt menu and leave completed menus in room for RDN to collect tomorrow. Please call inpatient dietitian at [phone] with questions. Caity Elder MS, RDN, LD
[2022-09-30] MEDS: TPN - Clinimix E 8%-14% Soln 2,000 ML with Multivitamins 10 ML, Trace Elements 1 ML, Fo... 42 ML IV (16:02)
[2022-09-30] MEDS: 0.9% Saline Lock 10 ML Syringe IV ×2 (16:11→19:02)
--- NOTE | 2022-09-30 16:21 | NURSING ---
Dr Lewis texted that Joseluis (son) is requesting the doctor to call him with an update [phone].
[2022-09-30 18:05] LABS: Bedside Glucose 149 mg/dL (74-106)
[2022-09-30] MEDS: Morphine 2 MG/ML Syringe IV (19:02)
[2022-10-01] VITALS (12 sets, daily range): BP systolic 105–128; BP diastolic 45–57; PULSE 78–100; RESP 12–20; TEMP 36.3–37; O2SAT 92–98
[2022-10-01 01:11] LABS: Bedside Glucose 128 mg/dL (74-106)
[2022-10-01 06:11] LABS: Hemoglobin 8.3 g/dL (12.0-15.0); Mean Corp Hgb Conc 31.9 g/dL (32-36); Mean Corpuscular Hgb 29.6 pg (27.0-32.0); Mean Corpuscular Volume 92.9 fL (81-99); Mean Platelet Vol. 11.4 fl (6.2-12.0); POSITIVE COUNT YES; POSITIVE MORPHOLOGY YES; Platelet Count 271 K/mm3 (150-450); RBC Distribution Width CV 12.7 % (11.6-14.6); RBC Distribution Width SD 42.7 fl (35.1-43.9); White Blood Count 13.2 K/mm3 (4.4-11.0)
[2022-10-01 06:12] LABS: Differential Indicated MANUAL DIFF
[2022-10-01 06:46] LABS: ALB/GLOB Ratio 0.5 RATIO (0.9-2.4); AST(SGOT) 79 U/L (15-37); Alanine Aminotransfer ALT/SGPT 55 U/L (13-56); Albumin, Serum 1.7 g/dL (3.2-5.0); Alkaline Phosphatase 47 U/L (45-117); Anion Gap 8 (5-15); BUN 45 mg/dL (7-18); BUN/Creat Ratio 50.7 RATIO (10-20); Calcium,Total 8.5 mg/dL (8.5-10.1); Chloride 118 mmol/L (98-107); Creatinine, Serum 0.89 mg/dL (0.55-1.02); EST Glomerular Filtration Rate 64 mL/min (>60); Est Glom Filt Rate - Afr Amer 78 mL/min (>60); Estimated Creatinine Clearance 34.87 ml/min; Globulin 3.3 g/dL (2.2-4.2); Glucose 110 mg/dL (74-106); Potassium 4.2 mmol/L (3.5-5.1); Sodium Level 145 mmol/L (136-145)
[2022-10-01 06:54] LABS: Eosinophil 3 % (0-5); Lymphocyte 6 % (19-41); Monocyte 6 % (0-10); Myelocyte 3 % (0-0); Neutrophil-Segmented 82 % (47-70); Total Cells Counted 100 (MANUAL DIFF)
[2022-10-01 06:55] LABS: Platelet Estimate ADEQUATE (ADEQ); Red Cell Morphology NORM C+C NORMAL (NORM C&C)
[2022-10-01 06:56] LABS: Absolute Lymphocyte Count 0.79 X10^3/uL (0.83-4.51); Absolute Neutrophil Count 10.8 X10^3/uL (2.0-7.7); Lymphocyte # 0.79 X10^3/ul (0.83-4.51); Neutrophil # 10.83 X10^3/uL (2.7-7.7)
[2022-10-01] MEDS: Ipratropium 0.5 MG/2.5 ML SOLUTION INHALATION ×3 (07:23→19:05)
[2022-10-01 07:50] LABS: Bedside Glucose 106 mg/dL (74-106)
--- NOTE | 2022-10-01 08:22 | NURSING ---
assisted to br and to recliner. Andrew smalls is here to visit.
--- NOTE | 2022-10-01 09:11 | PN.SURG_ITS ---
Subjective Subjective Patient evaluated resting comfortably in bed. She denies nausea, vomiting, fever. She notes very minimal incisional discomfort. She notes feeling better today. She went for multiple walks yesterday. She is urinating. She is passing flatus and having bowel movements. Objective Data Objective Data Vital Signs: Vital Signs Temp Pulse Resp BP Pulse Ox O2 Del Method O2 Flow Rate 97.5 F L 100 16 128/57 H 92 Room Air 5 10/01/22 06:55 10/01/22 07:50 10/01/22 07:23 10/01/22 06:55 10/01/22 07:23 10/01/22 07:23 09/29/22 21:38 Oxygen Flow Rate (L/min) 5 Oxygen Delivery Method Room Air Weight: 123 lb 7.342 oz Body Mass Index (BMI) 22.2 Intake & Output: Intake and Output for Last 24 Hours 09/29/22 09/30/22 10/01/22 23:59 23:59 23:59 Intake Total 4740.4 / 4740.4 2964.77 / 2964.77 200 / 200 Output Total 1080 / 1080 750 / 750 500 / 500 Balance 3660.4 / 3660.4 2214.77 / 2214.77 -300 / -300 Lab / Micro Data Result Diagrams: 10/01/22 05:50 10/01/22 05:50 Labs: Laboratory Results - last 24 hr 09/30/22 17:43: POC Glucose 149 H 10/01/22 00:50: POC Glucose 128 H 10/01/22 05:50: Sodium 145, Potassium 4.2, Chloride 118 H, Carbon Dioxide 19.0 L , Anion Gap 8, BUN 45 H, Creatinine 0.89, Estim Creat Clear Calc 34.87, Est GFR (MDRD) Af Amer 78, Est GFR (MDRD) Non-Af 64, BUN/Creatinine Ratio 50.7 H, Glucose 110 H, Calcium 8.5, Total Bilirubin 0.40, AST 79 H, ALT 55, Alkaline Phosphatase 47, Total Protein 5.0 L, Albumin 1.7 L, Globulin 3.3, Albumin/Globulin Ratio 0.5 L 10/01/22 05:50: WBC 13.2 H, RBC 2.80 L, Hgb 8.3 L, Hct 26.0 L, MCV 92.9, MCH 29.6, MCHC 31.9 L, RDW Std Deviation 42.7, RDW Coeff of [place] 12.7, Plt Count 271, MPV 11.4, Neut % (Auto) Not Reportable, Absolute Neuts (auto) 10.8 H, Absolute Lymphs (auto) 0.79 L, Total Counted 100, Neutrophils % (Manual) 82 H, Lymphocytes % (Manual) 6 L, Monocytes % (Manual) 6, Eosinophils % (Manual) 3, Myelocytes % 3 H, Diff Path Review December, Platelet Estimate ADEQUATE, RBC Morphology NORM C+C 10/01/22 06:58: POC Glucose 106 Micro: Microbiology 09/26/22 08:37 Blood Culture (Wb) - Pic Blood Culture - Preliminary No growth in 48 hours. 09/26/22 08:45 Blood Culture (Wb) - Anticubital Left Blood Culture - Preliminary No growth in 48 hours. Physical Exam GI GI Narrative: Abdomen- open incisional wound with retention sutures. Wound was packed with wet to dry dressing and ABD pad applied over top of the wound. Auscultation: normoactive bowel sounds Palpation: soft; Negative for tender Assessment & Plan Assessment/Plan (1) Status post laparotomy: PLAN: Patient's WBC is trending down since stopping the antibiotics. Obtain labs tomorrow. Stop TPN Increase patient's diet to regular Patient's calorie count was 1800 yesterday Apply wound vac today Continue to ambulate multiple times today If patient continues to recover well, possible discharge to TCU tomorrow Will reassess patient tomorrow for possible discharge Charges/Coding Visit Charges Inpatient E&M: 77994 Subs Hosp L1 (no charge; post-op)
--- NOTE | 2022-10-01 09:31 | PN.HOSP_ITS ---
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 Her white blood cell count improved Objective Data Objective Data Vital Signs: Vital Signs Temp Pulse Resp BP Pulse Ox O2 Del Method O2 Flow Rate 97.5 F L 100 16 128/57 H 92 Room Air 5 10/01/22 06:55 10/01/22 07:50 10/01/22 07:23 10/01/22 06:55 10/01/22 07:23 10/01/22 07:23 09/29/22 21:38 Oxygen Flow Rate (L/min) 5 Oxygen Delivery Method Room Air Weight: 123 lb 7.342 oz Body Mass Index (BMI) 22.2 Intake & Output: Intake and Output for Last 24 Hours 09/30/22 10/01/22 10/02/22 03:59 03:59 03:59 Intake Total 3740.4 / 3740.4 2914.77 / 2914.77 200 / 200 Output Total 1080 / 1080 750 / 750 500 / 500 Balance 2660.4 / 2660.4 2164.77 / 2164.77 -300 / -300 Lab / Micro Data Result Diagrams: 10/01/22 05:50 10/01/22 05:50 Labs: Laboratory Results - last 24 hr 09/30/22 17:43: POC Glucose 149 H 10/01/22 00:50: POC Glucose 128 H 10/01/22 05:50: Sodium 145, Potassium 4.2, Chloride 118 H, Carbon Dioxide 19.0 L , Anion Gap 8, BUN 45 H, Creatinine 0.89, Estim Creat Clear Calc 34.87, Est GFR (MDRD) Af Amer 78, Est GFR (MDRD) Non-Af 64, BUN/Creatinine Ratio 50.7 H, Glucose 110 H, Calcium 8.5, Total Bilirubin 0.40, AST 79 H, ALT 55, Alkaline Phosphatase 47, Total Protein 5.0 L, Albumin 1.7 L, Globulin 3.3, Albumin/Globulin Ratio 0.5 L 10/01/22 05:50: WBC 13.2 H, RBC 2.80 L, Hgb 8.3 L, Hct 26.0 L, MCV 92.9, MCH 29.6, MCHC 31.9 L, RDW Std Deviation 42.7, RDW Coeff of Otto 12.7, Plt Count 271, MPV 11.4, Neut % (Auto) Not Reportable, Absolute Neuts (auto) 10.8 H, Absolute Lymphs (auto) 0.79 L, Total Counted 100, Neutrophils % (Manual) 82 H, Lymphocytes % (Manual) 6 L, Monocytes % (Manual) 6, Eosinophils % (Manual) 3, Myelocytes % 3 H, Diff Path Review December, Platelet Estimate ADEQUATE, RBC Morphology NORM C+C 10/01/22 06:58: POC Glucose 106 Micro: Microbiology 09/26/22 08:37 Blood Culture (Wb) - Pic Blood Culture - Preliminary No growth in 48 hours. 09/26/22 08:45 Blood Culture (Wb) - Anticubital Left Blood Culture - Preliminary No growth in 48 hours. Physical Exam Narrative General: Alert, Oriented x3, Cooperative, No apparent distress HEENT: Atraumatic, PERRLA, EOMI, Normocephalic Oral: Moist Mucosa Neck: Supple, No JVD Lungs: Clear to auscultation, Normal air movement, No rhonchi, No wheeze, No rales Cardiovascular: Regular rate, Regular Rhythm, Normal S1, Normal S2, No murmurs Abdomen: Soft, tender around the incision, Non-Distended, No Hepato-splenome jim, dressing and abdominal binder intact Extremities: No edema, Capillary Refill Less than 3 Seconds Skin: No rashes, No breakdown Musculoskeletal: No Tenderness to Palpation of Joints or Extremities Neurological: Cranial nerves II-XII grossly intact, Motor Exam 5/5 strength throughout, Sensory exam intact to light touch and pain Psych/Mental Status: Normal Affect, Appropriate Assessment & Plan Assessment/Plan (1) Status post laparotomy: PLAN: Plan 1. She is status post laparotomy and small bowel resection for an SBO ? She did have a spike in her white count and had a CT scan on 09/26/2022 that was unremarkable and showed postoperative changes ? Her Zosyn was discontinued yesterday, and her white blood cell count has dropped ? Her hemoglobin has also dropped from 9.7 to 8.3, this could be dilutional but will check iron studies ? We will try to discontinue her TPN and encourage p.o. intake 2. HTN/HLD ? When she is able to take p.o. can restart her home blood pressure medications 3. Parkinson's disease ? When she is able to take p.o. can restart her carbidopa levodopa Charges/Coding Visit Charges Inpatient E&M: 04185 Subs Hosp L2
[2022-10-01 09:49] LABS: Ferritin 222 ng/mL (8-252); Iron 28 ug/dL (50-170); Iron Binding Capacity,Total 207 ug/dL (250-450); PERCENT IRON SATURATION 13.5 % (15.0-55.0)
[2022-10-01] MEDS: 0.9% Saline Lock 10 ML Syringe IV ×3 (09:52→12:10)
[2022-10-01] MEDS: guaiFENesin 1,200 MG Tablet 1200 MG PO ×2 (09:54→22:06)
[2022-10-01] MEDS: Acetaminophen 325 MG Tablet 650 MG PO ×2 (10:15→17:28)
[2022-10-01] MEDS: Ensure Plus High Protein 120 ML LIQUID PO ×3 (10:16→22:06)
[2022-10-01] MEDS: Enoxaparin 40 MG/0.4 ML Syringe SC (11:25)
[2022-10-01] MEDS: Pantoprazole Sodium 20 MG Tablet PO (11:26)
[2022-10-01] MEDS: Morphine 2 MG/ML Syringe IV (12:09)
[2022-10-01 12:54] LABS: Pathologist Review Reviewed
[2022-10-01] MEDS: Carbidopa/Levodopa 25/100 Tablet PO ×2 (13:32→22:06)
--- NOTE | 2022-10-01 14:17 | NURSING ---
1400 ambulated in liao, past nurse's station and back to room, now sitting in recliner. Call light and phone in her lap.
[2022-10-01 17:55] LABS: Bedside Glucose 118 mg/dL (74-106)
[2022-10-02] VITALS (7 sets, daily range): BP systolic 105–124; BP diastolic 44–56; PULSE 70–88; RESP 16–20; TEMP 36.7–37; O2SAT 97–98
[2022-10-02] MEDS: Acetaminophen 325 MG Tablet 650 MG PO (00:32)
[2022-10-02] MEDS: Carbidopa/Levodopa 25/100 Tablet PO ×2 (06:04→13:56)
[2022-10-02 06:18] LABS: Hematocrit 26.7 % (37-47); Hemoglobin 8.3 g/dL (12.0-15.0); Mean Corp Hgb Conc 31.1 g/dL (32-36); Mean Corpuscular Hgb 29.3 pg (27.0-32.0); Mean Corpuscular Volume 94.3 fL (81-99); Mean Platelet Vol. 11.3 fl (6.2-12.0); POSITIVE COUNT YES; POSITIVE MORPHOLOGY YES; Platelet Count 363 K/mm3 (150-450); RBC Distribution Width CV 12.9 % (11.6-14.6); RBC Distribution Width SD 44.2 fl (35.1-43.9); Red Blood Count 2.83 M/mm3 (4.2-5.4); White Blood Count 10.9 K/mm3 (4.4-11.0)
[2022-10-02 06:24] LABS: Differential Indicated MANUAL DIFF
[2022-10-02 06:47] LABS: Anion Gap 6 (5-15); BUN 39 mg/dL (7-18); Calcium,Total 8.7 mg/dL (8.5-10.1); Chloride 118 mmol/L (98-107); Creatinine, Serum 0.91 mg/dL (0.55-1.02); EST Glomerular Filtration Rate 63 mL/min (>60); Est Glom Filt Rate - Afr Amer 76 mL/min (>60); Estimated Creatinine Clearance 34.11 ml/min; Glucose 98 mg/dL (74-106); Magnesium 1.9 mg/dL (1.6-2.6); Phosphorus 5.1 mg/dL (2.5-4.9); Potassium 4.4 mmol/L (3.5-5.1); Sodium Level 144 mmol/L (136-145)
[2022-10-02 06:53] LABS: Eosinophil 2 % (0-5); Lymphocyte 11 % (19-41); Metamyelocyte 1 % (0-1); Monocyte 11 % (0-10); Myelocyte 3 % (0-0); Neutrophil-Band 2 % (0-5); Neutrophil-Segmented 70 % (47-70); Platelet Estimate ADEQUATE (ADEQ); Total Cells Counted 100 (MANUAL DIFF)
[2022-10-02 06:54] LABS: Absolute Neutrophil Count 7.9 X10^3/uL (2.0-7.7); Neutrophil # 7.87 X10^3/uL (2.7-7.7); Red Cell Morphology NORM C+C NORMAL (NORM C&C)
[2022-10-02] MEDS: Ipratropium 0.5 MG/2.5 ML SOLUTION INHALATION ×2 (07:17→13:08)
--- NOTE | 2022-10-02 07:22 | PN.HOSP_ITS ---
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) Hyperosmolality and hypernatremia (09/19/22) Parkinson's disease (09/19/22) Gastro-esophageal reflux disease with esophagitis (09/19/22) Unspecified intestinal obstruction, unspecified as to partial versus complete obstruction (09/19/22) Chronic kidney disease, stage 3 (moderate) (09/19/22) Personal history of other diseases of the digestive system (09/19/22) Other specified postprocedural states (09/19/22) Subjective Subjective No issues overnight Objective Data Objective Data Vital Signs: Vital Signs Temp Pulse Resp BP Pulse Ox O2 Del Method O2 Flow Rate 98.0 F 78 18 122/50 H 97 Room Air 5 10/02/22 06:20 10/02/22 06:20 10/02/22 06:20 10/02/22 06:20 10/02/22 06:20 10/02/22 01:00 09/29/22 21:38 Oxygen Flow Rate (L/min) 5 Oxygen Delivery Method Room Air Weight: 123 lb 7.342 oz Body Mass Index (BMI) 22.2 Intake & Output: Intake and Output for Last 24 Hours 10/01/22 10/02/22 10/03/22 03:59 03:59 03:59 Intake Total 2914.77 / 2914.77 2209 / 2209 Output Total 750 / 750 1200 / 1200 Balance 2164.77 / 2164.77 1009 / 1009 Lab / Micro Data Result Diagrams: 10/02/22 06:00 10/02/22 06:00 Labs: Laboratory Results - last 24 hr 10/01/22 05:50: Diff Path Review Reviewed 10/01/22 05:50: Iron 28 L, TIBC 207 L, Iron Saturation 13.5 L, Ferritin 222 10/01/22 06:58: POC Glucose 106 10/01/22 17:31: POC Glucose 118 H 10/02/22 06:00: WBC 10.9, RBC 2.83 L, Hgb 8.3 L, Hct 26.7 L, MCV 94.3, MCH 29.3, MCHC 31.1 L, RDW Std Deviation 44.2 H, RDW Coeff of Otto 12.9, Plt Count 363, MPV 11.3, Neut % (Auto) Not Reportable, Absolute Neuts (auto) 7.9 H, Absolute Lymphs (auto) 1.20, Total Counted 100, Neutrophils % (Manual) 70, Band Neutrophils % 2, Lymphocytes % (Manual) 11 L, Monocytes % (Manual) 11 H, Eosinophils % (Manual) 2, Metamyelocytes % 1, Myelocytes % 3 H, Diff Path Review December, Platelet Estimate ADEQUATE, RBC Morphology NORM C+C 10/02/22 06:00: Sodium 144, Potassium 4.4, Chloride 118 H, Carbon Dioxide 20.0 L , Anion Gap 6, BUN 39 H, Creatinine 0.91, Estim Creat Clear Calc 34.11, Est GFR (MDRD) Af Amer 76, Est GFR (MDRD) Non-Af 63, BUN/Creatinine Ratio 43.0 H, Glucose 98, Calcium 8.7, Phosphorus 5.1 H, Magnesium 1.9 Micro: Microbiology 09/26/22 08:37 Blood Culture (Wb) - Pic Blood Culture - Final No growth in 5 days. 09/26/22 08:45 Blood Culture (Wb) - Anticubital Left Blood Culture - Final No growth in 5 days. Physical Exam Narrative General: Alert, Oriented x3, Cooperative, No apparent distress HEENT: Atraumatic, PERRLA, EOMI, Normocephalic Oral: Moist Mucosa Neck: Supple, No JVD Lungs: Clear to auscultation, Normal air movement, No rhonchi, No wheeze, No ra les Cardiovascular: Regular rate, Regular Rhythm, Normal S1, Normal S2, No murmurs Abdomen: Soft, tender around the incision, Non-Distended, No Hepato- splenomegaly, dressing and abdominal binder intact Extremities: No edema, Capillary Refill Less than 3 Seconds Skin: No rashes, No breakdown Musculoskeletal: No Tenderness to Palpation of Joints or Extremities Neurological: Cranial nerves II-XII grossly intact, Motor Exam 5/5 strength throughout, Sensory exam intact to light touch and pain Psych/Mental Status: Normal Affect, Appropriate Assessment & Plan Assessment/Plan (1) Status post laparotomy: PLAN: Plan 1. She is status post laparotomy and small bowel resection for an SBO/iron deficiency anemia ? She did have a spike in her white count and had a CT scan on 09/26/2022 that was unremarkable and showed postoperative changes ? Her Zosyn was discontinued and her white count is normalized ? Her hemoglobin is stable at 8.3, she does have iron deficiency anemia, she was given a Venofer infusion yesterday, would benefit from iron replacement on discharge and would also give her vitamin C tablets to take when she takes her iron secondary to her PPI ? We will sign off, please call with any questions 2. HTN/HLD ? When she is able to take p.o. can restart her home blood pressure medications 3. Parkinson's disease ? When she is able to take p.o. can restart her carbidopa levodopa Charges/Coding Visit Charges Inpatient E&M: 48787 Subs Hosp L2
[2022-10-02] MEDS: Ensure Plus High Protein 120 ML LIQUID PO ×2 (10:50→13:56)
[2022-10-02] MEDS: guaiFENesin 1,200 MG Tablet 1200 MG PO (10:51)
[2022-10-02] MEDS: Enoxaparin 40 MG/0.4 ML Syringe SC (10:51)
[2022-10-02] MEDS: Pantoprazole Sodium 20 MG Tablet PO (10:51)
--- NOTE | 2022-10-02 10:54 | PN.SURG_ITS ---
Subjective Subjective Patient appears to resting comfortably in the chair. She denies any pain or discomfort. She noted the wound vac was uncomfortable when placing. She is tolerating her diet. Objective Data Objective Data Vital Signs: Vital Signs Temp Pulse Resp BP Pulse Ox O2 Del Method O2 Flow Rate 98.1 F 79 16 119/54 L 98 Room Air 5 10/02/22 08:38 10/02/22 08:38 10/02/22 08:38 10/02/22 08:38 10/02/22 08:38 10/02/22 08:40 09/29/22 21:38 Oxygen Flow Rate (L/min) 5 Oxygen Delivery Method Room Air Weight: 123 lb 7.342 oz Body Mass Index (BMI) 22.2 Intake & Output: Intake and Output for Last 24 Hours 09/30/22 10/01/22 10/02/22 23:59 23:59 23:59 Intake Total 2964.77 / 2964.77 2209 / 2209 Output Total 750 / 750 1200 / 1200 Balance 2214.77 / 2214.77 1009 / 1009 Lab / Micro Data Result Diagrams: 10/02/22 06:00 10/02/22 06:00 Labs: Laboratory Results - last 24 hr 10/01/22 05:50: Diff Path Review Reviewed 10/01/22 17:31: POC Glucose 118 H 10/02/22 06:00: WBC 10.9, RBC 2.83 L, Hgb 8.3 L, Hct 26.7 L, MCV 94.3, MCH 29.3, MCHC 31.1 L, RDW Std Deviation 44.2 H, RDW Coeff of Otto 12.9, Plt Count 363, MPV 11.3, Neut % (Auto) Not Reportable, Absolute Neuts (auto) 7.9 H, Absolute Lymphs (auto) 1.20, Total Counted 100, Neutrophils % (Manual) 70, Band Neutrophils % 2, Lymphocytes % (Manual) 11 L, Monocytes % (Manual) 11 H, Eosinophils % (Manual) 2, Metamyelocytes % 1, Myelocytes % 3 H, Diff Path Review May , Platelet Estimate ADEQUATE, RBC Morphology NORM C+C 10/02/22 06:00: Sodium 144, Potassium 4.4, Chloride 118 H, Carbon Dioxide 20.0 L , Anion Gap 6, BUN 39 H, Creatinine 0.91, Estim Creat Clear Calc 34.11, Est GFR (MDRD) Af Amer 76, Est GFR (MDRD) Non-Af 63, BUN/Creatinine Ratio 43.0 H, Glucose 98, Calcium 8.7, Phosphorus 5.1 H, Magnesium 1.9 Micro: Microbiology 09/26/22 08:37 Blood Culture (Wb) - Pic Blood Culture - Final No growth in 5 days. 09/26/22 08:45 Blood Culture (Wb) - Anticubital Left Blood Culture - Final No growth in 5 days. Physical Exam GI GI Narrative: Wound vac in place. Abdomen is soft, slightly tender. Positive bowel sounds Assessment & Plan Assessment/Plan (1) Status post laparotomy: PLAN: Ready for discharge to TCU Will complete transfer summary We will continue to monitor this patient in TCU Charges/Coding Visit Charges Inpatient E&M: 24192 Subs Hosp L1 (post-op; no charge)
--- NOTE | 2022-10-02 11:23 | CASEMGMT ---
Addendum entered by Megha Ramos 10/02/22 13:55: Social Work Discharge orders faxed to TCU. Phone call to pt son Joseluis and updated that pt will discharge to TCU today. Joseluis agreeable. Disposition: TCU, skilled level of care MARIBELL Cabrera Original Note: Social Work SW spoke with SOTO Wilde who states pt is ready for discharge today. KARLA spoke with Madeleine in TCU and they are able to accept pt today. KARLA met with pt and informed of planned discharge for later today. Pt is agreeable with discharge plan. MARIBELL Caballero
--- NOTE | 2022-10-02 12:00 | TREXTCAR_ITS ---
Diet Diet Order/Speech Therapy: 10/01/22 08:38 Diet: Regular - General Type of Dietary Supplement:: Ensure Plus High Protein Is pt able to select menu?: Yes Wound(s) left elbow: Wound Type: Abrasion abdomen: Wound Type: surgical incision with retention sutures Dressing Change: applied KCI wound VAC (To be changed M, W and F) Therapies Weight Bearing: Full weight bearing Physical Therapy: Eval and Treat Occupational Therapy: Eval and Treat Speech Therapy: Eval and Treat Problem/Diagnosis (1) Status post laparotomy: Status: Acute Code(s): Z98.890 - Other specified postprocedural states Plan: WBC has normalized Patient tolerating regular diet Wound vac applied yesterday. Patient tolerated this well Continue to ambulate multiple times today If patient continues to recover well, discharge to TCU today Allergies/Procedures Done in Hospital Allergies KIDNEY MEDICINE Allergy (Uncoded 09/19/22 15:51) Hives Procedures: - (Laparoscopic converted to open exploration with small bowel resection) Type of Care/Length of Stay Estimated LOS: Convalescent Care Less Than 30 days Type of Care Needed: Skilled Rehab Potential: Good Prognosis: Good Additional Orders/Day of Discharge Day of Discharge: 10/02/22 Dietary and Speech Recommendations Dietitian Recommendations/Changes: Regular diet as tolerated; will continue ensure clear 240mL TID w/ meals and Ensure Plus High Protein 120mL 4x/day w/ medpass for additional calories/protein if consumed. Continue daily wts. Calorie count as requested by surgery. Discharge Plan Admission Admit Date/Time: 09/19/22 20:21 Primary Reason for Your Visit: Small bowel obstruction Attending Provider: Leif Lewis Primary Care Provider: Mono Ritter Consulting Providers: Balwinder Gomez ; Morteza Pruitt ; Stan Kovacs Discharge Orders/Prescriptions Prescriptions: New acetaminophen [Tylenol] 325 mg Tablet 650 mg PO Q6H PRN PRN (Reason: Pain Score 1-5) Qty: 0 0RF ferrous sulfate [iron] 325 mg (65 mg iron) tablet 325 mg PO TID 30 Days Qty: 90 0RF ascorbic acid (vitamin C) [Vitamin C] 1,000 mg tablet 2 g PO TID 30 Days Qty: 180 0RF Continued multivitamin Tablet 1 tab PO DAILY psyllium husk 0.52 gram capsule 0.52 g PO DAILY losartan 100 mg tablet 100 mg PO DAILY Prolia 60 mg/mL syringe 60 mg SC [id number] flaxseed oil [[place]-3 Flaxseed Oil] 1,000 mg capsule 1,000 mg PO DAILY Rx Instructions: administer with a meal atorvastatin 20 MG tablet 20 mg PO DAILY Label Comments: cholesterol lowering amlodipine 10 MG tablet 10 mg PO DAILY Label Comments: blood presswure cholecalciferol (vitamin D3) 2,000 UNIT capsule 2,000 unit PO DAILY zinc amino acid chelate 50 MG tablet 50 mg PO DAILY pantoprazole 20 mg tablet,delayed release (DR/EC) 20 mg PO DAILY Label Comments: TAKE 1 TABLET BY MOUTH DAILY carbidopa-levodopa [Sinemet] 25-100 mg tablet 1 tab PO TID Rx Instructions: take on dose in morning, 1 at 2:30, 1 at night Discontinued ascorbic acid (vitamin C) 500 mg tablet 500 mg PO DAILY Referrals / Follow Up: Mono Ritter MD [Primary Care Provider] - Disposition Disposition (needs filled in before D/C Order can be placed): [facility] Facility
--- NOTE | 2022-10-02 15:22 | PCM.DC.SUM ---
Providers Date of Admission: 09/19/22 Date of Discharge: 10/02/22 Primary Care Physician: Dr. Mono Ritter MD Consultations 09/23/22 21:35 Consult: News Library Director / Pulmonary Medicine Routine Consulting Provider: Balwinder Gomez Reason for Consult: ICU EMERGENT Consult: No Notified: Yes Date Notified: 09/23/22 Time Notified: 21:29 Method of Notification: Verbal 09/25/22 07:22 Consult: Onc/Wound/habilitation worker Routine Comment: 09/29/22 09:17 Consult: Hospitalist Routine Consulting Provider: Stan Kovacs Reason for Consult: Medical management EMERGENT Consult: No Notified: Yes Date Notified: 09/29/22 Time Notified: 09:17 Method of Notification: Text Reason For Visit: SMALL BOWL OBSTRUCTION Diagnosis Discharge Diagnosis (1) Status post laparotomy: Status: Acute Code(s): Z98.890 - Other specified postprocedural states Plan: WBC has normalized Patient tolerating regular diet Wound vac applied yesterday. Patient tolerated this well Continue to ambulate multiple times today If patient continues to recover well, discharge to TCU today Medications at Discharge Home Medications amlodipine 10 mg tablet 10 mg PO DAILY BP 09/17/16 atorvastatin 20 mg tablet 20 mg PO DAILY CHOLESTEROL 09/17/16 denosumab 60 mg/mL subcutaneous syringe (Prolia) 60 mg subcut [id number] BONES 01/25/20 losartan 100 mg tablet 100 mg PO DAILY BP 01/25/20 multivitamin 1 tab PO DAILY SUPPLEMENT 01/25/20 psyllium husk 0.52 gram capsule 0.52 g PO DAILY CONSTIPATION 01/25/20 cholecalciferol (vitamin D3) 50 mcg (2,000 unit) capsule 2,000 unit PO DAILY SUPPLEMENT 03/15/20 zinc amino acid chelate 50 mg tablet 50 mg PO DAILY SUPPLEMENT 03/15/20 flaxseed oil 1,000 mg capsule ([place]-3 Flaxseed Oil) 1,000 mg PO DAILY Supplement 02/27/22 carbidopa 25 mg-levodopa 100 mg tablet (Sinemet) 1 tab PO TID Check with primary doctor 09/19/22 pantoprazole 20 mg tablet,delayed release 20 mg PO DAILY gerd 09/19/22 acetaminophen 325 mg tablet (Tylenol) 650 mg PO Q6H PRN PRN Pain Score 1-5 #0 tabs 10/02/22 ascorbic acid (vitamin C) 1,000 mg tablet (Vitamin C) 2 g PO TID Supplement 10/02/22 ferrous sulfate 325 mg (65 mg iron) tablet (iron) 325 mg PO TID Supplement 10/02/22 Hospital Course Operations - (Laparoscopic converted to open exploration with small bowel resection) Summary of Care Provided Minutes Spent on Discharge: 30 Hospital Course: Patient presented to the ED with abdominal pain on September 19. NG tube was placed in the ED and IV hydration was implemented. Patient had failed a small bowel follow-through on September 22. Dr. Lewis performed a Laparoscopic converted to open exploration with small bowel resection on 09/23/22. Patient had spillage of stool during the procedure and had her incision left open. Patient was transferred to ICU post-operatively. NG tube was continued and patient was started on TPN. She was medically stabilized and transferred to med/surg floor on 09/27/22. Zosyn was stopped on 09/29/22. TPN was stopped on 09/30/21. She has an uncomplicated hospitalization. She had a wound vac placed on 10/01/22. Upon discharge, patient had passed flatus. She was having bowel movements. She denies nausea, vomiting. Her abdominal pain is well controlled. Patient has wound vac in place along with an abdominal bonder. Patient will be discharged to TCU. We will continue to follow-up with her there. We will continue 3 times a week wound vac changes. Physical Exam GI normal to inspection, nondistended, normoactive bowel sounds GI Narrative: Midline open incisional wound with retention sutures. Wound vac applied. Abdominal binder intact. Weight / BMI Weight Weight: 123 lb 7.342 oz Body Mass Index (BMI) 22.2 ABG / Lab / Microbiology Data Result Diagrams: 10/02/22 06:00 10/02/22 06:00 Laboratory: Laboratory Results - last 24 hr 10/01/22 17:31: POC Glucose 118 H 10/02/22 06:00: WBC 10.9, RBC 2.83 L, Hgb 8.3 L, Hct 26.7 L, MCV 94.3, MCH 29.3, MCHC 31.1 L, RDW Std Deviation 44.2 H, RDW Coeff of Otto 12.9, Plt Count 363, MPV 11.3, Neut % (Auto) Not Reportable, Absolute Neuts (auto) 7.9 H, Absolute Lymphs (auto) 1.20, Total Counted 100, Neutrophils % (Manual) 70, Band Neutrophils % 2, Lymphocytes % (Manual) 11 L, Monocytes % (Manual) 11 H, Eosinophils % (Manual) 2, Metamyelocytes % 1, Myelocytes % 3 H, Diff Path Review December, Platelet Estimate ADEQUATE, RBC Morphology NORM C+C 10/02/22 06:00: Sodium 144, Potassium 4.4, Chloride 118 H, Carbon Dioxide 20.0 L, Anion Gap 6, BUN 39 H, Creatinine 0.91, Estim Creat Clear Calc 34.11, Est GFR (MDRD) Af Amer 76, Est GFR (MDRD) Non-Af 63, BUN/Creatinine Ratio 43.0 H, Glucose 98, Calcium 8.7, Phosphorus 5.1 H, Magnesium 1.9 Microbiology: Microbiology 10/02/22 10:40 Nasal Secretion SARS-CoV-2 Antigen (Rapid) - Final 09/26/22 08:37 Blood Culture (Wb) - Pic Blood Culture - Final No growth in 5 days. 09/26/22 08:45 Blood Culture (Wb) - Anticubital Left Blood Culture - Final No growth in 5 days. Meaningful Use Info Meaningful Use Diagnoses (Choose all that apply): None applicable Discharge Plan Admission Admit Date/Time: 09/19/22 20:21 Primary Reason for Your Visit: Small bowel obstruction Attending Provider: Leif Lewis Primary Care Provider: Mono Ritter Consulting Providers: Balwinder Gomez ; Morteza Pruitt ; Stan Kovacs Discharge Orders/Prescriptions Prescriptions: New acetaminophen [Tylenol] 325 mg Tablet 650 mg PO Q6H PRN PRN (Reason: Pain Score 1-5) Qty: 0 0RF Continued multivitamin Tablet 1 tab PO DAILY psyllium husk 0.52 gram capsule 0.52 g PO DAILY losartan 100 mg tablet 100 mg PO DAILY Prolia 60 mg/mL syringe 60 mg SC [id number] flaxseed oil [[place]-3 Flaxseed Oil] 1,000 mg capsule 1,000 mg PO DAILY Rx Instructions: administer with a meal atorvastatin 20 MG tablet 20 mg PO DAILY Label Comments: cholesterol lowering amlodipine 10 MG tablet 10 mg PO DAILY Label Comments: blood presswure cholecalciferol (vitamin D3) 2,000 UNIT capsule 2,000 unit PO DAILY zinc amino acid chelate 50 MG tablet 50 mg PO DAILY pantoprazole 20 mg tablet,delayed release (DR/EC) 20 mg PO DAILY Label Comments: TAKE 1 TABLET BY MOUTH DAILY carbidopa-levodopa [Sinemet] 25-100 mg tablet 1 tab PO TID Rx Instructions: take on dose in morning, 1 at 2:30, 1 at night Discontinued ascorbic acid (vitamin C) 500 mg tablet 500 mg PO DAILY No Action ascorbic acid (vitamin C) [Vitamin C] 1,000 mg tablet 2 g PO TID ferrous sulfate [iron] 325 mg (65 mg iron) tablet 325 mg PO TID Referrals / Follow Up: Mono Ritter MD [Primary Care Provider] - Disposition Disposition (needs filled in before D/C Order can be placed): [facility] Charges/Coding Visit Charges Inpatient E&M: 58381 Disch Hosp (Post-op)
[2022-10-03 09:48] LABS: Pathologist Review Reviewed
== END 2022-10-02 14:34 | disposition skilled nursing facility (03) | DRG 330 ==
LOC: ED 20:24 → MS3 20:31 → ICU 09-23 21:32 → MS3 09-27 12:05
PROVIDERS: Anesthesiology; Family Medicine; Internal Medicine; Physician Assistant; Surgery; Admitting Provider Surgery; Emergency Provider Emergency Medicine; PCP Family Medicine; Visit Provider Surgery
PROC: 0DB80ZZ Excision of Small Intestine, Open Approach (ICD-10-PCS; CPT 44202; principal; 2022-09-23 16:40)
DX: K56.50 Intestinal adhesions [bands], unspecified as to partial versus complete obstruction (principal); E44.0 Moderate protein-calorie malnutrition; E87.0 Hyperosmolality and hypernatremia; E87.8 Other disorders of electrolyte and fluid balance, not elsewhere classified; N18.30 Chronic kidney disease, stage 3 unspecified; G20 Parkinson's disease; E78.00 Pure hypercholesterolemia, unspecified; I12.9 Hypertensive chronic kidney disease with stage 1 through stage 4 chronic kidney disease, or unspecified chronic kidney disease; E78.5 Hyperlipidemia, unspecified; K21.00 Gastro-esophageal reflux disease with esophagitis, without bleeding; D50.9 Iron deficiency anemia, unspecified; Z87.891 Personal history of nicotine dependence; Z53.31 Laparoscopic surgical procedure converted to open procedure; Z68.22 Body mass index [BMI] 22.0-22.9, adult
CPT/HCPCS: 36415; 36569; 71045; 71046; 74018; 74176; 74177; 74250; 80048; 80053; 80076; 81001; 82728; 82962; 83540; 83550; 83690; 83735; 84100; 84478; 85025; 87040; 87426; 88304; 88307; 93005; 94640; 94668; 97110; 97116; 97162; 97165; 97530; 97535; 97802; 97803; 99252; 99284; J7030; J7040; J7050; J7120; Q9967; A4216; G0463; J0610; J1940; J2405; J2916; J3490

== ENCOUNTER 2022-10-02 14:54 | Inpatient (IN) | payer MEDICARE, OTHER, SELFPAY ==
[2022-10-02 15:11] VITALS: BP 138/50; PULSE 92; RESP 18; TEMP 36.1; O2SAT 98; BMI 22.1
[2022-10-02 16:29] VITALS: PULSE 90; RESP 16; O2SAT 99
[2022-10-02] MEDS: 0.9% Saline Lock 10 ML Syringe IV (16:32)
[2022-10-02] MEDS: Ensure Plus High Protein 120 ML LIQUID PO (16:36)
[2022-10-02] MEDS: Ferrous Sulfate 325 MG Tablet PO (18:13)
--- NOTE | 2022-10-02 19:59 | HP.PCM_ITS ---
HPI - General General Date of Admission: 10/02/22 Date of Service: 10/02/22 Chief Complaint: Here for rehabilitation. HPI Narrative 09/19/2022 JOSE MARTIN ESCALERA, is a 86 Female who presents to [facility] Emergency Department with abdominal pain. Worsening abdominal pain, waxes, wanes. Burning upper abdominal pain, nausea, vomiting. CT abdomen/pelvis showed small bowel obstruction, moderate constipation. NG tube inserted, consult General Surgery. 09/19/2022 Admit to Hospital. Small bowel obstruction every 1-2 years, usually resolves with NG tube decompression. NG suction, IV fluids, pain control, KUB in AM. 09/20/2022 Pain improved, no flatus, no nausea, no vomiting. Ambulate patient, incentive spirometer, Lovenox. 09/21/2022 No flatus. 09/22/2022 No flatus, NG output dark. 09/23/2022 BM today, small bowel follow through shows small bowel obstruction. 09/23/2022 Dr. Lewis performed laparoscopic converted to open exploratory surgery with small bowel resection. 09/23/2022 TPN, PICC, IV Zosyn, small bowel anastomosis difficult. 09/25/2022 Comfortable, some abdominal pain, no nausea, no vomiting. IV Zosyn for elevated WBC, on TPN, continue NG suction. 09/26/2022 Doing better, incision site pain. 09/27/2022 Looks well, small bowel movement, passed flatus. NG out, Salas out. Continue TPN, sips of clears. 09/28/2022 Doing well, passing flatus. 09/29/2022 Coughing, increase nutrition, wean TPN. 09/30/2022 Walking tolerating diet. Continue Zosyn for now. 10/01/2022 Feeling better, multiple walks, passing flatus, having bowel movements, urinating. Regular diet. 10/02/2022 Venofer, iron po, vitamin C for iron deficiency anemia. 10/03/2022 Wound VAC to abdominal incision wound. 10/03/2022 Admit to TCU with debiliy, here for rehabilitation, strengthening, prior to discharge home alone. [facility] Medical History Arthritis BCC (basal cell carcinoma of skin) CKD (chronic kidney disease) stage 3, GFR 30-59 ml/min Dyslipidemia Forehead abrasion GERD (gastroesophageal reflux disease) Guaiac positive stools HTN (hypertension) Hypercholesteremia Hypophosphatemia Left elbow contusion Menieres disease SBO (small bowel obstruction) Scoliosis Skin tear of left elbow without complication Home Medications amlodipine 10 mg tablet 10 mg PO DAILY BP 09/17/16 [History Last Taken 03/15/20] atorvastatin 20 mg tablet 20 mg PO DAILY CHOLESTEROL 09/17/16 [History Last Taken 03/15/20] denosumab 60 mg/mL subcutaneous syringe (Prolia) 60 mg subcut [id number] BONES 01/25/20 [History Last Taken 1 Month Ago ~02/14/20] losartan 100 mg tablet 100 mg PO DAILY BP 01/25/20 [History Last Taken 03/15/20] multivitamin 1 tab PO DAILY SUPPLEMENT 01/25/20 [History Last Taken 03/15/20] psyllium husk 0.52 gram capsule 0.52 g PO DAILY CONSTIPATION 01/25/20 [History Last Taken 03/15/20] cholecalciferol (vitamin D3) 50 mcg (2,000 unit) capsule 2,000 unit PO DAILY SUPPLEMENT 03/15/20 [History Last Taken 03/15/20] zinc amino acid chelate 50 mg tablet 50 mg PO DAILY SUPPLEMENT 03/15/20 [History Last Taken 03/15/20] flaxseed oil 1,000 mg capsule (Ross-3 Flaxseed Oil) 1,000 mg PO DAILY Suppl ement 02/27/22 [History Last Taken Unknown] carbidopa 25 mg-levodopa 100 mg tablet (Sinemet) 1 tab PO TID Check with primary doctor 09/19/22 [History Last Taken Unknown] pantoprazole 20 mg tablet,delayed release 20 mg PO DAILY gerd 09/19/22 [History Last Taken Unknown] acetaminophen 325 mg tablet (Tylenol) 650 mg PO Q6H PRN PRN Pain Score 1-5 #0 tabs 10/02/22 [Rx Last Taken Unknown] ascorbic acid (vitamin C) 1,000 mg tablet (Vitamin C) 2 g PO TID Supplement 10/02/22 [History Last Taken Unknown] ferrous sulfate 325 mg (65 mg iron) tablet (iron) 325 mg PO TID Supplement 10/02/22 [History Last Taken Unknown] Allergy/AdvReac Type Severity Reaction Status Date / Time KIDNEY MEDICINE Allergy Hives Uncoded 09/19/22 15:51 Family History Father Hypertension Cancer Mother Hypertension Cancer Arthritis Surgical History History of colonoscopy (~09/2019) History of tonsillectomy s/p exploratory laparoscopy S/P hysterectomy s/p vein strippling Status post laparotomy Social History (Updated 10/02/22 @ 20:[address] Iain Pulido MD) household members: none Smoking Status: Former smoker second hand exposure: No alcohol intake: current alcohol intake frequency: a few times a month Alcohol type: wine details: rarely substance use type: does not use what type of physical activity do you participate in: other frequency: 3-4 times per week morena/hinduism: Mandaen seatbelt use: always ROS Constitutional Constitutional: Denies chills, fever(s) or weight gain ENT HEENT: Denies headache(s), nasal congestion or nasal discharge Cardiovascular Cardiovascular: Denies chest pain or palpitations Respiratory/Chest Respiratory/Chest: Denies cough, excessive phlegm production or shortness of breath with exertion Gastrointestinal Gastrointestinal: Denies abdominal pain, nausea or vomiting Genitourinary Genitourinary: Denies dysuria Musculoskeletal Musculoskeletal: Denies joint pain or joint swelling Integumentary Integumentary: Denies rash or wounds Neurologic Neurologic: Denies focal weakness, numbness or tingling Psychiatric Psychiatric: Denies anxiety, auditory hallucinations, depression, homicidal ideation or suicidal ideation Vital Signs Vital Signs Vital Signs: 10/02/22 15:11 10/02/22 16:29 Temperature 96.9 F L Temperature Source Temporal Pulse Rate 92 90 Pulse Rhythm Regular Pulse Strength Normal (2+) Respiratory Rate 18 16 Respiratory Effort Normal Non-Labored Respiratory Depth Normal Respiratory Pattern Normal Blood Pressure 138/50 H Blood Pressure Mean 79 Blood Pressure Source Monitor Blood Pressure Position Semi-Fowlers Blood Pressure Location Left Arm Pulse Ox 98 99 Oxygen Delivery Method Room Air Room Air Weight Weight: 53.297 kg Body Mass Index (BMI) 22.1 Physical Exam Const alert General Appearance: cooperative HEENT normocephalic Eyes PERRL and EOMs intact bilaterally Neck supple, no JVD and no carotid bruits Resp normal respiratory effort, normal air movement and clear to auscultation bilaterally Cardio regular rate and regular rhythm GI normal to inspection, nondistended, normoactive bowel sounds, non-tender and non-distended GI Narrative: Abdominal incision, wound VAC in place. Extremity normal capillary refill General Extremity: Negative for edema Skin no rashes or lesions noted General Skin Exam: no breakdown Psych affect normal Appearance: appropriate Assessment & Plan Assessment/Plan (1) Debility: (2) Abdominal pain: (3) Small bowel obstruction: (4) Status post laparotomy: (5) Iron deficiency anemia: (6) Hypertension: (7) Hyperlipidemia: (8) Osteoporosis: (9) GERD (gastroesophageal reflux disease): (10) Parkinson disease: PLAN: Plan 86 year old female with below past medical history hospitalized for small bowel obstruction, underwent open laparotomy with small bowel resection 09/23/[address] Lewis, admitted to TCU with debility, here for rehabilitation, strengthening, prior to discharge home alone. * Debility - PT/OT. * Pain - Tylenol 1000mg q6h prn pain (1-10). * Bowel - Metamucil 1 packet daily, senna/colace 1 tablet bid, MOM 30ml po x 1 prn. * Adult immunization - Administer pneumonia vaccine, covid19 vaccine, flu vaccine as appropriate. * DVT prophylaxis - Hold, anemia. * Small bowel obstruction status post open laparotomy with small bowel resection - Consult Zoya Asher to follow. * Hypertension - Losartan 100mg daily, Amlodipine 10mg daily. * Iron deficiency anemia - Ferrous sulfate 325mg tidcm, Vitamin C 2000mg po tid. * Hyperlipidemia - Atorvastatin 20mg qhs. * Parkinson Disease - Sinemet 25/100mg tid. * Nutrition - Ensure Plus 120ml po 4x/day, MVI daily. * GERD - Pantoprazole 20mg daily. * Vitamin D deficiency - D3 50mcg daily. * Zinc deficiency - Zinc 220mg daily.
[2022-10-02] MEDS: Atorvastatin Calcium 20 MG Tablet PO (20:23)
[2022-10-02] MEDS: Carbidopa/Levodopa 25/100 Tablet PO (20:23)
[2022-10-02] MEDS: Ascorbic Acid 500 MG Tablet 2000 MG PO (20:23)
[2022-10-03 05:59] LABS: Hematocrit 26.7 % (37-47); Hemoglobin 8.8 g/dL (12.0-15.0); Mean Corpuscular Hgb 29.9 pg (27.0-32.0); Mean Corpuscular Volume 90.8 fL (81-99); Mean Platelet Vol. 11.7 fl (6.2-12.0); POSITIVE COUNT YES; POSITIVE MORPHOLOGY YES; Platelet Count 357 K/mm3 (150-450); RBC Distribution Width SD 42.7 fl (35.1-43.9); Red Blood Count 2.94 M/mm3 (4.2-5.4); White Blood Count 9.5 K/mm3 (4.4-11.0)
[2022-10-03 06:02] LABS: Differential Indicated MANUAL DIFF
[2022-10-03] MEDS: Carbidopa/Levodopa 25/100 Tablet PO ×3 (06:21→22:38)
[2022-10-03] MEDS: amLODIPine 10 MG Tablet PO (06:21)
[2022-10-03] MEDS: Pantoprazole Sodium 20 MG Tablet PO (06:21)
[2022-10-03] MEDS: Cholecalciferol (VIT D3) 25 MCG TABLET (1,000 UNITS) 50 MCG PO (06:21)
[2022-10-03] MEDS: Ensure Plus High Protein 120 ML LIQUID PO ×4 (06:21→22:36)
[2022-10-03] MEDS: Ascorbic Acid 500 MG Tablet 2000 MG PO ×3 (06:21→22:38)
[2022-10-03] MEDS: Psyllium 1 PACKET PO (06:21)
[2022-10-03] MEDS: Losartan Potassium 100 MG Tablet PO (06:21)
[2022-10-03 06:24] LABS: Neutrophil-Segmented 79 % (47-70); Total Cells Counted 100 (MANUAL DIFF)
[2022-10-03 06:25] LABS: Absolute Neutrophil Count 7.6 X10^3/uL (2.0-7.7); Anion Gap 7 (5-15); BUN 33 mg/dL (7-18); BUN/Creat Ratio 36.3 RATIO (10-20); Calcium,Total 8.6 mg/dL (8.5-10.1); Chloride 118 mmol/L (98-107); Creatinine, Serum 0.91 mg/dL (0.55-1.02); EST Glomerular Filtration Rate 62 mL/min (>60); Eosinophil 2 % (0-5); Est Glom Filt Rate - Afr Amer 75 mL/min (>60); Estimated Creatinine Clearance 34.11 ml/min; Glucose 96 mg/dL (74-106); Lymphocyte 7 % (19-41); Metamyelocyte 2 % (0-1); Monocyte 4 % (0-10); Myelocyte 5 % (0-0); Neutrophil-Band 1 % (0-5); Platelet Estimate ADEQUATE (ADEQ); Potassium 4.7 mmol/L (3.5-5.1); Red Cell Morphology NORM C+C NORMAL (NORM C&C); Sodium Level 146 mmol/L (136-145)
[2022-10-03 06:26] LABS: Absolute Lymphocyte Count 0.67 X10^3/uL (0.83-4.51); Lymphocyte # 0.67 X10^3/ul (0.83-4.51)
[2022-10-03] MEDS: Ferrous Sulfate 325 MG Tablet PO ×3 (08:45→17:06)
[2022-10-03] MEDS: Multivitamins,Therapeutic Tablet 1 TABLET PO (08:45)
[2022-10-03] MEDS: Tuberculin,Purif.prot.deriv. 50 TU/ML Vial 0.1 ML ID (11:26)
--- NOTE | 2022-10-03 11:34 | NURSING ---
Drop Wire Aligner Note; Activity Asset: Zoran Capps is independent in her choice of daily activities. G[facility]nesis attend [employer] [facility] a week for exercise class and enjoys spending time w/her friends. She works on word puzzles and reads just about anything. Her family visits w/her daily or she will talk w/them daily. Génesis also enjoys attending restorationism when she can.
[2022-10-03 12:44] LABS: Pathologist Review Reviewed
--- NOTE | 2022-10-03 14:50 | WOUNDNOTE ---
wound photo: abdomen
[2022-10-03] MEDS: Acetaminophen 500 MG Tablet 1000 MG PO ×2 (15:58→22:43)
[2022-10-03 16:00] VITALS: BP 117/50; PULSE 85; RESP 16; TEMP 37.1; O2SAT 97
[2022-10-03] MEDS: Senna/Docusate Sodium 1 Tablet PO (17:06)
[2022-10-03] MEDS: 0.9% Saline Lock 10 ML Syringe IV (17:07)
--- NOTE | 2022-10-03 17:14 | CASEMGMT ---
Social Work Met with patient to complete initial assessment. Introduced self and role. Son present in room. Pt agreeable to have son present for assessment. Discussed code status and MOLST form. Pt confirmed DNR-CCA, no intubation. MOLST placed in Dr folder. Educated to Medicare benefit. Encouraged to contact secondary insurance to ensure copay coverage. Pt's goal is to return home alone. However, pt has 7 steps to enter home and a flight of steps to bedroom and bathroom. There is no half bath on first floor, but pt has BSC, although doesn't use it. SW suggested using BSC on first floor during the day for bathroom use. Son will move BSC into living room. Son is returning to home in [place] on 10/04, but is still reachable. Dtr lives in [place] and works multimedia instructional designer. SW to continue to follow for DC planning. Marilee Veloz, ALYSA RAMOSW
[2022-10-03] MEDS: Atorvastatin Calcium 20 MG Tablet PO (22:38)
[2022-10-03 23:30] VITALS: PULSE 78; RESP 16; O2SAT 97
[2022-10-04] MEDS: Ensure Plus High Protein 120 ML LIQUID PO ×3 (05:16→13:26)
[2022-10-04] MEDS: Acetaminophen 500 MG Tablet 1000 MG PO ×3 (05:16→20:57)
[2022-10-04] MEDS: Psyllium 1 PACKET PO (05:16)
[2022-10-04] MEDS: Senna/Docusate Sodium 1 Tablet PO ×2 (05:17→17:09)
[2022-10-04] MEDS: Carbidopa/Levodopa 25/100 Tablet PO ×3 (05:17→20:56)
[2022-10-04] MEDS: Pantoprazole Sodium 20 MG Tablet PO (05:17)
[2022-10-04] MEDS: Cholecalciferol (VIT D3) 25 MCG TABLET (1,000 UNITS) 50 MCG PO (05:17)
[2022-10-04] MEDS: Ascorbic Acid 500 MG Tablet 2000 MG PO ×3 (05:17→20:56)
[2022-10-04] MEDS: Losartan Potassium 100 MG Tablet PO (05:17)
[2022-10-04] MEDS: amLODIPine 10 MG Tablet PO (05:17)
[2022-10-04] MEDS: Ferrous Sulfate 325 MG Tablet PO ×3 (08:59→17:08)
[2022-10-04] MEDS: Multivitamins,Therapeutic Tablet 1 TABLET PO (09:00)
[2022-10-04] MEDS: 0.9% Saline Lock 10 ML Syringe IV (15:16)
[2022-10-04 15:55] VITALS: BP 100/35; PULSE 86; RESP 14; TEMP 36.6; O2SAT 97
[2022-10-04] MEDS: Atorvastatin Calcium 20 MG Tablet PO (20:56)
[2022-10-04 21:02] VITALS: PULSE 80; RESP 14; O2SAT 96
[2022-10-05 05:20] VITALS: BP 120/46; PULSE 85
[2022-10-05] MEDS: Senna/Docusate Sodium 1 Tablet PO ×2 (05:21→17:11)
[2022-10-05] MEDS: Cholecalciferol (VIT D3) 25 MCG TABLET (1,000 UNITS) 50 MCG PO (05:21)
[2022-10-05] MEDS: Ascorbic Acid 500 MG Tablet 2000 MG PO ×3 (05:21→20:31)
[2022-10-05] MEDS: Losartan Potassium 100 MG Tablet PO (05:22)
[2022-10-05] MEDS: Psyllium 1 PACKET PO (05:22)
[2022-10-05] MEDS: Carbidopa/Levodopa 25/100 Tablet PO ×3 (05:22→20:36)
[2022-10-05] MEDS: amLODIPine 10 MG Tablet PO (05:22)
[2022-10-05] MEDS: Acetaminophen 500 MG Tablet 1000 MG PO ×3 (05:22→20:33)
[2022-10-05] MEDS: Pantoprazole Sodium 20 MG Tablet PO (05:22)
[2022-10-05] MEDS: 0.9% Saline Lock 10 ML Syringe IV ×2 (05:26→17:53)
[2022-10-05] MEDS: Multivitamins,Therapeutic Tablet 1 TABLET PO (07:55)
[2022-10-05] MEDS: Ferrous Sulfate 325 MG Tablet PO ×3 (07:55→17:11)
[2022-10-05 14:56] VITALS: BP 91/55; PULSE 85; RESP 16; TEMP 36.6; O2SAT 96
[2022-10-05] MEDS: Atorvastatin Calcium 20 MG Tablet PO (20:36)
[2022-10-06] MEDS: Psyllium 1 PACKET PO (04:54)
[2022-10-06] MEDS: Ascorbic Acid 500 MG Tablet 2000 MG PO ×3 (04:55→20:39)
[2022-10-06] MEDS: Cholecalciferol (VIT D3) 25 MCG TABLET (1,000 UNITS) 50 MCG PO (04:55)
[2022-10-06] MEDS: Acetaminophen 500 MG Tablet 1000 MG PO ×3 (04:55→20:40)
[2022-10-06] MEDS: Senna/Docusate Sodium 1 Tablet PO (04:56)
[2022-10-06] MEDS: Carbidopa/Levodopa 25/100 Tablet PO ×3 (04:56→20:39)
[2022-10-06] MEDS: Losartan Potassium 100 MG Tablet PO (04:56)
[2022-10-06] MEDS: amLODIPine 10 MG Tablet PO (04:56)
[2022-10-06] MEDS: Pantoprazole Sodium 20 MG Tablet PO (04:56)
[2022-10-06] MEDS: Menthol/Lanolin/Calamine/Znox 113 GM Tube 1 APPLIC TOPICAL ×2 (05:01→17:40)
[2022-10-06] MEDS: 0.9% Saline Lock 10 ML Syringe IV (05:14)
[2022-10-06 05:20] VITALS: BP 117/51; PULSE 84
[2022-10-06] MEDS: Ferrous Sulfate 325 MG Tablet PO ×3 (08:00→17:39)
[2022-10-06] MEDS: Multivitamins,Therapeutic Tablet 1 TABLET PO (08:00)
--- NOTE | 2022-10-06 10:14 | NURSING ---
Resident agreed to receive the covid booster and educational pamphlet provided.
--- NOTE | 2022-10-06 10:37 | WOUNDNOTE ---
wound photo: abdomen
--- NOTE | 2022-10-06 10:38 | WOUNDNOTE ---
Addendum entered by Rosalba Crabtree 10/06/22 10:40: right mid back. see skin photo Original Note: Pt had an area of redness noted to the left mid back. the redness does lorenzo. applied a Mepilex dressing for padding and protection. will monitor.
--- NOTE | 2022-10-06 10:39 | WOUNDNOTE ---
skin photo: back
--- NOTE | 2022-10-06 11:04 | PCM.PN.DRR ---
TCU RX Drug Regimen Review Subjective: TCU Admission. 86 YOF presented to the ER with abdominal pain. Hospitalized for small bowel obstruction, underwent open laparotomy with small bowel resection 09/23/[address] Lewis. Admitted to TCU with debility for strengthening and rehabilitation. Objective: Allergies KIDNEY MEDICINE Allergy (Uncoded 09/19/22 15:51) Hives Current Medications Generic Name Dose Route Start Last Admin Trade Name Freq PRN Reason Stop Dose Admin Acetaminophen 1,000 mg 10/03/22 22:00 10/06/22 04:55 Acetaminophen 500 Mg Tablet PO 1,000 mg Q8 RAYMUNDO Administration Amlodipine Besylate 10 mg 10/03/22 06:00 10/06/22 04:56 Amlodipine 10 Mg Tablet PO 10 mg DAILY RAYMUNDO Administration Ascorbic Acid 2,000 mg 10/02/22 22:00 10/06/22 04:55 Ascorbic Acid 500 Mg Tablet PO 2,000 mg TID RAYMUNDO Administration Atorvastatin Calcium 20 mg 10/02/22 22:00 10/05/22 20:36 Atorvastatin Calcium 20 Mg Tablet PO 20 mg QHS RAYMUNDO Administration COVID-19 Vaccine mRNA LNP-S (MOD) (PF) 50 mcg 10/07/22 11:00 Covid-19 Bv Moderna Booster 50 Mcg/0.5 Ml Syringe IM 10/07/22 11:01 .ONCE ONE Calamine/Phenol 1 applic 10/06/22 06:00 10/06/22 05:01 Menthol/Lanolin/Calamine/Znox 113 Gm Tube TOPICAL 1 applic BID RAYMUNDO Administration Protocol Carbidopa/Levodopa 1 tablet 10/02/22 22:00 10/06/22 04:56 Carbidopa/Levodopa 25/100 Tablet PO 1 tablet 0600,1430,2200 RAYMUNDO Administration Cholecalciferol 50 mcg 10/03/22 06:00 10/06/22 04:55 Cholecalciferol (Vit D3) 25 Mcg Tablet (1,000 Units) PO 50 mcg DAILY RAYMUNDO Administration Ferrous Sulfate 325 mg 10/02/22 17:45 10/06/22 08:00 Ferrous Sulfate 325 Mg Tablet PO 325 mg TIDCM RAYMUNDO Administration Losartan Potassium 100 mg 10/03/22 06:00 10/06/22 04:56 Losartan Potassium 100 Mg Tablet PO 100 mg DAILY RAYMUNDO Administration Magnesium Hydroxide 30 ml 10/02/22 20:27 Magnesium Hydroxide 30 Ml Udc PO X1 PRN Constipation Multivitamins 1 tablet 10/03/22 08:00 10/06/22 08:00 Multivitamins,Therapeutic Tablet PO 1 tablet DAILYCM RAYMUNDO Administration Pantoprazole Sodium 20 mg 10/03/22 06:00 10/06/22 04:56 Pantoprazole Sodium 20 Mg Tablet PO 20 mg DAILY RAYMUNDO Administration Psyllium Hydrophilic Mucilloid 1 packet 10/03/22 06:00 10/06/22 04:54 Psyllium 1 Packet PO 1 packet DAILY RAYMUNDO Administration Senna/Docusate Sodium 1 tablet 10/03/22 06:00 10/06/22 04:56 Senna/Docusate Sodium 1 Tablet PO 1 tablet BID RAYMUNDO Administration Sodium Chloride 10 - 40 ml 10/02/22 15:27 10/06/22 05:14 0.9% Saline Lock 10 Ml Syringe IV 20 ml UD PRN Administration SALINE FLUSH Tuberculin PPD 0.1 ml 10/10/22 10:00 Tuberculin,Purif.Prot.Deriv. 50 Tu/Ml Vial ID 10/10/22 10:01 X1 ONE Zinc Sulfate 220 mg 10/03/22 06:00 10/06/22 04:57 Zinc Sulfate (50mg Elemental) 220 Mg Capsule PO 220 mg DAILY RAYMUNDO Administration Problem List (Last Reviewed 10/02/22 @ 20:[address] Iain Pulido MD) Parkinson disease (Acute) GERD (gastroesophageal reflux disease) (Acute) Osteoporosis (Acute) Hyperlipidemia (Acute) Hypertension (Chronic) Iron deficiency anemia (Acute) Small bowel obstruction (Acute) Abdominal pain (Acute) Debility (Acute) Status post laparotomy (Acute) Vital Signs Temp Pulse Resp BP Pulse Ox O2 Del Method 97.9 F 84 16 117/51 L 96 Room Air 10/05/22 14:56 10/06/22 05:20 10/05/22 14:56 10/06/22 05:20 10/05/22 14:56 10/05/22 14:56 Oxygen Delivery Method Room Air Weight: 51.982 kg Body Mass Index (BMI) 22.1 Sodium 146 mmol/L (136-145) H 10/03/22 05:28 Potassium 4.7 mmol/L (3.5-5.1) 10/03/22 05:28 Chloride 118 mmol/L (98-107) H 10/03/22 05:28 Carbon Dioxide 21.0 mmol/L (21.0-32.0) 10/03/22 05:28 Anion Gap 7 (5-15) 10/03/22 05:28 BUN 33 mg/dL (7-18) H 10/03/22 05:28 Creatinine 0.91 mg/dL (0.55-1.02) 10/03/22 05:28 Est GFR (MDRD) Af Amer 75 mL/min (>60) 10/03/22 05:28 Est GFR (MDRD) Non-Af 62 mL/min (>60) 10/03/22 05:28 BUN/Creatinine Ratio 36.3 RATIO (10-20) H 10/03/22 05:28 Glucose 96 mg/dL (74-106) 10/03/22 05:28 Assessment/Plan: 1. Pain: acetaminophen 1000mg PO Q8. Please continue to monitor for increased pain. 2. Bowel: psyllium 1 packet PO daily, senna/docusate 1T PO BID and MOM 30mL PO x1 PRN constipation. Resident has not had any PRN doses. Please continue to monitor for constipation and PRN usage. Last documented bowel movement 10/05/22. 3. Hypertension: losartan 100mg PO daily and amlodipine 10mg PO daily. Please continue to monitor BP (last 117/51), renal function, potassium (last 4.7mmol/L) and swelling. 4. Iron deficiency anemia: ferrous sulfate 325mg PO TIDCM and ascorbic acid 2000mg PO TID. Please continue to monitor hemoglobin (last 8.8g/dL), constipation and dark stools. 5. Hyperlipidemia: atorvastatin 20mg PO QHS. Please consider ordering a lipid panel if clinically appropriate. Last panel from 10/19/19. Thanks. Please continue to monitor LFTs (last 10/01/22) and muscle pain. 6. Parkinson disease: Sinemet 25/100mg PO TID. Please continue to monitor for dyskinesias, constipation, hypotension and dizziness. 7. GERD: pantoprazole 20mg PO daily. Please continue to monitor for S/S of GERD and diarrhea (BEERs medication due to increased risk of C. diff infections). 8. Nutrition/zinc deficiency/vitamin D deficiency: multivitamin 1T PO daily, zinc sulfate 220mg PO daily and cholecalciferol 50mcg PO daily. Please consider ordering a Vitamin D level as the last level in the chart is from 09/10/21. Thanks. Assessment/Plan for indications treated with psychotropic medications: None Medical chart and medication regimen reviewed. The following medication irregularities or issues were identified: *1. Atorvastatin 20mg PO QHS. Please consider ordering a lipid panel if clinically appropriate. Last panel from 10/19/19. Thanks. *2. Cholecalciferol 50mcg PO daily. Please consider ordering a Vitamin D level as the last level in the chart is from 09/10/21. Thanks. Date of Note:: 10/06/22
[2022-10-06 15:55] VITALS: BP 120/42; PULSE 65; RESP 16; TEMP 36.8; O2SAT 99
[2022-10-06 20:30] VITALS: PULSE 88; RESP 16; O2SAT 99
[2022-10-06] MEDS: traMADol 50 MG Tablet PO (20:38)
[2022-10-06 20:40] VITALS: O2SAT 98
[2022-10-06] MEDS: Atorvastatin Calcium 20 MG Tablet PO (20:40)
[2022-10-07 05:17] VITALS: BP 112/50; PULSE 82
[2022-10-07] MEDS: Losartan Potassium 100 MG Tablet PO (05:18)
[2022-10-07] MEDS: Ascorbic Acid 500 MG Tablet 2000 MG PO ×3 (05:18→20:59)
[2022-10-07] MEDS: Carbidopa/Levodopa 25/100 Tablet PO ×3 (05:18→20:59)
[2022-10-07] MEDS: Cholecalciferol (VIT D3) 25 MCG TABLET (1,000 UNITS) 50 MCG PO (05:18)
[2022-10-07] MEDS: amLODIPine 10 MG Tablet PO (05:18)
[2022-10-07] MEDS: Pantoprazole Sodium 20 MG Tablet PO (05:18)
[2022-10-07] MEDS: Psyllium 1 PACKET PO (05:19)
[2022-10-07] MEDS: Acetaminophen 500 MG Tablet 1000 MG PO ×3 (05:21→20:59)
[2022-10-07] MEDS: Menthol/Lanolin/Calamine/Znox 113 GM Tube 1 APPLIC TOPICAL ×2 (05:24→17:08)
[2022-10-07] MEDS: 0.9% Saline Lock 10 ML Syringe IV ×2 (05:25→17:13)
[2022-10-07 06:00] VITALS: BMI 21.7
[2022-10-07] MEDS: Multivitamins,Therapeutic Tablet 1 TABLET PO (08:29)
[2022-10-07] MEDS: Ferrous Sulfate 325 MG Tablet PO ×3 (08:29→17:07)
[2022-10-07 09:28] VITALS: PULSE 76; O2SAT 97
[2022-10-07 14:56] VITALS: BP 111/42; PULSE 83; RESP 18; TEMP 36.2; O2SAT 98
[2022-10-07] MEDS: Atorvastatin Calcium 20 MG Tablet PO (20:59)
[2022-10-08] MEDS: amLODIPine 10 MG Tablet PO (05:39)
[2022-10-08] MEDS: Ascorbic Acid 500 MG Tablet 2000 MG PO ×3 (05:39→20:59)
[2022-10-08] MEDS: Pantoprazole Sodium 20 MG Tablet PO (05:39)
[2022-10-08] MEDS: Acetaminophen 500 MG Tablet 1000 MG PO ×3 (05:39→20:59)
[2022-10-08] MEDS: Cholecalciferol (VIT D3) 25 MCG TABLET (1,000 UNITS) 50 MCG PO (05:40)
[2022-10-08] MEDS: Psyllium 1 PACKET PO (05:40)
[2022-10-08] MEDS: Senna/Docusate Sodium 1 Tablet PO (05:40)
[2022-10-08] MEDS: Carbidopa/Levodopa 25/100 Tablet PO ×3 (05:40→20:59)
[2022-10-08] MEDS: 0.9% Saline Lock 10 ML Syringe IV ×3 (05:41→22:00)
[2022-10-08] MEDS: Menthol/Lanolin/Calamine/Znox 113 GM Tube 1 APPLIC TOPICAL ×2 (05:42→13:42)
[2022-10-08 06:00] VITALS: BMI 21.3
[2022-10-08] MEDS: Ferrous Sulfate 325 MG Tablet PO ×3 (08:58→18:08)
[2022-10-08] MEDS: Losartan Potassium 100 MG Tablet PO (08:58)
[2022-10-08] MEDS: Multivitamins,Therapeutic Tablet 1 TABLET PO (08:58)
--- NOTE | 2022-10-08 09:20 | CASEMGMT ---
Social Work IDT met with patient and dtr for care plan meeting. Discussed patient's progress in PT/OT/ST/SN. Educated to Medicare benefit. Encouraged to contact secondary insurance to ensure copay coverage. Pt having poor appetite and agreeable to starting appetite stimulant if Dr agrees. Pt's goal is to return home alone. Dtr lives out of town and works time recorder. Pt's son lives out of the country during the winter months. Pt will need to be safe at home alone to DC. SW offered options to assist pt at home, such as nonskilled HHC, home delivered meals, transportation. Resources provided to pt and emailed to dtr, per dtr request. Pt has a life alert. Dtr is scheduled to complete therapy training this weekend and can assist with laundry during weekend visits. Brainstormed options for pt to not complete the steep steps to the basement. SW to coordinate skilled HHC or DME needs at time of DC. SW to continue to follow. ALYSA UreñaW
--- NOTE | 2022-10-08 14:46 | CHAPLAIN ---
Type of Pastoral Visit _x__ Initial Visit ___ Follow-up Visit ___ On-call Visit ___ General Patient Visit ___ Spiritual Assessment ___ Family Conference ___ Bereavement ___ Rapid Response ___ Code Blue ___ Other (describe below) Pastoral Care Referral From _x__ Patient ___ Family ___ Nurse ___ Physician ___ Warper Creeler ___ Submersible Pilot ___ Other (describe below) Sacrament/Intervention _x__ Active listening ___ Anointing ___ Uatsdin ___ Bereavement ___ Communion ___ Edilia exploration ___ _x__ Life review _x__ Prayer ___ Reconciliation ___ Sacrament of Sick _x__ Supportive presence ___ Wedding ___ Other (describe below) Pastoral Comments patient expresses thankfulness for visit and offer of spiritual care; pt gives some life review and her explanation of involvement in her Bahai latter day; pt is talkative and inquisitive about life; pt has a daughter in the area that can give support too
[2022-10-08 16:00] VITALS: BP 131/72; PULSE 69; RESP 17; TEMP 36.7; O2SAT 97
--- NOTE | 2022-10-08 17:04 | RAD_ITS ---
STUDY: X-RAY - ABDOMEN/PELVIS REASON FOR EXAM: Female, 86 years old. Diarrhea status post small bowel obstruction. TECHNIQUE: Two AP supine views of the abdomen and pelvis. COMPARISON: CT September 26, 2022 FINDINGS: Normal visualized lung bases. There are dilated loops of small bowel in the left mid and lower abdomen. There is no demonstrated free abdominal air. There is catheter overlying the lower abdomen and pelvis. Normal soft tissue structures. There is dextroscoliosis with degenerative change of the spine. RAD/Abdomen Single View IMPRESSION: Dilated loops of small bowel with ileus versus obstruction. Electronically Signed: Azael Salgado MD at 19:01 EST ,
--- NOTE | 2022-10-08 19:32 | NURSING ---
Addendum entered by Duarte Avilez 10/08/22 19:56: Dr.Calabretta alexandre, animated cartoons painter discussed KUB results and patient complaint of frequent diarrhea, no complaint of nausea or vomiting at this time. New orders received: 1. Labs: CBC with diff/BMP , Mag & Phos, send enteric pathogen stool 2.NPO except Ice chips, may take medications Orders repeated back to Dr. Velasquez, Dr. Lewis to be updated by Dr. Velasquez Original Note: Contacted Dr. Pulido regarding KUB results, verbal order received to contacted general surgery for further orders.
[2022-10-08 20:29] LABS: Absolute Lymphocyte Count 1.19 X10^3/uL (0.83-4.51); Absolute Neutrophil Count 6.4 X10^3/uL (2.0-7.7); Basophil# 0.06 X10^3/uL; Basophil% 0.7 % (0-1); Eosinophil# 0.29 X10^3/uL; Eosinophils% 3.2 % (0-5); Hematocrit 26.9 % (37-47); Hemoglobin 8.5 g/dL (12.0-15.0); Lymphocyte # 1.19 X10^3/ul (0.83-4.51); Lymphocyte % 13.2 % (19-41); Mean Corp Hgb Conc 31.6 g/dL (32-36); Mean Corpuscular Volume 95.1 fL (81-99); Mean Platelet Vol. 10.5 fl (6.2-12.0); Monocyte# 1.01 X10^3/uL; Monocyte% 11.2 % (0-10); NRBC Flagged by Analyzer 0 % (0-5); Neutrophil # 6.36 X10^3/uL (2.7-7.7); Neutrophil % 70.8 % (47-70); Platelet Count 453 K/mm3 (150-450); RBC Distribution Width CV 13.7 % (11.6-14.6); RBC Distribution Width SD 46.9 fl (35.1-43.9); Red Blood Count 2.83 M/mm3 (4.2-5.4)
[2022-10-08 20:54] LABS: BUN 47 mg/dL (7-18); Creatinine, Serum 1.04 mg/dL (0.55-1.02); Glucose 126 mg/dL (74-106)
[2022-10-08 20:55] LABS: Anion Gap 8 (5-15); BUN/Creat Ratio 45.2 RATIO (10-20); Calcium,Total 8.7 mg/dL (8.5-10.1); Chloride 116 mmol/L (98-107); EST Glomerular Filtration Rate 53 mL/min (>60); Est Glom Filt Rate - Afr Amer 65 mL/min (>60); Estimated Creatinine Clearance 29.84 ml/min; Magnesium 1.9 mg/dL (1.6-2.6); Potassium 3.6 mmol/L (3.5-5.1); Sodium Level 145 mmol/L (136-145)
[2022-10-08] MEDS: Atorvastatin Calcium 20 MG Tablet PO (20:59)
[2022-10-08 21:00] VITALS: TEMP 37
[2022-10-08] MEDS: Mirtazapine 15 MG Tablet 7.5 MG PO (21:01)
--- NOTE | 2022-10-08 21:27 | NURSING ---
received phone call from Dr. Velasquez, verbal orders received at this time: 1. half normal saline IV at 100mL/hr 2.CBC with diff, bmp, mag and phos labs in AM 3. 20meq Potassium chloride oral x1 now all orders repeated back to Dr. Velasquez
[2022-10-08] MEDS: Potassium Chloride Oral Tablet 20 MEQ PO (21:59)
[2022-10-08] MEDS: 0.45% Normal Saline 1,000 ML 100 ML IV (22:00)
[2022-10-08 23:11] VITALS: BP 110/50; PULSE 80; RESP 16; TEMP 36.8
[2022-10-09] MEDS: Pantoprazole Sodium 20 MG Tablet PO (05:47)
[2022-10-09] MEDS: Cholecalciferol (VIT D3) 25 MCG TABLET (1,000 UNITS) 50 MCG PO (05:47)
[2022-10-09] MEDS: Ascorbic Acid 500 MG Tablet 2000 MG PO ×3 (05:48→20:27)
[2022-10-09] MEDS: Carbidopa/Levodopa 25/100 Tablet PO ×3 (05:48→20:27)
[2022-10-09] MEDS: Acetaminophen 500 MG Tablet 1000 MG PO ×3 (05:49→20:27)
[2022-10-09 05:50] LABS: Absolute Lymphocyte Count 1.33 X10^3/uL (0.83-4.51); Absolute Neutrophil Count 3.7 X10^3/uL (2.0-7.7); Basophil# 0.04 X10^3/uL; Basophil% 0.6 % (0-1); Eosinophil# 0.34 X10^3/uL; Eosinophils% 5.5 % (0-5); Hematocrit 24.6 % (37-47); Hemoglobin 7.6 g/dL (12.0-15.0); Lymphocyte # 1.33 X10^3/ul (0.83-4.51); Lymphocyte % 21.5 % (19-41); Mean Corp Hgb Conc 30.9 g/dL (32-36); Mean Corpuscular Hgb 29.1 pg (27.0-32.0); Mean Corpuscular Volume 94.3 fL (81-99); Monocyte# 0.75 X10^3/uL; Monocyte% 12.1 % (0-10); NRBC Flagged by Analyzer 0 % (0-5); Neutrophil # 3.67 X10^3/uL (2.7-7.7); Neutrophil % 59.3 % (47-70); Platelet Count 366 K/mm3 (150-450); RBC Distribution Width CV 13.5 % (11.6-14.6); RBC Distribution Width SD 46.3 fl (35.1-43.9); Red Blood Count 2.61 M/mm3 (4.2-5.4); White Blood Count 6.2 K/mm3 (4.4-11.0)
[2022-10-09] MEDS: Menthol/Lanolin/Calamine/Znox 113 GM Tube 1 APPLIC TOPICAL ×2 (05:50→16:20)
[2022-10-09] MEDS: amLODIPine 10 MG Tablet PO (05:56)
[2022-10-09 06:01] VITALS: BP 122/55; PULSE 81; RESP 16; TEMP 37.1; O2SAT 98
[2022-10-09 06:19] LABS: Anion Gap 5 (5-15); BUN 41 mg/dL (7-18); BUN/Creat Ratio 46.5 RATIO (10-20); Calcium,Total 8.4 mg/dL (8.5-10.1); Chloride 120 mmol/L (98-107); Creatinine, Serum 0.88 mg/dL (0.55-1.02); EST Glomerular Filtration Rate 65 mL/min (>60); Est Glom Filt Rate - Afr Amer 78 mL/min (>60); Estimated Creatinine Clearance 35.27 ml/min; Glucose 98 mg/dL (74-106); Phosphorus 2.9 mg/dL (2.5-4.9); Potassium 3.9 mmol/L (3.5-5.1); Sodium Level 147 mmol/L (136-145)
--- NOTE | 2022-10-09 06:30 | NURSING ---
on unit to see patient at this time. Verbal order received to hold senna this date, resume diet prior to NPO status, stop IV fluids, no need for further treatment at this time.
[2022-10-09] MEDS: 0.9% Saline Lock 10 ML Syringe IV (06:44)
[2022-10-09] MEDS: Ferrous Sulfate 325 MG Tablet PO ×3 (09:04→20:24)
[2022-10-09] MEDS: Multivitamins,Therapeutic Tablet 1 TABLET PO (09:04)
[2022-10-09 09:06] VITALS: BP 103/38; PULSE 81
--- NOTE | 2022-10-09 09:22 | PN_ITS ---
Progress Note I was called due to diarrhea. The patient denies any abdominal pain or nausea or vomiting and has been tolerating a diet. Stool studies were ordered overnight. Her abdomen is soft and nontender this morning. I will resume her diet and hold the senna for the day. Enteric pathogen pending. The KUB showed possible ileus but I believe her bowel is residually distended from obstruction as her colon looks normal and it does not appear that she has an ileus clinically. Leif Lewis MD Pager: [facility] [address] [place] [address] [address] [place] [address] Office:
--- NOTE | 2022-10-09 11:19 | NURSING ---
Pt off unit for blood transfusion
[2022-10-09 16:00] VITALS: BP 123/55; PULSE 84; RESP 17; TEMP 36.9; O2SAT 97
[2022-10-09] MEDS: Atorvastatin Calcium 20 MG Tablet PO (20:26)
[2022-10-09] MEDS: Mirtazapine 15 MG Tablet 7.5 MG PO (20:26)
[2022-10-10 05:55] LABS: Absolute Lymphocyte Count 1.28 X10^3/uL (0.83-4.51); Absolute Neutrophil Count 4.8 X10^3/uL (2.0-7.7); Basophil# 0.09 X10^3/uL; Basophil% 1.2 % (0-1); Eosinophil# 0.43 X10^3/uL; Eosinophils% 5.6 % (0-5); Hematocrit 35.2 % (37-47); Hemoglobin 11.3 g/dL (12.0-15.0); Lymphocyte # 1.28 X10^3/ul (0.83-4.51); Lymphocyte % 16.7 % (19-41); Mean Corp Hgb Conc 32.1 g/dL (32-36); Mean Corpuscular Hgb 29.4 pg (27.0-32.0); Mean Corpuscular Volume 91.7 fL (81-99); Mean Platelet Vol. 10.4 fl (6.2-12.0); Monocyte# 0.97 X10^3/uL; Monocyte% 12.6 % (0-10); NRBC Flagged by Analyzer 0 % (0-5); Neutrophil # 4.83 X10^3/uL (2.7-7.7); Neutrophil % 62.9 % (47-70); Platelet Count 362 K/mm3 (150-450); RBC Distribution Width CV 14.3 % (11.6-14.6); RBC Distribution Width SD 47.1 fl (35.1-43.9); Red Blood Count 3.84 M/mm3 (4.2-5.4); White Blood Count 7.7 K/mm3 (4.4-11.0)
[2022-10-10] MEDS: Acetaminophen 500 MG Tablet 1000 MG PO ×3 (05:56→19:39)
[2022-10-10] MEDS: Ascorbic Acid 500 MG Tablet 2000 MG PO ×3 (05:56→19:41)
[2022-10-10] MEDS: Cholecalciferol (VIT D3) 25 MCG TABLET (1,000 UNITS) 50 MCG PO (05:56)
[2022-10-10] MEDS: Pantoprazole Sodium 20 MG Tablet PO (05:56)
[2022-10-10] MEDS: Menthol/Lanolin/Calamine/Znox 113 GM Tube 1 APPLIC TOPICAL ×2 (05:57→18:17)
[2022-10-10] MEDS: Carbidopa/Levodopa 25/100 Tablet PO ×3 (05:57→19:40)
[2022-10-10] MEDS: amLODIPine 10 MG Tablet PO (05:57)
[2022-10-10 06:00] VITALS: BMI 21.4
[2022-10-10 06:15] LABS: Anion Gap 5 (5-15); BUN 33 mg/dL (7-18); BUN/Creat Ratio 36.5 RATIO (10-20); Calcium,Total 8.1 mg/dL (8.5-10.1); Chloride 119 mmol/L (98-107); EST Glomerular Filtration Rate 63 mL/min (>60); Est Glom Filt Rate - Afr Amer 76 mL/min (>60); Estimated Creatinine Clearance 34.49 ml/min; Glucose 92 mg/dL (74-106); Potassium 3.6 mmol/L (3.5-5.1); Sodium Level 146 mmol/L (136-145)
[2022-10-10] MEDS: Multivitamins,Therapeutic Tablet 1 TABLET PO (08:06)
[2022-10-10] MEDS: Losartan Potassium 100 MG Tablet PO (08:06)
[2022-10-10] MEDS: Ferrous Sulfate 325 MG Tablet PO ×3 (08:06→18:15)
--- NOTE | 2022-10-10 09:08 | NURSING ---
Artillery Or Naval Gunfire Observer Note; MDS for 10/09/2022 Complete
[2022-10-10] MEDS: Tuberculin,Purif.prot.deriv. 50 TU/ML Vial 0.1 ML ID (10:54)
[2022-10-10 15:07] VITALS: BP 96/50; PULSE 77; RESP 18; TEMP 37.5; O2SAT 95
[2022-10-10] MEDS: Senna/Docusate Sodium 1 Tablet PO (18:14)
[2022-10-10] MEDS: Atorvastatin Calcium 20 MG Tablet PO (19:40)
[2022-10-10] MEDS: Mirtazapine 15 MG Tablet 7.5 MG PO (19:42)
[2022-10-10 22:00] VITALS: PULSE 80; RESP 16; O2SAT 97
[2022-10-11] MEDS: Menthol/Lanolin/Calamine/Znox 113 GM Tube 1 APPLIC TOPICAL ×2 (05:04→17:35)
[2022-10-11] MEDS: Senna/Docusate Sodium 1 Tablet PO (05:05)
[2022-10-11] MEDS: amLODIPine 10 MG Tablet PO (05:05)
[2022-10-11] MEDS: Acetaminophen 500 MG Tablet 1000 MG PO ×3 (05:05→20:02)
[2022-10-11] MEDS: Carbidopa/Levodopa 25/100 Tablet PO ×3 (05:05→20:03)
[2022-10-11] MEDS: Ascorbic Acid 500 MG Tablet 2000 MG PO ×3 (05:05→20:03)
[2022-10-11] MEDS: Pantoprazole Sodium 20 MG Tablet PO (05:05)
[2022-10-11] MEDS: Cholecalciferol (VIT D3) 25 MCG TABLET (1,000 UNITS) 50 MCG PO (05:05)
[2022-10-11 08:30] VITALS: BP 118/50; PULSE 77
[2022-10-11] MEDS: Ferrous Sulfate 325 MG Tablet PO ×3 (08:38→17:34)
[2022-10-11] MEDS: Losartan Potassium 100 MG Tablet PO (08:39)
[2022-10-11] MEDS: Multivitamins,Therapeutic Tablet 1 TABLET PO (08:39)
--- NOTE | 2022-10-11 09:39 | NURSING ---
Pt C/O of Nausea this morning. Dr. Pulido notified N.O. received for zofran 4mg q8hr PRN and KUB. Orders read back.
[2022-10-11 10:00] VITALS: PULSE 77; O2SAT 97
--- NOTE | 2022-10-11 10:39 | RAD_ITS ---
INDICATION: Nausea EXAMINATION/TECHNIQUE: X-RAY - XR Abdomen 1 View COMPARISON: October 08, 2022 FINDINGS: BOWEL GAS PATTERN: Non-obstructive. No bowel or stomach distention. FREE AIR: Not assessed on a single supine view. ORGANOMEGALY: Not seen. CALCIFICATIONS: There are phleboliths. LOWER CHEST: No acute pathology. BONES AND SOFT TISSUES: There are degenerative changes of the thoracolumbar spine associated with a dextroscoliosis. RAD/Abdomen Single View IMPRESSION: Non-obstructive bowel gas pattern. Electronically Signed: Omayra Coughlin MD at 10:45 EST ,
[2022-10-11 14:50] VITALS: BP 104/43; PULSE 64; RESP 14; TEMP 36.4; O2SAT 99
[2022-10-11] MEDS: 0.9% Saline Lock 10 ML Syringe IV (17:46)
[2022-10-11] MEDS: Atorvastatin Calcium 20 MG Tablet PO (20:01)
[2022-10-11] MEDS: Mirtazapine 15 MG Tablet 7.5 MG PO (20:02)
[2022-10-12 04:14] LABS: Hematocrit 36.9 % (37-47); Hemoglobin 11.2 g/dL (12.0-15.0)
[2022-10-12] MEDS: Carbidopa/Levodopa 25/100 Tablet PO ×3 (05:42→20:52)
[2022-10-12] MEDS: Acetaminophen 500 MG Tablet 1000 MG PO ×3 (05:42→20:52)
[2022-10-12] MEDS: Ascorbic Acid 500 MG Tablet 2000 MG PO ×3 (05:43→20:51)
[2022-10-12] MEDS: Psyllium 1 PACKET PO (05:43)
[2022-10-12] MEDS: Cholecalciferol (VIT D3) 25 MCG TABLET (1,000 UNITS) 50 MCG PO (05:43)
[2022-10-12] MEDS: Pantoprazole Sodium 20 MG Tablet PO (05:43)
[2022-10-12] MEDS: amLODIPine 10 MG Tablet PO (05:43)
[2022-10-12] MEDS: 0.9% Saline Lock 10 ML Syringe IV ×2 (05:51→17:27)
[2022-10-12] MEDS: Menthol/Lanolin/Calamine/Znox 113 GM Tube 1 APPLIC TOPICAL ×2 (05:56→17:30)
[2022-10-12 06:00] VITALS: BMI 21.4
[2022-10-12] MEDS: Multivitamins,Therapeutic Tablet 1 TABLET PO (08:32)
[2022-10-12] MEDS: Losartan Potassium 100 MG Tablet PO (08:32)
[2022-10-12] MEDS: Ferrous Sulfate 325 MG Tablet PO ×3 (08:32→17:27)
[2022-10-12 08:34] VITALS: BP 116/51; PULSE 80
[2022-10-12 15:01] VITALS: BP 118/55; PULSE 89; RESP 16; TEMP 36.4; O2SAT 98
[2022-10-12] MEDS: Mirtazapine 15 MG Tablet 7.5 MG PO (20:51)
[2022-10-12] MEDS: Atorvastatin Calcium 20 MG Tablet PO (20:52)
[2022-10-12 21:00] VITALS: PULSE 70; RESP 16; O2SAT 97
[2022-10-13 06:00] VITALS: BMI 21.4
[2022-10-13] MEDS: amLODIPine 10 MG Tablet PO (06:32)
[2022-10-13] MEDS: Carbidopa/Levodopa 25/100 Tablet PO ×3 (06:32→20:44)
[2022-10-13] MEDS: Cholecalciferol (VIT D3) 25 MCG TABLET (1,000 UNITS) 50 MCG PO (06:33)
[2022-10-13] MEDS: Acetaminophen 500 MG Tablet 1000 MG PO ×3 (06:34→20:43)
[2022-10-13] MEDS: Ascorbic Acid 500 MG Tablet 2000 MG PO ×3 (06:34→20:45)
[2022-10-13] MEDS: Psyllium 1 PACKET PO (06:34)
[2022-10-13] MEDS: Pantoprazole Sodium 20 MG Tablet PO (06:34)
[2022-10-13] MEDS: 0.9% Saline Lock 10 ML Syringe IV ×2 (06:42→17:15)
[2022-10-13] MEDS: Menthol/Lanolin/Calamine/Znox 113 GM Tube 1 APPLIC TOPICAL ×2 (06:42→17:11)
[2022-10-13] MEDS: Losartan Potassium 100 MG Tablet PO (07:57)
[2022-10-13] MEDS: Ferrous Sulfate 325 MG Tablet PO ×3 (07:57→17:11)
[2022-10-13] MEDS: Multivitamins,Therapeutic Tablet 1 TABLET PO (07:58)
--- NOTE | 2022-10-13 13:50 | WOUNDNOTE ---
wound photo: abdomen
[2022-10-13 14:59] VITALS: BP 114/57; PULSE 79; RESP 16; TEMP 36.7; O2SAT 99
[2022-10-13] MEDS: Atorvastatin Calcium 20 MG Tablet PO (20:43)
[2022-10-13] MEDS: Mirtazapine 15 MG Tablet 7.5 MG PO (20:44)
--- NOTE | 2022-10-13 22:50 | NURSING ---
Requested medication at earlier time HS
[2022-10-14] MEDS: Psyllium 1 PACKET PO (05:37)
[2022-10-14] MEDS: Menthol/Lanolin/Calamine/Znox 113 GM Tube 1 APPLIC TOPICAL ×2 (05:39→17:18)
[2022-10-14] MEDS: Carbidopa/Levodopa 25/100 Tablet PO ×3 (05:40→21:17)
[2022-10-14] MEDS: Ascorbic Acid 500 MG Tablet 2000 MG PO ×3 (05:41→21:17)
[2022-10-14] MEDS: Acetaminophen 500 MG Tablet 1000 MG PO ×3 (05:41→21:16)
[2022-10-14] MEDS: Senna/Docusate Sodium 1 Tablet PO ×2 (05:41→17:17)
[2022-10-14] MEDS: Cholecalciferol (VIT D3) 25 MCG TABLET (1,000 UNITS) 50 MCG PO (05:41)
[2022-10-14] MEDS: Pantoprazole Sodium 20 MG Tablet PO (05:41)
[2022-10-14] MEDS: amLODIPine 10 MG Tablet PO (05:41)
[2022-10-14 06:00] VITALS: BMI 21.8
[2022-10-14] MEDS: Ondansetron ODT 4 MG Tablet PO (07:55)
[2022-10-14] MEDS: Multivitamins,Therapeutic Tablet 1 TABLET PO (07:55)
[2022-10-14] MEDS: Losartan Potassium 100 MG Tablet PO (07:55)
[2022-10-14] MEDS: Ferrous Sulfate 325 MG Tablet PO ×3 (07:55→17:17)
[2022-10-14 07:59] VITALS: BP 112/55; PULSE 82
[2022-10-14 13:51] VITALS: BP 139/47; PULSE 98; RESP 17; TEMP 36.2; O2SAT 99
--- NOTE | 2022-10-14 14:45 | NURSING ---
pt returned from dr arias. No new orders.
[2022-10-14] MEDS: 0.9% Saline Lock 10 ML Syringe IV (17:52)
[2022-10-14 21:10] VITALS: BP 119/69; PULSE 83; RESP 18; TEMP 36.8; O2SAT 98
[2022-10-14] MEDS: Atorvastatin Calcium 20 MG Tablet PO (21:17)
[2022-10-14] MEDS: Mirtazapine 15 MG Tablet 7.5 MG PO (21:17)
[2022-10-15 06:00] VITALS: BP 107/53; PULSE 91; RESP 17; TEMP 36.6; BMI 21.5
[2022-10-15] MEDS: Acetaminophen 500 MG Tablet 1000 MG PO ×3 (06:06→20:17)
[2022-10-15] MEDS: Pantoprazole Sodium 20 MG Tablet PO (06:06)
[2022-10-15] MEDS: Psyllium 1 PACKET PO (06:06)
[2022-10-15] MEDS: Ascorbic Acid 500 MG Tablet 2000 MG PO ×3 (06:07→20:17)
[2022-10-15] MEDS: amLODIPine 10 MG Tablet PO (06:07)
[2022-10-15] MEDS: Carbidopa/Levodopa 25/100 Tablet PO ×3 (06:07→20:18)
[2022-10-15] MEDS: Menthol/Lanolin/Calamine/Znox 113 GM Tube 1 APPLIC TOPICAL ×2 (06:08→17:33)
[2022-10-15] MEDS: Cholecalciferol (VIT D3) 25 MCG TABLET (1,000 UNITS) 50 MCG PO (06:08)
[2022-10-15] MEDS: Losartan Potassium 100 MG Tablet PO (08:24)
[2022-10-15] MEDS: Ferrous Sulfate 325 MG Tablet PO ×3 (08:24→17:32)
[2022-10-15] MEDS: Multivitamins,Therapeutic Tablet 1 TABLET PO (08:24)
--- NOTE | 2022-10-15 09:55 | MDS.RN ---
Information for the mds was obtained from review of the clinical record, interview of resident, staff, and direct obs of resident care.
[2022-10-15 13:37] VITALS: BMI 21.7
[2022-10-15 14:48] VITALS: BP 119/68; PULSE 86; RESP 16; TEMP 36.1; O2SAT 98
[2022-10-15] MEDS: Senna/Docusate Sodium 1 Tablet PO (17:32)
[2022-10-15] MEDS: Mirtazapine 15 MG Tablet 7.5 MG PO (20:18)
[2022-10-15] MEDS: Atorvastatin Calcium 20 MG Tablet PO (20:19)
[2022-10-16] MEDS: Psyllium 1 PACKET PO (04:57)
[2022-10-16] MEDS: amLODIPine 10 MG Tablet PO (04:57)
[2022-10-16] MEDS: Menthol/Lanolin/Calamine/Znox 113 GM Tube 1 APPLIC TOPICAL ×2 (04:57→17:52)
[2022-10-16] MEDS: Senna/Docusate Sodium 1 Tablet PO (04:58)
[2022-10-16] MEDS: Cholecalciferol (VIT D3) 25 MCG TABLET (1,000 UNITS) 50 MCG PO (04:58)
[2022-10-16] MEDS: Pantoprazole Sodium 20 MG Tablet PO (04:58)
[2022-10-16] MEDS: Acetaminophen 500 MG Tablet 1000 MG PO ×3 (04:58→20:37)
[2022-10-16] MEDS: Carbidopa/Levodopa 25/100 Tablet PO ×3 (04:58→20:36)
[2022-10-16] MEDS: Ascorbic Acid 500 MG Tablet 2000 MG PO ×3 (04:59→20:35)
[2022-10-16 06:00] VITALS: BMI 21.6
--- NOTE | 2022-10-16 06:17 | NURSING ---
Recieved in report that purple lumen was not flushing. Arm positioned above pts head and flushed without difficulty. Patient tolerated well.
[2022-10-16] MEDS: Ferrous Sulfate 325 MG Tablet PO ×3 (08:09→17:51)
[2022-10-16] MEDS: Losartan Potassium 100 MG Tablet PO (08:09)
[2022-10-16] MEDS: Multivitamins,Therapeutic Tablet 1 TABLET PO (08:09)
[2022-10-16 08:11] VITALS: BP 120/49; PULSE 84
[2022-10-16 14:51] VITALS: BP 105/60; PULSE 86; RESP 18; TEMP 36.2; O2SAT 97
[2022-10-16] MEDS: 0.9% Saline Lock 10 ML Syringe IV (18:34)
[2022-10-16] MEDS: Atorvastatin Calcium 20 MG Tablet PO (20:36)
[2022-10-16] MEDS: Mirtazapine 15 MG Tablet 7.5 MG PO (20:36)
[2022-10-16 21:00] VITALS: PULSE 80; RESP 16; O2SAT 96
[2022-10-17 05:29] VITALS: BP 131/57; PULSE 86; RESP 16
[2022-10-17] MEDS: Psyllium 1 PACKET PO (05:30)
[2022-10-17] MEDS: Cholecalciferol (VIT D3) 25 MCG TABLET (1,000 UNITS) 50 MCG PO (05:31)
[2022-10-17] MEDS: Acetaminophen 500 MG Tablet 1000 MG PO ×3 (05:31→21:43)
[2022-10-17] MEDS: Carbidopa/Levodopa 25/100 Tablet PO ×3 (05:31→21:43)
[2022-10-17] MEDS: Pantoprazole Sodium 20 MG Tablet PO (05:31)
[2022-10-17] MEDS: amLODIPine 10 MG Tablet PO (05:31)
[2022-10-17] MEDS: Ascorbic Acid 500 MG Tablet 2000 MG PO ×3 (05:31→21:43)
[2022-10-17] MEDS: Senna/Docusate Sodium 1 Tablet PO (05:36)
[2022-10-17 05:46] LABS: Basophil# 0.04 X10^3/uL; Basophil% 0.6 % (0-1); Eosinophil# 0.63 X10^3/uL; Eosinophils% 8.7 % (0-5); Hematocrit 34.2 % (37-47); Mean Corp Hgb Conc 32.2 g/dL (32-36); Mean Corpuscular Hgb 29.7 pg (27.0-32.0); Mean Corpuscular Volume 92.4 fL (81-99); Mean Platelet Vol. 9.8 fl (6.2-12.0); Monocyte# 0.95 X10^3/uL; Monocyte% 13.1 % (0-10); NRBC Flagged by Analyzer 0 % (0-5); Neutrophil # 3.99 X10^3/uL (2.7-7.7); Neutrophil % 54.8 % (47-70); Platelet Count 281 K/mm3 (150-450); RBC Distribution Width CV 13.8 % (11.6-14.6); RBC Distribution Width SD 46.3 fl (35.1-43.9); White Blood Count 7.3 K/mm3 (4.4-11.0)
[2022-10-17 06:00] VITALS: BMI 21.6
[2022-10-17 06:08] LABS: Anion Gap 6 (5-15); BUN 29 mg/dL (7-18); BUN/Creat Ratio 37.4 RATIO (10-20); Calcium,Total 8.2 mg/dL (8.5-10.1); Chloride 115 mmol/L (98-107); Creatinine, Serum 0.78 mg/dL (0.55-1.02); EST Glomerular Filtration Rate 75 mL/min (>60); Est Glom Filt Rate - Afr Amer 91 mL/min (>60); Estimated Creatinine Clearance 31.04 ml/min; Glucose 87 mg/dL (74-106); Potassium 4.1 mmol/L (3.5-5.1); Sodium Level 143 mmol/L (136-145)
[2022-10-17] MEDS: Menthol/Lanolin/Calamine/Znox 113 GM Tube 1 APPLIC TOPICAL ×2 (06:54→17:10)
[2022-10-17] MEDS: Losartan Potassium 100 MG Tablet PO (08:22)
[2022-10-17] MEDS: Multivitamins,Therapeutic Tablet 1 TABLET PO (08:22)
[2022-10-17] MEDS: Ferrous Sulfate 325 MG Tablet PO ×3 (08:22→17:10)
[2022-10-17 10:00] VITALS: PULSE 79; O2SAT 97
[2022-10-17 15:58] VITALS: BP 118/50; PULSE 72; RESP 14; TEMP 37; O2SAT 90
[2022-10-17] MEDS: 0.9% Saline Lock 10 ML Syringe IV (18:29)
[2022-10-17] MEDS: Atorvastatin Calcium 20 MG Tablet PO (21:43)
[2022-10-17] MEDS: Mirtazapine 15 MG Tablet 7.5 MG PO (21:43)
[2022-10-18] MEDS: Cholecalciferol (VIT D3) 25 MCG TABLET (1,000 UNITS) 50 MCG PO (05:09)
[2022-10-18] MEDS: Acetaminophen 500 MG Tablet 1000 MG PO ×3 (05:09→20:51)
[2022-10-18] MEDS: Carbidopa/Levodopa 25/100 Tablet PO ×3 (05:10→20:52)
[2022-10-18] MEDS: Psyllium 1 PACKET PO (05:10)
[2022-10-18] MEDS: Pantoprazole Sodium 20 MG Tablet PO (05:10)
[2022-10-18] MEDS: Ascorbic Acid 500 MG Tablet 2000 MG PO ×3 (05:10→20:51)
[2022-10-18] MEDS: amLODIPine 10 MG Tablet PO (05:10)
[2022-10-18] MEDS: Menthol/Lanolin/Calamine/Znox 113 GM Tube 1 APPLIC TOPICAL ×2 (05:20→17:36)
[2022-10-18 06:00] VITALS: BMI 21.5
[2022-10-18] MEDS: Ferrous Sulfate 325 MG Tablet PO ×3 (08:46→17:36)
[2022-10-18] MEDS: Multivitamins,Therapeutic Tablet 1 TABLET PO (08:47)
[2022-10-18] MEDS: Losartan Potassium 100 MG Tablet PO (08:47)
[2022-10-18 14:02] VITALS: BP 113/45; PULSE 85; RESP 16; TEMP 36.8; O2SAT 98
[2022-10-18] MEDS: Senna/Docusate Sodium 1 Tablet PO (17:36)
[2022-10-18] MEDS: Atorvastatin Calcium 20 MG Tablet PO (20:52)
[2022-10-18] MEDS: Mirtazapine 15 MG Tablet 7.5 MG PO (20:54)
[2022-10-18 22:00] VITALS: PULSE 80; RESP 16; O2SAT 97
[2022-10-19] MEDS: Menthol/Lanolin/Calamine/Znox 113 GM Tube 1 APPLIC TOPICAL ×2 (05:30→17:00)
[2022-10-19] MEDS: Psyllium 1 PACKET PO (05:30)
[2022-10-19] MEDS: Carbidopa/Levodopa 25/100 Tablet PO ×3 (05:30→21:24)
[2022-10-19] MEDS: Ascorbic Acid 500 MG Tablet 2000 MG PO ×3 (05:31→21:23)
[2022-10-19] MEDS: Acetaminophen 500 MG Tablet 1000 MG PO ×3 (05:31→21:23)
[2022-10-19] MEDS: Cholecalciferol (VIT D3) 25 MCG TABLET (1,000 UNITS) 50 MCG PO (05:31)
[2022-10-19] MEDS: amLODIPine 10 MG Tablet PO (05:31)
[2022-10-19] MEDS: Pantoprazole Sodium 20 MG Tablet PO (05:31)
[2022-10-19] MEDS: Ferrous Sulfate 325 MG Tablet PO ×3 (08:25→16:59)
[2022-10-19] MEDS: Losartan Potassium 100 MG Tablet PO (08:25)
[2022-10-19] MEDS: Multivitamins,Therapeutic Tablet 1 TABLET PO (08:25)
[2022-10-19 15:34] VITALS: BP 113/50; PULSE 83; RESP 16; TEMP 36.2; O2SAT 96
[2022-10-19 16:32] VITALS: BMI 21.5
[2022-10-19] MEDS: Atorvastatin Calcium 20 MG Tablet PO (21:23)
[2022-10-19] MEDS: Mirtazapine 15 MG Tablet 7.5 MG PO (21:24)
[2022-10-20] MEDS: Acetaminophen 500 MG Tablet 1000 MG PO ×3 (05:23→20:56)
[2022-10-20] MEDS: Psyllium 1 PACKET PO (05:23)
[2022-10-20] MEDS: amLODIPine 10 MG Tablet PO (05:24)
[2022-10-20] MEDS: Ascorbic Acid 500 MG Tablet 2000 MG PO ×3 (05:24→20:55)
[2022-10-20] MEDS: Menthol/Lanolin/Calamine/Znox 113 GM Tube 1 APPLIC TOPICAL ×2 (05:24→17:27)
[2022-10-20] MEDS: Pantoprazole Sodium 20 MG Tablet PO (05:24)
[2022-10-20] MEDS: Cholecalciferol (VIT D3) 25 MCG TABLET (1,000 UNITS) 50 MCG PO (05:24)
[2022-10-20] MEDS: Senna/Docusate Sodium 1 Tablet PO (05:24)
[2022-10-20] MEDS: Carbidopa/Levodopa 25/100 Tablet PO ×3 (05:24→20:57)
[2022-10-20 06:00] VITALS: BMI 21.4
[2022-10-20] MEDS: Multivitamins,Therapeutic Tablet 1 TABLET PO (08:14)
[2022-10-20] MEDS: Ferrous Sulfate 325 MG Tablet PO ×3 (08:14→17:27)
[2022-10-20] MEDS: Losartan Potassium 100 MG Tablet PO (08:14)
[2022-10-20 08:15] VITALS: BP 113/52; PULSE 79
--- NOTE | 2022-10-20 14:06 | WOUNDNOTE ---
wound photo: abdomen
[2022-10-20 14:35] VITALS: BP 115/51; PULSE 83; RESP 14; TEMP 37.1; O2SAT 96
[2022-10-20] MEDS: 0.9% Saline Lock 10 ML Syringe IV (17:30)
[2022-10-20 20:54] VITALS: PULSE 80; RESP 16; O2SAT 96
[2022-10-20] MEDS: Mirtazapine 15 MG Tablet 7.5 MG PO (20:55)
[2022-10-20] MEDS: Atorvastatin Calcium 20 MG Tablet PO (20:55)
--- NOTE | 2022-10-21 04:06 | NURSING ---
Patient was ambulating from bathroom when it was noted that the suction to wound vac dressing sight had come off the site. New suction tubing applied. Wound vac running without issue at this time. Will continue to monitor.
[2022-10-21] MEDS: Psyllium 1 PACKET PO (05:23)
[2022-10-21] MEDS: Acetaminophen 500 MG Tablet 1000 MG PO ×3 (05:23→20:00)
[2022-10-21] MEDS: Ascorbic Acid 500 MG Tablet 2000 MG PO ×3 (05:23→20:01)
[2022-10-21] MEDS: Carbidopa/Levodopa 25/100 Tablet PO ×3 (05:24→20:01)
[2022-10-21] MEDS: Pantoprazole Sodium 20 MG Tablet PO (05:24)
[2022-10-21] MEDS: Cholecalciferol (VIT D3) 25 MCG TABLET (1,000 UNITS) 50 MCG PO (05:24)
[2022-10-21] MEDS: amLODIPine 10 MG Tablet PO (05:24)
[2022-10-21] MEDS: 0.9% Saline Lock 10 ML Syringe IV ×2 (05:31→18:33)
[2022-10-21] MEDS: Menthol/Lanolin/Calamine/Znox 113 GM Tube 1 APPLIC TOPICAL ×2 (05:36→17:29)
[2022-10-21 06:00] VITALS: BMI 21.4
[2022-10-21] MEDS: Losartan Potassium 100 MG Tablet PO (08:18)
[2022-10-21] MEDS: Multivitamins,Therapeutic Tablet 1 TABLET PO (08:18)
[2022-10-21] MEDS: Ferrous Sulfate 325 MG Tablet PO ×3 (08:18→17:31)
[2022-10-21 08:23] VITALS: BP 126/56; PULSE 82
[2022-10-21 09:51] VITALS: PULSE 80; RESP 16; O2SAT 98
[2022-10-21 14:49] VITALS: BP 134/58; PULSE 82; RESP 14; TEMP 36.1; O2SAT 99
[2022-10-21] MEDS: Senna/Docusate Sodium 1 Tablet PO (17:31)
--- NOTE | 2022-10-21 18:49 | NURSING ---
Distal lumen (red), unable to flush at this time. Pt is currently sitting up in recliner chair, will attempt to flush when laying in bed.
[2022-10-21] MEDS: Mirtazapine 15 MG Tablet 7.5 MG PO (20:00)
[2022-10-21] MEDS: Atorvastatin Calcium 20 MG Tablet PO (20:08)
[2022-10-22 05:14] VITALS: BP 135/52; PULSE 87
[2022-10-22] MEDS: Carbidopa/Levodopa 25/100 Tablet PO ×3 (05:15→21:55)
[2022-10-22] MEDS: Ascorbic Acid 500 MG Tablet 2000 MG PO ×3 (05:15→21:55)
[2022-10-22] MEDS: Psyllium 1 PACKET PO (05:15)
[2022-10-22] MEDS: Cholecalciferol (VIT D3) 25 MCG TABLET (1,000 UNITS) 50 MCG PO (05:15)
[2022-10-22] MEDS: amLODIPine 10 MG Tablet PO (05:16)
[2022-10-22] MEDS: Pantoprazole Sodium 20 MG Tablet PO (05:16)
[2022-10-22] MEDS: Acetaminophen 500 MG Tablet 1000 MG PO ×3 (05:16→21:55)
[2022-10-22] MEDS: Menthol/Lanolin/Calamine/Znox 113 GM Tube 1 APPLIC TOPICAL ×2 (05:16→17:07)
[2022-10-22 06:00] VITALS: BMI 21.0
[2022-10-22] MEDS: Losartan Potassium 100 MG Tablet PO (07:52)
[2022-10-22] MEDS: Ferrous Sulfate 325 MG Tablet PO ×3 (07:52→17:05)
[2022-10-22] MEDS: Multivitamins,Therapeutic Tablet 1 TABLET PO (07:52)
[2022-10-22 08:25] VITALS: O2SAT 96
[2022-10-22 13:59] VITALS: BP 116/61; PULSE 89; RESP 16; TEMP 36.1; O2SAT 97
[2022-10-22] MEDS: Senna/Docusate Sodium 1 Tablet PO (17:06)
[2022-10-22] MEDS: 0.9% Saline Lock 10 ML Syringe IV (17:33)
[2022-10-22] MEDS: Atorvastatin Calcium 20 MG Tablet PO (21:55)
[2022-10-22] MEDS: Mirtazapine 15 MG Tablet 7.5 MG PO (21:55)
[2022-10-23] MEDS: Ascorbic Acid 500 MG Tablet 2000 MG PO ×3 (05:28→20:08)
[2022-10-23] MEDS: Cholecalciferol (VIT D3) 25 MCG TABLET (1,000 UNITS) 50 MCG PO (05:28)
[2022-10-23] MEDS: Acetaminophen 500 MG Tablet 1000 MG PO ×3 (05:28→20:08)
[2022-10-23] MEDS: Carbidopa/Levodopa 25/100 Tablet PO ×3 (05:28→20:09)
[2022-10-23] MEDS: Pantoprazole Sodium 20 MG Tablet PO (05:28)
[2022-10-23] MEDS: amLODIPine 10 MG Tablet PO (05:28)
[2022-10-23] MEDS: Psyllium 1 PACKET PO (05:29)
[2022-10-23] MEDS: 0.9% Saline Lock 10 ML Syringe IV ×2 (05:40→17:12)
[2022-10-23 05:42] VITALS: BP 143/58; PULSE 85
[2022-10-23] MEDS: Menthol/Lanolin/Calamine/Znox 113 GM Tube 1 APPLIC TOPICAL ×2 (06:07→17:11)
[2022-10-23] MEDS: Multivitamins,Therapeutic Tablet 1 TABLET PO (08:03)
[2022-10-23] MEDS: Ferrous Sulfate 325 MG Tablet PO ×3 (08:03→17:09)
[2022-10-23 08:05] VITALS: BP 125/40; PULSE 83
[2022-10-23 14:24] VITALS: BP 138/60; PULSE 81; RESP 17; TEMP 36.3; O2SAT 98
[2022-10-23] MEDS: Senna/Docusate Sodium 1 Tablet PO (17:09)
[2022-10-23 20:00] VITALS: PULSE 68; RESP 16; O2SAT 94
[2022-10-23] MEDS: Mirtazapine 15 MG Tablet 7.5 MG PO (20:09)
[2022-10-23] MEDS: Atorvastatin Calcium 20 MG Tablet PO (20:09)
[2022-10-24] MEDS: amLODIPine 10 MG Tablet PO (05:18)
[2022-10-24] MEDS: Psyllium 1 PACKET PO (05:18)
[2022-10-24] MEDS: Acetaminophen 500 MG Tablet 1000 MG PO ×3 (05:18→20:05)
[2022-10-24] MEDS: Pantoprazole Sodium 20 MG Tablet PO (05:19)
[2022-10-24] MEDS: Carbidopa/Levodopa 25/100 Tablet PO ×3 (05:19→20:07)
[2022-10-24] MEDS: Cholecalciferol (VIT D3) 25 MCG TABLET (1,000 UNITS) 50 MCG PO (05:19)
[2022-10-24] MEDS: Ascorbic Acid 500 MG Tablet 2000 MG PO ×3 (05:20→20:07)
[2022-10-24] MEDS: Menthol/Lanolin/Calamine/Znox 113 GM Tube 1 APPLIC TOPICAL ×2 (05:23→17:22)
[2022-10-24 05:47] LABS: Absolute Lymphocyte Count 1.96 X10^3/uL (0.83-4.51); Basophil# 0.06 X10^3/uL; Basophil% 0.8 % (0-1); Eosinophil# 0.52 X10^3/uL; Eosinophils% 6.8 % (0-5); Hematocrit 38.6 % (37-47); Hemoglobin 12.3 g/dL (12.0-15.0); Lymphocyte # 1.96 X10^3/ul (0.83-4.51); Lymphocyte % 25.7 % (19-41); Mean Corp Hgb Conc 31.9 g/dL (32-36); Mean Corpuscular Hgb 29.5 pg (27.0-32.0); Mean Corpuscular Volume 92.6 fL (81-99); Mean Platelet Vol. 9.3 fl (6.2-12.0); Monocyte# 0.97 X10^3/uL; Monocyte% 12.7 % (0-10); NRBC Flagged by Analyzer 0 % (0-5); Neutrophil # 4.03 X10^3/uL (2.7-7.7); Platelet Count 414 K/mm3 (150-450); RBC Distribution Width CV 13.5 % (11.6-14.6); RBC Distribution Width SD 45.8 fl (35.1-43.9); Red Blood Count 4.17 M/mm3 (4.2-5.4); White Blood Count 7.6 K/mm3 (4.4-11.0)
[2022-10-24 06:28] LABS: Anion Gap 7 (5-15); BUN 29 mg/dL (7-18); BUN/Creat Ratio 33.3 RATIO (10-20); Calcium,Total 9.1 mg/dL (8.5-10.1); Chloride 112 mmol/L (98-107); Creatinine, Serum 0.87 mg/dL (0.55-1.02); EST Glomerular Filtration Rate 65 mL/min (>60); Est Glom Filt Rate - Afr Amer 79 mL/min (>60); Estimated Creatinine Clearance 35.67 ml/min; Glucose 94 mg/dL (74-106); Potassium 4.2 mmol/L (3.5-5.1); Sodium Level 144 mmol/L (136-145)
[2022-10-24] MEDS: Multivitamins,Therapeutic Tablet 1 TABLET PO (08:36)
[2022-10-24] MEDS: Ferrous Sulfate 325 MG Tablet PO ×3 (08:37→17:21)
[2022-10-24] MEDS: Losartan Potassium 100 MG Tablet PO (08:40)
[2022-10-24 16:00] VITALS: BP 125/43; PULSE 84; RESP 16; TEMP 36.8; O2SAT 95
[2022-10-24] MEDS: Senna/Docusate Sodium 1 Tablet PO (17:21)
[2022-10-24 19:01] VITALS: BMI 20.9
[2022-10-24] MEDS: Mirtazapine 15 MG Tablet 7.5 MG PO (20:06)
[2022-10-24] MEDS: Atorvastatin Calcium 20 MG Tablet PO (20:06)
[2022-10-25] MEDS: Psyllium 1 PACKET PO (05:34)
[2022-10-25] MEDS: Menthol/Lanolin/Calamine/Znox 113 GM Tube 1 APPLIC TOPICAL ×2 (05:36→17:26)
[2022-10-25] MEDS: Ascorbic Acid 500 MG Tablet 2000 MG PO ×3 (05:36→20:54)
[2022-10-25] MEDS: Acetaminophen 500 MG Tablet 1000 MG PO ×3 (05:36→20:54)
[2022-10-25] MEDS: Carbidopa/Levodopa 25/100 Tablet PO ×3 (05:36→20:54)
[2022-10-25] MEDS: Cholecalciferol (VIT D3) 25 MCG TABLET (1,000 UNITS) 50 MCG PO (05:37)
[2022-10-25] MEDS: Pantoprazole Sodium 20 MG Tablet PO (05:37)
[2022-10-25] MEDS: amLODIPine 10 MG Tablet PO (05:37)
[2022-10-25] MEDS: Senna/Docusate Sodium 1 Tablet PO (05:37)
[2022-10-25 06:00] VITALS: BMI 21.2
[2022-10-25] MEDS: Ferrous Sulfate 325 MG Tablet PO ×3 (07:47→17:25)
[2022-10-25] MEDS: Losartan Potassium 100 MG Tablet PO (07:48)
[2022-10-25] MEDS: Multivitamins,Therapeutic Tablet 1 TABLET PO (07:48)
[2022-10-25 16:00] VITALS: BP 110/57; PULSE 87; RESP 16; TEMP 35.7; O2SAT 96
[2022-10-25] MEDS: 0.9% Saline Lock 10 ML Syringe IV (18:17)
[2022-10-25] MEDS: Mirtazapine 15 MG Tablet 7.5 MG PO (20:52)
[2022-10-25] MEDS: Atorvastatin Calcium 20 MG Tablet PO (20:53)
[2022-10-26] MEDS: Ascorbic Acid 500 MG Tablet 2000 MG PO ×3 (05:28→22:12)
[2022-10-26] MEDS: Cholecalciferol (VIT D3) 25 MCG TABLET (1,000 UNITS) 50 MCG PO (05:29)
[2022-10-26] MEDS: Acetaminophen 500 MG Tablet 1000 MG PO ×3 (05:29→22:13)
[2022-10-26] MEDS: Pantoprazole Sodium 20 MG Tablet PO (05:30)
[2022-10-26] MEDS: Carbidopa/Levodopa 25/100 Tablet PO ×3 (05:31→22:14)
[2022-10-26] MEDS: Psyllium 1 PACKET PO (05:31)
[2022-10-26] MEDS: amLODIPine 10 MG Tablet PO (05:32)
[2022-10-26] MEDS: Senna/Docusate Sodium 1 Tablet PO ×2 (05:33→17:25)
[2022-10-26] MEDS: 0.9% Saline Lock 10 ML Syringe IV (05:34)
[2022-10-26] MEDS: Menthol/Lanolin/Calamine/Znox 113 GM Tube 1 APPLIC TOPICAL ×2 (05:38→17:26)
[2022-10-26 05:40] VITALS: BP 143/56; PULSE 84
[2022-10-26 06:00] VITALS: BMI 20.8
[2022-10-26] MEDS: Ferrous Sulfate 325 MG Tablet PO ×3 (08:12→17:25)
[2022-10-26] MEDS: Multivitamins,Therapeutic Tablet 1 TABLET PO (08:12)
[2022-10-26] MEDS: Losartan Potassium 100 MG Tablet PO (08:12)
[2022-10-26 16:00] VITALS: BP 116/48; PULSE 76; RESP 14; TEMP 36.5; O2SAT 97
[2022-10-26] MEDS: Mirtazapine 15 MG Tablet 7.5 MG PO (22:14)
[2022-10-26] MEDS: Atorvastatin Calcium 20 MG Tablet PO (22:14)
--- NOTE | 2022-10-27 04:20 | NURSING ---
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 License is due to be renewed by 11/04. She is unsure if she will need to find someone to take her to the [facility] while she is still here on TCU or if a note of medical necessity can be forwarded to the [facility] extending the time frame for license renewal. Pt lives alone and is independent. Acknowledges she is not able to drive at this time and is unsure when she will be cleared per the surgeon.
[2022-10-27 06:00] VITALS: BMI 20.7
[2022-10-27] MEDS: Cholecalciferol (VIT D3) 25 MCG TABLET (1,000 UNITS) 50 MCG PO (06:28)
[2022-10-27] MEDS: Psyllium 1 PACKET PO (06:28)
[2022-10-27] MEDS: Ascorbic Acid 500 MG Tablet 2000 MG PO ×2 (06:29→14:04)
[2022-10-27] MEDS: Pantoprazole Sodium 20 MG Tablet PO (06:29)
[2022-10-27] MEDS: Carbidopa/Levodopa 25/100 Tablet PO ×3 (06:29→21:37)
[2022-10-27] MEDS: Senna/Docusate Sodium 1 Tablet PO (06:30)
[2022-10-27] MEDS: amLODIPine 10 MG Tablet PO (06:30)
[2022-10-27] MEDS: Acetaminophen 500 MG Tablet 1000 MG PO ×3 (06:30→21:36)
[2022-10-27] MEDS: 0.9% Saline Lock 10 ML Syringe IV (06:33)
[2022-10-27] MEDS: Menthol/Lanolin/Calamine/Znox 113 GM Tube 1 APPLIC TOPICAL ×2 (06:33→18:21)
[2022-10-27 06:36] VITALS: BP 145/54; PULSE 82
[2022-10-27] MEDS: Ferrous Sulfate 325 MG Tablet PO ×3 (07:41→17:50)
[2022-10-27] MEDS: Losartan Potassium 100 MG Tablet PO (07:41)
[2022-10-27] MEDS: Multivitamins,Therapeutic Tablet 1 TABLET PO (07:42)
[2022-10-27] MEDS: Cyanocobalamin (B12) 1,000 MCG/ML Vial 1000 MCG IM (10:02)
--- NOTE | 2022-10-27 10:14 | NURSING ---
PICC removed from MOOKIE at this time. No redness,drainage or swelling noted around insertion site. 37cm removed and tip intact. Pt tolerated well. Petroleum and CDD dressing applied.
[2022-10-27] MEDS: Ondansetron ODT 4 MG Tablet PO (13:49)
--- NOTE | 2022-10-27 14:32 | WOUNDNOTE ---
wound photo: abdomen
[2022-10-27 15:21] VITALS: BP 132/50; PULSE 88; RESP 16; TEMP 36.8; O2SAT 96
[2022-10-27 19:45] VITALS: O2SAT 96
--- NOTE | 2022-10-27 19:51 | PN.TCU_ITS ---
Subjective Subjective Resident seen, examined for regulatory visit. She is doing well, she has no new problems, concerns, issues, complaints. She is progressing with therapy, her appetite has improved, she feels much better than on arrival to TCU. Objective Data Objective Data Vital Signs: Vital Signs Temp Pulse Resp BP Pulse Ox O2 Del Method 98.3 F 88 16 132/50 H 96 Room Air 10/27/22 15:21 10/27/22 15:21 10/27/22 15:21 10/27/22 15:21 10/27/22 15:21 10/27/22 15:21 Oxygen Delivery Method Room Air Weight: 49.941 kg Body Mass Index (BMI) 20.7 Intake & Output: Intake and Output for Last 24 Hours 10/25/22 10/26/22 10/27/22 22:59 23:59 23:59 Intake Total 480 / 480 Balance 480 / 480 Medical Nutrition Assessment Dietitian: Malnutrition Criteria Met Start: 10/08/22 12:55 Freq: Status: Active Protocol: Document 10/22/22 14:30 SLA (Rec: 10/22/22 14:30 SLA [id number]) Nutrition Malnutrition Evidence of Malnutrition Exists Yes Malnutrition (severe): Acute Illness/Injury Evidenced By Suboptimal Energy Intake ( Severe),Weight Loss (Severe) Intake Problem Inadequate Oral Intake Status Inactive Problem Increased Nutrient Needs (specify) Etiology protein related to skin Signs/Symptoms as evidenced by surgical incision (abd) w/ wound vac Status Active Problem Clinical Problem Acute Disease or Injury Related Malnutrition Etiology related to GI dysfunction/ obstruction s/p surgery and inadequate energy intake Signs/Symptoms as evidenced by avg ~50% po intake of est nutritional needs and 3.7% wt loss since adm. Status Active Problem Recommendation Dietitian Recommendations/Changes Will continue regular diet with 120 ml ensure clear w/ meals tid and allen bid to help w/ surgical incision healing Will continue to provide fortified foods at meals as able Rec continue appetite stimulant to help encourage increased po intake Lab / Micro Data Result Diagrams: 10/24/22 05:36 10/24/22 05:36 Micro: Microbiology 10/08/22 20:59 Stool Enteric Bacteriology - Final 10/06/22 05:18 Nasal Secretion SARS-CoV-2 Antigen (Rapid) - Final 10/04/22 05:30 Nasal Secretion SARS-CoV-2 Antigen (Rapid) - Final Physical Exam Const alert General Appearance: cooperative HEENT normocephalic Eyes PERRL and EOMs intact bilaterally Neck supple, no JVD and no carotid bruits Resp normal respiratory effort, normal air movement and clear to auscultation bilaterally Cardio regular rate and regular rhythm GI normal to inspection, nondistended, normoactive bowel sounds, non-tender and non-distended GI Narrative: Abdominal incision, wound VAC in place. Extremity normal capillary refill General Extremity: Negative for edema Skin no rashes or lesions noted General Skin Exam: no breakdown Psych affect normal Appearance: appropriate Assessment & Plan Assessment/Plan (1) Debility: (2) Abdominal pain: (3) Small bowel obstruction: (4) Status post laparotomy: (5) Iron deficiency anemia: (6) Hypertension: (7) Hyperlipidemia: (8) Osteoporosis: (9) GERD (gastroesophageal reflux disease): (10) Parkinson disease: PLAN: Plan 86 year old female with below past medical history hospitalized for small bowel obstruction, underwent open laparotomy with small bowel resection 09/23/[address] Lewis, admitted to TCU with debility, here for rehabilitation, strengthening, prior to discharge home alone. * Debility - PT/OT. * Cognition - ST. * Pain - Tylenol 1000mg q8h, Tramadol 50mg q6h prn. * Bowel - Metamucil 1 packet daily, senna/colace 1 tablet bid, MOM 30ml po x 1 prn. * Adult immunization - Administer pneumonia vaccine, covid19 vaccine, flu vaccine as appropriate. * DVT prophylaxis - Hold, anemia. * Small bowel obstruction status post open laparotomy with small bowel resection - Consult Zoya Asher to follow. * Hypertension - Losartan 100mg daily. * Iron deficiency anemia - Ferrous sulfate 325mg tidcm, Vitamin C 2000mg po tid. * Hyperlipidemia - Atorvastatin 20mg qhs. * Parkinson Disease - Sinemet 25/100mg tid. * Nutrition - MVI daily. * GERD - Pantoprazole 20mg daily. * Vitamin D deficiency - D3 50mcg daily. * Zinc deficiency - Zinc 220mg daily. * Vitamin B12 deficiency - B12 1000mcg im x 1 dose. * Skin irritation - Calmoseptine topical bid. * Appetite loss - Mirtazapine 7.5mg qhs. * Nausea - Zofran 4mg q8h prn. Capacity Capacity Assessment Tool Can the patient make a choice & communicate that choice?: Yes Can the patient understand benefits, risks and alternatives?: Yes Can the patient make a logical, rational choice?: Yes Is the choice the patient makes consistent w/ their values?: Yes Is there an impending, emergent risk to the patient?: No Does the patient have an Advance Directive?: Yes Is there a Surrogate Available?: Yes i.e. HCPOA: Yes i.e. close relative (spouse, child, parent, sibling)?: Yes
[2022-10-27] MEDS: Mirtazapine 15 MG Tablet 7.5 MG PO (21:36)
[2022-10-27] MEDS: Atorvastatin Calcium 20 MG Tablet PO (21:36)
[2022-10-28 05:20] VITALS: BP 143/69; PULSE 87
[2022-10-28] MEDS: Cholecalciferol (VIT D3) 25 MCG TABLET (1,000 UNITS) 50 MCG PO (05:23)
[2022-10-28] MEDS: amLODIPine 10 MG Tablet PO (05:23)
[2022-10-28] MEDS: Pantoprazole Sodium 20 MG Tablet PO (05:23)
[2022-10-28] MEDS: Carbidopa/Levodopa 25/100 Tablet PO ×3 (05:23→20:11)
[2022-10-28] MEDS: Acetaminophen 500 MG Tablet 1000 MG PO ×3 (05:23→20:11)
[2022-10-28] MEDS: Psyllium 1 PACKET PO (05:23)
[2022-10-28] MEDS: Menthol/Lanolin/Calamine/Znox 113 GM Tube 1 APPLIC TOPICAL ×2 (05:28→16:53)
[2022-10-28 07:02] VITALS: BMI 20.6
[2022-10-28] MEDS: Losartan Potassium 100 MG Tablet PO (09:13)
[2022-10-28] MEDS: Multivitamins,Therapeutic Tablet 1 TABLET PO (09:13)
[2022-10-28 09:15] VITALS: BP 123/52; PULSE 80
--- NOTE | 2022-10-28 09:40 | NURSING ---
Called Dr. Lewis's office to see if pt can have a shower. Dr. Lewis is in surgery all day so they will get back to us later this evening.
[2022-10-28 10:00] VITALS: PULSE 86; O2SAT 90
--- NOTE | 2022-10-28 13:37 | CASEMGMT ---
Addendum entered by Marilee Veloz 11/04/22 17:08: Therapist's asked this worker to order an additional two walkers through [facility] for pt to have a total of three walkers in the home, and one walker tray. Pt does not have support at home to assist with these purchases. SW referred to [facility] and received pricing. SW provided pricing to pt and advised [facility] will be contacting pt for payment. Pt agreeable. Addendum entered by Marilee Veloz 11/04/22 13:43: IDT continued to express concern about pt returning home with no support from family. therapy discussed [facility] with pt but pt continues to deny placement. This worker added SW to order for HHC to assist with safe transition home. Addendum entered by Marilee Veloz 10/29/22 08:47: Pt presented to this worker's office with therapy requesting DC date change to 11/09, as gddtr will be transporting home. IDT updated and agreeable. SW inquired about HHC preference. Pt prefers [facility]. Phoned referral to [facility] for PT/OT/ST/SN/LANDRY. Original Note: Social Work Spoke with pt about setting DC date. Pt states her dtr is off work on the weekends and agreeable to DC 11/08 with skilled HHC. SW provided skilled HHC list with quality and resource data via [employer]. Pt to select preferences. Pt requesting FWW. Referral sent to [facility] via [employer]. Dtr to transport. SW provided home delivered meal resources. Pt has medical alert. Wound nurse said pt will have dressing change 3x/wk and HHC SN can complete. Plan: DC home alone 11/08, HHC PT/OT/SN/LANDRY, FWW Marilee Veloz, [employer]
[2022-10-28 14:28] VITALS: BP 137/67; PULSE 69; RESP 17; TEMP 36.6; O2SAT 95
--- NOTE | 2022-10-28 17:34 | DS.PCM_ITS ---
Providers Date of Admission: 10/02/22 Primary Care Physician: Dr. Mono Ritter MD Consultations 10/02/22 19:58 Consult: General Surgery Routine Consulting Provider: Zoya Asher Reason for Consult: Postop small bowel obstruction. EMERGENT Consult: No MD Notified: Yes Date Notified: 10/02/22 Time Notified: 19:59 Method of Notification: Answering Service 10/03/22 06:33 Consult: Onc/Wound/keg filler Routine Comment: Reason for Consult:: vac abdomen Reason For Visit: SMALL BOWEL OBSTRUCTION Diagnosis Discharge Diagnosis (1) Debility: Status: Acute Code(s): R53.81 - Other malaise (2) Abdominal pain: Status: Acute Code(s): R10.9 - Unspecified abdominal pain (3) Small bowel obstruction: Status: Acute Code(s): K56.609 - Unspecified intestinal obstruction, unspecified as to partial versus complete obstruction (4) Status post laparotomy: Status: Inactive Code(s): Z98.890 - Other specified postprocedural states (5) Iron deficiency anemia: Status: Acute Code(s): D50.9 - Iron deficiency anemia, unspecified (6) Hypertension: Status: Chronic Code(s): I10 - Essential (primary) hypertension (7) Hyperlipidemia: Status: Acute Code(s): E78.5 - Hyperlipidemia, unspecified (8) Osteoporosis: Status: Acute Code(s): M81.0 - Age-related osteoporosis without current pathological fracture (9) GERD (gastroesophageal reflux disease): Status: Acute Code(s): K21.9 - Gastro-esophageal reflux disease without esophagitis (10) Parkinson disease: Status: Acute Code(s): G20 - Parkinson's disease Plan 86 year old female with below past medical history hospitalized for small bowel obstruction, underwent open laparotomy with small bowel resection 09/23/[address] Lewis, admitted to TCU with debility, here for rehabilitation, strengthening, prior to discharge home alone. * Debility - PT/OT. * Cognition - ST. * Pain - Tylenol 1000mg q8h, Tramadol 50mg q6h prn. * Bowel - Metamucil 1 packet daily, senna/colace 1 tablet bid, MOM 30ml po x 1 prn. * Adult immunization - Administer pneumonia vaccine, covid19 vaccine, flu vaccine as appropriate. * DVT prophylaxis - Hold, anemia. * Small bowel obstruction status post open laparotomy with small bowel resection - Consult Zoya Asher to follow. * Hypertension - Losartan 100mg daily. * Iron deficiency anemia - Ferrous sulfate 325mg tidcm, Vitamin C 2000mg po tid. * Hyperlipidemia - Atorvastatin 20mg qhs. * Parkinson Disease - Sinemet 25/100mg tid. * Nutrition - MVI daily. * GERD - Pantoprazole 20mg daily. * Vitamin D deficiency - D3 50mcg daily. * Zinc deficiency - Zinc 220mg daily. * Vitamin B12 deficiency - B12 1000mcg im x 1 dose. * Skin irritation - Calmoseptine topical bid. * Appetite loss - Mirtazapine 7.5mg qhs. * Nausea - Zofran 4mg q8h prn. Medications at Discharge Home Medications amlodipine 10 mg tablet 10 mg PO DAILY BP 09/17/16 atorvastatin 20 mg tablet 20 mg PO DAILY CHOLESTEROL 09/17/16 denosumab 60 mg/mL subcutaneous syringe (Prolia) 60 mg subcut [id number] BONES 01/25/20 losartan 100 mg tablet 100 mg PO DAILY BP 01/25/20 multivitamin 1 tab PO DAILY SUPPLEMENT 01/25/20 psyllium husk 0.52 gram capsule 0.52 g PO DAILY CONSTIPATION 01/25/20 cholecalciferol (vitamin D3) 50 mcg (2,000 unit) capsule 2,000 unit PO DAILY SUPPLEMENT 03/15/20 zinc amino acid chelate 50 mg tablet 50 mg PO DAILY SUPPLEMENT 03/15/20 flaxseed oil 1,000 mg capsule ([place]-3 Flaxseed Oil) 1,000 mg PO DAILY Supplement 02/27/22 carbidopa 25 mg-levodopa 100 mg tablet (Sinemet) 1 tab PO TID Check with primary doctor 09/19/22 pantoprazole 20 mg tablet,delayed release 20 mg PO DAILY gerd 09/19/22 ascorbic acid (vitamin C) 1,000 mg tablet (Vitamin C) 2 g PO TID Supplement 10/02/22 acetaminophen 500 mg tablet 1,000 mg PO Q8 #0 tabs 10/28/22 mirtazapine 15 mg tablet 7.5 mg PO QHS 30 days #15 tabs 10/28/22 ondansetron 4 mg disintegrating tablet 4 mg PO Q8H PRN PRN NAUSEA 30 days #90 tabs 10/28/22 Hospital Course Operations - (See below.) Procedures None Summary of Care Provided Minutes Spent on Discharge: 35 Hospital Course: 86 year old female with below past medical history hospitalized for small bowel obstruction, underwent open laparotomy with small bowel resection 09/23/[address] Lewis, admitted to TCU with debility, here for rehabilitation, strengthening, prior to discharge home alone. Discharge home alone 11/08/2022, Home Health Care PT/OT/SN/LANDRY, Front wheeled walker. Physical Exam Const alert General Appearance: cooperative HEENT normocephalic Eyes PERRL and EOMs intact bilaterally Neck supple, no JVD and no carotid bruits Resp normal respiratory effort, normal air movement and clear to auscultation bilaterally Cardio regular rate and regular rhythm GI normal to inspection, nondistended, normoactive bowel sounds, non-tender and non-distended Extremity normal capillary refill General Extremity: Negative for edema Skin no rashes or lesions noted General Skin Exam: no breakdown Psych affect normal Appearance: appropriate Medical Records Data Medical Nutrition Assessment Dietitian: Malnutrition Criteria Met Start: 10/08/22 12:55 Freq: Status: Active Protocol: Document 10/22/22 14:30 [facility] (Rec: 10/22/22 14:30 [facility] [id number]) Nutrition Malnutrition Evidence of Malnutrition Exists Yes Malnutrition (severe): Acute Illness/Injury Evidenced By Suboptimal Energy Intake ( Severe),Weight Loss (Severe) Intake Problem Inadequate Oral Intake Status Inactive Problem Increased Nutrient Needs (specify) Etiology protein related to skin Signs/Symptoms as evidenced by surgical incision (abd) w/ wound vac Status Active Problem Clinical Problem Acute Disease or Injury Related Malnutrition Etiology related to GI dysfunction/ obstruction s/p surgery and inadequate energy intake Signs/Symptoms as evidenced by avg ~50% po intake of est nutritional needs and 3.7% wt loss since adm. Status Active Problem Recommendation Dietitian Recommendations/Changes Will continue regular diet with 120 ml ensure clear w/ meals tid and allen bid to help w/ surgical incision healing Will continue to provide fortified foods at meals as able Rec continue appetite stimulant to help encourage increased po intake Weight / BMI Weight Weight: 49.5 kg Body Mass Index (BMI) 20.6 ABG / Lab / Microbiology Data Result Diagrams: 10/24/22 05:36 10/24/22 05:36 Microbiology: Microbiology 10/08/22 20:59 Stool Enteric Bacteriology - Final 10/06/22 05:18 Nasal Secretion SARS-CoV-2 Antigen (Rapid) - Final 10/04/22 05:30 Nasal Secretion SARS-CoV-2 Antigen (Rapid) - Final D/C Instructions Discharge Diet: No restrictions Discharge Activity: Return to Normal Activity, May Shower and Use Walker Weight Bearing Status: Weight bearing as tolerated Call your doctor if you observe: Fever of 101 or Higher, Inability to urinate, Inability to have a bowel movement, Shortness of breath, Dizziness, Fainting spells, Swelling in the ankles, Chest pain and Uncontrolled pain Additional Instructions: Discharge home alone 11/08/2022, Home Health Care PT/OT/SN/LANDRY, Front wheeled walker. Meaningful Use Info Meaningful Use Diagnoses (Choose all that apply): None applicable Discharge Plan Admission Admit Date/Time: 10/02/22 14:54 Primary Reason for Your Visit: Debility. Attending Provider: Iain Pulido Chi Primary Care Provider: Mono Ritter Consulting Providers: Zoya Asher Instructions Additional Instructions / Restrictions: Discharge home alone 11/08/2022, Home Health Care PT/OT/SN/LANDRY, Front wheeled walker. Discharge Orders/Prescriptions Prescriptions: New acetaminophen 500 mg Tablet 1,000 mg PO Q8 Qty: 0 0RF mirtazapine 15 mg Tablet 7.5 mg PO QHS 30 Days Qty: 15 0RF ondansetron 4 mg Tablet,Disintegrating 4 mg PO Q8H PRN PRN (Reason: NAUSEA) 30 Days Qty: 90 0RF Continued multivitamin Tablet 1 tab PO DAILY psyllium husk 0.52 gram capsule 0.52 g PO DAILY losartan 100 mg tablet 100 mg PO DAILY Prolia 60 mg/mL syringe 60 mg SC [id number] flaxseed oil [[place]-3 Flaxseed Oil] 1,000 mg capsule 1,000 mg PO DAILY Rx Instructions: administer with a meal atorvastatin 20 MG tablet 20 mg PO DAILY Label Comments: cholesterol lowering amlodipine 10 MG tablet 10 mg PO DAILY Label Comments: blood presswure cholecalciferol (vitamin D3) 2,000 UNIT capsule 2,000 unit PO DAILY zinc amino acid chelate 50 MG tablet 50 mg PO DAILY pantoprazole 20 mg tablet,delayed release (DR/EC) 20 mg PO DAILY Label Comments: TAKE 1 TABLET BY MOUTH DAILY carbidopa-levodopa [Sinemet] 25-100 mg tablet 1 tab PO TID Rx Instructions: take on dose in morning, 1 at 2:30, 1 at night ascorbic acid (vitamin C) [Vitamin C] 1,000 mg tablet 2 g PO TID Discontinued acetaminophen [Tylenol] 325 mg Tablet 650 mg PO Q6H PRN PRN (Reason: Pain Score 1-5) Qty: 0 0RF ferrous sulfate [iron] 325 mg (65 mg iron) tablet 325 mg PO TID Referrals / Follow Up: Mono Ritter MD [Primary Care Provider] - (Dr. Ritter needs to see pt in office prior to signing [facility] orders - MARIBELL Hunt) Disposition Disposition (needs filled in before D/C Order can be placed): Home Health Service
[2022-10-28] MEDS: Mirtazapine 15 MG Tablet 7.5 MG PO (20:11)
[2022-10-28] MEDS: Atorvastatin Calcium 20 MG Tablet PO (20:11)
[2022-10-29] MEDS: Carbidopa/Levodopa 25/100 Tablet PO ×3 (05:02→20:37)
[2022-10-29] MEDS: Cholecalciferol (VIT D3) 25 MCG TABLET (1,000 UNITS) 50 MCG PO (05:02)
[2022-10-29] MEDS: Pantoprazole Sodium 20 MG Tablet PO (05:03)
[2022-10-29] MEDS: Acetaminophen 500 MG Tablet 1000 MG PO ×3 (05:03→20:37)
[2022-10-29] MEDS: Psyllium 1 PACKET PO (05:03)
[2022-10-29] MEDS: Senna/Docusate Sodium 1 Tablet PO (05:03)
[2022-10-29] MEDS: amLODIPine 10 MG Tablet PO (05:04)
[2022-10-29 06:00] VITALS: BMI 20.6
[2022-10-29] MEDS: Multivitamins,Therapeutic Tablet 1 TABLET PO (07:34)
[2022-10-29] MEDS: Losartan Potassium 100 MG Tablet PO (07:34)
[2022-10-29] MEDS: Menthol/Lanolin/Calamine/Znox 113 GM Tube 1 APPLIC TOPICAL (07:35)
[2022-10-29 15:47] VITALS: BP 103/50; PULSE 79; RESP 16; TEMP 36.6; O2SAT 95
[2022-10-29 20:22] VITALS: PULSE 80; RESP 16; O2SAT 97
[2022-10-29] MEDS: Mirtazapine 15 MG Tablet 7.5 MG PO (20:37)
[2022-10-29] MEDS: Atorvastatin Calcium 20 MG Tablet PO (20:37)
[2022-10-30] MEDS: amLODIPine 10 MG Tablet PO (05:16)
[2022-10-30] MEDS: Cholecalciferol (VIT D3) 25 MCG TABLET (1,000 UNITS) 50 MCG PO (05:16)
[2022-10-30] MEDS: Acetaminophen 500 MG Tablet 1000 MG PO ×3 (05:16→21:12)
[2022-10-30] MEDS: Psyllium 1 PACKET PO (05:16)
[2022-10-30] MEDS: Pantoprazole Sodium 20 MG Tablet PO (05:16)
[2022-10-30] MEDS: Senna/Docusate Sodium 1 Tablet PO (05:16)
[2022-10-30] MEDS: Carbidopa/Levodopa 25/100 Tablet PO ×3 (05:16→21:12)
[2022-10-30] MEDS: Menthol/Lanolin/Calamine/Znox 113 GM Tube 1 APPLIC TOPICAL ×2 (05:23→17:04)
[2022-10-30 06:00] VITALS: BMI 20.6
[2022-10-30] MEDS: Multivitamins,Therapeutic Tablet 1 TABLET PO (09:48)
[2022-10-30 09:51] VITALS: BP 97/48; PULSE 80
[2022-10-30 10:00] VITALS: PULSE 80; O2SAT 96
[2022-10-30 15:29] VITALS: BP 133/58; PULSE 87; RESP 16; TEMP 36.2
[2022-10-30] MEDS: Mirtazapine 15 MG Tablet 7.5 MG PO (21:10)
[2022-10-30] MEDS: Atorvastatin Calcium 20 MG Tablet PO (21:10)
[2022-10-31] MEDS: Acetaminophen 500 MG Tablet 1000 MG PO ×3 (05:54→20:24)
[2022-10-31] MEDS: Cholecalciferol (VIT D3) 25 MCG TABLET (1,000 UNITS) 50 MCG PO (05:54)
[2022-10-31] MEDS: amLODIPine 10 MG Tablet PO (05:54)
[2022-10-31] MEDS: Psyllium 1 PACKET PO (05:54)
[2022-10-31] MEDS: Senna/Docusate Sodium 1 Tablet PO (05:54)
[2022-10-31] MEDS: Menthol/Lanolin/Calamine/Znox 113 GM Tube 1 APPLIC TOPICAL ×2 (05:55→18:44)
[2022-10-31] MEDS: Pantoprazole Sodium 20 MG Tablet PO (05:55)
[2022-10-31] MEDS: Carbidopa/Levodopa 25/100 Tablet PO ×3 (05:56→20:23)
[2022-10-31 06:00] VITALS: BMI 20.7
[2022-10-31 06:02] LABS: Absolute Lymphocyte Count 1.91 X10^3/uL (0.83-4.51); Absolute Neutrophil Count 6.4 X10^3/uL (2.0-7.7); Basophil# 0.07 X10^3/uL; Basophil% 0.7 % (0-1); Eosinophil# 0.53 X10^3/uL; Eosinophils% 5.2 % (0-5); Hematocrit 36.3 % (37-47); Hemoglobin 11.1 g/dL (12.0-15.0); Lymphocyte # 1.91 X10^3/ul (0.83-4.51); Lymphocyte % 18.8 % (19-41); Mean Corp Hgb Conc 30.6 g/dL (32-36); Mean Corpuscular Hgb 28.6 pg (27.0-32.0); Mean Corpuscular Volume 93.6 fL (81-99); Mean Platelet Vol. 10.1 fl (6.2-12.0); Monocyte# 1.15 X10^3/uL; Monocyte% 11.3 % (0-10); NRBC Flagged by Analyzer 0 % (0-5); Neutrophil # 6.43 X10^3/uL (2.7-7.7); Neutrophil % 63.2 % (47-70); Platelet Count 309 K/mm3 (150-450); RBC Distribution Width CV 13.7 % (11.6-14.6); RBC Distribution Width SD 46.7 fl (35.1-43.9); Red Blood Count 3.88 M/mm3 (4.2-5.4); White Blood Count 10.2 K/mm3 (4.4-11.0)
[2022-10-31 06:29] LABS: Anion Gap 4 (5-15); BUN 47 mg/dL (7-18); BUN/Creat Ratio 54.9 RATIO (10-20); Calcium,Total 8.9 mg/dL (8.5-10.1); Chloride 112 mmol/L (98-107); Creatinine, Serum 0.86 mg/dL (0.55-1.02); EST Glomerular Filtration Rate 67 mL/min (>60); Est Glom Filt Rate - Afr Amer 81 mL/min (>60); Estimated Creatinine Clearance 36.09 ml/min; Glucose 93 mg/dL (74-106); Potassium 4.4 mmol/L (3.5-5.1); Sodium Level 144 mmol/L (136-145)
[2022-10-31] MEDS: Losartan Potassium 100 MG Tablet PO (07:59)
[2022-10-31] MEDS: Multivitamins,Therapeutic Tablet 1 TABLET PO (07:59)
[2022-10-31 14:26] VITALS: BP 96/42; PULSE 73; RESP 17; TEMP 36.2; O2SAT 96
[2022-10-31 16:59] VITALS: BMI 20.7
[2022-10-31] MEDS: Atorvastatin Calcium 20 MG Tablet PO (20:23)
[2022-10-31] MEDS: Mirtazapine 15 MG Tablet 7.5 MG PO (20:23)
[2022-10-31 23:00] VITALS: PULSE 78; RESP 16; O2SAT 97
[2022-11-01 06:07] VITALS: BP 129/66; PULSE 85; RESP 18; TEMP 36.9; O2SAT 93
[2022-11-01] MEDS: Pantoprazole Sodium 20 MG Tablet PO (06:08)
[2022-11-01] MEDS: Senna/Docusate Sodium 1 Tablet PO (06:08)
[2022-11-01] MEDS: amLODIPine 10 MG Tablet PO (06:09)
[2022-11-01] MEDS: Carbidopa/Levodopa 25/100 Tablet PO ×3 (06:09→20:26)
[2022-11-01] MEDS: Acetaminophen 500 MG Tablet 1000 MG PO ×3 (06:09→20:26)
[2022-11-01] MEDS: Cholecalciferol (VIT D3) 25 MCG TABLET (1,000 UNITS) 50 MCG PO (06:09)
[2022-11-01] MEDS: Menthol/Lanolin/Calamine/Znox 113 GM Tube 1 APPLIC TOPICAL ×2 (06:09→17:00)
[2022-11-01] MEDS: Psyllium 1 PACKET PO (06:09)
[2022-11-01] MEDS: Losartan Potassium 100 MG Tablet PO (08:35)
[2022-11-01] MEDS: Multivitamins,Therapeutic Tablet 1 TABLET PO (08:35)
[2022-11-01 08:37] VITALS: BP 128/62; PULSE 85
[2022-11-01 15:50] VITALS: BP 112/47; PULSE 80; RESP 16; TEMP 36.2; O2SAT 96
[2022-11-01] MEDS: Atorvastatin Calcium 20 MG Tablet PO (20:26)
[2022-11-01] MEDS: Mirtazapine 15 MG Tablet 7.5 MG PO (20:26)
[2022-11-01 20:30] VITALS: PULSE 84; RESP 16; O2SAT 98
[2022-11-02] MEDS: Cholecalciferol (VIT D3) 25 MCG TABLET (1,000 UNITS) 50 MCG PO (05:46)
[2022-11-02] MEDS: amLODIPine 10 MG Tablet PO (05:46)
[2022-11-02] MEDS: Carbidopa/Levodopa 25/100 Tablet PO ×3 (05:46→20:10)
[2022-11-02] MEDS: Acetaminophen 500 MG Tablet 1000 MG PO ×3 (05:46→20:10)
[2022-11-02] MEDS: Senna/Docusate Sodium 1 Tablet PO (05:47)
[2022-11-02] MEDS: Pantoprazole Sodium 20 MG Tablet PO (05:47)
[2022-11-02] MEDS: Psyllium 1 PACKET PO (05:47)
[2022-11-02] MEDS: Multivitamins,Therapeutic Tablet 1 TABLET PO (08:19)
[2022-11-02] MEDS: Losartan Potassium 100 MG Tablet PO (08:19)
[2022-11-02] MEDS: Menthol/Lanolin/Calamine/Znox 113 GM Tube 1 APPLIC TOPICAL ×2 (08:20→17:25)
[2022-11-02 10:00] VITALS: PULSE 70; O2SAT 98
[2022-11-02 15:44] VITALS: BP 101/44; PULSE 85; RESP 16; TEMP 35.9; O2SAT 97
[2022-11-02] MEDS: Atorvastatin Calcium 20 MG Tablet PO (20:11)
[2022-11-02] MEDS: Mirtazapine 15 MG Tablet 7.5 MG PO (20:11)
[2022-11-03] MEDS: Menthol/Lanolin/Calamine/Znox 113 GM Tube 1 APPLIC TOPICAL ×2 (05:04→17:49)
[2022-11-03] MEDS: Psyllium 1 PACKET PO (05:06)
[2022-11-03] MEDS: Carbidopa/Levodopa 25/100 Tablet PO ×3 (05:06→21:13)
[2022-11-03] MEDS: amLODIPine 10 MG Tablet PO (05:06)
[2022-11-03] MEDS: Cholecalciferol (VIT D3) 25 MCG TABLET (1,000 UNITS) 50 MCG PO (05:06)
[2022-11-03] MEDS: Acetaminophen 500 MG Tablet 1000 MG PO ×3 (05:06→21:14)
[2022-11-03] MEDS: Senna/Docusate Sodium 1 Tablet PO (05:07)
[2022-11-03] MEDS: Pantoprazole Sodium 20 MG Tablet PO (05:07)
[2022-11-03 06:00] VITALS: BMI 20.7
[2022-11-03] MEDS: Losartan Potassium 100 MG Tablet PO (08:00)
[2022-11-03] MEDS: Multivitamins,Therapeutic Tablet 1 TABLET PO (08:00)
[2022-11-03 13:47] VITALS: BP 118/52; PULSE 85; RESP 19; TEMP 37; O2SAT 97
--- NOTE | 2022-11-03 14:05 | WOUNDNOTE ---
wound photo: abdomen
[2022-11-03] MEDS: Atorvastatin Calcium 20 MG Tablet PO (21:14)
[2022-11-03] MEDS: Mirtazapine 15 MG Tablet 7.5 MG PO (21:14)
[2022-11-04 05:54] VITALS: BMI 20.5
[2022-11-04 06:00] VITALS: BP 140/53; PULSE 88
[2022-11-04] MEDS: Psyllium 1 PACKET PO (06:01)
[2022-11-04] MEDS: amLODIPine 10 MG Tablet PO (06:02)
[2022-11-04] MEDS: Carbidopa/Levodopa 25/100 Tablet PO ×3 (06:02→20:53)
[2022-11-04] MEDS: Cholecalciferol (VIT D3) 25 MCG TABLET (1,000 UNITS) 50 MCG PO (06:02)
[2022-11-04] MEDS: Menthol/Lanolin/Calamine/Znox 113 GM Tube 1 APPLIC TOPICAL ×3 (06:03→20:52)
[2022-11-04] MEDS: Pantoprazole Sodium 20 MG Tablet PO (06:03)
[2022-11-04] MEDS: Senna/Docusate Sodium 1 Tablet PO ×2 (06:03→17:11)
[2022-11-04] MEDS: Acetaminophen 500 MG Tablet 1000 MG PO ×3 (06:03→20:52)
[2022-11-04] MEDS: Losartan Potassium 100 MG Tablet PO (08:20)
[2022-11-04] MEDS: Multivitamins,Therapeutic Tablet 1 TABLET PO (08:20)
[2022-11-04 09:57] VITALS: BMI 20.9
[2022-11-04 15:08] VITALS: BP 106/42; PULSE 95; RESP 14; TEMP 36.7; O2SAT 96
[2022-11-04] MEDS: Mirtazapine 15 MG Tablet 7.5 MG PO (20:52)
[2022-11-04] MEDS: Atorvastatin Calcium 20 MG Tablet PO (20:53)
[2022-11-05] MEDS: Psyllium 1 PACKET PO (05:35)
[2022-11-05] MEDS: amLODIPine 10 MG Tablet PO (05:36)
[2022-11-05] MEDS: Pantoprazole Sodium 20 MG Tablet PO (05:36)
[2022-11-05] MEDS: Carbidopa/Levodopa 25/100 Tablet PO ×3 (05:36→20:30)
[2022-11-05] MEDS: Acetaminophen 500 MG Tablet 1000 MG PO ×3 (05:36→20:29)
[2022-11-05] MEDS: Cholecalciferol (VIT D3) 25 MCG TABLET (1,000 UNITS) 50 MCG PO (05:36)
[2022-11-05] MEDS: Senna/Docusate Sodium 1 Tablet PO (05:37)
[2022-11-05 06:00] VITALS: BMI 20.9
[2022-11-05] MEDS: Losartan Potassium 100 MG Tablet PO (09:01)
[2022-11-05] MEDS: Multivitamins,Therapeutic Tablet 1 TABLET PO (09:01)
[2022-11-05 14:05] VITALS: BP 119/53; PULSE 82; RESP 14; TEMP 36.6; O2SAT 97
[2022-11-05] MEDS: Menthol/Lanolin/Calamine/Znox 113 GM Tube 1 APPLIC TOPICAL (17:34)
[2022-11-05] MEDS: Atorvastatin Calcium 20 MG Tablet PO (20:30)
[2022-11-05] MEDS: Mirtazapine 15 MG Tablet 7.5 MG PO (20:30)
--- NOTE | 2022-11-05 20:31 | NURSING ---
HS meds given at this time per patient request. Patient wishes to go to bed at this time.
[2022-11-06] MEDS: Psyllium 1 PACKET PO (04:56)
[2022-11-06] MEDS: Cholecalciferol (VIT D3) 25 MCG TABLET (1,000 UNITS) 50 MCG PO (04:57)
[2022-11-06] MEDS: amLODIPine 10 MG Tablet PO (04:57)
[2022-11-06] MEDS: Pantoprazole Sodium 20 MG Tablet PO (04:57)
[2022-11-06] MEDS: Senna/Docusate Sodium 1 Tablet PO ×2 (04:57→17:05)
[2022-11-06] MEDS: Menthol/Lanolin/Calamine/Znox 113 GM Tube 1 APPLIC TOPICAL ×2 (04:59→17:05)
[2022-11-06] MEDS: Carbidopa/Levodopa 25/100 Tablet PO ×3 (05:00→22:18)
[2022-11-06] MEDS: Acetaminophen 500 MG Tablet 1000 MG PO ×3 (05:00→22:18)
[2022-11-06 05:05] VITALS: BP 128/56; PULSE 77; RESP 16; TEMP 36.5; O2SAT 97
[2022-11-06] MEDS: Multivitamins,Therapeutic Tablet 1 TABLET PO (08:15)
[2022-11-06] MEDS: Losartan Potassium 100 MG Tablet PO (08:15)
[2022-11-06 08:17] VITALS: BP 112/49; PULSE 77
[2022-11-06 15:22] VITALS: BP 115/52; PULSE 82; RESP 21; TEMP 36.6; O2SAT 96
[2022-11-06 22:00] VITALS: PULSE 79; RESP 16; O2SAT 97
[2022-11-06] MEDS: Atorvastatin Calcium 20 MG Tablet PO (22:19)
[2022-11-06] MEDS: Mirtazapine 15 MG Tablet 7.5 MG PO (22:19)
[2022-11-07] MEDS: amLODIPine 10 MG Tablet PO (04:48)
[2022-11-07] MEDS: Carbidopa/Levodopa 25/100 Tablet PO ×3 (04:48→22:30)
[2022-11-07] MEDS: Cholecalciferol (VIT D3) 25 MCG TABLET (1,000 UNITS) 50 MCG PO (04:48)
[2022-11-07] MEDS: Pantoprazole Sodium 20 MG Tablet PO (04:48)
[2022-11-07] MEDS: Senna/Docusate Sodium 1 Tablet PO (04:48)
[2022-11-07] MEDS: Acetaminophen 500 MG Tablet 1000 MG PO ×3 (04:49→22:30)
[2022-11-07] MEDS: Psyllium 1 PACKET PO (04:49)
[2022-11-07] MEDS: Multivitamins,Therapeutic Tablet 1 TABLET PO (09:11)
[2022-11-07] MEDS: Losartan Potassium 100 MG Tablet PO (09:11)
[2022-11-07] MEDS: Menthol/Lanolin/Calamine/Znox 113 GM Tube 1 APPLIC TOPICAL ×2 (09:13→17:18)
[2022-11-07 09:14] VITALS: BP 129/62; PULSE 84
[2022-11-07 09:15] VITALS: PULSE 84; O2SAT 98
--- NOTE | 2022-11-07 13:04 | MDS.RN ---
Pain interview for SAIRA 11/09/22.
[2022-11-07 14:14] VITALS: BP 115/47; PULSE 79; RESP 18; TEMP 36.5; O2SAT 97
--- NOTE | 2022-11-07 17:00 | CASEMGMT ---
Social Work BIMS () and PHQ-9 (12/11) completed for MDS assessment. Marilee Veloz MSW [employer]
[2022-11-07] MEDS: Atorvastatin Calcium 20 MG Tablet PO (22:30)
[2022-11-07] MEDS: Mirtazapine 15 MG Tablet 7.5 MG PO (22:30)
[2022-11-08] MEDS: Menthol/Lanolin/Calamine/Znox 113 GM Tube 1 APPLIC TOPICAL ×3 (06:20→20:45)
[2022-11-08] MEDS: Senna/Docusate Sodium 1 Tablet PO ×2 (06:21→14:11)
[2022-11-08] MEDS: Carbidopa/Levodopa 25/100 Tablet PO ×3 (06:21→20:45)
[2022-11-08] MEDS: Pantoprazole Sodium 20 MG Tablet PO (06:21)
[2022-11-08] MEDS: Cholecalciferol (VIT D3) 25 MCG TABLET (1,000 UNITS) 50 MCG PO (06:21)
[2022-11-08] MEDS: Acetaminophen 500 MG Tablet 1000 MG PO ×3 (06:21→20:44)
[2022-11-08] MEDS: amLODIPine 10 MG Tablet PO (06:22)
[2022-11-08] MEDS: Psyllium 1 PACKET PO (06:22)
[2022-11-08] MEDS: Multivitamins,Therapeutic Tablet 1 TABLET PO (08:55)
[2022-11-08] MEDS: Losartan Potassium 100 MG Tablet PO (08:56)
[2022-11-08 12:49] VITALS: BP 99/44; PULSE 45; RESP 18; TEMP 36; O2SAT 96
[2022-11-08] MEDS: Atorvastatin Calcium 20 MG Tablet PO (20:43)
[2022-11-08] MEDS: Mirtazapine 15 MG Tablet 7.5 MG PO (20:44)
[2022-11-08 21:32] VITALS: PULSE 91; RESP 16; O2SAT 97
[2022-11-09] MEDS: Cholecalciferol (VIT D3) 25 MCG TABLET (1,000 UNITS) 50 MCG PO (06:31)
[2022-11-09] MEDS: Acetaminophen 500 MG Tablet 1000 MG PO (06:31)
[2022-11-09] MEDS: Psyllium 1 PACKET PO (06:31)
[2022-11-09] MEDS: Senna/Docusate Sodium 1 Tablet PO (06:32)
[2022-11-09] MEDS: Pantoprazole Sodium 20 MG Tablet PO (06:32)
[2022-11-09] MEDS: amLODIPine 10 MG Tablet PO (06:32)
[2022-11-09] MEDS: Carbidopa/Levodopa 25/100 Tablet PO (06:32)
[2022-11-09] MEDS: Multivitamins,Therapeutic Tablet 1 TABLET PO (09:22)
[2022-11-09] MEDS: Losartan Potassium 100 MG Tablet PO (09:22)
[2022-11-09 10:20] VITALS: PULSE 92; RESP 16; O2SAT 97
== END 2022-11-09 10:20 | disposition home health service (06) | DRG 949 ==
PROVIDERS: Surgery; Admitting Provider Family Medicine Geriatric Medicine; PCP Family Medicine; Visit Provider Family Medicine Geriatric Medicine
DX: Z48.815 Encounter for surgical aftercare following surgery on the digestive system (principal); K56.609 Unspecified intestinal obstruction, unspecified as to partial versus complete obstruction; G20 Parkinson's disease; N18.30 Chronic kidney disease, stage 3 unspecified; D50.9 Iron deficiency anemia, unspecified; I12.9 Hypertensive chronic kidney disease with stage 1 through stage 4 chronic kidney disease, or unspecified chronic kidney disease; K21.9 Gastro-esophageal reflux disease without esophagitis; E78.00 Pure hypercholesterolemia, unspecified; E55.9 Vitamin D deficiency, unspecified; E53.8 Deficiency of other specified B group vitamins; Z87.891 Personal history of nicotine dependence; Z79.899 Other long term (current) drug therapy; M81.0 Age-related osteoporosis without current pathological fracture; Z28.21 Immunization not carried out because of patient refusal
CPT/HCPCS: 36415; 74018; 80048; 83735; 84100; 85014; 85018; 85025; 86920; 86922; 87506; 87811; 92507; 92523; 97110; 97112; 97116; 97129; 97130; 97162; 97166; 97530; 97535; 97802; A4216; J3420

== ENCOUNTER 2022-10-09 10:59 | Outpatient (CLI) | payer MEDICARE, OTHER, SELFPAY ==
[2022-10-09] VITALS (7 sets, daily range): BP systolic 109–141; BP diastolic 51–65; PULSE 72–84; RESP 16; TEMP 36.3–37.1; O2SAT 98–100
[2022-10-09] MEDS: 0.9% NaCl Peripheral Flush Adult/Peds IV ×3 (11:17→16:04)
[2022-10-09] MEDS: Furosemide 20 MG/2 ML VIAL IV (13:46)
== END 2022-10-09 23:59 | disposition home or self-care (01) ==
LOC: MEDOUTP 10:59
PROVIDERS: PCP Family Medicine; Referring Provider Family Medicine Geriatric Medicine; Visit Provider Family Medicine Geriatric Medicine
DX: D64.89 Other specified anemias (principal)
CPT/HCPCS: 96372; 36415; 36430; 86850; 86900; 86901; 86920; 86922; 96361; J7040; P9016; A4216; J1940

== ENCOUNTER → 2023-02-18 | Outpatient (CLI) | payer MEDICARE, OTHER, SELFPAY ==
[2023-02-18 18:36] LABS: Anion Gap 6 (5-15); BUN 38 mg/dL (7-18); BUN/Creat Ratio 30.6 RATIO (10-20); Calcium,Total 9.4 mg/dL (8.5-10.1); Chloride 114 mmol/L (98-107); Creatinine, Serum 1.24 mg/dL (0.55-1.02); EST Glomerular Filtration Rate 44 mL/min (>60); Est Glom Filt Rate - Afr Amer 53 mL/min (>60); Glucose 95 mg/dL (74-106); Potassium 4.6 mmol/L (3.5-5.1); Sodium Level 141 mmol/L (136-145)
== END | disposition home or self-care (01) ==
LOC: MFPLAB 17:00
PROVIDERS: PCP Family Medicine; Visit Provider Family Medicine
DX: I10 Essential (primary) hypertension (principal)
CPT/HCPCS: 36415; 80048

== ENCOUNTER → 2023-06-08 | Outpatient (CLI) | payer MEDICARE, OTHER, SELFPAY ==
[2023-06-08 15:17] LABS: Absolute Lymphocyte Count 1.66 X10^3/uL (0.83-4.51); Absolute Neutrophil Count 4.7 X10^3/uL (2.0-7.7); Basophil# 0.05 X10^3/uL; Basophil% 0.7 % (0-1); Eosinophil# 0.18 X10^3/uL; Eosinophils% 2.5 % (0-5); Hemoglobin 12.1 g/dL (12.0-15.0); Lymphocyte # 1.66 X10^3/ul (0.83-4.51); Lymphocyte % 23.2 % (19-41); Mean Corpuscular Hgb 29.1 pg (27.0-32.0); Mean Corpuscular Volume 93.8 fL (81-99); Mean Platelet Vol. 10.9 fl (6.2-12.0); Monocyte# 0.54 X10^3/uL; Monocyte% 7.6 % (0-10); NRBC Flagged by Analyzer 0 % (0-5); Neutrophil % 65.7 % (47-70); Platelet Count 189 K/mm3 (150-450); RBC Distribution Width CV 12.4 % (11.6-14.6); Red Blood Count 4.16 M/mm3 (4.2-5.4); White Blood Count 7.2 K/mm3 (4.4-11.0)
[2023-06-08 16:12] LABS: ALB/GLOB Ratio 1.3 RATIO (0.9-2.4); AST(SGOT) 20 U/L (15-37); Alanine Aminotransfer ALT/SGPT 13 U/L (13-56); Albumin, Serum 3.7 g/dL (3.2-5.0); Alkaline Phosphatase 46 U/L (45-117); Anion Gap 4 (5-15); BUN 32 mg/dL (7-18); BUN/Creat Ratio 23.7 RATIO (10-20); Chloride 111 mmol/L (98-107); Creatinine, Serum 1.35 mg/dL (0.55-1.02); EST Glomerular Filtration Rate 40 mL/min (>60); Est Glom Filt Rate - Afr Amer 48 mL/min (>60); Globulin 2.9 g/dL (2.2-4.2); Glucose 111 mg/dL (74-106); Potassium 4.1 mmol/L (3.5-5.1); Protein, Total 6.6 g/dL (6.4-8.2); Sodium Level 143 mmol/L (136-145)
[2023-06-08 16:18] LABS: Vitamin B12 681 pg/mL (211-911)
[2023-06-08 16:26] LABS: Microalbumin,Random Urine < 5.0 mg/L (NO RANGE EST.)
== END | disposition home or self-care (01) ==
PROVIDERS: PCP Family Medicine; Visit Provider Family Medicine
DX: E53.8 Deficiency of other specified B group vitamins (principal); N18.30 Chronic kidney disease, stage 3 unspecified
CPT/HCPCS: 36415; 80053; 82043; 82570; 82607; 82746; 85025

== ENCOUNTER → 2024-01-15 | Outpatient (CLI) | payer MEDICARE, OTHER, SELFPAY ==
[2024-01-15 12:19] LABS: Absolute Lymphocyte Count 1.32 X10^3/uL (0.83-4.51); Absolute Neutrophil Count 4.3 X10^3/uL (2.0-7.7); Basophil# 0.04 X10^3/uL; Basophil% 0.6 % (0-1); Eosinophil# 0.15 X10^3/uL; Eosinophils% 2.4 % (0-5); Hematocrit 40.5 % (37-47); Hemoglobin 12.9 g/dL (12.0-15.0); Lymphocyte # 1.32 X10^3/ul (0.83-4.51); Lymphocyte % 21.1 % (19-41); Mean Corp Hgb Conc 31.9 g/dL (32-36); Mean Corpuscular Hgb 29.3 pg (27.0-32.0); Mean Platelet Vol. 10.9 fl (6.2-12.0); Monocyte# 0.45 X10^3/uL; Monocyte% 7.2 % (0-10); NRBC Flagged by Analyzer 0 % (0-5); Neutrophil % 68.5 % (47-70); Platelet Count 163 K/mm3 (150-450); RBC Distribution Width CV 12.5 % (11.6-14.6); RBC Distribution Width SD 41.7 fl (35.1-43.9); White Blood Count 6.3 K/mm3 (4.4-11.0)
[2024-01-15 12:25] LABS: Microalbumin,Random Urine 6.9 mg/L (NO RANGE EST.); Microalbumin:Creatinine Ratio 29.4 mg/g CRE (<30 mg/g CRE)
[2024-01-15 12:56] LABS: Vitamin D,25 Hydroxy 66.7 ng/mL
[2024-01-15 13:11] LABS: ALB/GLOB Ratio 1.3 RATIO (0.9-2.4); AST(SGOT) 21 U/L (15-37); Alanine Aminotransfer ALT/SGPT < 6 U/L (13-56); Alkaline Phosphatase 41 U/L (45-117); Anion Gap 7 (5-15); BUN 32 mg/dL (7-18); BUN/Creat Ratio 27.6 RATIO (10-20); Calcium,Total 9.5 mg/dL (8.5-10.1); Chloride 111 mmol/L (98-107); Creatinine, Serum 1.16 mg/dL (0.55-1.02); EST Glomerular Filtration Rate 47 mL/min (>60); Est Glom Filt Rate - Afr Amer 57 mL/min (>60); Glucose 91 mg/dL (74-106); Sodium Level 141 mmol/L (136-145)
[2024-01-15 15:13] LABS: PTHIN 73.1 pg/mL (18.4-80.1)
== END | disposition home or self-care (01) ==
LOC: MFPLAB 11:00
PROVIDERS: PCP Family Medicine; Visit Provider Family Medicine
DX: N18.30 Chronic kidney disease, stage 3 unspecified (principal)
CPT/HCPCS: 36415; 80053; 82043; 82306; 82570; 83970; 85025

== ENCOUNTER 2024-01-25 11:00 | Outpatient (RCR) | payer MEDICARE, OTHER, SELFPAY ==
--- NOTE | 2023-12-28 10:31 | HP.PTEVAL_ITS ---
Patient's Visit Information Visit Information Visit Information: JOSE MARTIN ESCALERA is a 88 year old F referred to Physical Therapy by Dr. Hiren Noel MD with a diagnosis of PD. Date of Evaluation: 12/28/23 Physical Therapist: HOLLY Kim Visit Plan Frequency: 2x /Week Duration: 2 Months Plan: Re check R Hallpike 2X/ week for 8 weeks for treatment of R Hallpike, balance (high level and fu nctional), functional activities, dual tasking, LE strength and posture with HEP Subjective Subjective: Pt reports that she gets dizzy. It is not room spinning. It feels like a pressure. When she stands up she will get the pressure/dizziness. She does take emili BP meds. She thinks that when she rolls over in bed to the R she will get room spinning dizziness and it is around a minute. When she goes to sleep she lays down on her R side and will get the dizziness as well. She gets it about every time she rolls to the R side. Sometimes she can be standing and will have to step out to to catch her balance. During exercise class when she first stands up she might be off balance and feels it in her head. Sometimes when she is walking she will veer. She has no recent falls. She uses the railings and does 2 feet to a step. She gets B12 shots and that helps with her tiredness and she gets one today. Objective Objective: R Hallpike for torsional nystagmus that lasted about 40 seconds (nausea) and treated with R EPLY and then repeated Hallpike and had nausea but no spinning and no nystagmus. Treated with R Eply a second time. Gait: walks with increase veering at times especially with turning 180 degrees and head turns Sit to stand on first attempt but retro LOB back into the chair and then on second attempt she was able to stand up straight. FGA: 14 LE MMT: R hip flex 6.8 and L 6.9 R knee ext 11.8 and L 12.1 R knee flex 5.3 and L 5.9 sitting opp arm and leg X 20 on each side with no mess ups Balance/Special Test Scores Functional Gait Assessment Score: 14 % Disability: 53.3400 Lower Extremity Functional Score: 47 Goals Goal 1:: I HEP Goal Time Frame: 6-8 Weeks Goal 2:: Abolish dizziness with rolling over in bed Goal Time Frame: 6-8 Weeks Goal 3:: Improve overall balance (score on FGA was 14 on eval). Goal Time Frame: 6-8 Weeks Goal 4:: Improve sit to stand X 10 with no falling back into chair Goal Time Frame: 6-8 Weeks Rehabilitation Potential Rehabilitation Potential: Good Anticipated Interventions Patient/Client Instruction: Educate patient on: Condition and Plan of Care For the Purpose of:: To improve muscle performance and motor function, To improve ability to perform ADL's, To improve performance and independence with ADL's, To improve ability of physical actions for home/community/work/leisure, To improve gait and locomotor functions, To improve endurance, To improve balance and To improve safety with gait Therapeutic Exercise to Include: Strength training, Endurance training, Balance training, Body mechanics, Postural training, Flexibilty training, Gait and locomotor training, Neuromotor development, Dynamic Lumbar Stabilization and Scapular Strength/Stabilization For the Purpose of:: To improve muscle performance and motor function, To im prove ability to perform ADL's, To increase tolerance to activity/condition/position, To improve performance and independence with ADL's, To improve ability of physical actions for home/community/work/leisure, To improve gait and locomotor functions, To improve endurance, To improve balance and To improve safety with gait Functional Training to Include: Gait training For the Purpose of:: To improve gait and locomotor functions and To improve safety with gait Text: Thank you for the opportunity to evaluate your patient. For Medicare and Medicare HMO plans, please review the plan of care and approve it. It will need to be FAXED BACK to us at [phone] for Medicare purposes. For Medicare only, by signing this I certify the plan of care. Please let me know if there are questions or concerns regarding this plan of care. Physician Signature: Date:
--- NOTE | 2024-01-25 11:54 | HP.PTDCSUM ---
Discharge Summary D/C summary: It has been my pleasure to treat JOSE MARTIN ESCALERA referred by Dr. Hiren Noel MD, with the diagnosis of PD for a total of 10 visit(s). Discharge Date: 01/25/24 Please see the following information for a summary of their discharge status. Subjective Subjective: Pt reports that overall she is much better than what she was. She is still off balance at times Overall Improvement % Improvement: 85 Objective Objective/Function: FGA25 Sit to stand X 10 with no LOB No dizziness rolling over in bed Goals Goal 1:: I HEP Goal Progress: Goal Met Goal 2:: Abolish dizziness with rolling over in bed Goal Progress: Goal Met Goal 3:: Improve overall balance (score on FGA was 14 on eval). Goal Progress: Goal Met Goal 4:: Improve sit to stand X 10 with no falling back into chair Goal Progress: Goal Met Plan Plan: 2X/ week for 8 weeks for treatment of R Hallpike, balance (high level and functional), functional activities, dual tasking, LE strength and posture with HEP D/C Information Discharge Comments: DC PT to HEP and back to PD class d/c sentence: If there are questions or concerns regarding this patient's physical therapy, please feel free to call me at [phone]. Thank you for the referral of this patient. Sincerely, Daniela Spann, MPT Balance/Gait/Functional tests Balance/Special Test Scores Functional Gait Assessment Score: 25 % Disability: 16.6700 Lower Extremity Functional Score: 56 Improvement % Improvement: 85
== END 2024-01-25 19:00 | disposition home or self-care (01) ==
LOC: PT 11:00
PROVIDERS: PCP Family Medicine; Referring Provider Psychiatry & Neurology Neurology; Visit Provider Psychiatry & Neurology Neurology
DX: G20.A1 Parkinson's disease without dyskinesia, without mention of fluctuations (principal)
CPT/HCPCS: 97110; 97162; 97530

== ENCOUNTER → 2024-05-12 | Outpatient (CLI) | payer MEDICARE, OTHER, SELFPAY ==
--- NOTE | 2024-05-12 11:34 | EKG12_ITS ---
Test Reason : ROUTINE Blood Pressure : / mmHG Vent. Rate : 075 BPM Atrial Rate : 075 BPM P-R Int : 158 ms QRS Dur : 074 ms QT Int : 370 ms P-R-T Axes : 022 -06 046 degrees QTc Int : 413 ms Sinus rhythm with frequent Premature ventricular complexes Low voltage QRS Septal infarct , age undetermined Abnormal ECG Confirmed by Hans Russell ([id number]), script editor REJI HERNANDEZ ([id number]) on 05/13/2024 6:03:33 AM Referred By: Hiren Noel Confirmed By:Hans Russell
== END | disposition home or self-care (01) ==
LOC: PSN 11:31
PROVIDERS: PCP Family Medicine; Referring Provider Psychiatry & Neurology Neurology; Visit Provider Psychiatry & Neurology Neurology
DX: I49.9 Cardiac arrhythmia, unspecified (principal); I10 Essential (primary) hypertension
CPT/HCPCS: 93005

== ENCOUNTER → 2024-06-23 | Outpatient (CLI) | payer MEDICARE, OTHER, SELFPAY | END | disposition home or self-care (01) | PROVIDERS: PCP Family Medicine; Referring Provider Family Medicine; Visit Provider Family Medicine | DX: M54.40 Lumbago with sciatica, unspecified side (principal) | CPT/HCPCS: 72110; 73502 ==

== ENCOUNTER 2024-06-27 17:30 | Emergency (ER) | payer MEDICARE, OTHER, SELFPAY ==
[2024-06-27 17:31] VITALS: BP 173/73; PULSE 78; RESP 16; TEMP 36.7; O2SAT 98; BMI 21.1
== END 2024-06-27 18:44 | disposition home or self-care (01) ==
PROVIDERS: Emergency Provider Emergency Medicine; PCP Family Medicine; Visit Provider Emergency Medicine
DX: M25.551 Pain in right hip (principal); N18.30 Chronic kidney disease, stage 3 unspecified; I12.9 Hypertensive chronic kidney disease with stage 1 through stage 4 chronic kidney disease, or unspecified chronic kidney disease; Z87.891 Personal history of nicotine dependence; M41.9 Scoliosis, unspecified; R21 Rash and other nonspecific skin eruption; M81.0 Age-related osteoporosis without current pathological fracture; E78.5 Hyperlipidemia, unspecified; K21.9 Gastro-esophageal reflux disease without esophagitis; Z90.710 Acquired absence of both cervix and uterus
CPT/HCPCS: 73700; 99282

== ENCOUNTER 2024-07-16 20:05 | Emergency (ER) | payer MEDICARE, OTHER, SELFPAY ==
[2024-07-16 20:06] VITALS: BP 153/84; PULSE 68; RESP 18; TEMP 36.1; O2SAT 98; BMI 21.3
[2024-07-16 20:16] VITALS: BP 148/78; PULSE 78; O2SAT 96
--- NOTE | 2024-07-16 21:00 | CT_ITS ---
INDICATION: Trauma EXAMINATION: CT BRAIN - CT Head or Brain W/O Contrast Injection TECHNIQUE: Multiple axial images were obtained of the head without intravenous contrast. The protocol utilizes one or more of the following dose reduction techniques: automated exposure control, adjustment of mA and/or kV according to patient size,and/or use of iterative reconstruction technique. IV Contrast dosage and agent: None. RADIATION DOSAGE (If Supplied By Facility): CTDIvol = ( 44.99 ) mGy, DLP = ( 779.24 ) mGycm COMPARISON: No relevant prior comparison study available FINDINGS: BRAIN: No acute bleed. No edema. Decreased attenuation in the periventricular white matter bilaterally. [place]-white matter differentiation is maintained. Arterial calcifications. VENTRICLES AND SULCI: The ventricles are not dilated. The sulci are prominent. EXTRA-AXIAL: No hemorrhage, fluid collection, or mass. CALVARIUM / SKULL BASE: Unremarkable. FACE/SINUSES: Unremarkable. SOFT TISSUES: Unremarkable. CT/Brain/Head without Contrast IMPRESSION: No acute abnormality. Chronic microvascular ischemic disease. Electronically Signed: Patricia Barreto MD at 22:09 EST ,
--- NOTE | 2024-07-16 21:00 | RAD_ITS ---
INDICATION: Pain/Trauma EXAMINATION/TECHNIQUE: X-RAY - LEFT XR Forearm 2 Views 2 VIEWS COMPARISON: No relevant prior comparison study available FINDINGS: BONES: No fracture demonstrated. JOINTS: No dislocation. SOFT TISSUES: Unremarkable. RAD/Forearm 2 Views IMPRESSION: No evidence of fracture. Electronically Signed: Patricia Barreto MD at 22:28 EST ,
--- NOTE | 2024-07-16 21:00 | CT_ITS ---
INDICATION: Trauma EXAMINATION: CT CERVICAL SPINE - CT Spine Cervical W/O Contrast Injection TECHNIQUE: Helically acquired images were obtained of the cervical spine. 2D reformatted images were reviewed. The protocol utilizes one or more of the following dose reduction techniques: automated exposure control, adjustment of mA and/or kV according to patient size,and/or use of iterative reconstruction technique. IV Contrast dosage and agent: None. RADIATION DOSAGE (If Supplied By Facility): CTDIvol = ( 11.91 ) mGy, DLP = ( 241.69 ) mGycm COMPARISON: No relevant prior comparison study available FINDINGS: ALIGNMENT: Minimal anterior subluxation of C3 on C4. Straightening of the normal curvature. MINERALIZATION: Normal. VERTEBRAL BODIES: No fracture or acute abnormality. DISC SPACES: Disc space narrowing with osteophytes most pronounced C4-C6. POSTERIOR ELEMENTS: Facet arthropathy at multiple levels. SPINAL CANAL: Maintained. PARASPINAL SOFT TISSUES: Unremarkable. OTHER: Reticulonodular changes in the lung apices likely scarring. A few small nodules in the thyroid gland largest in the left lobe is approximately 1.[address]/Spine Cervical without Contras IMPRESSION: No evidence of fracture or traumatic subluxation. Minimal anterolisthesis at C3-4 likely secondary to degenerative changes. Straightening of the normal curve may be due to positioning or muscle spasm. Thyroid nodules. Nonemergent thyroid ultrasound recommended. Electronically Signed: Patricia Barreto MD at 22:13 EST ,
--- NOTE | 2024-07-16 21:00 | RAD_ITS ---
INDICATION: Pain/Trauma FALL. LEFT HIP PAIN. EXAMINATION/TECHNIQUE: X-RAY - XR Hip Unilateral with Pelvis when performed; 2-3 Views LEFT COMPARISON: No relevant prior comparison study available FINDINGS: No fracture demonstrated. Femoral heads are normal in contour. No dislocation at the hips. Small sclerotic focus in the left ilium likely bone island. Sacrum is partially obscured by stool. Degenerative changes in the lower lumbar spine with scoliosis. RAD/HIP, UNI W/ Pelvis 2-3 Views IMPRESSION: No evidence of fracture. Electronically Signed: Patricia Barreto MD at 22:31 EST ,
--- NOTE | 2024-07-16 21:00 | RAD_ITS ---
INDICATION: Pain/Trauma FALL. LEFT ARM PAIN WITH SKIN TEAR TO ELBOW. EXAMINATION/TECHNIQUE: X-RAY - LEFT XR Elbow Min 3 Views COMPARISON: No relevant prior comparison study available FINDINGS: BONES: No fracture demonstrated. Small olecranon spur. JOINTS: No dislocation. SOFT TISSUES: Soft tissue swelling posteriorly with laceration. No radiopaque foreign body identified. RAD/Elbow min 3 Views IMPRESSION: No evidence of fracture. Electronically Signed: Patricia Barreto MD at 22:26 EST ,
--- NOTE | 2024-07-16 21:00 | RAD_ITS ---
INDICATION: Pain/Trauma EXAMINATION/TECHNIQUE: X-RAY - LEFT XR Shoulder Min 2 Views 4 VIEWS COMPARISON: No relevant prior comparison study available FINDINGS: BONES: No fracture demonstrated. JOINTS: No dislocation. SOFT TISSUES: Unremarkable. RAD/Shoulder min 2 Views IMPRESSION: No evidence of fracture. Electronically Signed: Patricia Barreto MD at 22:24 EST ,
[2024-07-16] MEDS: Acetaminophen 500 MG Tablet PO (21:05)
--- NOTE | 2024-07-16 21:15 | EDS_ITS ---
HPI HPI - Fall History of Present Illness Chief Complaint: Fall Narrative Narrative: Chief complaint and HPI: Fall. 88-year-old female with history of DDD, CKD, sclerosis, HTN presents for evaluation after a mechanical fall. Patient states that she was letting her dog out on the leash when she lost her balance and fell. She states she fell onto her left side. Does not remember if she hit her head. No LOC. No blood thinners. Endorses left upper extremity pain from the shoulder to the mid forearm as well as left hip pain. Patient has a skin tear to the left forearm. Denies any headache, vision changes, lightheadedness, weakness, numbness/tingling, neck pain, shortness of breath, chest pain, abdominal pain, nausea, vomiting, diarrhea, dysuria. Patient ambulated after the fall. Unknown tetanus. Review of systems: See HPI Medications: As listed on the chart Allergies: As listed on the chart PFSH: Per chart Vital signs: As listed on the chart. Reviewed. Physical exam: Gen: A&O x3, NAD Head: Normocephalic, atraumatic Eyes: No sclera icterus, conjunctiva clear, PERRL, EOMI ENT: TMs clear BL, moist mucous membranes, no swelling/lacerations/blood in the mouth or the nares, No nasal septal hematoma, no facial tenderness Neck: Trachea midline, No JVD, Nontender CV: RRR, no murmurs, no chest wall TTP Resp: Lungs CTA BL, no w/r/c GI: Abd soft, non-distended, non-tender, no r/r/g Musc: Moves all extremities but limited range of motion of the left upper extremity secondary to pain, no deformity, tender to palpation in the left shoulder, left arm, left elbow, and left forearm. She has a skin tear to the left forearm distal to the left elbow. Full range of motion of the wrist, hand, fingers without any pain to palpation. Good capillary refill. Ulnar/radial pulse plus 2 out of 4. Mild tenderness to palpation of the left hip. No spinal TTP, no lizeth step-offs Skin: Warm, dry, intact Neuro: Alert, oriented, grossly intact, sensation intact, GCS 15 Psych: Cooperative, appropriate mood and affect [facility] Medical History Hypophosphatemia Skin tear of left elbow without complication Left elbow contusion Forehead abrasion Arthritis Guaiac positive stools CKD (chronic kidney disease) stage 3, GFR 30-59 ml/min BCC (basal cell carcinoma of skin) Menieres disease GERD (gastroesophageal reflux disease) Hypercholesteremia Scoliosis SBO (small bowel obstruction) Hx SBO Dyslipidemia HTN (hypertension) Home Medications ?Medication ?Instructions ?Recorded ?Last Taken ?Type atorvastatin 20 mg tablet 20 mg PO DAILY CHOLESTEROL 09/17/16 03/15/20 History denosumab 60 mg/mL subcutaneous 60 mg subcut [id number] BONES 01/25/20 1 Month Ago History syringe (Prolia) ~02/14/20 losartan 100 mg tablet 100 mg PO DAILY BP 01/25/20 03/15/20 History multivitamin 1 tab PO DAILY SUPPLEMENT 01/25/20 03/15/20 History psyllium husk 0.52 gram capsule 0.52 g PO DAILY CONSTIPATION 01/25/20 03/15/20 History cholecalciferol (vitamin D3) 50 2,000 unit PO DAILY SUPPLEMENT 03/15/20 03/15/20 History mcg (2,000 unit) capsule zinc amino acid chelate 50 mg 50 mg PO DAILY SUPPLEMENT 03/15/20 03/15/20 History tablet flaxseed oil 1,000 mg capsule 1,000 mg PO DAILY Supplement 02/27/22 Unknown History ([place]-3 Flaxseed Oil) pantoprazole 20 mg tablet,delayed 20 mg PO DAILY gerd 09/19/22 Unknown History release ascorbic acid (vitamin C) 1,000 mg 2 g PO TID Supplement 10/02/22 Unknown History tablet (Vitamin C) acetaminophen 500 mg tablet 1,000 mg (2 x 500 mg) PO Q8 #0 tabs 10/28/22 Unknown Rx ondansetron 4 mg disintegrating 4 mg PO Q8H PRN PRN NAUSEA 30 days 10/28/22 Unknown Rx tablet #90 tabs amlodipine 10 mg tablet 5 mg PO DAILY BP 02/19/23 Unknown History mirtazapine 7.5 mg tablet 7.5 mg PO QHS 02/19/23 Unknown History carbidopa 25 mg-levodopa 100 mg 1 tab PO BID #60 tabs 05/09/24 Unknown Rx tablet (Sinemet) ferrous sulfate 325 mg (65 mg 325 mg PO QHS #30 tabs 05/09/24 Unknown Rx iron) tablet fludrocortisone 0.1 mg tablet See Rx Instructions PO .COMPLEX 05/09/24 Unknown Rx #10 tabs hydrocodone-acetaminophen 5-325mg 1 tab PO Q6H PRN PRN Pain 3 days 06/27/24 Unknown Rx 5mg-325mg #10 TABLETS Allergy/AdvReac Type Severity Reaction Status Date / Time No Known Allergies Allergy Verified 07/16/24 20:09 Family History Father Hypertension Cancer Mother Hypertension Cancer Arthritis Surgical History Status post laparotomy History of colonoscopy (~09/2019) History of tonsillectomy s/p vein strippling s/p exploratory laparoscopy S/P hysterectomy Social History household members: none Smoking Status: Former smoker second hand exposure: No alcohol intake: current alcohol intake frequency: a few times a month Alcohol type: wine details: rarely substance use type: does not use what type of physical activity do you participate in: other frequency: 3-4 times per week morena/confucianism: Jewish seatbelt use: always EXAM Physical Exam Const Vital Signs: 07/16/24 20:06 07/16/24 20:16 07/16/24 20:16 Temperature 97 F L Temperature Source Temporal Pulse Rate 68 78 Respiratory Rate 18 Respiratory Effort Normal Non-Labored Respiratory Depth Normal Respiratory Pattern Normal Blood Pressure 153/84 H 148/78 H Blood Pressure Mean 107 101 Pulse Ox 98 96 Oxygen Delivery Method Room Air Room Air MDM MDM MDM Narrative Medical decision making narrative: 88-year-old female presents for evaluation after mechanical fall. Not on blood thinners. No LOC. Unsure if she hit her head. Not up-to-date on tetanus. She has a skin tear to the left forearm. Differential diagnosis includes but is not limited to closed head injury, intracranial bleed, cervical fracture, left upper extremity fracture, hip/pelvic fracture, contusions. Tylenol for pain. Skin tear does not need repaired. Will clean, apply bacitracin, and dress wound. Tdap updated. CT of the head and neck ordered given that patient does not know if she fell on these. X-rays of the left upper extremity and left hip ordered where it correlates with patient's pain on physical exam. All plain x-rays were reviewed and interpreted by myself, ED physician. No fracture or dislocation. CT head and cervical spine without any acute traumatic injury. Patient does have thyroid nodules that will need further workup outpatient with ultrasound. Patient ambulated in the emergency department without difficulty. Patient is stable to discharge home. Follow-up with primary care physician. Impression: 1. Mechanical fall 2. Left upper extremity contusion 3. Left hip contusion 4. Left forearm skin tear 5. Incidental thyroid nodules Radiography Diagnostic Testing: Clinical Impression(s) from Imaging Studies Brain CT 07/16/24 21:00 IMPRESSION: No acute abnormality. Chronic microvascular ischemic disease. Electronically Signed: aPtricia Barreto MD at 22:09 EST Reading Location ID and State: [employer] / [employer] Tel , Service support , Cervical Spine CT 07/16/24 21:00 IMPRESSION: No evidence of fracture or traumatic subluxation. Minimal anterolisthesis at C3-4 likely secondary to degenerative changes. Straightening of the normal curve may be due to positioning or muscle spasm. Thyroid nodules. Nonemergent thyroid ultrasound recommended. Electronically Signed: Patricia Barreto MD at 22:13 EST Reading Location ID and State: [employer] / [place] Tel , Service support , Elbow X-Ray 07/16/24 21:00 IMPRESSION: No evidence of fracture. Electronically Signed: Patricia Barreto MD at 22:26 EST Reading Location ID and State: [facility] / [employer] Tel , Service support , Forearm X-Ray 07/16/24 21:00 IMPRESSION: No evidence of fracture. Electronically Signed: Patricia Barreto MD at 22:28 EST Reading Location ID and State: [employer] / [place] Tel , Service support , Hip/Pelvis X-Ray 07/16/24 21:00 IMPRESSION: No evidence of fracture. Electronically Signed: Patricia Barreto MD at 22:31 EST , Shoulder X-Ray 07/16/24 21:00 IMPRESSION: No evidence of fracture. Electronically Signed: Patricia Barreto MD at 22:24 EST , Humerus X-Ray 07/16/24 21:30 IMPRESSION: No evidence of fracture. Electronically Signed: Patricia Barreto MD at 22:27 EST , Discharge Plan Triage Chief Complaint: Fall ED Provider: Selwyn Al Dx/Rx/DC Orders Clinical Impression: Fall, Contusion of hip, Contusion of arm, left Instructions: Bruises (Contusions), ED Skin Tear (Skin Avulsion), ED Fall Prevention Prescriptions: No Action multivitamin Tablet 1 tab PO DAILY psyllium husk 0.52 gram capsule 0.52 g PO DAILY losartan 100 mg tablet 100 mg PO DAILY Prolia 60 mg/mL syringe 60 mg SC [id number] flaxseed oil [[place]-3 Flaxseed Oil] 1,000 mg capsule 1,000 mg PO DAILY Rx Instructions: administer with a meal mirtazapine 7.5 mg tablet 7.5 mg PO QHS carbidopa-levodopa [Sinemet] 25-100 mg tablet 1 tab PO BID Qty: 60 7RF ferrous sulfate 325 mg (65 mg iron) tablet 325 mg PO QHS Qty: 30 7RF fludrocortisone 0.1 mg tablet See Rx Instructions PO .COMPLEX Qty: 10 7RF Rx Instructions: Take 1 tablet orally in the morning every Thursday and atorvastatin 20 MG tablet 20 mg PO DAILY Patient Comments: cholesterol lowering amlodipine 10 mg tablet 5 mg PO DAILY Patient Comments: blood presswure cholecalciferol (vitamin D3) 2,000 UNIT capsule 2,000 unit PO DAILY zinc amino acid chelate 50 MG tablet 50 mg PO DAILY pantoprazole 20 mg tablet,delayed release (DR/EC) 20 mg PO DAILY Patient Comments: TAKE 1 TABLET BY MOUTH DAILY ascorbic acid (vitamin C) [Vitamin C] 1,000 mg tablet 2 g PO TID acetaminophen 500 mg Tablet 1,000 mg PO Q8 Qty: 0 0RF ondansetron 4 mg Tablet,Disintegrating 4 mg PO Q8H PRN PRN (Reason: NAUSEA) 30 Days Qty: 90 0RF hydrocodone-acetaminophen 5-325 mg tablet 1 tab PO Q6H PRN PRN (Reason: Pain) 3 Days Qty: 10 0RF Primary Care Provider: Mono Ritter Referrals: Mono Ritter MD [Primary Care Provider] - 3-5 Days Activity Restrictions/Additional Instructions: Monitor for signs of infection of your skin tear. Okay for bacitracin and Neosporin as needed. Follow-up with primary care physician. You were found to have thyroid nodules. These will need to be worked up further outpatient with ultrasound. Follow-up with your primary care physician. Print Language: Taiwanese Disposition Disposition: Home, Self Care
[2024-07-16] MEDS: Diphth,Pertuss(Acell),Tet Vac 0.5 ML Vial IM (21:19)
--- NOTE | 2024-07-16 21:30 | RAD_ITS ---
INDICATION: Pain/Trauma EXAMINATION/TECHNIQUE: X-RAY - LEFT XR Humerus Min 2 Views 2 VIEWS COMPARISON: No relevant prior comparison study available FINDINGS: BONES: No fracture demonstrated. JOINTS: No dislocation. SOFT TISSUES: Unremarkable. RAD/Humerus min 2 Views IMPRESSION: No evidence of fracture. Electronically Signed: Patricia Barreto MD at 22:27 EST ,
== END 2024-07-16 23:14 | disposition home or self-care (01) ==
PROVIDERS: Emergency Provider Surgery; PCP Family Medicine; Visit Provider Surgery
DX: S51.802A Unspecified open wound of left forearm, initial encounter (principal); N18.30 Chronic kidney disease, stage 3 unspecified; E04.2 Nontoxic multinodular goiter; Z87.891 Personal history of nicotine dependence; M25.512 Pain in left shoulder; M79.602 Pain in left arm; S70.02XA Contusion of left hip, initial encounter; E78.5 Hyperlipidemia, unspecified; I12.9 Hypertensive chronic kidney disease with stage 1 through stage 4 chronic kidney disease, or unspecified chronic kidney disease; W01.0XXA Fall on same level from slipping, tripping and stumbling without subsequent striking against object, initial encounter; S50.12XA Contusion of left forearm, initial encounter
CPT/HCPCS: 70450; 72125; 73030; 73060; 73080; 73090; 73502; 90715; 99283

== ENCOUNTER → 2024-07-22 | Outpatient (CLI) | payer MEDICARE, OTHER, SELFPAY ==
--- NOTE | 2024-07-22 15:06 | US_ITS ---
EXAM: US SOFT TISSUES HEAD AND NECK, THYROID CLINICAL INDICATION: tyroid nodules TECHNIQUE: Greyscale and color doppler imaging was performed of the thyroid gland. COMPARISON: No relevant prior studies available. FINDINGS: LEFT THYROID LOBE: The left thyroid lobe measures 5.1 x 1.6 x 1.6 cm. Within the left thyroid lobe, there are multiple cystic and spongiform nodules, the largest measuring 1.6 cm. TI-RADS points: 0. TI-RADS category: TR1. These nodules are benign and no FNA or follow-up is necessary. Within the left thyroid lobe, there is an 8 mm nodule. This nodule is solid or almost completely solid, hyperechoic or isoechoic, [id number], smoothly marginated and contains no echogenic foci. TI-RADS points: 3. TI-RADS category: TR3. This nodule is mildly suspicious but no FNA or follow-up is necessary given the small size of this nodule. Within the left thyroid lobe, there is a 0.9 cm nodule. This nodule is solid or almost completely solid, hyperechoic or isoechoic, [id number], smoothly marginated and contains no echogenic foci. TI-RADS points: 3. TI-RADS category: TR3. This nodule is mildly suspicious but no FNA or follow-up is necessary given the small size of this nodule. Within the left thyroid lobe, there is a 2.2 cm nodule. This nodule is solid or almost completely solid, hyperechoic or isoechoic, [id number], ill-defined and contains no echogenic foci. TI-RADS points: 3. TI-RADS category: TR3. This nodule is mildly suspicious. Recommend follow-up thyroid ultrasounds at 1, 3 and 5 years. RIGHT THYROID LOBE: The right thyroid lobe measures 4.7 x 1.4 x 1.6 cm. Within the right thyroid lobe, there are multiple spongiform nodules and/or cysts, the largest measuring 9 mm. TI-RADS points: 0. TI-RADS category: TR1. These nodules are benign and no FNA or follow-up is necessary. Homogeneous echotexture with normal vascularity. ISTHMUS: The thyroid isthmus measures 2 cm. No thyroid nodules are present. US/Thyroid IMPRESSION: No FNA is indicated. Recommend follow-up thyroid ultrasounds at 1, 3, and 5 years as described above. Electronically Signed: Jose José DO at 0:07 EST ,
== END | disposition home or self-care (01) ==
LOC: US 15:03
PROVIDERS: PCP Family Medicine; Referring Provider Family Medicine; Visit Provider Family Medicine
DX: E04.2 Nontoxic multinodular goiter (principal)
CPT/HCPCS: 76536

== ENCOUNTER → 2024-11-01 | Outpatient (CLI) | payer MEDICARE, OTHER, SELFPAY ==
[2024-11-01 18:24] LABS: Hematocrit 37.1 % (37-47); Hemoglobin 12.3 g/dL (12.0-15.0); Mean Corp Hgb Conc 33.2 g/dL (32-36); Mean Corpuscular Hgb 29.9 pg (27.0-32.0); Mean Corpuscular Volume 90.3 fL (81-99); Mean Platelet Vol. 10.6 fl (6.2-12.0); Platelet Count 217 K/mm3 (150-450); RBC Distribution Width CV 12.7 % (11.6-14.6); RBC Distribution Width SD 41.1 fl (35.1-43.9); Red Blood Count 4.11 M/mm3 (4.2-5.4); White Blood Count 8.7 K/mm3 (4.4-11.0)
== END | disposition home or self-care (01) ==
LOC: MTLAB 15:22
PROVIDERS: PCP Family Medicine; Referring Provider Psychiatry & Neurology Neurology; Visit Provider Psychiatry & Neurology Neurology
DX: Z86.2 Personal history of diseases of the blood and blood-forming organs and certain disorders involving the immune mechanism (principal)
CPT/HCPCS: 36415; 85027

== ENCOUNTER → 2024-12-26 | Outpatient (CLI) | payer MEDICARE, OTHER, SELFPAY ==
[2024-12-26 18:05] LABS: Hematocrit 37.9 % (37-47); Hemoglobin 12.3 g/dL (12.0-15.0); Mean Corp Hgb Conc 32.5 g/dL (32-36); Mean Corpuscular Hgb 30.1 pg (27.0-32.0); Mean Corpuscular Volume 92.9 fL (81-99); Mean Platelet Vol. 10.7 fl (6.2-12.0); Platelet Count 163 K/mm3 (150-450); RBC Distribution Width CV 13.2 % (11.6-14.6); RBC Distribution Width SD 45.1 fl (35.1-43.9); Red Blood Count 4.08 M/mm3 (4.2-5.4); White Blood Count 6.8 K/mm3 (4.4-11.0)
[2024-12-28 13:08] LABS: Lyme Scn Total Ab w/Rflx Negative (Negative)
== END | disposition home or self-care (01) ==
LOC: MFPLAB 15:15
PROVIDERS: PCP Family Medicine; Referring Provider Family Medicine; Visit Provider Family Medicine
DX: R53.83 Other fatigue (principal)
CPT/HCPCS: 36415; 84439; 84443; 85027; 86618

== ENCOUNTER → 2024-12-28 | Outpatient (CLI) | payer MEDICARE, OTHER, SELFPAY ==
--- NOTE | 2024-12-28 15:15 | BD_ITS ---
PROCEDURE: DEXA BONE DENSITY STUDY N/A REASON FOR EXAM: F, age 89 y/o . Postmenopausal. TECHNIQUE: DXA scan of sites with data reported below. REFERENCE LINKS: [facility] Position[facility] COMPARISON: Prior study dated December 26, 2021. FINDINGS: BMD and T-SCORES Lumbar spine: 1.261 g/cm2, T-score 1.5 Levels: L1 through L4 Change from prior: Improvement by 7.6%. Left femoral neck: 0.568 g/cm2, T-score -2.5 Femoral neck comparison data not recommended for monitoring change. Left total hip: 0.717 g/cm2, T-score -1.8 Change from prior: Improved by 4.2%. Right femoral neck: 0.623 g/cm2, T-score -2.0 Femoral neck comparison data not recommended for monitoring change. Right total hip: 0.691 g/cm2, T-score -2.1 Change from prior: Improvement by 1.1%. The World Health Organization has defined the following categories based on bone density: Normal bone density: T-score equal to or greater than -1.0 Osteopenia: T-score between -1.0 and -2.5 Osteoporosis: T-score equal to or less than -2.5 The patient does meet the pharmacological treatment recommendations for prevention of osteoporosis. BD/Dexa Bone Density Study IMPRESSION: OSTEOPOROSIS. Recommend follow-up as clinically warranted. Reading Location: [id number]
== END | disposition home or self-care (01) ==
LOC: OPBD 14:56
PROVIDERS: PCP Family Medicine; Referring Provider Family Medicine; Visit Provider Family Medicine
DX: N95.9 Unspecified menopausal and perimenopausal disorder (principal); M81.0 Age-related osteoporosis without current pathological fracture
CPT/HCPCS: 77080

== ENCOUNTER → 2025-06-20 | Outpatient (CLI) | payer MEDICARE, OTHER, SELFPAY ==
[2025-06-20 17:38] LABS: Hematocrit 37.2 % (37-47); Hemoglobin 12.4 g/dL (12.0-15.0); Mean Corp Hgb Conc 33.3 g/dL (32-36); Mean Corpuscular Volume 90.7 fL (81-99); Mean Platelet Vol. 11.3 fl (6.2-12.0); Platelet Count 164 K/mm3 (150-450); RBC Distribution Width CV 12.4 % (11.6-14.6); RBC Distribution Width SD 41.5 fl (35.1-43.9); Red Blood Count 4.10 M/mm3 (4.2-5.4); White Blood Count 7.1 K/mm3 (4.4-11.0)
[2025-06-20 18:23] LABS: AST(SGOT) 24 U/L (<=31); Alanine Aminotransfer ALT/SGPT 9 U/L (<=34); Albumin, Serum 4.1 g/dL (3.4-4.8); Alkaline Phosphatase 40 U/L (35-104); Anion Gap 10 (5-15); BUN 25 mg/dL (4-19); BUN/Creat Ratio 21.5 RATIO (10-20); Calcium,Total 9.3 mg/dL (7.6-11.0); Carbon Dioxide 24.6 mmol/L (21.0-32.0); Chloride 103 mmol/L (98-108); Globulin 2.2 g/dL (2.2-4.2); Glucose 94 mg/dL (70-99); Magnesium 2.5 mg/dL (1.5-2.2); Potassium 4.4 mmol/L (3.3-5.1)
== END | disposition home or self-care (01) ==
LOC: MTLAB 15:53
PROVIDERS: PCP Family Medicine; Referring Provider Psychiatry & Neurology Neurology; Visit Provider Psychiatry & Neurology Neurology
DX: G20.A1 Parkinson's disease without dyskinesia, without mention of fluctuations (principal); I10 Essential (primary) hypertension
CPT/HCPCS: 36415; 80053; 83735; 85027